=== PATIENT | male | born 1960 | race African-American/Black ===

== ENCOUNTER 2020-06-28 09:35 | Outpatient (CLI) | payer MEDICARE, MEDICAID, SELFPAY ==
--- NOTE | 2020-06-28 | XR_ITS ---
WS: [id number] RIGHT FEMUR: 1 VIEW(S) TECHNIQUE: Only an AP view has been submitted. HISTORY: LOWER EXTREMITY PAIN COMPARISON: None available. On this single view no definite fracture is identified. No soft tissue abnormality. Soft tissues are unremarkable. No foreign body or calcification. XR/XR femur RT 1V 25720 Impression: Negative AP femur.
--- NOTE | 2020-06-28 | XR_ITS ---
WS: [id number] RIGHT TIBIA-FIBULA 1 VIEWS HISTORY: LOWER EXT PAIN COMPARISON: None available. Only a single oblique view of the tib-fib has been submitted. Neither joint has been included. No abn ormality. XR/XR tibia fibula RT 2V [id number] IMPRESSION: No abnormality single radiograph RIGHT tibia-fibula.
--- NOTE | 2020-06-28 | XR_ITS ---
WS: [id number] PELVIS: AP VIEW SUBMITTED HISTORY: LOWER EXTREMITY PAIN RIGHT COMPARISON: None available. Bones and soft tissues of the pelvis are intact. No fracture or dislocation. XR/XR pelvis 1-2V* [id number] IMPRESSION: Negative pelvis.
== END 2020-06-28 09:36 | disposition home or self-care (01) ==
PROVIDERS: PCP Family Medicine; Visit Provider Nurse Practitioner
DX: M79.604 Pain in right leg (principal)

== ENCOUNTER → 2021-04-30 07:30 | Outpatient (BNVA) | payer MEDICARE, MEDICAID, SELFPAY | PROVIDERS: PCP Family Medicine; Visit Provider Psychiatry & Neurology Psychiatry | DX: F84.0 Autistic disorder (principal) | CPT/HCPCS: 99213 ==

== ENCOUNTER → 2021-10-22 09:59 | Outpatient (BNVA) | payer MEDICARE, MEDICAID, SELFPAY | PROVIDERS: PCP Family Medicine; Visit Provider Psychiatry & Neurology Psychiatry | DX: F84.0 Autistic disorder (principal); G25.89 Other specified extrapyramidal and movement disorders; T50.905A Adverse effect of unspecified drugs, medicaments and biological substances, initial encounter | CPT/HCPCS: 99214 ==

== ENCOUNTER 2022-03-10 12:42 | Emergency (ER) | payer MEDICARE, MEDICAID, SELFPAY ==
[2022-03-10 12:47] VITALS: BP 122/76; PULSE 50; RESP 18; TEMP 36.8; O2SAT 99; BMI 26.7
--- NOTE | 2022-03-10 12:47 | W.ED.GENADLT ---
HPI - General Adult General: Chief complaint: Seizure Stated complaint: SEIZURE Time Seen by Provider: 03/10/22 12:44 History of Present Illness: Patient is a 61-year-old male with a history of nonverbal at baseline seizures currently on valproic acid presenting to the emergency room for concerns of breakthrough seizure from a [facility]. For nursing staff, patient was observed to be altered briefly about an hour ago. Since then, patient rolled his eyes backwards and became limp. Was observed by staff lasting for 1 to 2 minutes before patient resumed and back to baseline. Staff has not seen this behavior for the patient. It is unclear with patient's prior seizure presentations are. Staff denied any fall or injury. Patient did not had any generalized tonic-clonic shaking or tongue biting or incontinence. No other complaints per staff at this time. Staff denies cough, fever, ear tugging, diarrhea, excessive urination, or abdominal pain. Patient has been compliant with his 100 mg of valproic acid twice daily. He is not currently followed by neurology. Onset: 1 hr ago Duration:once for 1-2 minutes Location:home Severity:[facility] Associated symptoms: Deny chest pain, dyspnea, nausea, rash, palpitations or vomiting Review of Systems Const: Denies: fever(s) or chills Eyes: Denies: change in vision ENMT: Denies: mouth pain Card: Denies: chest pain or palpitations Resp: Denies: dyspnea or non-productive cough GI: Denies: abdominal pain, nausea, vomiting or diarrhea : Denies: dysuria Musc: Denies: extremity pain Skin/Breast: Denies: rash or new lesions Neuro: Reports: other (+sudden eye rolling and limpness); Denies: weakness in extremities Psych: Reports: other (Normal mood) Victoriano/Lymph: Denies: easy bruising PFSH ED PFSH: Medical History (Updated 03/10/22 @ 12:54 by Silverio Levy MD) Autism Psychiatric care Social History (Updated 03/10/22 @ 12:57 by Silverio Levy MD) Smoking and tobacco status: never smoked Alcohol intake: never Physical Exam Const: COMMON NORMALS: alert HENMT: COMMON NORMALS: atraumatic HEAD & SCALP: atraumatic MOUTH: moist mucous membranes not abnormal Eye: COMMON NORMALS: EOMs intact bilaterally and conjunctivae normal CONJUNCTIVA: Yes conjunctivae normal Neck/C-Spine: COMMON NORMALS: full ROM and supple Resp: COMMON NORMALS: normal respiratory effort and clear to auscultation bilaterally AUSCULTATION: clear to auscultation bilaterally Cardio: COMMON NORMALS: regular rate RATE: regular rate GI: COMMON NORMALS: Soft to palpation and non-tender PALPATION: Yes Soft to palpation Extremity: COMMON NORMALS: full ROM Neuro: SENSORIUM/ORIENTATION: Yes alert OTHER: + Exam limited given the fact the patient is nonverbal. Patient is able to follow commands in the left all extremities, rest of neuro exam limited by baseline cognitive status. Psych: OTHER: +unable to assess given baseline cognitive status Course Vital Signs: Vital signs: Vital Signs Temperature 98.2 F 03/10/22 12:47 Pulse Rate 62 03/10/22 15:57 Respiratory Rate 16 03/10/22 15:57 Blood Pressure 133/76 03/10/22 15:57 Pulse Oximetry 97 03/10/22 15:57 MDM - General Adult Medical Decision Making 61-year-old male with history of autism, nonverbal at baseline, seizures on valproic acid 100 mg twice daily presenting to the emergency room concerns of breakthrough seizures. Patient episode of observed limpness with eye rolling about an hour ago. On exam, patient is back to baseline per transportation attendant. Exam is limited by cognitive status at baseline. Fingerstick and lab work within normal limit. Patient received 1 g of Keppra and [address] head negative for any acute finding. Given the limpness and eye rolling, this is concerning for possible breakthrough seizure in the setting of medication compliance. I have given patient follow up with our returned case inspector to be seen by our outpatient Neurology for evaluation of breakthrough seizures. Caregiver Maurice from [facility] aware of a call from our returned case inspector to schedule for appointment(s) and verbalizes understanding of the importance of following up. Valproic acid appears to be above therapeutic level. This may be the cause of patient's seizure. Discussed case with Maurice and instructed him to have patient follow-up with patient's neurologist for further management of of supratherapeutic valproic acid level. In the meantime, will start patient on Keppra 500 mg twice daily to prevent seizure while the valproic acid level gets adjusted. Rx keppra 500mg BID x 14 days Disposition: Discharge. Caregiver Maurice counseled regarding diagnostic impression, treatment plan. Caregiver given ED strict return precautions to return for continuation, worsening, or development of new symptoms. Instructed to f/u w/ PCP and Neurology regarding symptoms today. Caregiver verbalized understanding. Lab Data : 03/10/22 13:49 03/10/22 13:[address] 03/10/22 12:55 IMPRESSION: 1. No acute intracranial hemorrhage or edema. 2. Mild atrophy and chronic ischemic disease. Study is compromised and limited by persistent motion. Laboratory Results WBC 3.8 10^3/uL (4.0-10.0) L 03/10/22 13:49 RBC 3.69 10^6/uL (4.1-5.3) L 03/10/22 13:49 Hgb 11.5 g/dL (11.7-16.6) L 03/10/22 13:49 Hct 35.4 % (42.0-52.0) L 03/10/22 13:49 MCV 95.9 fl (80-94) H 03/10/22 13:49 MCH 31.2 pg (28.0-34.0) 03/10/22 13:49 MCHC 32.5 g/dL (30.0-36.0) 03/10/22 13:49 RDW 17.2 % (12.1-15.1) H 03/10/22 13:49 Plt Count 163 10^3/cmm (130-400) 03/10/22 13:49 MPV 11.4 fL (7.4-10.4) H 03/10/22 13:49 Neut % (Auto) 38.6 % 03/10/22 13:49 Lymph % (Auto) 42.0 % 03/10/22 13:49 [place] % (Auto) 14.7 % 03/10/22 13:49 Eos % (Auto) 0.5 % 03/10/22 13:49 Baso % (Auto) 0.5 % 03/10/22 13:49 Neut # (Auto) 1.47 10^3/uL (1.8-7.7) L 03/10/22 13:49 Lymph # (Auto) 1.6 10^3/uL (0.8-4.8) 03/10/22 13:49 [place] # (Auto) 0.6 10^3/uL (0.2-0.9) 03/10/22 13:49 Eos # (Auto) 0.0 10^3/uL (0.0-0.8) 03/10/22 13:49 Baso # (Auto) 0.0 10^3/uL (0.0-0.1) 03/10/22 13:49 Nucleated RBC % (auto) 0.8 % 03/10/22 13:49 Nucleated RBCs # 0.0 /100WBC 03/10/22 13:49 Sodium 137 mmol/L (136-145) 03/10/22 13:49 Potassium 5.4 mmol/L (3.5-5.1) H 03/10/22 13:49 Chloride 101 mmol/L (98-107) 03/10/22 13:49 Carbon Dioxide 30 mmol/L (22-29) H 03/10/22 13:49 Anion Gap 11.4 (5-19) 03/10/22 13:49 BUN 13 mg/dL (6-20) 03/10/22 13:49 Creatinine 1.2 mg/dL (0.7-1.2) 03/10/22 13:49 GFR Calculation 75.0 mL/min (90-130) L 03/10/22 13:49 Glucose 83 mg/dL (65-115) 03/10/22 13:49 Calculated Osmolality 283 mOsm/kg (285-295) L 03/10/22 13:49 Calcium 10.0 mg/dL (8.5-10.5) 03/10/22 13:49 Total Bilirubin 0.3 mg/dL (0.15-1.2) 03/10/22 13:49 AST 26 U/L (0-40) 03/10/22 13:49 ALT 18 U/L (0-41) 03/10/22 13:49 Alkaline Phosphatase 73 IU/L (40-130) 03/10/22 13:49 Total Protein 7.5 g/dL (6.6-8.7) 03/10/22 13:49 Albumin 3.7 g/dL (3.5-5.2) 03/10/22 13:49 Globulin 3.8 g/dL (1.3-4.6) 03/10/22 13:49 Lipase 35 U/L (13-60) 03/10/22 13:49 Urine Color Straw (Yellow) 03/10/22 15:06 Urine Appearance Clear (CLEAR) 03/10/22 15:06 Urine pH 8 (5-7) H 03/10/22 15:06 Ur Specific [place] 1.010 (1.005-1.030) 03/10/22 15:06 Urine Protein Neg (Negative) 03/10/22 15:06 Urine Glucose (UA) Norm (Normal) 03/10/22 15:06 Urine Ketones Negative (Negative) 03/10/22 15:06 Urine Blood Neg (Negative) 03/10/22 15:06 Urine Nitrate Negative (Negative) 03/10/22 15:06 Urine Bilirubin Neg (Negative) 03/10/22 15:06 Prot Sulfosalicylic Acd Negative (Negative) 03/10/22 15:06 Urine Urobilinogen Norm mg/dL (Negative) 03/10/22 15:06 Ur Leukocyte Esterase Negative (Negative) 03/10/22 15:06 Valproic Acid 107.2 ug/mL (50-100) H 03/10/22 13:49 Imaging Data Other Imaging: Radiologist's impression: [place] [address] CT Scan Report Signed Patient: Salazar Hilario Unit #: [id number] : 1960 Age/Sex: 61 / M ADM Date: 03/10/22 Loc: ER Room/Bed: Attending Dr: Ordering Provider/Ordering MD: Silverio Levy MD Date of Service: 03/10/22 Procedure(s): CT head wo con* [id number] Accession Number(s): [id number] Report Number: [id number] WS: [id number] CT HEAD NONCONTRAST HISTORY: seizure? ams? TECHNIQUE: Contiguous axial imaging performed through the brain in 2.5 mm imaging. Bone and soft tissue windows. Sagittal and coronal reformats reviewed.? All CT scans at [facility] use at least one of these dose optimization techniques: automated exposure control; mA and/or kV adjustment per patient size (includes targeted exams where dose is matched to clinical indication); or iterative reconstruction. DLP: 2383.16 mGy.cm COMPARISON: 09/11/2019 No acute intracranial hemorrhage, midline shift or mass effect. Mild atrophy and chronic ischemic disease. Taking into consideration the amount of motion and repeat imaging there is no evidence for significant hemorrhage. No mass effect. No intraventricular blood. Ventricles:? Normal size with no hydrocephalus. Paranasal sinuses: As visualized are clear. Mastoid air cells: Increased soft tissue in the external auditory canals is likely cerumen. Mild progression since the prior study. Calvarium and scalp: Hyperostosis frontalis interna. Motion artifact. CT/CT head wo con* [id number] IMPRESSION: ? 1.? No acute intracranial hemorrhage or edema. 2.? Mild atrophy and chronic ischemic disease. Study is compromised and limited by persistent motion. ? Dictated By: Adina Moreno DO Signed By: Adina Moreno DO Signed Date/Time: 03/10/221327 DD/ 21 Discharge Plan Discharge Patient Disposition: Home Clinical Impression: Seizure, Behavioral change Condition: Stable Prescriptions: New Keppra 500 mg tablet 500 mg PO BID 14 Days Qty: 28 0RF No Action lorazepam [Ativan] 2 mg tablet 2 mg PO Q8H PRN (Reason: agitation) Qty: 90 5RF Lipitor 40 mg Tablet 40 mg PO BEDTIME@20 0RF Tylenol 325 mg Tablet 325 mg PO Q6H PRN (Reason: Pain) 0RF loperamide 2 mg Tablet See Rx Instructions .ROUTE .COMPLEX 0RF Rx Instructions: 4mg po with each loose stool *max 8 tabs per day* triamcinolone acetonide 0.1 % Cream 1 applic TOPICAL BID PRN (Reason: fungal infection) 0RF calcium carbonate 600 mg calcium (1,500 mg) Tablet 600 mg PO BEDTIME@20 0RF Pepcid 20 mg Tablet 20 mg PO BEDTIME@20 0RF meclizine 25 mg Tablet 25 mg PO DAILY PRN (Reason: Motion Sickness) 0RF nystatin 100,000 unit/gram Cream See Rx Instructions .ROUTE .COMPLEX 0RF Rx Instructions: apply topically to areas on toes and feet as needed metoprolol tartrate 50 mg Tablet 50 mg PO DAILY@08 0RF Colace 100 mg Capsule 100 mg PO DAILY@08 0RF Lasix 20 mg Tablet 10 mg PO DAILY@08 0RF Miralax 17 gram/dose Powder 17 g PO DAILY@12 0RF levothyroxine 112 mcg Tablet 112 mcg PO DAILY@08 0RF chlorpromazine 100 mg tablet 100 mg PO TID@08,16,20 0RF Ritalin 20 mg tablet 20 mg PO TID@08,12,20 0RF Klonopin 2 mg tablet 2 mg PO DAILY@20 0RF benztropine 1 mg tablet 1 mg PO BID@08,20 0RF Depakote Sprinkles 125 mg capsule, delayed rel sprinkle 1,000 mg PO BID@08,21 0RF Discharge Orders: Discharge ED (Routine); Ordered 03/10/22 Ordered By: Silverio Levy Referrals: [facility], [Staff Physician] - Brittany Bahena MD [Primary Care Provider] - Discharge Diet: Advance as tolerated Discharge Activity: Increase activity as tolerated Patient Instructions: Seizures Activity Restrictions/Additional Instructions: Please come back to the emergency room for any more breakthrough episodes of seizure. Come back if any weakness in her arms, drooling, difficulty speaking, any neurological symptoms. Please do not swim bathe or drive a vehicle unattended. Our returned case inspector will have you follow-up with Dr. Falcon in the next few days. You would be expected to have a phone call with our returned case inspector who will put you on the schedule. You can expect a call from us in the next 2-3 days. If you don't hear from us, call us back in the emergency room at [phone]. Coding Level of Care Code ED [employer] Pit Worker for Nicholas Fwjethro Exam Comprehensive
--- NOTE | 2022-03-10 12:55 | CT_ITS ---
WS: [id number] CT HEAD NONCONTRAST HISTORY: seizure? ams? TECHNIQUE: Contiguous axial imaging performed through the brain in 2.5 mm imaging. Bone and soft tiss ue windows. Sagittal and coronal reformats reviewed. All CT scans at [facility] use at least one of these dose optimization techniques: automated exposure control; mA and/or kV adjustment per pa tient size (includes targeted exams where dose is matched to clinical indication); or iterative recon struction. DLP: 2383.16 mGy.cm COMPARISON: 09/11/2019 No acute intracranial hemorrhage, midline shift or mass effect. Mild atrophy and chronic ischemic disease. Taking into consideration the amount of motion and repeat imaging there is no evidence for significant hemorrhage. No mass effect. No intraventricular blood. Ventricles: Normal size with no hydrocephalus. Paranasal sinuses: As visualized are clear. Mastoid air cells: Increased soft tissue in the external auditory canals is likely cerumen. Mild progression since the p rior study. Calvarium and scalp: Hyperostosis frontalis interna. Motion artifact. CT/CT head wo con* [id number] IMPRESSION: 1. No acute intracranial hemorrhage or edema. 2. Mild atrophy and chronic ischemic disease. Study is compromised and limited by persistent motion.
[2022-03-10 13:38] VITALS: BP 118/77; PULSE 52; RESP 14; O2SAT 99
[2022-03-10] MEDS: sodium chloride 0.9% 1,000 ML 999 ML IV (13:42)
[2022-03-10 14:04] LABS: Basophils % 0.5 %; Eosinophils % 0.5 %; Hematocrit 35.4 % (42.0-52.0); Hemoglobin 11.5 g/dL (11.7-16.6); Lymphocytes # 1.6 10^3/uL (0.8-4.8); Mean Corpuscular HGB Conc 32.5 g/dL (30.0-36.0); Mean Corpuscular Hemoglobin 31.2 pg (28.0-34.0); Mean Corpuscular Volume 95.9 fl (80-94); Mean Platelet Volume 11.4 fL (7.4-10.4); Monocytes # 0.6 10^3/uL (0.2-0.9); Monocytes % 14.7 %; Neutrophils # 1.47 10^3/uL (1.8-7.7); Neutrophils % 38.6 %; Nucleated Red Blood Cells % 0.8 %; Platelet Count 163 10^3/cmm (130-400); Red Blood Count 3.69 10^6/uL (4.1-5.3); Red Cell Distribution Width 17.2 % (12.1-15.1); White Blood Count 3.8 10^3/uL (4.0-10.0)
[2022-03-10 14:37] LABS: Valproic Acid Level 107.2 ug/mL (50-100)
[2022-03-10 14:38] LABS: Alanine Aminotransferase 18 U/L (0-41); Albumin Level 3.7 g/dL (3.5-5.2); Alkaline Phosphatase 73 IU/L (40-130); Blood Urea Nitrogen 13 mg/dL (6-20); Carbon Dioxide 30 mmol/L (22-29); Chloride 101 mmol/L (98-107); Globulin 3.8 g/dL (1.3-4.6); Glucose 83 mg/dL (65-115); Lipase 35 U/L (13-60); Osmolality Calculated 283 mOsm/kg (285-295); Sodium 137 mmol/L (136-145); Total Bilirubin 0.3 mg/dL (0.15-1.2); Total Protein 7.5 g/dL (6.6-8.7)
[2022-03-10 15:06] VITALS: BP 140/55; PULSE 49; RESP 16; O2SAT 98
[2022-03-10 15:10] LABS: Anion Gap 11.4 (5-19); Aspartate Amino Transferase 26 U/L (0-40); Potassium 5.4 mmol/L (3.5-5.1)
[2022-03-10 15:13] LABS: Add Urine Microscopic? NO; Charge for UA Resulting for Rev
[2022-03-10 15:22] LABS: Urine Appearance Clear (CLEAR); Urine Color Straw (Yellow); pH Urine 8 (5-7)
[2022-03-10 15:23] LABS: Bilirubin Urine Neg (Negative); Blood Urine Neg (Negative); Glucose Urine UA Norm (Normal); Ketones Urine Negative (Negative); Leukocyte Esterase Urine Negative (Negative); Nitrate Urine Negative (Negative); Protein Urine Neg (Negative); Sulfosalicylic Acid Urine Negative (Negative); Urobilinogen Urine Norm (Negative)
[2022-03-10 15:57] VITALS: BP 133/76; PULSE 62; RESP 16; O2SAT 97
--- NOTE | 2022-03-11 15:30 | DCPLANNER ---
Addendum entered by Elaine Cody 03/25/22 22:18: Patient had a follow up appointment scheduled for 03.19.22 with neurology - patient did attend appointment. Addendum entered by Elaine Cody 03/19/22 08:41: Patient has a follow up appointment with Jose Luis Rossi at neurology. Clinic will call patient with appointment information. Original Note: chiropractic practice manager had message to schedule a follow up appointment for patient with neurology. chiropractic practice manager sent patients information to the front staff at neurology for review. Patients information will be printed and reviewed. Clinic will call patient with appointment information.
== END 2022-03-10 15:59 | disposition home or self-care (01) ==
PROVIDERS: Emergency Provider Emergency Medicine; PCP Family Medicine
DX: R56.9 Unspecified convulsions (principal); F84.0 Autistic disorder; Z79.899 Other long term (current) drug therapy
CPT/HCPCS: 70450; 80053; 80164; 81003; 83690; 85025; 96361; 96374; 99284; J1953; J7030

== ENCOUNTER → 2022-03-19 11:06 | Outpatient (BNVA) | payer MEDICARE, MEDICAID, SELFPAY | PROVIDERS: PCP Family Medicine; Visit Provider Nurse Practitioner | DX: G40.909 Epilepsy, unspecified, not intractable, without status epilepticus (principal) | CPT/HCPCS: 99203; 99204 ==

== ENCOUNTER → 2022-04-15 09:53 | Outpatient (BNVA) | payer MEDICARE, MEDICAID, SELFPAY | PROVIDERS: PCP Family Medicine; Visit Provider Psychiatry & Neurology Psychiatry | DX: F84.0 Autistic disorder (principal); G25.89 Other specified extrapyramidal and movement disorders; T50.905A Adverse effect of unspecified drugs, medicaments and biological substances, initial encounter; G40.909 Epilepsy, unspecified, not intractable, without status epilepticus | CPT/HCPCS: 99213 ==

== ENCOUNTER 2022-08-11 10:24 | Inpatient (IN) | payer MEDICARE, MEDICAID, SELFPAY ==
[2022-08-11] VITALS (14 sets, daily range): BP systolic 118–148; BP diastolic 66–92; PULSE 43–49; RESP 9–18; TEMP 35.8–36.7; O2SAT 97–98; BMI 24.4
--- NOTE | 2022-08-11 10:41 | ECG_ITS ---
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 Measurements Intervals [place] Rate: 43 P: 60 ND: 154 QRS: 39 QRSD: 106 T: 28 QT: 514 QTc: 438 Interpretive Statements SINUS BRADYCARDIA NONSPECIFIC ST & T-WAVE ABNORMALITY PROLONGED QT INTERVAL Compared to ECG 07/16/2019 21:47:42 T-wave abnormality now present Prolonged QT interval now present Sinus tachycardia no longer present Short ND interval no longer present ST (T wave) deviation no longer present Electronically Signed On 08-11-2022 18:09:26 CDT by Han Lazaro M.D. [email or web address]
--- NOTE | 2022-08-11 10:43 | W.ED.ARRPALP ---
HPI - Arrhythmia/Palpitations General: Chief Complaint: Arrhythmia/Palpitations Stated Complaint: LETHARGIC/ LOW HEART RATE Time Seen by Provider: 08/11/22 10:41 Source: EMS Mode of arrival: EMS Limitations: no limitations History of Present Illness: 62-year-old male presents emergency room with altered mental status lethargy and bradycardia. Patient has severe developmental disability and is nonverbal. Evidently last several days he has been less interactive normally he is able to interact and ambulate he does require a fair amount of redirection. He is significantly bradycardic at 46 however his blood pressure is adequate. EMS gave 2 mg of atropine in route as well as 800 mL of LR. His blood pressure is adequate but he remains bradycardic. He appears to be otherwise relatively asymptomatic caregiver provides a little history. Report from the caregivers that for last 2 days he has been lethargic with decreased urinary output and less interactive and responsive than his normal baseline there is no other known fever he has not been coughing no vomiting or diarrhea. Onset (ago): day(s) (2) Duration: constant Severity: severe Associated symptoms: Deny cough, paresthesias or vomiting Review of Systems General: Reports: Other (Limited review of systems via EMS and staff due to patient's nonverbal stat) Const: Denies: fever(s), chills, fatigue or malaise ENMT: Denies: nasal discharge or nasal congestion Card: Denies: chest pain or edema Resp: Denies: dyspnea or productive cough GI: Denies: abdominal pain, vomiting or diarrhea Skin/Breast: Denies: rash [facility] ED PFSH: Medical History (Updated 08/11/22 @ 16:23 by Ryder Reed DO) Anemia Autism Developmental disorder Epilepsy Extrapyramidal movement disorder, drug-induced Hyperlipidemia Hypertension Hypothyroidism Neutropenia Follow-up with Dr. Reyes last seen in 2016. Suspicion of myelodysplasia at that time. Psychiatric care Social History Smoking and tobacco status: never smoked Alcohol intake: never Physical Exam Const: ORIENTATION/CONSCIOUSNESS: Yes awake HENMT: COMMON NORMALS: normocephalic, atraumatic and hearing grossly normal bilaterally HEAD & SCALP: normocephalic and atraumatic Resp: COMMON NORMALS: normal respiratory effort, No retractions, No use of accessory muscles and clear to auscultation bilaterally AUSCULTATION: clear to auscultation bilaterally Cardio: COMMON NORMALS: regular rate, regular rhythm and No murmurs present (Cardio) RATE: regular rate RHYTHM: regular rhythm GI: COMMON NORMALS: Soft to palpation and No hepatosplenomegaly present AUSCULTATION: Yes normoactive bowel sounds PALPATION: Yes Soft to palpation, No Tenderness to palpation present (GI), No Guarding due to palpation present (GI) and Yes No hepatosplenomegaly present Extremity: COMMON NORMALS: normal to inspection, capillary refill normal, no clubbing, cyanosis or edema, no calf tenderness and no pedal edema Skin: COMMON NORMALS: no rashes or lesions noted GENERAL SKIN EXAM: no rashes or lesions noted Course Vital Signs: Vital signs: Vital Signs Temperature 96.4 F L 08/11/22 10:28 Pulse Rate 43 L 08/11/22 11:09 Respiratory Rate 12 08/11/22 11:09 Blood Pressure 139/85 08/11/22 11:09 Pulse Oximetry 98 08/11/22 10:28 Oxygen Delivery Me thod 08/11/22 10:28 MDM - Arrhythmia/Palpitations Medical Decision Making Patient is severely bradycardic but is on Toprol his altered mental status. Work-up so far negative he does have pancytopenia has been worked up previously by oncology to 32-year-old for myelodysplasia. Bone marrow was not diagnostic. Will admit supportive cares hold Toprol discussed with hospitalist orders written Medical Records I reviewed the patient's medical records. Lab Data I reviewed the patient's lab results. : 08/11/22 09:30 08/11/22 09:30 Radiology Impressions Chest X-Ray 08/11/22 11:48 IMPRESSION: Stable chest without acute abnormality. Head CT 08/11/22 14:48 IMPRESSION: 1. No acute intracranial hemorrhage or edema. 2. Atrophy and small vessel ischemic disease. No interval change since 03/10/2022. Laboratory Results WBC 2.4 10^3/uL (4.0-10.0) L 08/11/22 09:30 RBC 3.40 10^6/uL (4.1-5.3) L 08/11/22 09:30 Hgb 10.9 g/dL (11.7-16.6) L 08/11/22 09:30 Hct 34.3 % (42.0-52.0) L 08/11/22 09:30 MCV 100.9 fl (80-94) H 08/11/22 09:30 MCH 32.1 pg (28.0-34.0) 08/11/22 09:30 MCHC 31.8 g/dL (30.0-36.0) 08/11/22 09:30 RDW 16.8 % (12.1-15.1) H 08/11/22 09:30 Plt Count 88 10^3/cmm (130-400) L 08/11/22 09:30 MPV 12.5 fL (7.4-10.4) H 08/11/22 09:30 Neut % (Auto) 41.0 % 08/11/22 09:30 Lymph % (Auto) 43.0 % 08/11/22 09:30 [place] % (Auto) 14.3 % 08/11/22 09:30 Eos % (Auto) 1.3 % 08/11/22 09:30 Baso % (Auto) 0.0 % 08/11/22 09:30 Neut # (Auto) 0.97 10^3/uL (1.8-7.7) L* 08/11/22 09:30 Lymph # (Auto) 1.0 10^3/uL (0.8-4.8) 08/11/22 09:30 [place] # (Auto) 0.3 10^3/uL (0.2-0.9) 08/11/22 09:30 Eos # (Auto) 0.0 10^3/uL (0.0-0.8) 08/11/22 09:30 Baso # (Auto) 0.0 10^3/uL (0.0-0.1) 08/11/22:30 Nucleated RBC % (auto) 0 % 08/11/22: Nucleated RBCs # 0.0 /100WBC 08/11/22 09:30 Sodium 144 mmol/L (136-145) 08/11/22 09:30 Potassium 4.8 mmol/L (3.5-5.1) 08/11/22 09:30 Chloride 103 mmol/L (98-107) 08/11/22 09:30 Carbon Dioxide 35 mmol/L (22-29) H 08/11/22 09:30 Anion Gap 10.8 (5-19) 08/11/22 09:30 BUN 14 mg/dL (8-23) 08/11/22 09:30 Creatinine 0.9 mg/dL (0.7-1.2) 08/11/22 09:30 GFR Calculation 104.2 mL/min (90-130) 08/11/22 09:30 Glucose 94 mg/dL (65-115) 08/11/22 09:30 Calculated Osmolality 298 mOsm/kg (285-295) H 08/11/22 09:30 Lactic Acid 1.5 mmol/L (0.5-2.2) 08/11/22 10:53 Calcium 9.9 mg/dL (8.5-10.5) 08/11/22 09:30 Total Bilirubin 0.3 mg/dL (0.15-1.2) 08/11/22 09:30 AST 20 U/L (0-40) 08/11/22 09:30 ALT 12 U/L (0-41) 08/11/22 09:30 Alkaline Phosphatase 84 U/L (40-130) 08/11/22 09:30 Creatine Kinase 148 U/L (39-308) 08/11/22 09:30 Troponin T Baseline 19 ng/L (0-15) H 08/11/22 09:30 Troponin T 120 Minute 17.63 ng/L (0-15) H 08/11/22 11:28 Delta Troponin T -1.37 ABS# (0-10) L 08/11/22 11:28 Total Protein 7.7 g/dL (6.6-8.7) 08/11/22 09:30 Albumin 3.1 g/dL (3.5-5.2) L 08/11/22 09:30 Globulin 4.6 g/dL (1.3-4.6) 08/11/22 09:30 TSH 2.45 uIU/mL (0.27-4.20) 08/11/22 09:30 Urine Color Straw (Yellow) 08/11/22 11:21 Urine Appearance Clear (CLEAR) 08/11/22 11:21 Urine pH 7 (5-7) 08/11/22 11:21 Ur Specific [place] 1.010 (1.005-1.030) 08/11/22 11:21 Urine Protein Neg (Negative) 08/11/22 11:21 Urine Glucose (UA) Norm (Normal) 08/11/22 11:21 Urine Ketones Negative (Negative) 08/11/22 11:21 Urine Blood Neg (Negative) 08/11/22 11:21 Urine Nitrate Negative (Negative) 08/11/22 11:21 Urine Bilirubin Neg (Negative) 08/11/22 11:21 Urine Urobilinogen Norm mg/dL (Negative) 08/11/22 11:21 Ur Leukocyte Esterase Negative (Negative) 08/11/22 11:21 Valproic Acid 4.7 ug/mL (50-100) L 08/11/22 09:30 Discharge Plan Discharge Patient Disposition: Placed in Observation Admit Provider: Yomi Gu Clinical Impression: Bradycardia, Autism, Anemia, Pancytopenia Condition: Stable Coding Level of Care Code ED Footwear Sales Representative for Chg Fwd Exam Detailed
[2022-08-11 10:58] LABS: Eosinophils % 1.3 %; Hematocrit 34.3 % (42.0-52.0); Hemoglobin 10.9 g/dL (11.7-16.6); Mean Corpuscular HGB Conc 31.8 g/dL (30.0-36.0); Mean Corpuscular Hemoglobin 32.1 pg (28.0-34.0); Mean Corpuscular Volume 100.9 fl (80-94); Mean Platelet Volume 12.5 fL (7.4-10.4); Monocytes # 0.3 10^3/uL (0.2-0.9); Monocytes % 14.3 %; Nucleated Red Blood Cells % 0 %; Platelet Count 88 10^3/cmm (130-400); Red Cell Distribution Width 16.8 % (12.1-15.1); White Blood Count 2.4 10^3/uL (4.0-10.0)
[2022-08-11 11:05] LABS: Neutrophils # 0.97 10^3/uL (1.8-7.7)
[2022-08-11 11:26] LABS: Add Urine Microscopic? NO; Charge for UA Resulting for Rev
[2022-08-11 11:33] LABS: Bilirubin Urine Neg (Negative); Blood Urine Neg (Negative); Glucose Urine UA Norm (Normal); Ketones Urine Negative (Negative); Leukocyte Esterase Urine Negative (Negative); Nitrate Urine Negative (Negative); Protein Urine Neg (Negative); Urine Appearance Clear (CLEAR); Urine Color Straw (Yellow); Urobilinogen Urine Norm (Negative); pH Urine 7 (5-7)
[2022-08-11 11:34] LABS: Alanine Aminotransferase 12 U/L (0-41); Albumin Level 3.1 g/dL (3.5-5.2); Alkaline Phosphatase 84 U/L (40-130); Anion Gap 10.8 (5-19); Aspartate Amino Transferase 20 U/L (0-40); Blood Urea Nitrogen 14 mg/dL (8-23); Calcium 9.9 mg/dL (8.5-10.5); Carbon Dioxide 35 mmol/L (22-29); Chloride 103 mmol/L (98-107); Creatine Phosphokinase 148 U/L (39-308); Globulin 4.6 g/dL (1.3-4.6); Glomerular Filtration Rate 104.2 mL/min (90-130); Glucose 94 mg/dL (65-115); Osmolality Calculated 298 mOsm/kg (285-295); Potassium 4.8 mmol/L (3.5-5.1); Sodium 144 mmol/L (136-145); Thyroid Stimulating Hormone 2.45 uIU/mL (0.27-4.20); Total Bilirubin 0.3 mg/dL (0.15-1.2); Total Protein 7.7 g/dL (6.6-8.7)
[2022-08-11 11:45] LABS: Lactic Sepsis W/Reflex 1.5 mmol/L (0.5-2.2)
--- NOTE | 2022-08-11 11:48 | XR_ITS ---
WS: [id number] XR chest 1V portable [id number] REASON FOR EXAM: dyspnea/cough FINDINGS: The chest is unchanged compared to previous examination of 06/17/2022. There is moderate tortuosity and ectasia of the thoracic aorta. Heart size within normal limits. Elevation of the right hemidiaphragm. There are interstitial opacities in both lower lung tineo which appear to be chronic. No definite ac sabiha pulmonary parenchymal or pleural abnormality is identified. Degenerative changes in the right shoulder joint and thoracic spine. Right rib changes secondary to previous trauma or previous thoracotomy. XR/XR chest 1V portable [id number] IMPRESSION: Stable chest without acute abnormality.
[2022-08-11 11:54] LABS: Troponin(5th) Baseline 19 ng/L (0-15)
[2022-08-11 11:56] LABS: Troponin 5 2HR 17.63 ng/L (0-15); Troponin 5 2HR Delta -1.37 ABS# (0-10)
--- NOTE | 2022-08-11 12:07 | PC.NURSE ---
soft restraints were placed due to pt trying to pull his folley out, pts caregiver says he pulls it out everytime he gets one.
--- NOTE | 2022-08-11 12:55 | ECG_ITS ---
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 Measurements Intervals [place] Rate: 42 P: 61 CO: 138 QRS: 49 QRSD: 119 T: 41 QT: 526 QTc: 441 Interpretive Statements SINUS BRADYCARDIA MODERATE INTRAVENTRICULAR CONDUCTION DELAY [110+ ms QRS DURATION] MINIMAL ST DEPRESSION [0.025+ mV ST DEPRESSION] PROLONGED QT INTERVAL Compared to ECG 08/11/2022 10:31:55 Intraventricular conduction delay now present ST (T wave) deviation now present T-wave abnormality no longer present Electronically Signed On 08-11-2022 18:12:52 CDT by Han Lazaro M.D. [email or web address].[employer]/store/OM/[id number]
--- NOTE | 2022-08-11 13:40 | PC.PHAR ---
pt is from sruthi bonilla-medications entered are from the pts mar
--- NOTE | 2022-08-11 14:48 | CT_ITS ---
WS: [id number] CT HEAD NONCONTRAST HISTORY: ams TECHNIQUE: Contiguous axial imaging performed through the brain in 2.5 mm imaging. Bone and soft tiss ue windows. Sagittal and coronal reformats reviewed. All CT scans at [facility] use at least one of these dose optimization techniques: automated exposure control; mA and/or kV adjustment per pa tient size (includes targeted exams where dose is matched to clinical indication); or iterative recon struction. DLP: 1192.98 mGy.cm COMPARISON: 03/10/2022 No acute intracranial hemorrhage, midline shift or mass effect. Mild atrophy and small vessel ischemic disease. Slightly greater atrophy involving the occipital lobe s. Similar to the prior study. Ventricles: Normal size with no hydrocephalus. No inferior displacement of the cerebellar tonsils. Paranasal sinuses: Mild ethmoid air cell disease. Cerumen in the external auditory canals. Mastoid air cells: Well pneumatized. Calvarium and scalp: Skull is intact with no soft tissue edema or swelling. CT/CT head wo con* [id number] IMPRESSION: 1. No acute intracranial hemorrhage or edema. 2. Atrophy and small vessel ischemic disease. No interval change since 03/10/20 22.
[2022-08-11 15:18] LABS: Valproic Acid Level 4.7 ug/mL (50-100)
--- NOTE | 2022-08-11 15:24 | PM.HP ---
Providers/Chief Complaint Primary Care Provider: Brittany Bahena MD Chief Complaint: LETHARGIC/ LOW HEART RATE History of Present Illness Salazar Hilario is a 62 year old male with past medical history of autism/developmental disorder, epilepsy with no documented seizures for last 10years other than 4 to 6 months ago, hyperlipidemia, hypertension, hypothyroidism with state appointed guardian. He was brought in today by the caregivers because of worsening lethargy and weakness over the last 1 week. As per the caregiver whenever he has similar complaints it seems that he is developing an infection so they brought him to the ER. Patient at baseline is nonverbal. Caregiver denies any changes in his appetite or diarrhea or fever at home. As per the caregiver only new medication is Keppra which is started around 6 months ago because of 2 episodes of him being found collapsed. On the way to the ER via EMS he was found to have bradycardia for which he required 2 mg of atropine along with 800 cc of IV fluids. Lowest documented heart rate is in low 40s. Patient remained hemodynamically stable otherwise. Examination patient lying comfortably in bed with Campo in place with blood pressure of 149/80 with heart rate running of 40s saturating well on room air. Review of Systems General: Reports: ROS unobtainable due to medical condition Medications/Allergies Home Medications Medication Instructions Recorded Confirmed Last Taken Type acetaminophen 325 mg tablet 325 mg PO Q6H PRN Pain 03/10/22 08/11/22 Unknown History (Tylenol) atorvastatin 40 mg tablet (Lipitor) 40 mg PO BEDTIME@03/10/22 08/11/22 08/10/22 History benztropine 1 mg tablet 1 mg PO BID@03/10/22 08/11/22 08/11/22 History calcium carbonate 600 mg calcium 600 mg PO BEDTIME@03/10/22 08/11/22 08/10/22 History (1,500 mg) tablet chlorpromazine 100 mg tablet 100 mg PO TID@,,03/10/22 08/11/22 08/11/22 History docusate sodium 100 mg capsule 100 mg PO DAILY@03/10/22 08/11/22 08/11/22 History (Colace) famotidine 20 mg tablet (Pepcid) 20 mg PO BEDTIME@03/10/22 08/11/22 08/10/22 History furosemide 20 mg tablet (Lasix) 10 mg PO DAILY@03/10/22 08/11/22 08/11/22 History levothyroxine 112 mcg tablet 112 mcg PO DAILY@03/10/22 08/11/22 08/11/22 History loperamide 2 mg tablet See Rx Instructions .Route .COMPLEX 03/10/22 08/11/22 Unknown History meclizine 25 mg tablet 25 mg PO DAILY PRN Motion Sickness 03/10/22 08/11/22 Unknown History metoprolol tartrate 50 mg tablet 50 mg PO DAILY@03/10/22 08/11/22 08/11/22 History nystatin 100,000 unit/gram topical See Rx Instructions .Route .COMPLEX 03/10/22 08/11/22 Unknown History cream polyethylene glycol 3350 17 17 g PO DAILY@03/10/22 08/11/22 08/10/22 History gram/dose oral powder (Miralax) triamcinolone acetonide 0.1 % 1 applic topical BID PRN fungal 03/10/22 08/11/22 Unknown History topical cream infection lorazepam 2 mg tablet (Ativan) 2 mg PO Q8H PRN agitation #90 tabs 04/15/22 08/11/22 Unknown Rx clonazepam 2 mg tablet (Klonopin) 2 mg PO DAILY@20 #30 tabs 05/02/22 08/11/22 08/10/22 Rx methylphenidate HCl 20 mg tablet 20 mg PO TID 30 days #90 tabs 07/09/22 08/11/22 Unknown Rx (Ritalin) methylphenidate HCl 20 mg tablet 20 mg PO TID 30 days #90 tabs 07/09/22 08/11/22 Unknown Rx (Ritalin) divalproex 125 mg capsule,delayed 1,000 mg PO BID@,08/11/22 08/11/22 08/11/22 History release sprinkle (Depakote Sprinkles) levetiracetam 500 mg tablet 500 mg PO BID@, seizure 08/11/22 08/11/22 08/11/22 History (Keppra) methylphenidate HCl 20 mg tablet 20 mg PO TID@08,,08/11/22 08/11/22 08/11/22 08:00 History (Ritalin) Allergies Allergy/AdvReac Type Severity Reaction Status Date / Time No Known Allergies Allergy Verified 03/10/22 13:19 PFSH Acute PFSH: Medical History (Updated 08/11/22 @ 15:31 by Yomi Gu MD) Anemia Autism Developmental disorder Epilepsy Extrapyramidal movement disorder, drug-induced Hyperlipidemia Hypertension Hypothyroidism Neutropenia Follow-up with Dr. Reyes last seen in 2016. Suspicion of myelodysplasia at that time. Psychiatric care Social History Smoking and tobacco status: never smoked Alcohol intake: never Vitals/I&O/Wt Last Vital Signs Temp 96.4 F L 08/11/22 10:28 Pulse 43 L 08/11/22 11:09 Resp 12 08/11/22 11:09 BP 139/85 08/11/22 11:09 Pulse Ox 98 08/11/22 10:28 O2 Del Method 08/11/22 10:28 Weight last 48 hrs Weight 70.76 kg Physical Exam Narrative: General: No acute distress, nonverbal, following in the room with eyes, not following commands HEENT: PERRLA, pupils bilaterally equal and reactive Chest: Normal vesicular breath sounds, no added sounds, equal good air entry bilaterally CVS: S1-S2 regular, no murmurs, no tachycardia, no gallops, no rubs Abdomen: Soft, nontender, no organomegaly, bowel sounds present Neuro: No focal deficits, no facial deformity, moving all his limbs Urinary Catheter Management: Campo: Cath Placed During This Visit: yes Urinary Catheter Date of Insertion: 08/11/22 Urinary Catheter Time of Insertion: 11:01 Data : 08/11/22 09:30 08/11/22 09:30 Micro: Microbiology 08/11/22 10:53 Blood Culture - Preliminary Blood SPECIMEN COLLECTED 08/11/22 10:53 Blood Culture - Preliminary Blood SPECIMEN COLLECTED A&P Assessment and plan (1) Generalized weakness: Status: Acute (2) Anemia: Status: Acute (3) Neutropenia: Status: Acute (4) Epilepsy: Status: Acute (5) Autism: Status: Acute Plan 62-year-old with past medical history of autism/developmental disorder with state appointed guardian, neutropenia, anemia, seizure disorder was brought into the ER today because of worsening generalized weakness with concerns for infection and found to be having bradycardia. Generalized weakness: We will rule out infectious source. Could be secondary to polypharmacy. UA so far negative for infection. Patient currently on room air. No concern for pneumonia so far. As per caregivers not having any diarrhea. Check Keppra, valproic acid level. Check CT head. Check blood culture, procalcitonin, iron panel, vitamin B12, folate levels. Patient does have neutropenia. But seems to be chronic. Used to follow-up with Dr. Reyes in the past. There was suspicion of myelodysplasia. Neutropenic precautions. Start on oral Levaquin for now. We will start on broad-spectrum antibiotics as patient has fever. Check iron panel, flu swab, COVID-19 PCR, vitamin B12, folate levels DC Campo catheter. Analgesia: Tylenol as needed Glycemic control: Not needed. Check A1c Nutrition: Regular diet CODE STATUS: Discussed in detail with caregiver?Brittaney Jaskaran on phone [phone]. He states patient is full code. PUD prophylaxis: Famotidine DVT prophylaxis: Heparin 5000 every 12 hourly Discharge planning: Back home with caregivers within next 24 to 48 hours once medically cleared Ad[facility] with telemetry This documentation was created by [employer] mobile solutions architect software. Every effort was made to ensure accuracy of mobile solutions architect. Any obvious errors or omissions should be clarified with the author of the document. Attestations Medical Necessity Statement*: Admission for more than 2 midnights for evaluation and management of generalized weakness and neutropenia in a patient with history of epilepsy, autism while infectious source was ruled out Time Spent in Patient Care: Greater than 35 minutes Coding Level of Care Code Acute Stove Mechanic for g Fwd Diagnoses Generalized weakness R53.1 Anemia D64.9 Neutropenia D70.9 Epilepsy G40.909 Autism F84.0
[2022-08-11 16:05] LABS: Iron 145 ug/dL (59-158); Percent Saturation 78.8 % (20-50); Total Iron Binding Capacity 184 mcg/dl; Unsaturated Iron Binding 39 ug/dL (112-347)
[2022-08-11 16:11] LABS: Procalcitonin 0.09 ng/mL (0-0.5)
[2022-08-11 16:19] LABS: Vitamin B12 1057 pg/mL (232-1245)
--- NOTE | 2022-08-11 16:41 | ECG_ITS ---
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 Measurements Intervals [place] Rate: 45 P: 73 SD: 110 QRS: 56 QRSD: 100 T: 48 QT: 484 QTc: 423 Interpretive Statements SINUS BRADYCARDIA WITH SHORT SD INTERVAL NONSPECIFIC ST & T-WAVE ABNORMALITY Compared to ECG 08/11/2022 12:55:02 Short SD interval now present T-wave abnormality now present Intraventricular conduction delay no longer present ST (T wave) deviation no longer present Prolonged QT interval no longer present Electronically Signed On 08-11-2022 21:51:54 CDT by Han Lazaro M.D. [email or web address].[email or web address]/store/[id number]
[2022-08-11 18:09] LABS: Folate Level 4.8 ng/mL (4.5-32.2)
[2022-08-11] MEDS: heparin 5,000 unit/mL INJ 1 mL 5000 UNIT SUBCUT (19:35)
[2022-08-11] MEDS: levoFLOXacin 500 mg Tablet PO (19:36)
[2022-08-11] MEDS: benztropine 1 mg Tablet PO (19:36)
[2022-08-11] MEDS: CLONazepam 1 mg Tablet 2 MG PO (19:36)
[2022-08-11] MEDS: atorvastatin 40 mg Tablet PO (19:36)
[2022-08-11] MEDS: methylphenidate 10 mg Tablet 20 MG PO (19:36)
[2022-08-11] MEDS: levETIRAcetam 500 mg Tablet 250 MG PO (19:36)
[2022-08-11] MEDS: D5-NS 0.45% + KCL 20 mEq 20 MEQ/1,000 ML BAG 50 MEQ IV (19:37)
[2022-08-11] MEDS: famotidine 20 mg Tablet PO (19:37)
[2022-08-11] MEDS: divalproex Sprinkles 125 mg Capsule 1000 MG PO (20:03)
[2022-08-11] MEDS: chlorPROMazine 50 mg Tablet 100 MG PO (20:03)
--- NOTE | 2022-08-11 20:30 | PC.NURSE ---
Patient received from ED at 1815 via stretcher with caregiver at bedside. Patient is non-verbal at baseline. Patient has jaramillo catheter in place which is to be removed. Discussed this with caregiver and he refused at this time due to increased weakness and fear of falls. Patient has to stand to urinate and is unable to do so at this time. Patient is currently in restraints for patient safety. 1:1 sitter at bedside with written documentation q15min. Will continue to monitor.
[2022-08-11 20:56] LABS: Influenza A by IFA Negative (Negative); Influenza B by IFA Negative (Negative)
[2022-08-11 22:23] LABS: Adenovirus Not Detected (NOT DETECT); Chlamydia Pneumoniae Not Detected (NOT DETECT); Coronavirus 229E,HKU1,NL63,OC4 Not Detected (NOT DETECT); Human Metapneumovirus Not Detected (NOT DETECT); Human Rhinovirus/Enterovirus Not Detected (NOT DETECT); Influenza A Not Detected (NOT DETECT); Influenza A H1 Not Detected (NOT DETECT); Influenza A H1-2009 Not Detected (NOT DETECT); Influenza A H3 Not Detected (NOT DETECT); Influenza B Not Detected (NOT DETECT); Mycoplasma Pneumoniae Not Detected (NOT DETECT); Parainfluenza Virus Type 1 Not Detected (NOT DETECT); Parainfluenza Virus Type 2 Not Detected (NOT DETECT); Parainfluenza Virus Type 3 Not Detected (NOT DETECT); Parainfluenza Virus Type 4 Not Detected (NOT DETECT); Respiratory Syncytial Virus A Not Detected (NOT DETECT); Respiratory Syncytial Virus B Not Detected (NOT DETECT); SARS-COV-2 Detected (NOT DETECT)
--- NOTE | 2022-08-11 23:02 | PC.NURSE ---
Removed jaramillo catheter as ordered. Catheter was intact. Removed restraints as trial run. Patient off restraints for ~20min then started throwing things across the room having what appears to be a trantrum . Patient allowed me to replace the restraints without incidence. Instructed patient that attempt would be made again at later time. Patient is non-verbal at baseline. Remains cooperative at this time.
[2022-08-12] VITALS (9 sets, daily range): BP systolic 113–137; BP diastolic 76–95; PULSE 44–70; RESP 12–20; TEMP 35.7–36.7; O2SAT 92–95
[2022-08-12] MEDS: heparin 5,000 unit/mL INJ 1 mL 5000 UNIT SUBCUT (03:23)
--- NOTE | 2022-08-12 03:29 | PC.NURSE ---
Restraints untied from bed allowing patient freedom of movement. Patient cooperative presently allowing this RN to give heparin SQ. 1:1 sitter remains at bedside for now. Will continue to monitor.
[2022-08-12 05:11] LABS: Eosinophils % 0.3 %; Hematocrit 31.6 % (42.0-52.0); Hemoglobin 10.2 g/dL (11.7-16.6); Lymphocytes # 0.8 10^3/uL (0.8-4.8); Lymphocytes % 23.2 %; Mean Corpuscular HGB Conc 32.3 g/dL (30.0-36.0); Mean Corpuscular Hemoglobin 32.4 pg (28.0-34.0); Mean Corpuscular Volume 100.3 fl (80-94); Mean Platelet Volume 12.8 fL (7.4-10.4); Monocytes # 0.5 10^3/uL (0.2-0.9); Monocytes % 16.1 %; Neutrophils # 1.94 10^3/uL (1.8-7.7); Neutrophils % 60.1 %; Nucleated Red Blood Cells % 0 %; Platelet Count 76 10^3/cmm (130-400); Red Blood Count 3.15 10^6/uL (4.1-5.3); Red Cell Distribution Width 16.7 % (12.1-15.1); White Blood Count 3.2 10^3/uL (4.0-10.0)
[2022-08-12 05:22] LABS: Estmated Average Glucose 94; Hemoglobin A1C 4.9 % (4.0-6.0)
[2022-08-12 05:39] LABS: Alanine Aminotransferase 14 U/L (0-41); Albumin Level 2.5 g/dL (3.5-5.2); Alkaline Phosphatase 73 U/L (40-130); Blood Urea Nitrogen 13 mg/dL (8-23); Calcium 9.3 mg/dL (8.5-10.5); Carbon Dioxide 28 mmol/L (22-29); Chloride 104 mmol/L (98-107); Chol HDL Ratio 2.15 mg/dL (1.0-5.00); Cholesterol 71 mg/dL (0-200); Globulin 4.8 g/dL (1.3-4.6); Glomerular Filtration Rate 139.2 mL/min (90-130); Glucose 66 mg/dL (65-115); HDL Cholesterol 33 mg/dL (60-100); LDL Cholesterol Calculated 29 mg/dL (50-129); Magnesium 1.6 mg/dL (1.7-2.3); Osmolality Calculated 290 mOsm/kg (285-295); Phosphorus 4.1 mg/dL (2.5-4.5); Sodium 141 mmol/L (136-145); Total Bilirubin 0.3 mg/dL (0.15-1.2); Total Protein 7.3 g/dL (6.6-8.7); Triglycerides 43 mg/dL (0-150); VLDL Cholestrol Calculation 9 mg/dL (0-30)
[2022-08-12 05:46] LABS: Anion Gap 13.9 (5-19); Potassium 4.9 mmol/L (3.5-5.1)
[2022-08-12 05:47] LABS: Aspartate Amino Transferase 24 U/L (0-40)
[2022-08-12] MEDS: levoFLOXacin 500 mg Tablet PO (06:11)
--- NOTE | 2022-08-12 06:23 | PC.NURSE ---
Patient cooperative with explanation of care given. Patient has been off restraints for several hours. No outbursts of anger at this time.
[2022-08-12] MEDS: chlorPROMazine 50 mg Tablet 100 MG PO (08:16)
[2022-08-12] MEDS: levothyroxine 112 mcg Tablet PO (08:17)
[2022-08-12] MEDS: benztropine 1 mg Tablet PO (08:17)
[2022-08-12] MEDS: FUROsemide 20 mg Tablet 10 MG PO (08:17)
[2022-08-12] MEDS: divalproex Sprinkles 125 mg Capsule 1000 MG PO (08:18)
[2022-08-12] MEDS: docusate sodium 100 mg Capsule PO (08:18)
[2022-08-12] MEDS: levETIRAcetam 500 mg Tablet 250 MG PO (08:18)
[2022-08-12 10:13] LABS: Levetiracetam Immunoassy 31.2 mcg/mL (6.0-46.0)
[2022-08-12 11:44] LABS: Bacillus cereus group Not Detected (NOT DETECT); Bacillus subtillis group Not Detected (NOT DETECT); Corynebacterium Not Detected (NOT DETECT); Cutibacterium acnes (P.acnes) Not Detected (NOT DETECT); Enterococcus Not Detected (NOT DETECT); Enterococcus faecalis Not Detected (NOT DETECT); Enterococcus faecium Not Detected (NOT DETECT); Lactobacillus species Not Detected (NOT DETECT); Listeria Not Detected (NOT DETECT); Listeria monocytogenes Not Detected (NOT DETECT); Micrococcus Not Detected (NOT DETECT); Staphylococcus epidermidis Not Detected (NOT DETECT); Staphylococcus lugdunensis Not Detected (NOT DETECT); Staphylococcus species Detected (NOT DETECT); Streptococcus agalactiae Not Detected (NOT DETECT); Streptococcus species Not Detected (NOT DETECT); mecA Detected (NOT DETECT)
[2022-08-12 11:45] LABS: Pan Candida Not Detected (NOT DETECT); Pan Gram-Negative Not Detected (NOT DETECT); Streptococcus anginosus group Not Detected (NOT DETECT); Streptococcus pneumoniae Not Detected (NOT DETECT); Streptococcus pyogenes Not Detected (NOT DETECT); mecC Not Detected (NOT DETECT); vanA Not Detected ` (NOT DETECT); vanC Not Detected (NOT DETECT)
--- NOTE | 2022-08-12 12:04 | P.DS_ITS ---
Discharge Providers Date of Admission: 08/11/22 13:03 Date of Discharge: August 12, 2022 Attending Provider at Admission: Yomi Gu MD Attending Provider at Discharge: Yomi Gu MD Primary Care Provider: Brittany Bahena MD Diagnoses at Discharge Discharge Diagnosis (1) Generalized weakness: Status: Acute (2) Anemia: Status: Acute (3) Neutropenia: Status: Acute Permanent problem details: Follow-up with Dr. Reyes last seen in 2016. Suspicion of myelodysplasia at that time. (4) Epilepsy: Status: Acute (5) Autism: Status: Acute Reason for Visit Reason for Visit: LETHARGIC/ LOW HEART RATE Hospital Course Hospital Course Salazar Hilario is a 62 year old male with past medical history of autism/developmental disorder, epilepsy with no documented seizures for last 10years other than 4 to 6 months ago, hyperlipidemia, hypertension, hypothyroidism with state appointed guardian.? He was brought in today by the caregivers because of worsening lethargy and weakness over the last 1 week.? As per the caregiver whenever he has similar complaints it seems that he is developing an infection so they brought him to the ER.? Patient at baseline is nonverbal.? Caregiver denies any changes in his appetite or diarrhea or fever at home. As per the caregiver only new medication is Keppra which is started around 6 months ago because of 2 episodes of him being found collapsed. On the way to the ER via EMS he was found to have bradycardia for which he required 2 mg of atropine along with 800 cc of IV fluids.? Lowest documented heart rate is in low 40s.? Patient remained hemodynamically stable otherwise. Examination patient lying comfortably in bed with Campo in place with blood pressure of 149/80 with heart rate running of 40s saturating well on room air. Patient admitted to hospital further evaluation and management. On admission he was found to be bradycardic for which his home dose of metoprolol was withheld. During hospitalization Keppra and valproic acid levels were checked which were within normal limits. He was found to be COVID-19 positive. He did not require an oxygenation during hospitalization. His hospitalization was otherwise unremarkable. He is been discharged hemodynamically stable condition back home with his caregivers. He is to take Paxlovid for next 5 days for COVID-19. His dose of metoprolol has been changed to 25 mg as needed for heart rate of more than 80 bpm. Dose of Keppra has been decreased to 50 mg twice daily. The discharge plan discussed in detail with patient's primary caregiver teams Boss Ms. Quispe in detail and all the questions were answered. Physical Exam Narrative: General: No acute distress, nonverbal, following in the room with eyes, not following commands HEENT: PERRLA, pupils bilaterally equal and reactive Chest: Normal vesicular breath sounds, no added sounds, equal good air entry bilaterally CVS: S1-S2 regular, no murmurs, no tachycardia, no gallops, no rubs Abdomen: Soft, nontender, no organomegaly, bowel sounds present Neuro: No focal deficits, no facial deformity, moving all his limbs Urinary Catheter Management: Campo: Cath Placed During This Visit: yes, but has since been removed by the nurse Reason for Continuing Indwelling Catheter: Other Urinary Catheter Date of Insertion: 08/11/22 Urinary Catheter Time of Insertion: 11:01 Date Urinary Catheter Removed: 08/11/22 Time Urinary Catheter Discontinued: 23:00 Discharge Data Studies Completed and Pending Completed Studies During Hospitalization Category Date Time Status CT head wo con* [id number] Stat Cat Scan 08/11/22 14:48 Completed XR chest 1V portable [id number] Stat Exams 08/11/22 11:48 Completed Pending at discharge Category Date Time Status Blood Culture Stat Lab 08/11/22 10:53 Results Radiology Impressions Chest X-Ray 08/11/22 11:48 IMPRESSION: Stable chest without acute abnormality. Head CT 08/11/22 14:48 IMPRESSION: 1. No acute intracranial hemorrhage or edema. 2. Atrophy and small vessel ischemic disease. No interval change since 03/10/2022. Laboratory Results WBC 3.2 10^3/uL (4.0-10.0) L 08/12/22 04:28 RBC 3.15 10^6/uL (4.1-5.3) L 08/12/22 04:28 Hgb 10.2 g/dL (11.7-16.6) L 08/12/22 04:28 Hct 31.6 % (42.0-52.0) L 08/12/22 04:28 MCV 100.3 fl (80-94) H 08/12/22 04:28 MCH 32.4 pg (28.0-34.0) 08/12/22 04:28 MCHC 32.3 g/dL (30.0-36.0) 08/12/22 04:28 RDW 16.7 % (12.1-15.1) H 08/12/22 04:28 Plt Count 76 10^3/cmm (130-400) L 08/12/22 04:28 MPV 12.8 fL (7.4-10.4) H 08/12/22 04:28 Neut % (Auto) 60.1 % 08/12/22 04:28 Lymph % (Auto) 23.2 % 08/12/22 04:28 Carter % (Auto) 16.1 % 08/12/22 04:28 Eos % (Auto) 0.3 % 08/12/22 04:28 Baso % (Auto) 0.0 % 08/12/22 04:28 Neut # (Auto) 1.94 10^3/uL (1.8-7.7) 08/12/22 04:28 Lymph # (Auto) 0.8 10^3/uL (0.8-4.8) 08/12/22 04:28 Carter # (Auto) 0.5 10^3/uL (0.2-0.9) 08/12/22 04:28 Eos # (Auto) 0.0 10^3/uL (0.0-0.8) 08/12/22 04:28 Baso # (Auto) 0.0 10^3/uL (0.0-0.1) 08/12/22 04:28 Nucleated RBC % (auto) 0 % 08/12/22 04:28 Nucleated RBCs # 0.0 /100WBC 08/12/22 04:28 Sodium 141 mmol/L (136-145) 08/12/22 04:28 Potassium 4.9 mmol/L (3.5-5.1) 08/12/22 04:28 Chloride 104 mmol/L (98-107) 08/12/22 04:28 Carbon Dioxide 28 mmol/L (22-29) 08/12/22 04:28 Anion Gap 13.9 (5-19) 08/12/22 04:28 BUN 13 mg/dL (8-23) 08/12/22 04:28 Creatinine 0.7 mg/dL (0.7-1.2) 08/12/22 04:28 GFR Calculation 139.2 mL/min (90-130) H 08/12/22 04:28 Glucose 66 mg/dL (65-115) 08/12/22 04:28 Estimat Average Glucose 94 08/12/22 04:28 Hemoglobin A1c 4.9 % (4.0-6.0) 08/12/22 04:28 Calculated Osmolality 290 mOsm/kg (285-295) 08/12/22 04:28 Lactic Acid 1.5 mmol/L (0.5-2.2) 08/11/22 10:53 Calcium 9.3 mg/dL (8.5-10.5) 08/12/22 04:28 Phosphorus 4.1 mg/dL (2.5-4.5) 08/12/22 04:28 Magnesium 1.6 mg/dL (1.7-2.3) L 08/12/22 04:28 Iron 145 ug/dL (59-158) 08/11/22 15:30 TIBC 184 mcg/dl 08/11/22 15:30 % Saturation 78.8 % (20-50) H 08/11/22 15:30 Unsat Iron Binding 39 ug/dL (112-347) L 08/11/22 15:30 Total Bilirubin 0.3 mg/dL (0.15-1.2) 08/12/22 04:28 AST 24 U/L (0-40) 08/12/22 04:28 ALT 14 U/L (0-41) 08/12/22 04:28 Alkaline Phosphatase 73 U/L (40-130) 08/12/22 04:28 Creatine Kinase 148 U/L (39-308) 08/11/22 09:30 Troponin T Baseline 19 ng/L (0-15) H 08/11/22 09:30 Troponin T 120 Minute 17.63 ng/L (0-15) H 08/11/22 11:28 Delta Troponin T -1.37 ABS# (0-10) L 08/11/22 11:28 Troponin T Hi Sens 6Hr 16.80 ng/L (0-15) H 08/11/22 15:30 Troponin T Hi Sens 6Hr Delta -2.20 ng/L (0-12) L 08/11/22 15:30 Total Protein 7.3 g/dL (6.6-8.7) 08/12/22 04:28 Albumin 2.5 g/dL (3.5-5.2) L 08/12/22 04:28 Globulin 4.8 g/dL (1.3-4.6) H 08/12/22 04:28 Triglycerides 43 mg/dL (0-150) 08/12/22 04:28 Cholesterol 71 mg/dL (0-200) 08/12/22 04:28 LDL Cholesterol, Calc 29 mg/dL (50-129) L 08/12/22 04:28 Total VLDL Cholesterol 9 mg/dL (0-30) 08/12/22 04:28 HDL Cholesterol 33 mg/dL (60-100) L 08/12/22 04:28 Cholesterol/HDL Ratio 2.15 mg/dL (1.0-5.00) 08/12/22 04:28 Vitamin B12 1057 pg/mL (232-1245) 08/11/22 15:30 Folate 4.8 ng/mL (4.5-32.2) 08/11/22 15:30 Procalcitonin 0.09 ng/mL (0-0.5) 08/11/22 15:30 TSH 2.45 uIU/mL (0.27-4.20) 08/11/22 09:30 Urine Color Straw (Yellow) 08/11/22 11:21 Urine Appearance Clear (CLEAR) 08/11/22 11:21 Urine pH 7 (5-7) 08/11/22 11:21 Ur Specific [place] 1.010 (1.005-1.030) 08/11/22 11:21 Urine Protein Neg (Negative) 08/11/22 11:21 Urine Glucose (UA) Norm (Normal) 08/11/22 11:21 Urine Ketones Negative (Negative) 08/11/22 11:21 Urine Blood Neg (Negative) 08/11/22 11:21 Urine Nitrate Negative (Negative) 08/11/22 11:21 Urine Bilirubin Neg (Negative) 08/11/22 11:21 Urine Urobilinogen Norm mg/dL (Negative) 08/11/22 11:21 Ur Leukocyte Esterase Negative (Negative) 08/11/22 11:21 Valproic Acid 4.7 ug/mL (50-100) L 08/11/22 09:30 Levetiracetam 31.2 mcg/mL (6.0-46.0) 08/11/22 15:30 Coronavirus 229E (PCR) Not detected (NOT DETECT) 08/11/22 20:19 Influenza Type A Ag Negative (Negative) 08/11/22 20:19 Influenza Type B Ag Negative (Negative) 08/11/22 20:19 SARS-CoV-2 (PCR) Detected (NOT DETECT) A 08/11/22 20:19 Vitals Last Vital Signs Temp 98.0 F 08/12/22 11:27 Pulse 68 08/12/22 11:27 Resp 20 H 08/12/22 11:27 BP 113/88 08/12/22 11:27 Pulse Ox 95 08/12/22 11:27 O2 Del Method 08/12/22 11:27 Discharge Plan Discharge Patient Disposition: Home Condition: Stable Prescriptions: New levofloxacin 500 mg Tablet 500 mg PO DAILY@0600 Qty: 5 0RF Paxlovid (EUA) 150 mg x 2- 100 mg tablet See Rx Instructions .ROUTE .COMPLEX Qty: 30 0RF Rx Instructions: orally per package directions Continued lorazepam [Ativan] 2 mg tablet 2 mg PO Q8H PRN (Reason: agitation) Qty: 90 5RF clonazepam [Klonopin] 2 mg tablet 2 mg PO DAILY@20 Qty: 30 5RF methylphenidate HCl [Ritalin] 20 mg tablet 20 mg PO TID 30 Days Qty: 90 0RF methylphenidate HCl [Ritalin] 20 mg tablet 20 mg PO TID 30 Days Qty: 90 0RF atorvastatin [Lipitor] 40 mg Tablet 40 mg PO BEDTIME@20 acetaminophen [Tylenol] 325 mg Tablet 325 mg PO Q6H PRN (Reason: Pain) loperamide 2 mg Tablet See Rx Instructions .ROUTE .COMPLEX Rx Instructions: 4mg po with each loose stool *max 8 tabs per day* triamcinolone acetonide 0.1 % Cream 1 applic TOPICAL BID PRN (Reason: fungal infection) calcium carbonate 600 mg calcium (1,500 mg) Tablet 600 mg PO BEDTIME@20 famotidine [Pepcid] 20 mg Tablet 20 mg PO BEDTIME@20 meclizine 25 mg Tablet 25 mg PO DAILY PRN (Reason: Motion Sickness) nystatin 100,000 unit/gram Cream See Rx Instructions .ROUTE .COMPLEX Rx Instructions: apply topically to areas on toes and feet as needed docusate sodium [Colace] 100 mg Capsule 100 mg PO DAILY@08 furosemide [Lasix] 20 mg Tablet 10 mg PO DAILY@08 polyethylene glycol 3350 [Miralax] 17 gram/dose Powder 17 g PO DAILY@12 levothyroxine 112 mcg Tablet 112 mcg PO DAILY@08 chlorpromazine 100 mg tablet 100 mg PO TID@08,16,20 benztropine 1 mg tablet 1 mg PO BID@08,20 Ritalin 20 mg tablet 20 mg PO TID@08,12,20 Depakote Sprinkles 125 mg capsule, delayed rel sprinkle 1,000 mg PO BID@08,21 Changed metoprolol tartrate 50 mg Tablet 25 mg PO DAILY@08 PRN (Reason: HR more than 80 bpm) Qty: 20 0RF Keppra 500 mg tablet 250 mg PO BID@08,20 Qty: 20 0RF Discharge Orders: Discharge Order (Routine); Ordered 08/12/22 Ordered By: Yomi Gu Referrals: Brittany Bahena MD [Primary Care Provider] - Discharge Diet: Advance as tolerated and Usual diet Discharge Activity: Resume usual activity and Increase activity as tolerated Patient Instructions: Opioid Safety Activity Restrictions/Additional Instructions: Dose of metoprolol has been changed to 25 mg as needed for heart rate of more than 80 bpm once a day. Dose of Keppra has been decreased to 250 mg twice daily. For COVID-19 you need to be on Paxlovid which is supposed to be for next 5 days going forward. Also take Levaquin which is the antibiotics for next 5 days. Discharge Attestations Time Spent in Discharge Care*: greater than 30 min Specific Discharge Activities: educating and/or supporting family/caregiver, discussing with pcp/other providers, discussing with manager of case management/social workers/dc planners, documenting/other paperwork and evaluating patient/reviewing data Status at Discharge: Cognitive status at discharge: severely impaired cognition , Behavioral status at discharge: cooperative , Functional status at discharge: other assisted ambulation , Overall status at discharge: patient is progressing back to baseline Quality Metrics Clinical Quality Measures [ No reported AMI, CVA or VTE this stay] Coding Level of Care Code Acute Chg FW DC note Diagnoses Generalized weakness R53.1 Anemia D64.9 Neutropenia D70.9 Epilepsy G40.909 Autism F84.0
[2022-08-12] MEDS: polyethylene glycol 3350 Pkt 17 gm PO (13:00)
[2022-08-12] MEDS: methylphenidate 10 mg Tablet 20 MG PO (13:00)
--- NOTE | 2022-08-12 16:00 | PC.NURSE ---
Discharge Note Patient discharged to home to assisted via private vehicle accompanied by assisted staff. Discharge instructions reviewed with patient and/or manufacturing sales representative. Mobile pharmacy medications and/or prescriptions provided. Belongings/home medications returned.
== END 2022-08-12 16:00 | disposition home or self-care (01) | DRG 308 ==
LOC: ER 11:32 → MEDSURG 15:41
PROVIDERS: Admitting Provider Student in an Organized Health Care Education/Training Program; Emergency Provider Family Medicine; PCP Family Medicine; Visit Provider Student in an Organized Health Care Education/Training Program
DX: R00.1 Bradycardia, unspecified (principal); U07.1 COVID-19; F84.0 Autistic disorder; G40.909 Epilepsy, unspecified, not intractable, without status epilepticus; E78.5 Hyperlipidemia, unspecified; I10 Essential (primary) hypertension; E03.9 Hypothyroidism, unspecified; D70.9 Neutropenia, unspecified
CPT/HCPCS: 36415; 51702; 70450; 71045; 80053; 80061; 80164; 80177; 81003; 82550; 82607; 82746; 83036; 83540; 83550; 83605; 83735; 84100; 84145; 84443; 84484; 85025; 86403; 87040; 87150; 87186; 87205; 87449; 87635; 87804; 93005; 96372; 99285; A4570; J1644; Q0161

== ENCOUNTER → 2022-10-02 08:39 | Outpatient (BNVA) | payer MEDICARE, MEDICAID, OTHER, SELFPAY | PROVIDERS: PCP Family Medicine; Visit Provider Psychiatry & Neurology Psychiatry | DX: Z79.899 Other long term (current) drug therapy (principal); D61.818 Other pancytopenia; R29.90 Unspecified symptoms and signs involving the nervous system | CPT/HCPCS: 80164; 85025 ==

== ENCOUNTER 2022-12-04 08:17 | Emergency (ER) | payer MEDICARE, MEDICAID, SELFPAY ==
[2022-12-04 08:21] VITALS: BP 117/76; PULSE 105; RESP 18; TEMP 36.6; O2SAT 96; BMI 22.7
--- NOTE | 2022-12-04 08:42 | CTR_ITS ---
PROCEDURE INFORMATION: Exam: CT Head Without Contrast Exam date and time: 12/04/2022 9:05 AM Age: 62 years old Clinical indication: Altered mental status/memory loss TECHNIQUE: Imaging protocol: Computed tomography of the head without contrast. Radiation optimization: All CT scans at this facility use at least one of these dose optimization techniques: automated exposure control; mA and/or kV adjustment per patient size (includes targeted exams where dose is matched to clinical indication); or iterative reconstruction. COMPARISON: CT head wo con* [id number] 08/11/2022 2:59 PM RADIATION DOSE METRICS: Total DLP (mGy-cm): 1179.94 FINDINGS: Brain: No acute hemorrhage identified. No large territorial areas of hypoattenuation concerning for ischemic infarct identified. No intracranial mass effect. Cerebral ventricles: The ventricles are within normal limits. Paranasal sinuses: The visualized sinuses are unremarkable. Mastoid air cells: The visualized mastoid air cells are well aerated. Bones/joints: The osseous structures are intact. Soft tissues: Unremarkable. CT/CT head wo con* [id number] IMPRESSION: No acute intracranial abnormality.
--- NOTE | 2022-12-04 08:42 | ECG_ITS ---
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 [id number]
--- NOTE | 2022-12-04 08:42 | XR_ITS ---
WS: [id number] Portable AP upright chest, 12/04/2022 Clinical Data: altered mental status Comparison: Portable chest, 08/11/2022 Findings: No nodules, masses or effusions are seen. The heart is normal. The pulmonary vascularity is not increased. No pneumothorax is seen. There are bilateral lower lobe opacities over the surface of both diaphragms which may represent atelectasis and/or pneumonia. The aortic arch and descending tho racic aorta show tortuosity. There is a poor inspiratory effort. 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 There is deformity of the right lateral sixth rib unchanged. XR/XR chest 1V portable [id number] Impression: 1. Bilateral lower lobe opacities of the surface of both diaphragms which may r epresent atelectasis and/or pneumonia. 2. Atherosclerosis and cardiomegaly.
--- NOTE | 2022-12-04 08:45 | ED_ITS ---
Documented by User: ALINA Morrow 12/04/22 14:18 HPI - Altered Mental Status General: Chief Complaint: Altered Mental Status Stated Complaint: AMS Time Seen by Provider: 12/04/22 08:35 History of Present Illness: Patient is brought in today by worker from assisted living facility in which she resides. The worker states that the patient is baseline nonverbal; however over the past 4 days he has been lethargic and acting out of character. The worker states that he had a cough and congestion for a couple of weeks but seem to be improving. She states that he had a seizure on 30 November and he does have a seizure disorder. She reports that after the seizure he got back up and was walking around again. She reports that normally the patient is walking and feeding himself and he does follow commands. She states that the past 4 days he has not been getting up he has been very lethargic and they are having to completely feed him. She did still give him all of his medications this morning. She reports that he did have a bowel movement yesterday. She has not noticed diarrhea or constipation. She has not noticed a measured fever. Review of Systems Const: Reports: fatigue and malaise; Denies: fever(s) or chills ENMT: Reports: nasal discharge and nasal congestion Resp: Reports: non-productive cough Neuro: Reports: other (Reports extreme lethargy out of character for patient) [facility] ED PFSH: Medical History Anemia Autism Developmental disorder Epilepsy Extrapyramidal movement disorder, drug-induced Hyperlipidemia Hypertension Hypothyroidism Neutropenia Follow-up with Dr. Reyes last seen in 2016. Suspicion of myelodysplasia at that time. Psychiatric care Social History Smoking and tobacco status: never smoked Alcohol intake: never Physical Exam Const: GENERAL APPEARANCE: lethargic ORIENTATION/CONSCIOUSNESS: Yes lethargic OTHER: Patient is lying in bed. Patient grimaces when I open his eyelids. He reaches for EKG leads as they are placed on him. Otherwise, the patient is lying in bed with very little response. Neck/C-Spine: COMMON NORMALS: no meningeal signs and no JVD Resp: COMMON NORMALS: normal respiratory effort, No use of accessory muscles and clear to auscultation bilaterally AUSCULTATION: clear to auscultation bilaterally Cardio: COMMON NORMALS: no JVD, regular rate, regular rhythm, S1 normal heart sound present, S2 normal heart sound present and No murmurs present (Cardio) RATE: regular rate RHYTHM: regular rhythm HEART SOUNDS: S1 normal heart sound present and S2 normal heart sound present Neuro: SENSORIUM/ORIENTATION: Yes lethargic MENINGEAL SIGNS: Yes no meningeal signs COORDINATION/BALANCE: other (Patient does not follow commands to test coordination) SPEECH: Other neuro speech findings (Patient is baseline nonverbal) COORDINATION: other (Patient does not follow commands to test coordination) PUPIL EXAM: Sluggish: right and left Right pupil size (mm): 3 Left pupil size (mm): 3 Course Vital Signs: Vital signs: Vital Signs Temperature 97.8 F 12/04/22 08:21 Pulse Rate 105 H 12/04/22 08:21 Respiratory Rate 18 12/04/22 08:21 Blood Pressure 133/91 12/04/22 12:38 Pulse Oximetry 97 12/04/22 12:38 Oxygen Delivery Me thod 12/04/22 12:38 MDM - Altered Mental Status Medical Decision Making Patient baseline neutropenic with white count 6.9 today. Afebrile. Cath urine does not show any indication of major infection. Chest x-ray shows bilateral lower lobe opacities of the surface of both diaphragms which may represent atelectasis and/or pneumonia. Patient's vital signs are stable. We will go ahead and treat patient to cover community-acquired pneumonia. During patient stay in the ER he became more awake. Patient caregiver was able to encourage the patient to stand up and walk in the room. Discussed the case with Dr. Dhruv marcial, who agrees with work-up and current plan of care to discharge patient home with treatment for pneumonia. Discussed this with patient and caregiver. Make sure patient is staying well-hydrated. Advised her to have patient follow- up with primary care provider next week for reevaluation. Return to the ER for any new or worsening symptoms. Lab Data 12/04/22 09:45 12/04/22 09:45 Radiology Impressions Chest X-Ray 12/04/22 08:42 Impression: 1. Bilateral lower lobe opacities of the surface of both diaphragms which may represent atelectasis and/or pneumonia. 2. Atherosclerosis and cardiomegaly. Head CT 12/04/22 08:42 IMPRESSION: No acute intracranial abnormality. Laboratory Results WBC 6.9 10^3/uL (4.0-10.0) 12/04/22 09:45 RBC 2.72 10^6/uL (4.1-5.3) L 12/04/22 09:45 Hgb 8.3 g/dL (11.7-16.6) L 12/04/22 09:45 Hct 26.8 % (42.0-52.0) L 12/04/22 09:45 MCV 98.5 fl (80-94) H 12/04/22 09:45 MCH 30.5 pg (28.0-34.0) 12/04/22 09:45 MCHC 31.0 g/dL (30.0-36.0) 12/04/22 09:45 RDW 17.2 % (12.1-15.1) H 12/04/22 09:45 Plt Count 142 10^3/cmm (130-400) 12/04/22 09:45 MPV 10.8 fL (7.4-10.4) H 12/04/22 09:45 Neut % (Auto) 68.7 % 12/04/22 09:45 Lymph % (Auto) 19.1 % 12/04/22 09:45 Loving % (Auto) 11.7 % 12/04/22 09:45 Eos % (Auto) 0.0 % 12/04/22 09:45 Baso % (Auto) 0.1 % 12/04/22 09:45 Neut # (Auto) 4.70 10^3/uL (1.8-7.7) 12/04/22 09:45 Lymph # (Auto) 1.3 10^3/uL (0.8-4.8) 12/04/22 09:45 Loving # (Auto) 0.8 10^3/uL (0.2-0.9) 12/04/22 09:45 Eos # (Auto) 0.0 10^3/uL (0.0-0.8) 12/04/22 09:45 Baso # (Auto) 0.0 10^3/uL (0.0-0.1) 12/04/22 09:45 Nucleated RBC % (auto) 0 % 12/04/22 09:45 Nucleated RBCs # 0.0 /100WBC 12/04/22 09:45 Sodium 137 mmol/L (136-145) 12/04/22 09:45 Potassium 4.6 mmol/L (3.5-5.1) 12/04/22 09:45 Chloride 98 mmol/L (98-107) 12/04/22 09:45 Carbon Dioxide 31 mmol/L (22-29) H 12/04/22 09:45 Anion Gap 12.6 (5-19) 12/04/22 09:45 BUN 15 mg/dL (8-23) 12/04/22 09:45 Creatinine 0.8 mg/dL (0.7-1.2) 12/04/22 09:45 GFR Calculation 119.3 mL/min (90-130) 12/04/22 09:45 Glucose 94 mg/dL (65-115) 12/04/22 09:45 Calculated Osmolality 285 mOsm/kg (285-295) 12/04/22 09:45 Calcium 9.3 mg/dL (8.5-10.5) 12/04/22 09:45 Total Bilirubin 0.2 mg/dL (0.15-1.2) 12/04/22 09:45 AST 12 U/L (0-40) 12/04/22 09:45 ALT 8 U/L (0-41) 12/04/22 09:45 Alkaline Phosphatase 89 U/L (40-130) 12/04/22 09:45 Troponin T Baseline 19 ng/L (0-15) H 12/04/22 09:45 Troponin T 120 Minute 19.28 ng/L (0-15) H 12/04/22 11:55 Delta Troponin T 0.28 ABS# (0-10) 12/04/22 11:55 Total Protein 7.8 g/dL (6.6-8.7) 12/04/22 09:45 Albumin 3.0 g/dL (3.5-5.2) L 12/04/22 09:45 Globulin 4.8 g/dL (1.3-4.6) H 12/04/22 09:45 Urine Color Yellow (Yellow) 12/04/22 12:14 Urine Appearance Clear (CLEAR) 12/04/22 12:14 Urine pH 8 (5-7) H 12/04/22 12:14 Ur Specific [place] 1.005 (1.005-1.030) 12/04/22 12:14 Urine Protein Neg (Negative) 12/04/22 12:14 Urine Glucose (UA) Norm (Normal) 12/04/22 12:14 Urine Ketones Negative (Negative) 12/04/22 12:14 Urine Blood Trace (Negative) H 12/04/22 12:14 Urine Nitrate Negative (Negative) 12/04/22 12:14 Urine Bilirubin Neg (Negative) 12/04/22 12:14 Prot Sulfosalicylic Acd Negative (Negative) 12/04/22 12:14 Urine Urobilinogen Neg mg/dL (Negative) 12/04/22 12:14 Ur Leukocyte Esterase Negative (Negative) 12/04/22 12:14 Urine RBC Rare /hpf (0-2) 12/04/22 12:14 Urine WBC Rare /hpf (0-5) 12/04/22 12:14 Ur Squamous Epith Cells None /hpf (0-5) 12/04/22 12:14 Amorphous Sediment Not Reportable 12/04/22 12:14 Urine Bacteria None /hpf (NONE) 12/04/22 12:14 Valproic Acid 89.4 ug/mL (50-100) 12/04/22 09:45 Discharge Plan Discharge Patient Disposition: Home Clinical Impression: Community acquired pneumonia of both lungs, Lethargy, Anemia Condition: Stable Prescriptions: New amoxicillin 500 mg tablet 1,000 mg PO TID 7 Days Qty: 42 0RF No Action methylphenidate HCl [Ritalin] 20 mg tablet 20 mg PO TID 30 Days Qty: 90 0RF clonazepam [Klonopin] 2 mg tablet 2 mg PO DAILY@20 Qty: 30 5RF chlorpromazine 100 mg tablet 100 mg PO TID Qty: 270 3RF benztropine 1 mg tablet 1 mg PO BID Qty: 180 3RF lorazepam [Ativan] 2 mg tablet 2 mg PO Q8H PRN (Reason: agitation) Qty: 90 5RF atorvastatin [Lipitor] 40 mg Tablet 40 mg PO BEDTIME@20 acetaminophen [Tylenol] 325 mg Tablet 325 mg PO Q6H PRN (Reason: Pain) loperamide 2 mg Tablet See Rx Instructions .ROUTE .COMPLEX Rx Instructions: 4mg po with each loose stool *max 8 tabs per day* triamcinolone acetonide 0.1 % Cream 1 applic TOPICAL BID PRN (Reason: fungal infection) calcium carbonate 600 mg calcium (1,500 mg) Tablet 600 mg PO BEDTIME@20 famotidine [Pepcid] 20 mg Tablet 20 mg PO BEDTIME@20 meclizine 25 mg Tablet 25 mg PO DAILY PRN (Reason: Motion Sickness) nystatin 100,000 unit/gram Cream See Rx Instructions .ROUTE .COMPLEX Rx Instructions: apply topically to areas on toes and feet as needed docusate sodium [Colace] 100 mg Capsule 100 mg PO DAILY@08 furosemide [Lasix] 20 mg Tablet 10 mg PO DAILY@08 polyethylene glycol 3350 [Miralax] 17 gram/dose Powder 17 g PO DAILY@12 levothyroxine 112 mcg Tablet 112 mcg PO DAILY@08 divalproex [Depakote Sprinkles] 125 mg capsule, delayed rel sprinkle 1,000 mg PO BID@08,21 levetiracetam [Keppra] 500 mg tablet 250 mg PO BID@08,20 Qty: 20 0RF metoprolol tartrate 50 mg Tablet 25 mg PO DAILY@08 PRN (Reason: HR more than 80 bpm) Qty: 20 0RF Discharge Orders: Discharge ED (Routine); Ordered 12/04/22 Ordered By: Catrachita Cook Referrals: Brittany Bahena MD [Primary Care Provider] - Discharge Diet: Usual diet Discharge Activity: Increase activity as tolerated Patient Instructions: Pneumonia (ED) Activity Restrictions/Additional Instructions: Make sure the patient is staying well-hydrated. Take antibiotics as directed. Follow-up with primary care provider. Return to the ER for new or worsening sym ptoms. 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 Reyes last seen in 2015. Suspicion of myelodysplasia at that time. Psychiatric care Social History Smoking and tobacco status: never smoked Alcohol intake: never Course Vital Signs: Vital signs: Vital Signs Temperature 97.8 F 12/04/22 08:21 Pulse Rate 105 H 12/04/22 08:21 Respiratory Rate 18 12/04/22 08:21 Blood Pressure 133/91 12/04/22 12:38 Pulse Oximetry 97 12/04/22 12:38 Oxygen Delivery Me thod 12/04/22 12:38 MDM - Altered Mental Status Medical Decision Making Patient baseline neutropenic with white count 6.9 today. Afebrile. Cath urine does not show any indication of major infection. Chest x-ray shows bilateral lower lobe opacities of the surface of both diaphragms which may represent atelectasis and/or pneumonia. Patient's vital signs are stable. We will go ahead and treat patient to cover community-acquired pneumonia. During patient stay in the ER he became more awake. Patient caregiver was able to encourage the patient to stand up and walk in the room. Discussed the case with Dr. Reed, who agrees with work-up and current plan of care to discharge patient home with treatment for pneumonia. Discussed this with patient and caregiver. Make sure patient is staying well-hydrated. Advised her to have patient follow- up with primary care provider next week for reevaluation. Return to the ER for any new or worsening symptoms. Chart reviewed and patient discussed with midlevel. Agree with assessment and plan. Lab Data 12/04/22 09:45 12/04/22 09:45 Radiology Impressions Chest X-Ray 12/04/22 08:42 Impression: 1. Bilateral lower lobe opacities of the surface of both diaphragms which may represent atelectasis and/or pneumonia. 2. Atherosclerosis and cardiomegaly. Head CT 12/04/22 08:42 IMPRESSION: No acute intracranial abnormality. Laboratory Results WBC 6.9 10^3/uL (4.0-10.0) 12/04/22 09:45 RBC 2.72 10^6/uL (4.1-5.3) L 12/04/22 09:45 Hgb 8.3 g/dL (11.7-16.6) L 12/04/22 09:45 Hct 26.8 % (42.0-52.0) L 12/04/22 09:45 MCV 98.5 fl (80-94) H 12/04/22 09:45 MCH 30.5 pg (28.0-34.0) 12/04/22 09:45 MCHC 31.0 g/dL (30.0-36.0) 12/04/22 09:45 RDW 17.2 % (12.1-15.1) H 12/04/22 09:45 Plt Count 142 10^3/cmm (130-400) 12/04/22 09:45 MPV 10.8 fL (7.4-10.4) H 12/04/22 09:45 Neut % (Auto) 68.7 % 12/04/22 09:45 Lymph % (Auto) 19.1 % 12/04/22 09:45 Loving % (Auto) 11.7 % 12/04/22 09:45 Eos % (Auto) 0.0 % 12/04/22 09:45 Baso % (Auto) 0.1 % 12/04/22 09:45 Neut # (Auto) 4.70 10^3/uL (1.8-7.7) 12/04/22 09:45 Lymph # (Auto) 1.3 10^3/uL (0.8-4.8) 12/04/22 09:45 Loving # (Auto) 0.8 10^3/uL (0.2-0.9) 12/04/22 09:45 Eos # (Auto) 0.0 10^3/uL (0.0-0.8) 12/04/22 09:45 Baso # (Auto) 0.0 10^3/uL (0.0-0.1) 12/04/22 09:45 Nucleated RBC % (auto) 0 % 12/04/22 09:45 Nucleated RBCs # 0.0 /100WBC 12/04/22 09:45 Sodium 137 mmol/L (136-145) 12/04/22 09:45 Potassium 4.6 mmol/L (3.5-5.1) 12/04/22 09:45 Chloride 98 mmol/L (98-107) 12/04/22 09:45 Carbon Dioxide 31 mmol/L (22-29) H 12/04/22 09:45 Anion Gap 12.6 (5-19) 12/04/22 09:45 BUN 15 mg/dL (8-23) 12/04/22 09:45 Creatinine 0.8 mg/dL (0.7-1.2) 12/04/22 09:45 GFR Calculation 119.3 mL/min (90-130) 12/04/22 09:45 Glucose 94 mg/dL (65-115) 12/04/22 09:45 Calculated Osmolality 285 mOsm/kg (285-295) 12/04/22 09:45 Calcium 9.3 mg/dL (8.5-10.5) 12/04/22 09:45 Total Bilirubin 0.2 mg/dL (0.15-1.2) 12/04/22 09:45 AST 12 U/L (0-40) 12/04/22 09:45 ALT 8 U/L (0-41) 12/04/22 09:45 Alkaline Phosphatase 89 U/L (40-130) 12/04/22 09:45 Troponin T Baseline 19 ng/L (0-15) H 12/04/22 09:45 Troponin T 120 Minute 19.28 ng/L (0-15) H 12/04/22 11:55 Delta Troponin T 0.28 ABS# (0-10) 12/04/22 11:55 Total Protein 7.8 g/dL (6.6-8.7) 12/04/22 09:45 Albumin 3.0 g/dL (3.5-5.2) L 12/04/22 09:45 Globulin 4.8 g/dL (1.3-4.6) H 12/04/22 09:45 Urine Color Yellow (Yellow) 12/04/22 12:14 Urine Appearance Clear (CLEAR) 12/04/22 12:14 Urine pH 8 (5-7) H 12/04/22 12:14 Ur Specific [place] 1.005 (1.005-1.030) 12/04/22 12:14 Urine Protein Neg (Negative) 12/04/22 12:14 Urine Glucose (UA) Norm (Normal) 12/04/22 12:14 Urine Ketones Negative (Negative) 12/04/22 12:14 Urine Blood Trace (Negative) H 12/04/22 12:14 Urine Nitrate Negative (Negative) 12/04/22 12:14 Urine Bilirubin Neg (Negative) 12/04/22 12:14 Prot Sulfosalicylic Acd Negative (Negative) 12/04/22 12:14 Urine Urobilinogen Neg mg/dL (Negative) 12/04/22 12:14 Ur Leukocyte Esterase Negative (Negative) 12/04/22 12:14 Urine RBC Rare /hpf (0-2) 12/04/22 12:14 Urine WBC Rare /hpf (0-5) 12/04/22 12:14 Ur Squamous Epith Cells None /hpf (0-5) 12/04/22 12:14 Amorphous Sediment Not Reportable 12/04/22 12:14 Urine Bacteria None /hpf (NONE) 12/04/22 12:14 Valproic Acid 89.4 ug/mL (50-100) 12/04/22 09:45 Discharge Plan Discharge Patient Disposition: Home Clinical Impression: Community acquired pneumonia of both lungs, Lethargy, Anemia Condition: Stable Prescriptions: New amoxicillin 500 mg tablet 1,000 mg PO TID 7 Days Qty: 42 0RF No Action methylphenidate HCl [Ritalin] 20 mg tablet 20 mg PO TID 30 Days Qty: 90 0RF clonazepam [Klonopin] 2 mg tablet 2 mg PO DAILY@20 Qty: 30 5RF chlorpromazine 100 mg tablet 100 mg PO TID Qty: 270 3RF benztropine 1 mg tablet 1 mg PO BID Qty: 180 3RF lorazepam [Ativan] 2 mg tablet 2 mg PO Q8H PRN (Reason: agitation) Qty: 90 5RF atorvastatin [Lipitor] 40 mg Tablet 40 mg PO BEDTIME@20 acetaminophen [Tylenol] 325 mg Tablet 325 mg PO Q6H PRN (Reason: Pain) loperamide 2 mg Tablet See Rx Instructions .ROUTE .COMPLEX Rx Instructions: 4mg po with each loose stool *max 8 tabs per day* triamcinolone acetonide 0.1 % Cream 1 applic TOPICAL BID PRN (Reason: fungal infection) calcium carbonate 600 mg calcium (1,500 mg) Tablet 600 mg PO BEDTIME@20 famotidine [Pepcid] 20 mg Tablet 20 mg PO BEDTIME@20 meclizine 25 mg Tablet 25 mg PO DAILY PRN (Reason: Motion Sickness) nystatin 100,000 unit/gram Cream See Rx Instructions .ROUTE .COMPLEX Rx Instructions: apply topically to areas on toes and feet as needed docusate sodium [Colace] 100 mg Capsule 100 mg PO DAILY@08 furosemide [Lasix] 20 mg Tablet 10 mg PO DAILY@08 polyethylene glycol 3350 [Miralax] 17 gram/dose Powder 17 g PO DAILY@12 levothyroxine 112 mcg Tablet 112 mcg PO DAILY@08 divalproex [Depakote Sprinkles] 125 mg capsule, delayed rel sprinkle 1,000 mg PO BID@08,21 levetiracetam [Keppra] 500 mg tablet 250 mg PO BID@08,20 Qty: 20 0RF metoprolol tartrate 50 mg Tablet 25 mg PO DAILY@08 PRN (Reason: HR more than 80 bpm) Qty: 20 0RF Discharge Orders: Discharge ED (Routine); Ordered 12/04/22 Ordered By: Catrachita Cook Referrals: Brittany Bahena MD [Primary Care Provider] - Discharge Diet: Usual diet Discharge Activity: Increase activity as tolerated Patient Instructions: Pneumonia (ED) Activity Restrictions/Additional Instructions: Make sure the patient is staying well-hydrated. Take antibiotics as directed. Follow-up with primary care provider. Return to the ER for new or worsening symptoms. 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
[2022-12-04 09:51] LABS: Basophils % 0.1 %; Hematocrit 26.8 % (42.0-52.0); Hemoglobin 8.3 g/dL (11.7-16.6); Lymphocytes # 1.3 10^3/uL (0.8-4.8); Lymphocytes % 19.1 %; Mean Corpuscular Hemoglobin 30.5 pg (28.0-34.0); Mean Corpuscular Volume 98.5 fl (80-94); Mean Platelet Volume 10.8 fL (7.4-10.4); Monocytes # 0.8 10^3/uL (0.2-0.9); Monocytes % 11.7 %; Neutrophils % 68.7 %; Nucleated Red Blood Cells % 0 %; Platelet Count 142 10^3/cmm (130-400); Red Blood Count 2.72 10^6/uL (4.1-5.3); Red Cell Distribution Width 17.2 % (12.1-15.1); White Blood Count 6.9 10^3/uL (4.0-10.0)
[2022-12-04 10:12] LABS: Troponin(5th) Baseline 19 ng/L (0-15)
[2022-12-04 10:21] LABS: Alanine Aminotransferase 8 U/L (0-41); Alkaline Phosphatase 89 U/L (40-130); Anion Gap 12.6 (5-19); Aspartate Amino Transferase 12 U/L (0-40); Blood Urea Nitrogen 15 mg/dL (8-23); Calcium 9.3 mg/dL (8.5-10.5); Carbon Dioxide 31 mmol/L (22-29); Chloride 98 mmol/L (98-107); Globulin 4.8 g/dL (1.3-4.6); Glomerular Filtration Rate 119.3 mL/min (90-130); Glucose 94 mg/dL (65-115); Osmolality Calculated 285 mOsm/kg (285-295); Potassium 4.6 mmol/L (3.5-5.1); Sodium 137 mmol/L (136-145); Total Bilirubin 0.2 mg/dL (0.15-1.2); Total Protein 7.8 g/dL (6.6-8.7)
[2022-12-04 10:26] LABS: Valproic Acid Level 89.4 ug/mL (50-100)
--- NOTE | 2022-12-04 10:34 | ECG_ITS ---
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 Measurements Intervals [place] Rate: 73 P: 61 OR: 135 QRS: 53 QRSD: 98 T: 47 QT: 404 QTc: 446 Interpretive Statements SINUS RHYTHM Compared to ECG 12/04/2022 08:42:32 No significant changes Electronically Signed On 12-04-2022 19:02:44 SLIP DUMPER by Han Lazaro M.D. [id number]
[2022-12-04 12:24] LABS: Troponin 5 2HR 19.28 ng/L (0-15)
[2022-12-04 12:28] LABS: Troponin 5 2HR Delta 0.28 ABS# (0-10)
[2022-12-04 12:38] VITALS: BP 133/91; O2SAT 97
[2022-12-04 13:02] LABS: Add Urine Microscopic? YES; Bilirubin Urine Neg (Negative); Blood Urine Trace (Negative); Glucose Urine UA Norm (Normal); Ketones Urine Negative (Negative); Leukocyte Esterase Urine Negative (Negative); Nitrate Urine Negative (Negative); Protein Urine Neg (Negative); Specific Gravity, Urine 1.005 (1.005-1.030); Sulfosalicylic Acid Urine Negative (Negative); Urine Appearance Clear (CLEAR); Urine Color Yellow (Yellow); Urobilinogen Urine Neg (Negative); pH Urine 8 (5-7)
[2022-12-04 13:12] LABS: Add Urine Culture? No; RBC Urine RARE /hpf (0-2); WBC Urine RARE /hpf (0-5)
[2022-12-04] MEDS: amoxicillin 500 mg Capsule 1000 MG PO (14:53)
[2022-12-05 15:55] LABS: Levetiracetam Immunoassy 11.8 mcg/mL (6.0-46.0)
== END 2022-12-04 14:54 | disposition home or self-care (01) ==
PROVIDERS: Emergency Provider Nurse Practitioner Family; PCP Family Medicine
DX: J18.9 Pneumonia, unspecified organism (principal); R53.83 Other fatigue; D64.9 Anemia, unspecified; F84.0 Autistic disorder; E78.5 Hyperlipidemia, unspecified; I10 Essential (primary) hypertension
CPT/HCPCS: 36415; 70450; 71045; 80053; 80164; 80177; 81001; 84484; 85025; 93005; 99285

== ENCOUNTER 2022-12-18 21:54 | Emergency (ER) | payer MEDICARE, MEDICAID, SELFPAY ==
[2022-12-18 21:56] VITALS: BP 102/71; PULSE 40; RESP 18; TEMP 29.3; O2SAT 97; BMI 27.8
--- NOTE | 2022-12-18 22:01 | XRR_ITS ---
PROCEDURE INFORMATION: Exam: XR Chest Exam date and time: 12/18/2022 10:21 PM Age: 62 years old Clinical indication: Other: Lethargy. Hypotehrmia. Patient HX: Arrival via EMS for severe lethargy. Rectal temp of 84 degrees. Patient non verbal. ; Additional info: AMS TECHNIQUE: Imaging protocol: Radiologic exam of the chest. Views: 1 view. COMPARISON: CR XR chest 1V portable [id number] 12/04/2022 8:46 AM FINDINGS: Lungs: Bibasilar atelectasis versus infiltrate. Pleural spaces: Unremarkable. No pleural effusion. No pneumothorax. Heart/Mediastinum: Cardiomegaly. Bones/joints: Unremarkable. XR/XR chest 1V portable [id number] IMPRESSION: 1. Bibasilar atelectasis versus infiltrate. 2. Cardiomegaly.
--- NOTE | 2022-12-18 22:01 | W.ED.AMS ---
Documented by User: Alejandro Holt MD 12/29/22 20:11 HPI - Altered Mental Status General: Chief Complaint: General Medical Stated Complaint: LETHARGIC Time Seen by Provider: 12/18/22 21:55 Limitations: altered mental status History of Present Illness: Mr. Hilario is a 62-year-old gentleman with history of nonverbal status presenting to the emergency department for generalized illness. History is limited by patient's baseline nonverbal status. Per EMS report they were called for lethargy. They found the patient to be bradycardic and attempted atropine x2 without significant improvement. Patient's blood pressure became soft and they initiated epi drip with mild improvement. Additionally patient became combative and they gave 80 mg IV ketamine. Supplemental information provided by staff is that patient recently completed a course of antibiotics for pneumonia. He is really not been himself intermittently for few weeks however was markedly different today. He typically is able to feed himself, ambulates, follows directions however he was unable to do so today and has hardly had any p.o. intake. Patient is full code per shared services manager. Review of Systems General: Reports: ROS unobtainable due to medical condition and ROS unobtainable due to mental status PFS ED PFSH: Medical History Anemia Autism Developmental disorder Epilepsy Extrapyramidal movement disorder, drug-induced Hyperlipidemia Hypertension Hypothyroidism Neutropenia Follow-up with Dr. Reyes last seen in 2015. Suspicion of myelodysplasia at that time. Psychiatric care Social History Smoking and tobacco status: never smoked Alcohol intake: never Physical Exam Const: GENERAL APPEARANCE: lethargic and ill appearing ORIENTATION/CONSCIOUSNESS: Yes lethargic HENMT: COMMON NORMALS: atraumatic HEAD & SCALP: atraumatic Eye: COMMON NORMALS: conjunctivae normal CONJUNCTIVA: Yes conjunctivae normal SCLERA: sclerae normal Neck/C-Spine: COMMON NORMALS: supple GENERAL: Yes trachea midline Resp: COMMON NORMALS: normal respiratory effort and clear to auscultation bilaterally AUSCULTATION: clear to auscultation bilaterally Cardio: COMMON NORMALS: regular rhythm RATE: bradycardic RHYTHM: regular rhythm GI: COMMON NORMALS: Soft to palpation PALPATION: Yes Soft to palpation Extremity: NARRATIVE EXTREMITY EXAM: Cool to the touch GENERAL: Yes normal exam except as noted and No edema Neuro: COMMON NORMALS: moves all extremities SENSORIUM/ORIENTATION: Yes Orientation impaired and Yes lethargic Psych: ATTENTION/CONCENTRATION: Yes attention grossly impaired and Yes concentration grossly impaired MEMORY/COGNITION: Yes memory grossly impaired and Yes cognition grossly impaired Course Vital Signs: Vital signs: Vital Signs Temperature 86.8 F L 12/19/22 01:14 Pulse Rate 58 L 12/19/22 03:00 Respiratory Rate 16 12/19/22 03:00 Blood Pressure 119/81 12/19/22 03:00 Pulse Oximetry 98 12/19/22 03:00 Oxygen Delivery Me thod 12/19/22 03:00 Fraction of Inspir ed Oxygen 30 12/19/22 03:00 MDM - Altered Mental Status Medical Decision Making 62-year-old gentleman presenting to the emergency department for lethargy and altered mental status. Upon initial assessment patient is ill-appearing, altered mental status, cool to the touch. Patient is bradycardic with what appears to be junctional rhythm however blood pressure is adequate not currently on vasopressors for initial assessment. Initial temperature rectally 84.7. Patient placed on Gigi hugger. Warmed IV fluids and empiric antibiotic coverage ordered. EKG shows junctional rhythm, interventricular conduction delay, no STEMI. ABG with hypercapnia and acidemia. BiPAP applied to patient with improved tidal volumes and satisfactory respiratory rate. Labs with no leukocytosis, hemoglobin of 9 and mild macrocytosis which is comparable with prior. Thrombocytopenia without evidence of hemorrhage on exam. Metabolic panel without significant electrolyte derangement. Albumin mildly decreased also noted on prior. Lactic acid is significantly elevated. No evidence of urinary tract infection. Viral panel pending Chest x-ray shows bibasilar atelectasis versus infiltrate and cardiomegaly. CT imaging ordered for further evaluation given degree of illness. Patient care handed off to Dr. Catherine pending completion of ED evaluation and admission. Medical Records I reviewed the patient's medical records. Lab Data I reviewed the patient's lab results. 12/18/22 22:05 12/18/22 22:05 Radiology Impressions Chest/Abdomen/Pelvis CT 12/18/22 23:11 IMPRESSION: Bilateral pneumonia more on the left than on the right. IMPRESSION: 1. Findings suggestive of severe constipation. 2. Marked gastric distention with food and fluid. Findings suggest the possibility of gastroparesis or gastric outlet obstruction. 3. No intra-abdominal abscess is identified. Head CT 12/18/22 23:11 IMPRESSION: Negative for intracranial hemorrhage or mass effect. Chest X-Ray 12/19/22 02:04 IMPRESSION: 1. New right IJ line in place, no pneumothorax. 2. Unimproved exam from prior day. Laboratory Results WBC 7.1 10^3/uL (4.0-10.0) 12/18/22 22:05 RBC 2.95 10^6/uL (4.1-5.3) L 12/18/22 22:05 Hgb 9.0 g/dL (11.7-16.6) L 12/18/22 22:05 Hct 29.2 % (42.0-52.0) L 12/18/22 22:05 MCV 99.0 fl (80-94) H 12/18/22 22:05 MCH 30.5 pg (28.0-34.0) 12/18/22 22:05 MCHC 30.8 g/dL (30.0-36.0) 12/18/22 22:05 RDW 18.3 % (12.1-15.1) H 12/18/22 22:05 Plt Count 116 10^3/cmm (130-400) L 12/18/22 22:05 MPV 11.4 fL (7.4-10.4) H 12/18/22 22:05 Neut % (Auto) 78.1 % 12/18/22 22:05 Lymph % (Auto) 16.9 % 12/18/22 22:05 Tate % (Auto) 4.5 % 12/18/22 22:05 Eos % (Auto) 0.1 % 12/18/22 22:05 Baso % (Auto) 0.1 % 12/18/22 22:05 Neut # (Auto) 5.50 10^3/uL (1.8-7.7) 12/18/22 22:05 Lymph # (Auto) 1.2 10^3/uL (0.8-4.8) 12/18/22 22:05 Tate # (Auto) 0.3 10^3/uL (0.2-0.9) 12/18/22 22:05 Eos # (Auto) 0.0 10^3/uL (0.0-0.8) 12/18/22 22:05 Baso # (Auto) 0.0 10^3/uL (0.0-0.1) 12/18/22 22:05 Nucleated RBC % (auto) 0.6 % 12/18/22 22:05 Nucleated RBCs # 0.0 /100WBC 12/18/22 22:05 Specimen Type Arterial 12/18/22 22:22 Sample Site Brachial, right 12/18/22 22:22 ABG pH 7.26 (7.35-7.45) L 12/18/22 22:22 ABG pCO2 65.9 mmHg (35-45) H* 12/18/22 22:22 ABG pO2 113.0 mmHg (80.0-100.0) H 12/18/22 22:22 ABG HCO3 29.4 mmol/L (22-26) H 12/18/22 22:22 ABG Base Excess 1.7 mmol/L (-2.0-2.0) 12/18/22 22:22 Brooks Test Pos 12/18/22 22:22 Hematocrit 23.3 % (42-52) L 12/18/22 22:22 O2 Delivery Device Nc 12/18/22 22:22 O2 Liters/Min 2.0 % 12/18/22 22:22 FiO2 30.0 % 12/18/22 00:41 PEEP 8.0 cmH20 12/18/22 00:41 Sales Department Clerk ID [email or web address] 12/18/22 22:22 Sodium 141 mmol/L (136-145) 12/18/22 22:05 Potassium 3.6 mmol/L (3.5-5.1) 12/18/22 22:05 Chloride 100 mmol/L (98-107) 12/18/22 22:05 Carbon Dioxide 30 mmol/L (22-29) H 12/18/22 22:05 Anion Gap 14.6 (5-19) 12/18/22 22:05 BUN 18 mg/dL (8-23) 12/18/22 22:05 Creatinine 1.0 mg/dL (0.7-1.2) 12/18/22 22:05 GFR Calculation 92.2 mL/min (90-130) 12/18/22 22:05 Glucose 103 mg/dL (65-115) 12/18/22 22:05 Calculated Osmolality 294 mOsm/kg (285-295) 12/18/22 22:05 Lactic Acid 4.9 mmol/L (0.5-2.2) H* 12/18/22 22:05 Lactic Acid (Sepsis) 1.5 mmol/L (0.5-2.2) 12/19/22 01:05 Calcium 9.5 mg/dL (8.5-10.5) 12/18/22 22:05 Magnesium 2.1 mg/dL (1.7-2.3) 12/18/22 22:05 Total Bilirubin 0.3 mg/dL (0.15-1.2) 12/18/22 22:05 AST 25 U/L (0-40) 12/18/22 22:05 ALT 21 U/L (0-41) 12/18/22 22:05 Alkaline Phosphatase 107 U/L (40-130) 12/18/22 22:05 Troponin T Baseline 34 ng/L (0-15) H 12/18/22 22:05 Troponin T 120 Minute 27.76 ng/L (0-15) H 12/19/22 00:26 Delta Troponin T -6.24 ABS# (0-10) L 12/19/22 00:26 C-Reactive Protein 30.4 mg/L (0.0-4.9) H 12/18/22 22:05 Total Protein 8.7 g/dL (6.6-8.7) 12/18/22 22:05 Albumin 3.2 g/dL (3.5-5.2) L 12/18/22 22:05 Globulin 5.5 g/dL (1.3-4.6) H 12/18/22 22:05 Procalcitonin 0.16 ng/mL (0-0.5) 12/18/22 22:05 TSH 1.98 uIU/mL (0.27-4.20) 12/18/22 22:05 Urine Color Yellow (Yellow) 12/18/22 22:35 Urine Appearance Clear (CLEAR) 12/18/22 22:35 Urine pH 6 (5-7) 12/18/22 22:35 Ur Specific [place] 1.020 (1.005-1.030) 12/18/22 22:35 Urine Protein Neg (Negative) 12/18/22 22:35 Urine Glucose (UA) Norm (Normal) 12/18/22 22:35 Urine Ketones Negative (Negative) 12/18/22 22:35 Urine Blood Neg (Negative) 12/18/22 22:35 Urine Nitrate Negative (Negative) 12/18/22 22:35 Urine Bilirubin Neg (Negative) 12/18/22 22:35 Urine Urobilinogen Norm mg/dL (Negative) 12/18/22 22:35 Ur Leukocyte Esterase Negative (Negative) 12/18/22 22:35 Coronavirus 229E (PCR) Not detected (NOT DETECT) 12/18/22 23:17 Influenza Type A Ag negative (Negative) 12/19/22 00:43 Influenza Type B Ag negative (Negative) 12/19/22 00:43 SARS-CoV-2 (PCR) Not detected (NOT DETECT) 12/18/22 23:17 SARS-CoV-2 Ag (Rapid) negative (Negative) 12/19/22 00:43 Discharge Plan Discharge Patient Disposition: Xfer Short-Term Hosp Clinical Impression: Pneumonia, Hypothermia, Acute hypotension Condition: Stable Referrals: Brittany Bahena MD [Primary Care Provider] - Coding Level of Care Code ED System Safety Manager for Chg Fwd Exam Comprehensive Documented by User: JARON Miller 12/19/22 02:32 HPI - Altered Mental Status General: Chief Complaint: General Medical Stated Complaint: LETHARGIC Time Seen by Provider: 12/18/22 21:55 PFSH ED PFSH: Medical History Anemia Autism Developmental disorder Epilepsy Extrapyramidal movement disorder, drug-induced Hyperlipidemia Hypertension Hypothyroidism Neutropenia Follow-up with Dr. Reyes last seen in 2015. Suspicion of myelodysplasia at that time. Psychiatric care Social History Smoking and tobacco status: never smoked Alcohol intake: never Course ED course: 210, discussed patient with Dr. Krause as [facility] for transport to ICU. He accepted the patient at their facility. [email or web address] Vital Signs: Vital signs: Vital Signs Temperature 86.8 F L 12/19/22 01:14 Pulse Rate 58 L 12/19/22 03:00 Respiratory Rate 16 12/19/22 03:00 Blood Pressure 119/81 12/19/22 03:00 Pulse Oximetry 98 12/19/22 03:00 Oxygen Delivery Me thod 12/19/22 03:00 Fraction of Inspir ed Oxygen 30 12/19/22 03:00 MDM - Altered Mental Status Lab Data 12/18/22 22:05 12/18/22 22:05 Radiology Impressions Chest/Abdomen/Pelvis CT 12/18/22 23:11 IMPRESSION: Bilateral pneumonia more on the left than on the right. IMPRESSION: 1. Findings suggestive of severe constipation. 2. Marked gastric distention with food and fluid. Findings suggest the possibility of gastroparesis or gastric outlet obstruction. 3. No intra-abdominal abscess is identified. Head CT 12/18/22 23:11 IMPRESSION: Negative for intracranial hemorrhage or mass effect. Chest X-Ray 12/19/22 02:04 IMPRESSION: 1. New right IJ line in place, no pneumothorax. 2. Unimproved exam from prior day. Laboratory Results WBC 7.1 10^3/uL (4.0-10.0) 12/18/22 22:05 RBC 2.95 10^6/uL (4.1-5.3) L 12/18/22 22:05 Hgb 9.0 g/dL (11.7-16.6) L 12/18/22 22:05 Hct 29.2 % (42.0-52.0) L 12/18/22 22:05 MCV 99.0 fl (80-94) H 12/18/22 22:05 MCH 30.5 pg (28.0-34.0) 12/18/22 22:05 MCHC 30.8 g/dL (30.0-36.0) 12/18/22 22:05 RDW 18.3 % (12.1-15.1) H 12/18/22 22:05 Plt Count 116 10^3/cmm (130-400) L 12/18/22 22:05 MPV 11.4 fL (7.4-10.4) H 12/18/22 22:05 Neut % (Auto) 78.1 % 12/18/22 22:05 Lymph % (Auto) 16.9 % 12/18/22 22:05 Tate % (Auto) 4.5 % 12/18/22 22:05 Eos % (Auto) 0.1 % 12/18/22 22:05 Baso % (Auto) 0.1 % 12/18/22 22:05 Neut # (Auto) 5.50 10^3/uL (1.8-7.7) 12/18/22 22:05 Lymph # (Auto) 1.2 10^3/uL (0.8-4.8) 12/18/22 22:05 Tate # (Auto) 0.3 10^3/uL (0.2-0.9) 12/18/22 22:05 Eos # (Auto) 0.0 10^3/uL (0.0-0.8) 12/18/22 22:05 Baso # (Auto) 0.0 10^3/uL (0.0-0.1) 12/18/22 22:05 Nucleated RBC % (auto) 0.6 % 12/18/22 22:05 Nucleated RBCs # 0.0 /100WBC 12/18/22 22:05 Specimen Type Arterial 12/18/22 22:22 Sample Site Brachial, right 12/18/22 22:22 ABG pH 7.26 (7.35-7.45) L 12/18/22 22: ABG pCO2 65.9 mmHg (35-45) H* 12/18/22 22:22 ABG pO2 113.0 mmHg (80.0-100.0) H 12/18/22 22:22 ABG HCO3 29.4 mmol/L (22-26) H 12/18/22 22:22 ABG Base Excess 1.7 mmol/L (-2.0-2.0) 12/18/22 22:22 Brooks Test Pos 12/18/22 22:22 Hematocrit 23.3 % (42-52) L 12/18/22 22:22 O2 Delivery Device Nc 12/18/22 22:22 O2 Liters/Min 2.0 % 12/18/22 22:22 FiO2 30.0 % 12/18/22 00:41 PEEP 8.0 cmH20 12/18/22 00:41 Sales Department Clerk ID [email or web address] 12/18/22 22:22 Sodium 141 mmol/L (136-145) 12/18/22 22:05 Potassium 3.6 mmol/L (3.5-5.1) 12/18/22 22:05 Chloride 100 mmol/L (98-107) 12/18/22 22:05 Carbon Dioxide 30 mmol/L (22-29) H 12/18/22 22:05 Anion Gap 14.6 (5-19) 12/18/22 22:05 BUN 18 mg/dL (8-23) 12/18/22 22:05 Creatinine 1.0 mg/dL (0.7-1.2) 12/18/22 22:05 GFR Calculation 92.2 mL/min (90-130) 12/18/22 22:05 Glucose 103 mg/dL (65-115) 12/18/22 22:05 Calculated Osmolality 294 mOsm/kg (285-295) 12/18/22 22:05 Lactic Acid 4.9 mmol/L (0.5-2.2) H* 12/18/22 22:05 Lactic Acid (Sepsis) 1.5 mmol/L (0.5-2.2) 12/19/22 01:05 Calcium 9.5 mg/dL (8.5-10.5) 12/18/22 22:05 Magnesium 2.1 mg/dL (1.7-2.3) 12/18/22 22:05 Total Bilirubin 0.3 mg/dL (0.15-1.2) 12/18/22 22:05 AST 25 U/L (0-40) 12/18/22 22:05 ALT 21 U/L (0-41) 12/18/22 22:05 Alkaline Phosphatase 107 U/L (40-130) 12/18/22 22:05 Troponin T Baseline 34 ng/L (0-15) H 12/18/22 22:05 Troponin T 120 Minute 27.76 ng/L (0-15) H 12/19/22 00:26 Delta Troponin T -6.24 ABS# (0-10) L 12/19/22 00:26 C-Reactive Protein 30.4 mg/L (0.0-4.9) H 12/18/22 22:05 Total Protein 8.7 g/dL (6.6-8.7) 12/18/22 22:05 Albumin 3.2 g/dL (3.5-5.2) L 12/18/22 22:05 Globulin 5.5 g/dL (1.3-4.6) H 12/18/22 22:05 Procalcitonin 0.16 ng/mL (0-0.5) 12/18/22 22:05 TSH 1.98 uIU/mL (0.27-4.20) 12/18/22 22:05 Urine Color Yellow (Yellow) 12/18/22 22:35 Urine Appearance Clear (CLEAR) 12/18/22 22:35 Urine pH 6 (5-7) 12/18/22 22:35 Ur Specific [place] 1.020 (1.005-1.030) 12/18/22 22:35 Urine Protein Neg (Negative) 12/18/22 22:35 Urine Glucose (UA) Norm (Normal) 12/18/22 22:35 Urine Ketones Negative (Negative) 12/18/22 22:35 Urine Blood Neg (Negative) 12/18/22 22:35 Urine Nitrate Negative (Negative) 12/18/22 22:35 Urine Bilirubin Neg (Negative) 12/18/22 22:35 Urine Urobilinogen Norm mg/dL (Negative) 12/18/22 22:35 Ur Leukocyte Esterase Negative (Negative) 12/18/22 22:35 Coronavirus 229E (PCR) Not detected (NOT DETECT) 12/18/22 23:17 Influenza Type A Ag negative (Negative) 12/19/22 00:43 Influenza Type B Ag negative (Negative) 12/19/22 00:43 SARS-CoV-2 (PCR) Not detected (NOT DETECT) 12/18/22 23:17 SARS-CoV-2 Ag (Rapid) negative (Negative) 12/19/22 00:43 Discharge Plan Discharge Patient Disposition: Xfer Short-Term Hosp Clinical Impression: Pneumonia, Hypothermia, Acute hypotension Condition: Stable Referrals: Brittany Bahena MD [Primary Care Provider] - Coding Level of Care Code ED System Safety Manager for Chg Fwd Exam Comprehensive Documented by User: Arely Catherine MD 12/19/22 02:13 HPI - Altered Mental Status General: Chief Complaint: General Medical Stated Complaint: LETHARGIC Time Seen by Provider: 12/18/22 21:55 PFSH ED PFSH: Medical History Anemia Autism Developmental disorder Epilepsy Extrapyramidal movement disorder, drug-induced Hyperlipidemia Hypertension Hypothyroidism Neutropenia Follow-up with Dr. Reyes last seen in 2015. Suspicion of myelodysplasia at that time. Psychiatric care Social History Smoking and tobacco status: never smoked Alcohol intake: never Procedures Central Line Placement Right IJ: Time Out Performed: Yes Patient Placed on Monitor/Pulse Ox: Yes MD Prep: mask, gown and gloves Central Line Prep: Chlorhexidine scrub Local Anesthetic: lidocaine 1% Amount of anesthesia used (mL): 3 Ultrasound Used for Placement: Yes Central Line Lumen Inserted: triple Post Procedure: sutured in place, good blood return, all ports aspirated, flushed, capped and sterile dressing applied Post Procedure X-Ray: tip of catheter in good position and no pneumothorax seen Patient Tolerated Procedure: well Complications: none Course Vital Signs: Vital signs: Vital Signs Temperature 86.8 F L 12/19/22 01:14 Pulse Rate 58 L 12/19/22 03:00 Respiratory Rate 16 12/19/22 03:00 Blood Pressure 119/81 12/19/22 03:00 Pulse Oximetry 98 12/19/22 03:00 Oxygen Delivery Me thod 12/19/22 03:00 Fraction of Inspir ed Oxygen 30 12/19/22 03:00 MDM - Altered Mental Status Medical Decision Making 62-year-old gentleman presenting to the emergency department for lethargy and altered mental status. Upon initial assessment patient is ill-appearing, altered mental status, cool to the touch. Patient is bradycardic with what appears to be junctional rhythm however blood pressure is adequate not currently on vasopressors for initial assessment. Initial temperature rectally 84.7. Patient placed on Gigi hugger. Warmed IV fluids and empiric antibiotic coverage ordered. EKG shows junctional rhythm, interventricular conduction delay, no STEMI. ABG with hypercapnia and acidemia. BiPAP applied to patient with improved tidal volumes and satisfactory respiratory rate. Labs with no leukocytosis, hemoglobin of 9 and mild macrocytosis which is comparable with prior. Thrombocytopenia without evidence of hemorrhage on exam. Metabolic panel without significant electrolyte derangement. Albumin mildly decreased also noted on prior. Lactic acid is significantly elevated. No evidence of urinary tract infection. Viral panel pending Chest x-ray shows bibasilar atelectasis versus infiltrate and cardiomegaly. CT imaging ordered for further evaluation given degree of illness. Patient care handed off to Dr. Catherine pending completion of ED evaluation and admission. Patient presents here with hypotension along with hypothermia he also has a pneumonia likely septic patient continue to have hypotension here did place a central line and started patient on Levophed patient's had IV antibiotics do not have ICU availability here I did speak to physician at [facility] and will transfer there for ICU availability. Lab Data 12/18/22 22:05 12/18/22 22:05 Radiology Impressions Chest/Abdomen/Pelvis CT 12/18/22 23:11 IMPRESSION: Bilateral pneumonia more on the left than on the right. IMPRESSION: 1. Findings suggestive of severe constipation. 2. Marked gastric distention with food and fluid. Findings suggest the possibility of gastroparesis or gastric outlet obstruction. 3. No intra-abdominal abscess is identified. Head CT 12/18/22 23:11 IMPRESSION: Negative for intracranial hemorrhage or mass effect. Chest X-Ray 12/19/22 02:04 IMPRESSION: 1. New right IJ line in place, no pneumothorax. 2. Unimproved exam from prior day. Laboratory Results WBC 7.1 10^3/uL (4.0-10.0) 12/18/22 22:05 RBC 2.95 10^6/uL (4.1-5.3) L 12/18/22 22:05 Hgb 9.0 g/dL (11.7-16.6) L 12/18/22 22:05 Hct 29.2 % (42.0-52.0) L 12/18/22 22:05 MCV 99.0 fl (80-94) H 12/18/22 22:05 MCH 30.5 pg (28.0-34.0) 12/18/22 22:05 MCHC 30.8 g/dL (30.0-36.0) 12/18/22 22:05 RDW 18.3 % (12.1-15.1) H 12/18/22 22:05 Plt Count 116 10^3/cmm (130-400) L 12/18/22 22:05 MPV 11.4 fL (7.4-10.4) H 12/18/22 22:05 Neut % (Auto) 78.1 % 12/18/22 22:05 Lymph % (Auto) 16.9 % 12/18/22 22:05 Tate % (Auto) 4.5 % 12/18/22 22:05 Eos % (Auto) 0.1 % 12/18/22 22:05 Baso % (Auto) 0.1 % 12/18/22 22:05 Neut # (Auto) 5.50 10^3/uL (1.8-7.7) 12/18/22 22:05 Lymph # (Auto) 1.2 10^3/uL (0.8-4.8) 12/18/22 22:05 Tate # (Auto) 0.3 10^3/uL (0.2-0.9) 12/18/22 22:05 Eos # (Auto) 0.0 10^3/uL (0.0-0.8) 12/18/22 22:05 Baso # (Auto) 0.0 10^3/uL (0.0-0.1) 12/18/22 22:05 Nucleated RBC % (auto) 0.6 % 12/18/22 22:05 Nucleated RBCs # 0.0 /100WBC 12/18/22 22:05 Specimen Type Arterial 12/18/22 22:22 Sample Site Brachial, right 12/18/22 22:22 ABG pH 7.26 (7.35-7.45) L 12/18/22 22:22 ABG pCO2 65.9 mmHg (35-45) H* 12/18/22 22:22 ABG pO2 113.0 mmHg (80.0-100.0) H 12/18/22 22:22 ABG HCO3 29.4 mmol/L (22-26) H 12/18/22 22:22 ABG Base Excess 1.7 mmol/L (-2.0-2.0) 12/18/22 22:22 Brooks Test Pos 12/18/22 22:22 Hematocrit 23.3 % (42-52) L 12/18/22 22:22 O2 Delivery Device Nc 12/18/22 22:22 O2 Liters/Min 2.0 % 12/18/22 22:22 FiO2 30.0 % 12/18/22 00:41 PEEP 8.0 cmH20 12/18/22 00:41 Sales Department Clerk ID [email or web address] 12/18/22 22:22 Sodium 141 mmol/L (136-145) 12/18/22 22:05 Potassium 3.6 mmol/L (3.5-5.1) 12/18/22 22:05 Chloride 100 mmol/L (98-107) 12/18/22 22:05 Carbon Dioxide 30 mmol/L (22-29) H 12/18/22 22:05 Anion Gap 14.6 (5-19) 12/18/22 22:05 BUN 18 mg/dL (8-23) 12/18/22 22:05 Creatinine 1.0 mg/dL (0.7-1.2) 12/18/22 22:05 GFR Calculation 92.2 mL/min (90-130) 12/18/22 22:05 Glucose 103 mg/dL (65-115) 12/18/22 22:05 Calculated Osmolality 294 mOsm/kg (285-295) 12/18/22 22:05 Lactic Acid 4.9 mmol/L (0.5-2.2) H* 12/18/22 22:05 Lactic Acid (Sepsis) 1.5 mmol/L (0.5-2.2) 12/19/22 01:05 Calcium 9.5 mg/dL (8.5-10.5) 12/18/22 22:05 Magnesium 2.1 mg/dL (1.7-2.3) 12/18/22 22:05 Total Bilirubin 0.3 mg/dL (0.15-1.2) 12/18/22 22:05 AST 25 U/L (0-40) 12/18/22 22:05 ALT 21 U/L (0-41) 12/18/22 22:05 Alkaline Phosphatase 107 U/L (40-130) 12/18/22 22:05 Troponin T Baseline 34 ng/L (0-15) H 12/18/22 22:05 Troponin T 120 Minute 27.76 ng/L (0-15) H 12/19/22 00:26 Delta Troponin T -6.24 ABS# (0-10) L 12/19/22 00:26 C-Reactive Protein 30.4 mg/L (0.0-4.9) H 12/18/22 22:05 Total Protein 8.7 g/dL (6.6-8.7) 12/18/22 22:05 Albumin 3.2 g/dL (3.5-5.2) L 12/18/22 22:05 Globulin 5.5 g/dL (1.3-4.6) H 12/18/22 22:05 Procalcitonin 0.16 ng/mL (0-0.5) 12/18/22 22:05 TSH 1.98 uIU/mL (0.27-4.20) 12/18/22 22:05 Urine Color Yellow (Yellow) 12/18/22 22:35 Urine Appearance Clear (CLEAR) 12/18/22 22:35 Urine pH 6 (5-7) 12/18/22 22:35 Ur Specific [place] 1.020 (1.005-1.030) 12/18/22 22:35 Urine Protein Neg (Negative) 12/18/22 22:35 Urine Glucose (UA) Norm (Normal) 12/18/22 22:35 Urine Ketones Negative (Negative) 12/18/22 22:35 Urine Blood Neg (Negative) 12/18/22 22:35 Urine Nitrate Negative (Negative) 12/18/22 22:35 Urine Bilirubin Neg (Negative) 12/18/22 22:35 Urine Urobilinogen Norm mg/dL (Negative) 12/18/22 22:35 Ur Leukocyte Esterase Negative (Negative) 12/18/22 22:35 Coronavirus 229E (PCR) Not detected (NOT DETECT) 12/18/22 23:17 Influenza Type A Ag negative (Negative) 12/19/22 00:43 Influenza Type B Ag negative (Negative) 12/19/22 00:43 SARS-CoV-2 (PCR) Not detected (NOT DETECT) 12/18/22 23:17 SARS-CoV-2 Ag (Rapid) negative (Negative) 12/19/22 00:43 Critical Care Time Critical Care Time: Critical Care Time: Yes Total Critical Care Time: 75 Attestation: The high probability of a clinically significant, sudden or life threatening deterioration of the patient's resp system(s) required my full and direct attention, intervention and personal management. The critical care time is as shown. This time is in addition to time spent performing any reported procedures but includes the following: [x] Data and vital sign review and interpretation [x] Patient assessment, examination and intervention [x] Documentation [x] Medication orders and management Discharge Plan Discharge Patient Disposition: Xfer Short-Term Hosp Clinical Impression: Pneumonia, Hypothermia, Acute hypotension Condition: Stable Referrals: Brittany Bahena MD [Primary Care Provider] - Coding Level of Care Code ED System Safety Manager for Chg Fwd Exam Comprehensive
[2022-12-18] MEDS: sodium chloride 0.9% 1,000 ML 999 ML IV (22:05)
[2022-12-18] MEDS: piperacillin-tazobactam 4.5 GM in sodium chloride 0.9% (plus) 50 ML IV (22:10)
[2022-12-18 22:20] LABS: Basophils % 0.1 %; Eosinophils % 0.1 %; Hematocrit 29.2 % (42.0-52.0); Lymphocytes # 1.2 10^3/uL (0.8-4.8); Lymphocytes % 16.9 %; Mean Corpuscular HGB Conc 30.8 g/dL (30.0-36.0); Mean Corpuscular Hemoglobin 30.5 pg (28.0-34.0); Mean Platelet Volume 11.4 fL (7.4-10.4); Monocytes # 0.3 10^3/uL (0.2-0.9); Monocytes % 4.5 %; Neutrophils % 78.1 %; Nucleated Red Blood Cells % 0.6 %; Platelet Count 116 10^3/cmm (130-400); Red Blood Count 2.95 10^6/uL (4.1-5.3); Red Cell Distribution Width 18.3 % (12.1-15.1); White Blood Count 7.1 10^3/uL (4.0-10.0)
[2022-12-18 22:33] LABS: ABG PH Result 7.26 (7.35-7.45); Arterial Blood Gas Hematocrit 23.3 % (42-52); Base Excess ABG 1.7 mmol/L (-2.0-2.0); Blood Gas Allen Test Pos; Blood Gas Sample Site Brachial, right; Blood Gas Sample Type Arterial; HCO3 ABG 29.4 mmol/L (22-26); Oxygen Device NC
[2022-12-18 22:39] LABS: Troponin(5th) Baseline 34 ng/L (0-15)
[2022-12-18 22:45] VITALS: PULSE 55; RESP 17; O2SAT 97
[2022-12-18 22:56] LABS: ABG PCO2 65.9 mmHg (35-45)
[2022-12-18 23:01] LABS: Alanine Aminotransferase 21 U/L (0-41); Albumin Level 3.2 g/dL (3.5-5.2); Alkaline Phosphatase 107 U/L (40-130); Anion Gap 14.6 (5-19); Aspartate Amino Transferase 25 U/L (0-40); Blood Urea Nitrogen 18 mg/dL (8-23); C Reactive Protein 30.4 mg/L (0.0-4.9); Calcium 9.5 mg/dL (8.5-10.5); Carbon Dioxide 30 mmol/L (22-29); Chloride 100 mmol/L (98-107); Globulin 5.5 g/dL (1.3-4.6); Glomerular Filtration Rate 92.2 mL/min (90-130); Glucose 103 mg/dL (65-115); Magnesium 2.1 mg/dL (1.7-2.3); Osmolality Calculated 294 mOsm/kg (285-295); Potassium 3.6 mmol/L (3.5-5.1); Sodium 141 mmol/L (136-145); Total Bilirubin 0.3 mg/dL (0.15-1.2); Total Protein 8.7 g/dL (6.6-8.7)
[2022-12-18 23:03] LABS: Procalcitonin 0.16 ng/mL (0-0.5); Thyroid Stimulating Hormone 1.98 uIU/mL (0.27-4.20)
[2022-12-18 23:11] LABS: Add Urine Microscopic? NO; Charge for UA Resulting for Rev
--- NOTE | 2022-12-18 23:11 | CTR_ITS ---
PROCEDURE INFORMATION: Exam: CT Chest With Contrast; Diagnostic Exam date and time: 12/19/2022 12:06 AM Age: 62 years old Clinical indication: Other: Lactic acid 4.9; Other: Hypoxia. Pco2 of 65.9; Patient HX: Arrival via EMS for severe lethargy. Hypothermic with rectal temp of 84 degrees upon triage. Patient non verbal. Pc02 of 65.9. Troponin of 34. Lactic acid of 4.9; Additional info: AMS, sirs, ? source of infection TECHNIQUE: Imaging protocol: Diagnostic computed tomography of the chest with contrast. Radiation optimization: All CT scans at this facility use at least one of these dose optimization techniques: automated exposure control; mA and/or kV adjustment per patient size (includes targeted exams where dose is matched to clinical indication); or iterative reconstruction. Contrast material: OMNI 350; Contrast volume: 100 ml; Contrast route: INTRAVENOUS (IV); COMPARISON: CT chest abdomen wo con 07/18/2019 9:14 AM RADIATION DOSE METRICS: Total DLP (mGy-cm): 1002.84 FINDINGS: Lungs: There is extensive consolidation involving the left lower lobe, a portion of the lingula, basilar segments of the right lower lobe and medial segment of the right middle lobe worse on the left than on the right consistent with multifocal pneumonia. Pleural spaces: Unremarkable. No pneumothorax. No pleural effusion. Heart: Unremarkable. No cardiomegaly. No pericardial effusion. Mediastinal space: There is moderate gaseous distention of the esophagus. Lymph nodes: There is no evidence of lymphadenopathy. Vasculature: There is no thoracic aortic aneurysm or dissection. Bones/joints: There are old healed right rib fractures. There is mild scoliosis of the thoracic spine. Soft tissues: Unremarkable. PROCEDURE INFORMATION: Exam: CT Abdomen And Pelvis With Contrast Exam date and time: 12/19/2022 12:06 AM Age: 62 years old Clinical indication: Other: Lactic acid 4.9; Other: Hypoxia. Pco2 of 65.9; Patient HX: Arrival via EMS for severe lethargy. Hypothermic with rectal temp of 84 degrees upon triage. Patient non verbal. Pc02 of 65.9. Troponin of 34. Lactic acid of 4.9; Additional info: AMS, sirs, ? source of infection TECHNIQUE: Imaging protocol: Computed tomography of the abdomen and pelvis with contrast. Radiation optimization: All CT scans at this facility use at least one of these dose optimization techniques: automated exposure control; mA and/or kV adjustment per patient size (includes targeted exams where dose is matched to clinical indication); or iterative reconstruction. Contrast material: OMNI 350; Contrast volume: 100 ml; Contrast route: INTRAVENOUS (IV); COMPARISON: CT chest abdomen wo con 07/18/2019 9:14 AM RADIATION DOSE METRICS: Total DLP (mGy-cm): 1002.84 FINDINGS: Liver: There is a small hypodensity superior aspect of the left lobe of the liver possibly small cyst or hemangioma. There is a similar 5 mm sized lesion in the periphery of the left lobe. Neither lesion is fully characterized on the CT scanning. Gallbladder and bile ducts: The gallbladder is normal. Pancreas: The pancreas is normal. Spleen: The spleen is normal. Adrenal glands: The adrenal glands are normal. Kidneys and ureters: The kidneys are normal. There is no evidence of hydronephrosis. There is no evidence of renal or ureteral calcifications. Stomach and bowel: Stomach is distended with fluid and food debris. A few calcific densities are seen within the body of the stomach, presumably ingested material. There is a large amount of feces throughout the colon which is suggestive of constipation. There is no evidence for small bowel obstruction. There is no evidence of colitis/diverticulitis. Appendix: A normal appendix is identified. Intraperitoneal space: There is no evidence of free intraperitoneal fluid. Vasculature: The aorta demonstrates mild atherosclerotic calcification. There is no evidence of an abdominal aortic aneurysm. Lymph nodes: There is no evidence of lymphadenopathy. Urinary bladder: Urinary bladder is drained by Campo catheter. Reproductive: Unremarkable as visualized. Bones/joints: There is mild scoliosis of the lumbar spine concave to the left. Soft tissues: Unremarkable. CT/CT chest abd pel w con* IMPRESSION: Bilateral pneumonia more on the left than on the right. IMPRESSION: 1. Findings suggestive of severe constipation. 2. Marked gastric distention with food and fluid. Findings suggest the possibility of gastroparesis or gastric outlet obstruction. 3. No intra-abdominal abscess is identified.
--- NOTE | 2022-12-18 23:11 | CTR_ITS ---
PROCEDURE INFORMATION: Exam: CT Head Without Contrast Exam date and time: 12/19/2022 12:02 AM Age: 62 years old Clinical indication: Altered mental status/memory loss; Patient HX: Arrival via EMS for severe lethargy. Hypothermic with rectal temp of 84 degrees upon triage. Patient non verbal. History of autism and seizure disorder. ; Additional info: AMS TECHNIQUE: Imaging protocol: Computed tomography of the head without contrast. Radiation optimization: All CT scans at this facility use at least one of these dose optimization techniques: automated exposure control; mA and/or kV adjustment per patient size (includes targeted exams where dose is matched to clinical indication); or iterative reconstruction. COMPARISON: CT head wo con* [id number] 12/04/2022 9:05 AM RADIATION DOSE METRICS: Total DLP (mGy-cm): 2034.78 FINDINGS: Brain: Mild diffuse white matter disease likely reflecting chronic microvascular ischemic changes. Cerebral ventricles: No ventriculomegaly. Paranasal sinuses: Visualized sinuses are unremarkable. No fluid levels. Mastoid air cells: Visualized mastoid air cells are well aerated. Bones/joints: Unremarkable. No acute fracture. Soft tissues: Unremarkable. CT/CT head wo con* [id number] IMPRESSION: Negative for intracranial hemorrhage or mass effect.
[2022-12-18 23:14] VITALS: BP 93/59; PULSE 41; RESP 17; O2SAT 98
[2022-12-18 23:20] LABS: Bilirubin Urine Neg (Negative); Blood Urine Neg (Negative); Glucose Urine UA Norm (Normal); Ketones Urine Negative (Negative); Leukocyte Esterase Urine Negative (Negative); Nitrate Urine Negative (Negative); Protein Urine Neg (Negative); Urine Appearance Clear (CLEAR); Urine Color Yellow (Yellow); Urobilinogen Urine Norm (Negative); pH Urine 6 (5-7)
[2022-12-18 23:22] LABS: Lactic Sepsis W/Reflex 4.9 mmol/L (0.5-2.2)
[2022-12-18 23:29] LABS: Reflex Lactate Order REFLEX LACTIC ORDERD
--- NOTE | 2022-12-18 23:32 | ECG_ITS ---
[facility] Test Date: 2022-12-18 Pat Name: Salazar Hilario Department: Room: Gender: Male Vpk Teacher: : 1960 Requested By: Alejandro Holt Order Number: [id number] Arash MD: Han Lazaro M.D. Measurements Intervals [place] Rate: 40 P: 0 LA: 0 QRS: 61 QRSD: 116 T: 74 QT: 521 QTc: 429 Interpretive Statements SUPRAVENTRICULAR BRADYCARDIA MODERATE INTRAVENTRICULAR CONDUCTION DELAY [110+ ms QRS DURATION] NONSPECIFIC T-WAVE ABNORMALITY Compared to ECG 12/04/2022 10:41:26 Intraventricular conduction delay now present T-wave abnormality now present Sinus rhythm no longer present Electronically Signed On 12-19-2022 14:39:42 SYSTEM ADMINISTRATOR by Han Lazaro M.D. [id number]
[2022-12-18 23:48] VITALS: BP 93/60; PULSE 42; RESP 20; TEMP 29.6; O2SAT 94
[2022-12-19] VITALS (7 sets, daily range): BP systolic 89–135; BP diastolic 55–84; PULSE 43–58; RESP 14–23; TEMP 30.4; O2SAT 94–98
--- NOTE | 2022-12-19 00:01 | ECG_ITS ---
[facility] Test Date: 2022-12-18 Pat Name: Salazar Hilario Department: Room: Gender: Male Screen Roller: : 1960 Requested By: Alejandro Holt Order Number: [id number] Antoine MD: Han Lazaro M.D. Measurements Intervals [place] Rate: 39 P: 0 CT: 0 QRS: 43 QRSD: 118 T: 74 QT: 535 QTc: 435 Interpretive Statements SUPRAVENTRICULAR BRADYCARDIA MODERATE INTRAVENTRICULAR CONDUCTION DELAY [110+ ms QRS DURATION] NONSPECIFIC T-WAVE ABNORMALITY PROLONGED QT INTERVAL Compared to ECG 12/04/2022 10:41:26 Intraventricular conduction delay now present T-wave abnormality now present Prolonged QT interval now present Sinus rhythm no longer present Electronically Signed On 12-19-2022 14:43:05 PROFESSOR OF COMMUNICATION AND WRITING by Han Lazaro M.D. [id number]
[2022-12-19] MEDS: iohexol 350 mg/mL 500 mL Btl (per mL) IV (00:19)
[2022-12-19] MEDS: atropine 0.1 mg/mL Syr 10 mL 0.5 MG IVP (00:32)
[2022-12-19 01:01] LABS: Troponin 5 2HR 27.76 ng/L (0-15)
[2022-12-19 01:04] LABS: Troponin 5 2HR Delta -6.24 ABS# (0-10)
[2022-12-19 01:04] LABS: Influenza A by IFA negative (Negative); Influenza B by IFA negative (Negative); SARS Covid-2 Antigen negative (Negative)
[2022-12-19 01:07] LABS: ABG PCO2 59.1 mmHg (35-45); ABG PH Result 7.28 (7.35-7.45); Arterial Blood Gas Hematocrit 23.3 % (42-52); Base Excess ABG 0.6 mmol/L (-2.0-2.0); Blood Gas Allen Test Pos; Blood Gas Sample Site Brachial, right; Blood Gas Sample Type Arterial; HCO3 ABG 27.7 mmol/L (22-26); Oxygen Device BIPAP; PO2 ABG 81.7 mmHg (80.0-100.0)
[2022-12-19 01:11] LABS: Adenovirus Not Detected (NOT DETECT); Chlamydia Pneumoniae Not Detected (NOT DETECT); Coronavirus 229E,HKU1,NL63,OC4 Not Detected (NOT DETECT); Human Metapneumovirus Not Detected (NOT DETECT); Human Rhinovirus/Enterovirus Not Detected (NOT DETECT); Influenza A Not Detected (NOT DETECT); Influenza A H1 Not Detected (NOT DETECT); Influenza A H1-2009 Not Detected (NOT DETECT); Influenza A H3 Not Detected (NOT DETECT); Influenza B Not Detected (NOT DETECT); Mycoplasma Pneumoniae Not Detected (NOT DETECT); Parainfluenza Virus Type 1 Not Detected (NOT DETECT); Parainfluenza Virus Type 2 Not Detected (NOT DETECT); Parainfluenza Virus Type 3 Not Detected (NOT DETECT); Parainfluenza Virus Type 4 Not Detected (NOT DETECT); Respiratory Syncytial Virus A Not Detected (NOT DETECT); Respiratory Syncytial Virus B Not Detected (NOT DETECT); SARS-COV-2 Not Detected (NOT DETECT)
[2022-12-19 01:33] LABS: Lactic Acid level (Lactate) 1.5 mmol/L (0.5-2.2)
--- NOTE | 2022-12-19 02:04 | XRR_ITS ---
PROCEDURE INFORMATION: Exam: XR Chest Exam date and time: 12/19/2022 2:09 AM Age: 62 years old Clinical indication: Other vascular access device placement or adjustment; Central line, tunnelled; Patient HX: Check S/P central line placement TECHNIQUE: Imaging protocol: Radiologic exam of the chest. Views: 1 view. COMPARISON: CT chest abd pel w con* 19/12/2022 00:06 FINDINGS: Lungs: Hazy lung base opacities are again seen. Small effusions likely. Pleural spaces: No pneumothorax. Heart/Mediastinum: The heart size is stable. Vasculature: New right IJ line is in place, tip overlies lower SVC. Bones/joints: Old right clavicle deformity. XR/XR chest 1V portable [id number] IMPRESSION: 1. New right IJ line in place, no pneumothorax. 2. Unimproved exam from prior day.
--- NOTE | 2022-12-19 08:19 | DCPLANNER ---
Steph, community leader called the following hospitals looking for ICU bed: [facility] - spoke with Jahaira at 0100 - ICU on divert [facility] - spoke with Kasia at 0106 - [facility] - ICU delay / [facility] Critical [facility] capacity [facility] - spoke with Trena at 0115 - full [facility] - spoke with Ciara at 0117 - bed hold [facility] - spoke with Kaylan needs to talk to adm called at 0130 waiting for doc to doc [facility] - spoke with Dante at 0130 will call back after talking to warehouse worker Axel Valeit - at 0135 [facility] - 0139 - not enough staff Axel Valeit - accepted patient [facility] and [facility] accepted patient, but [facility] Panchal accepted patient first
== END 2022-12-19 03:22 | disposition short-term general hospital (02) ==
PROVIDERS: Emergency Medicine; Emergency Provider Emergency Medicine; PCP Family Medicine
DX: J18.9 Pneumonia, unspecified organism (principal); I95.9 Hypotension, unspecified; T68.XXXA Hypothermia, initial encounter; F84.0 Autistic disorder; E78.5 Hyperlipidemia, unspecified; I10 Essential (primary) hypertension; Z20.822 Contact with and (suspected) exposure to COVID-19; X31.XXXA Exposure to excessive natural cold, initial encounter
CPT/HCPCS: 36415; 36556; 36600; 51702; 70450; 71045; 71260; 74177; 80053; 81003; 82803; 83605; 83735; 84145; 84443; 84484; 85025; 86140; 87040; 87426; 87635; 87804; 93005; 96365; 96366; 96367; 96375; 99291; J0461; J2543; J3370; J7030; J7040; J7060; Q9967

== ENCOUNTER → 2023-01-29 08:03 | Outpatient (BNVA) | payer MEDICARE, MEDICAID, SELFPAY | PROVIDERS: PCP Family Medicine | DX: Z79.899 Other long term (current) drug therapy (principal); F84.0 Autistic disorder | CPT/HCPCS: 80164 ==

== ENCOUNTER 2023-02-25 21:48 | Inpatient (IN) | payer MEDICARE, MEDICAID, SELFPAY ==
[2023-02-25] VITALS (26 sets, daily range): BP systolic 88–135; BP diastolic 52–79; PULSE 61–72; RESP 14–24; TEMP 33.3–33.9; O2SAT 91–98
--- NOTE | 2023-02-25 21:58 | XRR_ITS ---
PROCEDURE INFORMATION: Exam: XR Chest Exam date and time: 02/25/2023 10:05 PM Age: 62 years old Clinical indication: Shortness of breath; Additional info: SOB TECHNIQUE: Imaging protocol: Radiologic exam of the chest. Views: 1 view. COMPARISON: CR XR chest 1V portable [id number] 12/19/2022 2:09 AM FINDINGS: Lungs: Mild bibasilar atelectasis and/or infiltrate and/or effusion. Pleural spaces: Unremarkable. No pleural effusion. No pneumothorax. Heart/Mediastinum: Unremarkable. No cardiomegaly. Bones/joints: Unremarkable. XR/XR chest 1V portable [id number] IMPRESSION: Mild bibasilar atelectasis and/or infiltrate and/or effusion.
--- NOTE | 2023-02-25 22:19 | PC.NURSE ---
mirlande jackman placed on patient, 2 orange juices given to patient and drank, see MAR for further medications that have been given. patient hooked up to cardiac monitoring, BP and pulse ox at this time.
--- NOTE | 2023-02-25 22:19 | W.ED.SOB ---
HPI - SOB/Dyspnea General: Chief Complaint: Shortness of Breath/Dyspnea Stated Complaint: LOW O2 Time Seen by Provider: 02/25/23 21:50 Source: EMS Mode of arrival: EMS Limitations: altered mental status History of Present Illness: HPI Narrative: 62-year-old male who has a history of severe autism he is here from [facility] he is nonverbal he states that he been acting a little more altered today than typical and had a low pulse ox he is hypoglycemic here patient is awake alert follows some commands he is nonverbal at baseline slightly hypothermic here as well. No known recent illness. Review of Systems General: Reports: ROS unobtainable due to mental status PFSH ED PFSH: Medical History Anemia Autism Developmental disorder Epilepsy Extrapyramidal movement disorder, drug-induced Hyperlipidemia Hypertension Hypothyroidism Neutropenia Follow-up with Dr. Reyes last seen in 2016. Suspicion of myelodysplasia at that time. Psychiatric care Social History Smoking and tobacco status: never smoked Alcohol intake: never Physical Exam Const: COMMON NORMALS: negative for patient oriented x3 HENMT: COMMON NORMALS: normocephalic and atraumatic HEAD & SCALP: normocephalic and atraumatic Eye: COMMON NORMALS: Equal, round and reactive pupils present and EOMs intact bilaterally PUPIL: Yes Equal, round and reactive pupils present Neck/C-Spine: COMMON NORMALS: full ROM and supple Chest: COMMONS NORMALS: normal inspection of the chest and normal palpation of entire chest wall Resp: COMMON NORMALS: normal respiratory effort, No retractions, No use of accessory muscles and clear to auscultation bilaterally AUSCULTATION: clear to auscultation bilaterally Cardio: COMMON NORMALS: regular rate, regular rhythm and No murmurs present (Cardio) RATE: regular rate RHYTHM: regular rhythm GI: COMMON NORMALS: Normal to inspection, nondistended, normoactive bowel sounds present, Soft to palpation, non-tender and no masses PALPATION: Yes Soft to palpation Extremity: COMMON NORMALS: normal to inspection and full ROM Neuro: COMMON NORMALS: moves all extremities and no focal motor deficits; negative for patient oriented x3 Psych: COMMON NORMALS: mental status grossly normal, Normal thought process present and cooperative THOUGHT PROCESS: Normal thought process present Skin: COMMON NORMALS: no rashes or lesions noted and no wounds GENERAL SKIN EXAM: no rashes or lesions noted Course Vital Signs: Vital signs: Vital Signs Temperature 92.0 F L 02/25/23 23:19 Pulse Rate 70 02/26/23 00:30 Respiratory Rate 23 H 02/26/23 00:30 Blood Pressure 92/55 02/26/23 00:30 Pulse Oximetry 93 02/26/23 00:30 Oxygen Delivery Me thod 02/25/23 22:04 MDM - SOB/Dyspnea Medical Decision Making Patient presents with hyperglycemia he also has a pneumonia along with hypothermia here his blood sugar here is improved give him IV fluids his blood pressure here has been stable white count lactate normal spoke to hospitalist will admit to ICU at this time. Lab Data 02/25/23 22:14 02/25/23 22:14 Labs/Radiology: Radiology Impressions Chest X-Ray 02/25/23 21:58 IMPRESSION: Mild bibasilar atelectasis and/or infiltrate and/or effusion. Laboratory Results WBC 7.0 10^3/uL (4.0-10.0) 02/25/23 22:14 RBC 3.17 10^6/uL (4.1-5.3) L 02/25/23 22:14 Hgb 9.9 g/dL (11.7-16.6) L 02/25/23 22:14 Hct 30.4 % (42.0-52.0) L 02/25/23 22:14 MCV 95.9 fl (80-94) H 02/25/23 22:14 MCH 31.2 pg (28.0-34.0) 02/25/23 22:14 MCHC 32.6 g/dL (30.0-36.0) 02/25/23 22:14 RDW 20.9 % (12.1-15.1) H 02/25/23 22:14 Plt Count 42 10^3/cmm (130-400) L 02/25/23 22:14 MPV 12.0 fL (7.4-10.4) H 02/25/23 22:14 Neut % (Auto) 81.9 % 02/25/23 22:14 Lymph % (Auto) 7.2 % 02/25/23 22:14 [place] % (Auto) 9.8 % 02/25/23 22:14 Eos % (Auto) 0.1 % 02/25/23 22:14 Baso % (Auto) 0.4 % 02/25/23 22:14 Neut # (Auto) 5.70 10^3/uL (1.8-7.7) 02/25/23 22:14 Lymph # (Auto) 0.5 10^3/uL (0.8-4.8) L 02/25/23 22:14 [place] # (Auto) 0.7 10^3/uL (0.2-0.9) 02/25/23 22:14 Eos # (Auto) 0.0 10^3/uL (0.0-0.8) 02/25/23 22:14 Baso # (Auto) 0.0 10^3/uL (0.0-0.1) 02/25/23 22:14 Nucleated RBC % (auto) 0 % 02/25/23 22:14 Nucleated RBCs # 0.0 /100WBC 02/25/23 22:14 Sodium 132 mmol/L (136-145) L 02/25/23 22:14 Potassium 4.0 mmol/L (3.5-5.1) 02/25/23 22:14 Chloride 94 mmol/L (98-107) L 02/25/23 22:14 Carbon Dioxide 31 mmol/L (22-29) H 02/25/23 22:14 Anion Gap 11.0 (5-19) 02/25/23 22:14 BUN 21 mg/dL (8-23) 02/25/23 22:14 Creatinine 0.7 mg/dL (0.7-1.2) 02/25/23 22:14 GFR Calculation 139.2 mL/min (90-130) H 02/25/23 22:14 Glucose 59 mg/dL (65-115) L 02/25/23 22:14 Calculated Osmolality 275 mOsm/kg (285-295) L 02/25/23 22:14 Lactate 1.8 mmol/L (0.5-2.2) 02/25/23 22:14 Calcium 9.2 mg/dL (8.5-10.5) 02/25/23 22:14 Total Bilirubin 0.5 mg/dL (0.15-1.2) 02/25/23 22:14 AST 15 U/L (0-40) 02/25/23 22:14 ALT 9 U/L (0-41) 02/25/23 22:14 Alkaline Phosphatase 82 U/L (40-130) 02/25/23 22:14 Total Protein 8.0 g/dL (6.6-8.7) 02/25/23 22:14 Albumin 3.2 g/dL (3.5-5.2) L 02/25/23 22:14 Globulin 4.8 g/dL (1.3-4.6) H 02/25/23 22:14 TSH 2.20 uIU/mL (0.27-4.20) 02/25/23 22:14 Valproic Acid 73.4 ug/mL (50-100) 02/25/23 22:14 Discharge Plan Discharge Patient Disposition: Admitted As Inpatient Admit Provider: Vernell León Clinical Impression: Community acquired pneumonia, Hypoglycemia, Hypothermia Condition: Stable Coding Level of Care Code ED Repacker for Nicholas Goodman
[2023-02-25 22:32] LABS: Basophils % 0.4 %; Eosinophils % 0.1 %; Hematocrit 30.4 % (42.0-52.0); Hemoglobin 9.9 g/dL (11.7-16.6); Lymphocytes # 0.5 10^3/uL (0.8-4.8); Lymphocytes % 7.2 %; Mean Corpuscular HGB Conc 32.6 g/dL (30.0-36.0); Mean Corpuscular Hemoglobin 31.2 pg (28.0-34.0); Mean Corpuscular Volume 95.9 fl (80-94); Monocytes # 0.7 10^3/uL (0.2-0.9); Monocytes % 9.8 %; Neutrophils % 81.9 %; Nucleated Red Blood Cells % 0 %; Platelet Count 42 10^3/cmm (130-400); Red Blood Count 3.17 10^6/uL (4.1-5.3); Red Cell Distribution Width 20.9 % (12.1-15.1)
[2023-02-25 22:41] LABS: Alanine Aminotransferase 9 U/L (0-41); Albumin Level 3.2 g/dL (3.5-5.2); Alkaline Phosphatase 82 U/L (40-130); Aspartate Amino Transferase 15 U/L (0-40); Blood Urea Nitrogen 21 mg/dL (8-23); Calcium 9.2 mg/dL (8.5-10.5); Carbon Dioxide 31 mmol/L (22-29); Chloride 94 mmol/L (98-107); Globulin 4.8 g/dL (1.3-4.6); Glomerular Filtration Rate 139.2 mL/min (90-130); Glucose 59 mg/dL (65-115); Osmolality Calculated 275 mOsm/kg (285-295); Sodium 132 mmol/L (136-145); Total Bilirubin 0.5 mg/dL (0.15-1.2)
[2023-02-25 22:43] LABS: Valproic Acid Level 73.4 ug/mL (50-100)
[2023-02-25 22:57] LABS: Lactate (Lactic Acid level) 1.8 mmol/L (0.5-2.2)
[2023-02-25 23:04] LABS: Slide Review Slide Review Perform
[2023-02-25] MEDS: sodium chloride 0.9% 1,000 ML 999 ML IV (23:34)
[2023-02-25] MEDS: cefTRIAXone 1,000 MG in sodium chloride 0.9% (plus) 50 ML 100 MG IV (23:45)
[2023-02-26] VITALS (101 sets, daily range): BP systolic 88–164; BP diastolic 53–88; PULSE 51–104; RESP 11–31; TEMP 35.6–36.7; O2SAT 58–100; BMI 25.8
[2023-02-26] MEDS: sodium chloride 0.9% 1,000 ML 999 ML IV (00:03)
[2023-02-26] MEDS: azithromycin 500 MG in sodium chloride 0.9% 250 ML 250 MG IV (00:13)
[2023-02-26] MEDS: sodium chloride 0.9% 500 ML 999 ML IV (00:20)
--- NOTE | 2023-02-26 01:03 | P.HP_ITS ---
Providers/Chief Complaint Admitting Physician: Vernell León MD Primary Care Provider: Brittany Bahena MD Chief Complaint: LOW O2 History of Present Illness Salazar Hilario is a 62 year old male with past medical history of autism, developmental disorder, epilepsy, hyperlipidemia, hypertension, hypothyroidism, psychiatric care, chronic anemia presented to the hospital today from [facility] for altered mental status. Patient was brought in by caregivers. detention states that patient is much more altered than he usually is. He also has a low pulse ox. On arrival to hospital he was found to be hypoglycemic with blood sugar in the 50s. He was given an amp of D50. Patient also noted to be hypothermic with temperature down to 92 Fahrenheit. He is nonverbal at baseline. Unable to provide any kind of history at this time. No recent known illness. Patient is a full code. Non-smoker no alcohol use. Blood pressure on arrival 92/55 heart rate 23, pulse 70, temperature 92, saturating 93% on room air. He was given IV fluids. White count 7, hemoglobin 9.9, creatinine 0.7. Lactic is 1.8. Patient does have a history of pneumonias in the past. Chest x- ray shows some mild bibasilar atelectasis or infiltrate and/or effusion. Ceftriaxone azithromycin was given by ER physician. Rewarmin protocol started Medications/Allergies Home Medications Medication Instructions Recorded Confirmed Last Taken Type acetaminophen 325 mg tablet 325 mg PO Q6H PRN Pain 03/10/22 02/24/23 Unknown History (Tylenol) atorvastatin 40 mg tablet (Lipitor) 40 mg PO BEDTIME@03/10/22 02/24/2307/31 History calcium carbonate 600 mg calcium 600 mg PO BEDTIME@03/10/22 02/24/23 08/10/22 History (1,500 mg) tablet docusate sodium 100 mg capsule 100 mg PO DAILY@03/10/22 02/24/23 12/04/22 History (Colace) famotidine 20 mg tablet (Pepcid) 20 mg PO BEDTIME@03/10/22 02/24/23 12/03/22 History furosemide 20 mg tablet (Lasix) 10 mg PO DAILY@03/10/22 02/24/23 12/04/22 H istory levothyroxine 112 mcg tablet 112 mcg PO DAILY@08 03/10/22 02/24/23 12/04/22 History loperamide 2 mg tablet See Rx Instructions .Route .COMPLEX 03/10/22 02/24/23 Unknown History meclizine 25 mg tablet 25 mg PO DAILY PRN Motion Sickness 03/10/22 02/24/23 Unknown History nystatin 100,000 unit/gram topical See Rx Instructions .Route .COMPLEX 03/10/22 02/24/23 Unknown History cream polyethylene glycol 3350 17 17 g PO DAILY@12 03/10/22 02/24/23 12/03/22 History gram/dose oral powder (Miralax) triamcinolone acetonide 0.1 % 1 applic topical BID PRN fungal 03/10/22 02/24/23 Unknown History topical cream infection divalproex 125 mg capsule,delayed 1,000 mg PO BID@08,21 08/11/22 02/24/23 12/04/22 History release sprinkle (Depakote Sprinkles) metoprolol tartrate 50 mg tablet 25 mg PO DAILY@08 PRN HR more than 08/12/22 02/24/23 08/11/22 Rx 80 bpm #20 tabs benztropine 1 mg tablet 1 mg PO BID #180 tabs 09/30/22 02/24/23 Unknown Rx chlorpromazine 100 mg tablet 100 mg PO TID #270 tabs 09/30/22 02/24/23 12/04/22 Rx methylphenidate HCl 20 mg tablet 20 mg PO TID 30 days #90 tabs 01/20/23 02/24/23 Unknown Rx (Ritalin) methylphenidate HCl 20 mg tablet 20 mg PO TID 30 days #90 tabs 01/20/23 02/24/23 Unknown Rx (Ritalin) fludrocortisone 0.1 mg tablet 0.1 mg PO DAILY 01/27/23 02/24/23 Unknown History midodrine 2.5 mg tablet 2.5 mg PO TID 01/27/23 02/24/23 Unknown History clonazepam 2 mg tablet (Klonopin) 2 mg PO DAILY@20 #30 tabs 02/24/23 02/24/23 Unknown Rx lorazepam 2 mg tablet (Ativan) 2 mg PO Q8H PRN agitation #90 tabs 02/24/23 02/24/23 Unknown Rx methylphenidate HCl 20 mg tablet 20 mg PO TID 30 days #90 tabs 02/24/23 02/24/23 Unknown Rx (Ritalin) Allergies Allergy/AdvReac Type Severity Reaction Status Date / Time No Known Allergies Allergy Verified 02/24/23 10:19 PFSH Acute PFSH: Medical History Anemia Autism Developmental disorder Epilepsy Extrapyramidal movement disorder, drug-induced Hyperlipidemia Hypertension Hypothyroidism Neutropenia Follow-up with Dr. Reyes last seen in 2015. Suspicion of myelodysplasia at that time. Psychiatric care Social History Smoking and tobacco status: never smoked Alcohol intake: never Vitals/I&O/Wt Last Vital Signs Temp 92.0 F L 02/25/23 23:19 Pulse 71 02/26/23 00:32 Resp 24 H 02/26/23 00:32 BP 92/55 02/26/23 00:32 Pulse Ox 92 02/26/23 00:32 O2 Del Method 02/25/23 22:04 02/25/23 02/25/23 02/26/23 14:59 22:59 06:59 Intake Total 2332.85 / 2332.85 Balance 2332.85 / 2332.85 Weight last 48 hrs Weight 66.224 kg Physical Exam Narrative: General: Non-verbal patient seen laying in bed, alert HEENT: Normocephalic, atraumatic, EOMI, on room air Cardio: Regular rate rhythm, normal S1-S2 Respiratory: Clear to auscultation b/l, diminished at bases GI: Abdomen soft, nontender,bowel sounds + Extremities: No edema Data 02/25/23 22:14 02/25/23 22:14 Micro: Microbiology 02/25/23 23:45 Blood Culture - Preliminary Blood SPECIMEN COLLECTED 02/25/23 23:42 Blood Culture - Preliminary Blood SPECIMEN COLLECTED A&P Assessment and plan (1) Community acquired pneumonia: (2) Hypoglycemia: (3) Hypothermia: (4) Extrapyramidal movement disorder, drug-induced: (5) Autism: (6) Altered mental status: Plan #Altered Mental Status #Hypoglycemia #Hypothermia #Community Acquired Pneumonia #Epilepsy #Autism, developmental delay #EPS disorder #Adrenal insufficiency? - Admit and monitor in ICU - Check cortisol level, TSH, BCx, UCx, Sputum Gm Stain Culture - Patient on fludracortisone and midodrine at home. I will give stress dose steroids at this time - Hydrocortisone 100 mg TID x 24 hours, then 50 mg q6H x 48 hours, then transition to maintananace dose - Continue levothyroxine - Will place central line for vasopressors if needed. - Active rewarming with Gigi Hugger, goal temp 98 - Hold lasix at this time - Check depakote level, - Hold clonazepam, but watch for withdrawal from benzo - Continue benztropine 1 mg BID - Continue atorvastatin 40 mg daily - Methylphenidate 20 mg TID - Hold metoprolol tartrate - Continue on ceftriaxone and azithromycin - Accucheck q4 hours, will supplement glucose if needed - Check baseline EKG Full Code SCDS, Heparin subc BID Attestations Medical Necessity Statement*: Will cross > 2 midnight stay for management. Will require critical care monitoring. Other Coding Information Focused coding review requested Diagnoses Community acquired pneumonia J18.9 Hypoglycemia E16.2 Hypothermia T68.XXXA Extrapyramidal movement disorder, drug-induced G25.89; T50.905A Autism F84.0 Altered mental status R41.82
[2023-02-26 02:07] LABS: Glucose Point of Care 68 mg/dL (70-110)
[2023-02-26] MEDS: heparin 5,000 unit/mL INJ 1 mL 5000 UNIT SUBCUT ×2 (02:21→14:47)
[2023-02-26] MEDS: hydrocortisone 100 mg/2 mL SDV IVP ×3 (02:21→17:02)
[2023-02-26] MEDS: dextrose 5%-sod chloride 0.9% 1,000 ML 75 ML IV (02:38)
[2023-02-26 04:03] LABS: Alanine Aminotransferase 8 U/L (0-41); Albumin Level 2.7 g/dL (3.5-5.2); Alkaline Phosphatase 91 U/L (40-130); Aspartate Amino Transferase 16 U/L (0-40); Blood Urea Nitrogen 18 mg/dL (8-23); Calcium 8.3 mg/dL (8.5-10.5); Carbon Dioxide 26 mmol/L (22-29); Chloride 100 mmol/L (98-107); Globulin 4.3 g/dL (1.3-4.6); Glomerular Filtration Rate 119.3 mL/min (90-130); Magnesium 1.6 mg/dL (1.7-2.3); Osmolality Calculated 276 mOsm/kg (285-295); Sodium 134 mmol/L (136-145); Total Bilirubin 0.3 mg/dL (0.15-1.2)
[2023-02-26 04:12] LABS: Estmated Average Glucose 91; Glucose 36 mg/dL (65-115); Hemoglobin A1C 4.8 % (4.0-6.0)
[2023-02-26 04:14] LABS: Thyroid Stimulating Hormone 2.48 uIU/mL (0.27-4.20)
[2023-02-26 04:33] LABS: Glucose Point of Care 44 mg/dL (70-110)
[2023-02-26 05:08] LABS: Valproic Acid Level 61.7 ug/mL (50-100)
[2023-02-26 05:27] LABS: Glucose Point of Care 76 mg/dL (70-110)
[2023-02-26] MEDS: dextrose 10% 1,000 ML 75 ML IV ×2 (06:19→20:07)
--- NOTE | 2023-02-26 07:55 | PC.PHAR ---
pts mar has x.ai [phone] trish has levetiracetam 500mg 250mg bid dced 02/24/23 from -
[2023-02-26] MEDS: magnesium sulfate premix 2 GM/50 ML PIGGYBACK IV (08:03)
--- NOTE | 2023-02-26 08:15 | CT_ITS ---
WS: [id number] CT CHEST, ABDOMEN, AND PELVIS TECHNIQUE: Contrast-enhanced CT of the chest, abdomen, and pelvis with coronal and sagittal reformatt ed images. CLINICAL INFORMATION: ams COMPARISON: CT December 19, 2022 DLP: 1027.[address] scans at [facility] use at least one of these dose optimization techniques: automated e xposure control; mA and/or kV adjustment per patient size (includes targeted exams where dose is matc hed to clinical indication); or iterative reconstruction. CT CHEST: Moderate chronic emphysematous changes. Subsegmental atelectasis the lung bases LEFT greater than RIG HT. A few air bronchograms in the LEFT lower lobe. Recommend correlation for pneumonia. Scattered fib rotic changes in the RIGHT middle lobe and both lower lobes similar to the prior examinations. No sig nificant pleural fluid. Normal caliber thoracic aorta. Proximal main pulmonary arteries are normal. No mediastinal or hilar l ymphadenopathy. Normal thoracic spine. CT ABDOMEN AND PELVIS: Diffuse fatty infiltration the liver. Normal portal vein and splenic vein. Gallbladder is contracted. Normal spleen. Normal GE junction. Air-fluid level in the stomach. Normal pancreatic parenchymal enhancement. Normal caliber abdominal aorta. Celiac and SMA are patent. Adrenal glands are normal. No hydronephrosis in either kidney. Campo catheter. Diffuse bladder wall thickening can be seen with cystitis. Bladder is decompressed. S mall amount of free fluid in the pelvis. Sigmoid diverticulosis. Dense constipation similar to Girish 2022 CT/CT chest abdpel w/*[id number] IMPRESSION: 1. Campo catheter. Diffuse bladder wall thickening. Correlation for cystitis. Bladder is decompressed. 2. Dense RIGHT colon, hepatic flexure, transverse colon and splenic flexure co nstipation is similar to December 19, 2022. 3. Mild distention of the stomach with air-fluid level. 4. Shallow inspiration with subsegmental atelectasis LEFT greater than RIGHT l ower lobes with a few air bronchograms in the LEFT lower lobe. Recommend correl ation for pneumonia. This is similar to the prior CT. Scattered fibrotic change s in both lungs. 5. Small amount of free fluid in the pelvis. 6. No other remarkable findings.
--- NOTE | 2023-02-26 08:15 | CT_ITS ---
WS: [id number] CT HEAD TECHNIQUE: Noncontrast CT of the head obtained from the skullbase to the vertex. CLINICAL INFORMATION: ams COMPARISON: December 19, 2022 DLP: 1242.[address] scans at [facility] use at least one of these dose optimization techniques: automated e xposure control; mA and/or kV adjustment per patient size (includes targeted exams where dose is matc hed to clinical indication); or iterative reconstruction. FINDINGS: No evidence of intracranial hemorrhage or mass effect. Ventricular system and basal cisterns are rg nt. Mild small vessel changes with moderate parenchymal volume loss. No extra-axial fluid collections . No evidence of mass or mass effect. Vascular calcification. Paranasal sinuses and mastoid air cells are well aerated. .Normal visualized soft tissues. CT/CT head wo con* [id number] IMPRESSION: 1. No evidence of intracranial hemorrhage or mass effect. 2. No acute intracranial findings.
[2023-02-26 08:26] LABS: INR 1.09 (0.8-1.2); Partial Thromboplastin Time 44.1 SECONDS (23.9-36.7)
[2023-02-26 08:31] LABS: Fibrinogen 344 mg/dL (174-498)
[2023-02-26] MEDS: haloperidol inj 5 mg/mL INJ 1 mL 1 MG IM (08:34)
[2023-02-26 08:40] LABS: D Dimer 8.35 ug/mIFEU (0-0.59)
[2023-02-26 08:41] LABS: Basophils % 0.2 %; Hematocrit 28.9 % (42.0-52.0); Hemoglobin 9.2 g/dL (11.7-16.6); Lymphocytes # 0.4 10^3/uL (0.8-4.8); Mean Corpuscular HGB Conc 31.8 g/dL (30.0-36.0); Mean Corpuscular Hemoglobin 30.5 pg (28.0-34.0); Mean Corpuscular Volume 95.7 fl (80-94); Mean Platelet Volume 12.7 fL (7.4-10.4); Monocytes # 0.3 10^3/uL (0.2-0.9); Monocytes % 3.9 %; Neutrophils # 8.06 10^3/uL (1.8-7.7); Neutrophils % 91.3 %; Nucleated Red Blood Cells % 0 %; Platelet Count 46 10^3/cmm (130-400); Red Blood Count 3.02 10^6/uL (4.1-5.3); Red Cell Distribution Width 21.2 % (12.1-15.1); White Blood Count 8.8 10^3/uL (4.0-10.0)
--- NOTE | 2023-02-26 08:42 | PC.NURSE ---
Patient combative towards nurses, not allowing nasal swabs, jaramillo, changing linens, etc. PRN medications given.
[2023-02-26 08:47] LABS: Iron 72 ug/dL (59-158); Total Iron Binding Capacity 189 mcg/dl; Unsaturated Iron Binding 117 ug/dL (112-347)
[2023-02-26 09:02] LABS: Vitamin B12 843 pg/mL (232-1245)
[2023-02-26] MEDS: LORazepam 2 mg/mL INJ 1 mL 1 MG IM (09:05)
[2023-02-26 09:14] LABS: Ferritin 1422 ng/mL (30-400)
[2023-02-26] MEDS: albumin 25 G/100 ML BAG 60 G IV ×3 (09:14→22:36)
[2023-02-26 09:19] LABS: Slide Review Slide Review Perform
[2023-02-26 09:33] LABS: Glucose 66 mg/dL (65-115)
[2023-02-26] MEDS: dexmedetomidine 400 MCG in sodium chloride 0.9% (100 ml) 100 ML IV (09:52)
[2023-02-26 09:53] LABS: Folate Level 7.1 ng/mL (4.5-32.2)
--- NOTE | 2023-02-26 10:54 | USCV_ITS ---
SulaimanSalazar Age: 62 Gender: M : 1960 Exam Date: 02/26/2023 13:30 Ordering Phys: Raj Johnson MD Technologist: Travon Shore Exam Location: [facility] [place]_ Indication: ? dvt PROCEDURES: The venous duplex Doppler examination of both lower extremities was performed in the standard fashion. The following venous structures were evaluated: common femoral vein, profunda vein, proximal portion of the greater saphenous vein, superficial femoral vein, and the popliteal vein. In addition, the posterior tibial and peroneal trunk were evaluated. FINDINGS: Normal 2-D Doppler and augmentation and compressibility throughout the lower extremity venous structures. Additional imaging through the proximal calf veins also reveals no thrombus. Limited evaluation of the greater saphenous vein is patent with no thrombus. CONCLUSIONS No DVT bilateral lower extremities. Dr. Adina Moreno DO (Electronically Signed) Final Date: 26 February 2023 16:21 S
[2023-02-26 10:59] LABS: Glucose Point of Care 109 mg/dL (70-110)
[2023-02-26 11:09] LABS: Glucose Urine UA Norm (Normal); Protein Urine Neg (Negative); Specific Gravity, Urine 1.005 (1.005-1.030); Urine Appearance Clear (CLEAR); Urine Color Yellow (Yellow); pH Urine 7 (5-7)
[2023-02-26 11:10] LABS: Add Urine Microscopic? YES; Bilirubin Urine Neg (Negative); Blood Urine 2+ (Negative); Ketones Urine Negative (Negative); Leukocyte Esterase Urine Negative (Negative); Nitrate Urine Negative (Negative); Urobilinogen Urine Neg (Negative)
[2023-02-26 11:15] LABS: Add Urine Culture? No; Mucus Urine TRACE /hpf; Squamous Epithelial Cell Urine 0-4 /hpf (0-5); WBC Urine 0-4 /hpf (0-5)
--- NOTE | 2023-02-26 11:16 | ECG_ITS ---
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 Measurements Intervals [place] Rate: 59 P: 65 KS: 151 QRS: 46 QRSD: 96 T: 52 QT: 445 QTc: 444 Interpretive Statements SINUS BRADYCARDIA WITH SINUS ARRHYTHMIA Compared to ECG 12/18/2022 23:32:31 Intraventricular conduction delay no longer present T-wave abnormality no longer present Electronically Signed On 02-26-2023 18:42:27 CDT by Han Lazaro M.D. [id number]
[2023-02-26 11:36] LABS: ABG PCO2 44.9 mmHg (35-45); ABG PH Result 7.42 (7.35-7.45); Arterial Blood Gas Hematocrit 32.6 % (42-52); Blood Gas Allen Test Pos; Blood Gas Operator Identificat CAK; Blood Gas Sample Site Brachial, left; Blood Gas Sample Type Arterial; Oxygen Device NC; PO2 ABG 93.9 mmHg (80.0-100.0)
[2023-02-26 11:44] LABS: Troponin(5th) Baseline 24 ng/L (0-15)
[2023-02-26] MEDS: iohexol 350 mg/mL 500 mL Btl (per mL) IV (12:30)
[2023-02-26 13:00] LABS: Glucose Point of Care 115 mg/dL (70-110)
[2023-02-26 13:19] LABS: Troponin 5 2HR 23.25 ng/L (0-15); Troponin 5 2HR Delta -0.75 ABS# (0-10)
--- NOTE | 2023-02-26 14:03 | ECG_ITS ---
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 Measurements Intervals [place] Rate: 53 P: 59 CO: 137 QRS: 39 QRSD: 97 T: 41 QT: 461 QTc: 435 Interpretive Statements SINUS BRADYCARDIA Compared to ECG 02/26/2023 11:16:09 Sinus arrhythmia no longer present Electronically Signed On 02-26-2023 18:46:17 CDT by Han Lazaro M.D. [email or web address]/store/[id number]
--- NOTE | 2023-02-26 14:47 | PC.NURSE ---
Precedex paused due to bradycardia in low 50s
[2023-02-26 15:07] LABS: Glucose Point of Care 136 mg/dL (70-110)
--- NOTE | 2023-02-26 15:47 | P.PN_ITS ---
Subjective Subjective: Patient was seen this morning, he is nonverbal, has autism, according to nursing staff he was quite agitated throughout the night, he is requiring soft restraints, he was hypothermic throughout the night, now becoming normothermic having episodes of bradycardia, currently on 2 L, normotensive, adv ised nursing staff to use Ativan and Haldol as needed to help with agitation I would like the soft wrist restraints off, we could consider Precedex however he has had bradycardia in the past requiring atropine, Vitals/I&O/Wt Last Vital Signs Temp 96.5 F L 02/26/23 14:00 Pulse 55 L 02/26/23 14:30 Resp 12 02/26/23 14:30 BP 154/88 02/26/23 14:30 Pulse Ox 100 02/26/23 14:30 O2 Del Method 02/26/23 14:30 O2 Flow Rate 2 02/26/23 14:30 02/26/23 02/26/23 02/26/23 06:59 14:59 22:59 Intake Total 2382.85 / 2382.85 160.492 / 160.492 Balance 2382.85 / 2382.85 160.492 / 160.492 Weight last 48 hrs Weight 66.224 kg Weight 66.224 kg Weight 66.224 kg Physical Exam Const: COMMON NORMALS: no acute distress EXAM LIMITATIONS: altered mental status ORIENTATION/CONSCIOUSNESS: Yes awake; not oriented to person, not oriented to place and not oriented to time Resp: COMMON NORMALS: normal respiratory effort, No retractions and No use of accessory muscles AUSCULTATION: crackles Cardio: COMMON NORMALS: regular rate, regular rhythm, S1 normal heart sound present and S2 normal heart sound present RATE: regular rate RHYTHM: regular rhythm HEART SOUNDS: S1 normal heart sound present and S2 normal heart sound present GI: COMMON NORMALS: Normal to inspection, nondistended, normoactive bowel sounds present and non-tender Extremity: COMMON NORMALS: no pedal edema Neuro: SENSORIUM/ORIENTATION: No oriented to person, No oriented to place and No oriented to time Urinary Catheter Management: Campo: Cath Placed During This Visit: yes Urinary Catheter Date of Insertion: 02/26/23 Urinary Catheter Time of Insertion: 10:10 Data 02/26/23 07:52 02/26/23 07:52 Micro: Microbiology 02/25/23 23:45 Blood Culture - Preliminary Blood SPECIMEN COLLECTED 02/25/23 23:42 Blood Culture - Preliminary Blood SPECIMEN COLLECTED A&P Assessment and plan (1) Community acquired pneumonia: (2) Hypoglycemia: (3) Hypothermia: (4) Extrapyramidal movement disorder, drug-induced: (5) Autism: (6) Altered mental status: (7) Acute encephalopathy: (8) Thrombocytopenia: (9) Anemia: (10) Sepsis: Plan #Altered Mental Status -likely secondary to UTI and Pneumonia #sepsis secondary to uti and pneumonia -with hypoxia, ams, anemia, thrombocytopenia, hypothermia, #Hypoglycemia -coutinue d10 -q1hr blood sugars #Hypothermia -rewarming #Community Acquired Pneumonia -continue Rocephin and azithromycin -possible aspiration? -aspiration precautions #UTI -continue Rocephin #anemia -history of anemia from hematuria in the past requiring 2 units prbs -will monitor hemoglobin, iron studies #thrombocytopenia -likely secondary to sepsis -will do hit panel, smear, ldh, haptoglobin #Epilepsy #Autism, developmental delay #EPS disorder #Adrenal insufficiency? -Patient on fludracortisone and midodrine at home. I will give stress dose steroids at this time - Hydrocortisone 100 mg TID x 24 hours, then 50 mg q6H x 48 hours, then transition to maintananace dose - Admit and monitor in ICU - Continue levothyroxine - Will place central line for vasopressors if needed. - Active rewarming with Gigi Hugger, goal temp 98 - Hold lasix at this time - Check depakote level, - resume clonazepam, but watch for withdrawal from benzo - Continue benztropine 1 mg BID - Continue atorvastatin 40 mg daily - continue psychiatric medications - Hold metoprolol tartrate - will supplement glucose if needed Full Code SCDS, Heparin subc BID Attestations Medical Necessity Statement*: patient requires hospitalization for sepsis, uti, penumoniae, ams Diagnoses Community acquired pneumonia J18.9 Hypoglycemia E16.2 Hypothermia T68.XXXA Extrapyramidal movement disorder, drug-induced G25.89; T50.905A Autism F84.0 Altered mental status R41.82 Acute encephalopathy G93.40 Thrombocytopenia D69.6 Anemia D64.9 Sepsis A41.9
[2023-02-26 16:19] LABS: LAB Peripheral Smear Sent for Review
[2023-02-26 16:28] LABS: Basophils % 0.2 %; Hematocrit 30.6 % (42.0-52.0); Hemoglobin 9.7 g/dL (11.7-16.6); Lymphocytes # 0.8 10^3/uL (0.8-4.8); Lymphocytes % 8.8 %; Mean Corpuscular HGB Conc 31.7 g/dL (30.0-36.0); Mean Corpuscular Hemoglobin 30.7 pg (28.0-34.0); Mean Corpuscular Volume 96.8 fl (80-94); Monocytes # 0.6 10^3/uL (0.2-0.9); Monocytes % 6.5 %; Neutrophils # 7.53 10^3/uL (1.8-7.7); Neutrophils % 83.7 %; Nucleated Red Blood Cells % 0 %; Platelet Count 35 10^3/cmm (130-400); Red Blood Count 3.16 10^6/uL (4.1-5.3); Red Cell Distribution Width 21.2 % (12.1-15.1)
[2023-02-26 17:03] LABS: Hepatitis A Antibody IgM Non-Reactive (Nonreactive); Hepatitis B Core IgM Non-Reactive (Nonreactive); Hepatitis B Surface Antigen Non-Reactive (Nonreactive); Hepatitis C Virus Antibody Non-Reactive (Nonreactive)
--- NOTE | 2023-02-26 17:08 | ECG_ITS ---
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 Measurements Intervals [place] Rate: 53 P: 57 NE: 148 QRS: 43 QRSD: 96 T: 50 QT: 467 QTc: 441 Interpretive Statements SINUS BRADYCARDIA Compared to ECG 02/26/2023 14:03:45 No significant changes Electronically Signed On 02-26-2023 18:44:21 CDT by Han Lazaro M.D. [email or web address] Servicessumma health akron campusCrowdzu/store/[id number]
[2023-02-26 17:21] LABS: Glucose Point of Care 101 mg/dL (70-110)
[2023-02-26 17:27] LABS: Slide Review Slide Review Perform
[2023-02-26 17:41] LABS: Lactate Dehydrogenase 195 U/L (135-225)
[2023-02-26 17:43] LABS: HIV 1 & 2 Antibody Non-Reactive (Non-Reactiv); HIV 1 & 2 Antigen Non-Reactive (Non-Reactiv)
[2023-02-26 17:51] LABS: Troponin 5 6HR 21.84 ng/L (0-15)
[2023-02-26 17:54] LABS: Troponin 5 6HR Delta -2.16 ng/L (0-12)
[2023-02-26 19:02] LABS: Adenovirus Not Detected (NOT DETECT); Chlamydia Pneumoniae Not Detected (NOT DETECT); Coronavirus 229E,HKU1,NL63,OC4 Not Detected (NOT DETECT); Human Metapneumovirus Not Detected (NOT DETECT); Human Rhinovirus/Enterovirus Not Detected (NOT DETECT); Influenza A Not Detected (NOT DETECT); Influenza A H1 Not Detected (NOT DETECT); Influenza A H1-2009 Not Detected (NOT DETECT); Influenza A H3 Not Detected (NOT DETECT); Influenza B Not Detected (NOT DETECT); Mycoplasma Pneumoniae Not Detected (NOT DETECT); Parainfluenza Virus Type 1 Not Detected (NOT DETECT); Parainfluenza Virus Type 2 Not Detected (NOT DETECT); Parainfluenza Virus Type 3 Not Detected (NOT DETECT); Parainfluenza Virus Type 4 Detected (NOT DETECT); Respiratory Syncytial Virus A Not Detected (NOT DETECT); Respiratory Syncytial Virus B Not Detected (NOT DETECT); SARS-COV-2 Not Detected (NOT DETECT)
[2023-02-26] MEDS: benztropine 1 mg Tablet PO (20:26)
[2023-02-26] MEDS: chlorPROMazine 50 mg Tablet 100 MG PO (20:26)
[2023-02-26] MEDS: CLONazepam 1 mg Tablet PO (20:26)
[2023-02-26] MEDS: atorvastatin 40 mg Tablet PO (20:26)
[2023-02-26] MEDS: divalproex Sprinkles 125 mg Capsule 1000 MG PO (20:26)
[2023-02-26 22:46] LABS: Glucose Point of Care 105 mg/dL (70-110)
[2023-02-26 22:46] LABS: Glucose Point of Care 136 mg/dL (70-110)
[2023-02-27] VITALS (41 sets, daily range): BP systolic 113–190; BP diastolic 67–103; PULSE 44–69; RESP 8–27; TEMP 34.9–36.2; O2SAT 90–100
[2023-02-27 00:41] LABS: Glucose Point of Care 81 mg/dL (70-110)
[2023-02-27] MEDS: heparin 5,000 unit/mL INJ 1 mL 5000 UNIT SUBCUT (00:47)
[2023-02-27] MEDS: hydrocortisone 100 mg/2 mL SDV IVP ×2 (00:53→09:32)
[2023-02-27] MEDS: cefTRIAXone 1,000 MG in sodium chloride 0.9% (plus) 50 ML 100 MG IV ×2 (00:53→23:48)
[2023-02-27 01:24] LABS: Glucose Point of Care 62 mg/dL (70-110)
[2023-02-27] MEDS: azithromycin 500 MG in sodium chloride 0.9% 250 ML 250 MG IV (01:34)
[2023-02-27 01:40] LABS: Glucose Point of Care 186 mg/dL (70-110)
[2023-02-27 02:04] LABS: Glucose Point of Care 184 mg/dL (70-110)
[2023-02-27] MEDS: haloperidol inj 5 mg/mL INJ 1 mL 1 MG IM (03:02)
[2023-02-27 04:40] LABS: Hematocrit 22.7 % (42.0-52.0); Hemoglobin 7.1 g/dL (11.7-16.6); Lymphocytes # 0.7 10^3/uL (0.8-4.8); Lymphocytes % 12.6 %; Mean Corpuscular HGB Conc 31.3 g/dL (30.0-36.0); Mean Corpuscular Hemoglobin 30.2 pg (28.0-34.0); Mean Corpuscular Volume 96.6 fl (80-94); Monocytes # 0.3 10^3/uL (0.2-0.9); Monocytes % 4.8 %; Neutrophils # 4.77 10^3/uL (1.8-7.7); Neutrophils % 82.1 %; Nucleated Red Blood Cells % 0 %; Platelet Count 30 10^3/cmm (130-400); Red Blood Count 2.35 10^6/uL (4.1-5.3); Red Cell Distribution Width 21.2 % (12.1-15.1); White Blood Count 5.8 10^3/uL (4.0-10.0)
--- NOTE | 2023-02-27 04:54 | PC.NURSE ---
02/27/23 0115 - Pt bs dropping despite medications. MD notified. 02/27/23 0200 - 0200 bs 81. MD called. New orders noted.
[2023-02-27 04:56] LABS: Alanine Aminotransferase < 5 U/L (0-41); Albumin Level 3.5 g/dL (3.5-5.2); Alkaline Phosphatase 74 U/L (40-130); Anion Gap 11.1 (5-19); Aspartate Amino Transferase 13 U/L (0-40); Blood Urea Nitrogen 11 mg/dL (8-23); Calcium 9.2 mg/dL (8.5-10.5); Carbon Dioxide 28 mmol/L (22-29); Chloride 104 mmol/L (98-107); Globulin 3.8 g/dL (1.3-4.6); Glomerular Filtration Rate 166.3 mL/min (90-130); Glucose 88 mg/dL (65-115); Magnesium 2.2 mg/dL (1.7-2.3); Osmolality Calculated 287 mOsm/kg (285-295); Phosphorus 2.6 mg/dL (2.5-4.5); Potassium 4.1 mmol/L (3.5-5.1); Sodium 139 mmol/L (136-145); Total Bilirubin 0.3 mg/dL (0.15-1.2); Total Protein 7.3 g/dL (6.6-8.7)
[2023-02-27 04:57] LABS: Lactate (Lactic Acid level) 2.3 mmol/L (0.5-2.2)
[2023-02-27 05:00] LABS: Procalcitonin 0.19 ng/mL (0-0.5)
[2023-02-27 06:16] LABS: Glucose Point of Care 142 mg/dL (70-110)
[2023-02-27 06:34] LABS: Glucose Point of Care 110 mg/dL (70-110)
[2023-02-27 06:34] LABS: Glucose Point of Care 126 mg/dL (70-110)
[2023-02-27 06:34] LABS: Glucose Point of Care 134 mg/dL (70-110)
[2023-02-27 08:30] LABS: Glucose Point of Care 195 mg/dL (70-110)
[2023-02-27] MEDS: chlorPROMazine 50 mg Tablet 100 MG PO ×3 (08:41→20:27)
[2023-02-27] MEDS: levothyroxine 112 mcg Tablet PO (08:41)
[2023-02-27] MEDS: divalproex Sprinkles 125 mg Capsule 1000 MG PO ×2 (08:41→20:21)
[2023-02-27] MEDS: dextrose 10% 1,000 ML 75 ML IV (08:41)
[2023-02-27] MEDS: benztropine 1 mg Tablet PO ×2 (08:42→20:27)
--- NOTE | 2023-02-27 09:18 | PC.NURSE ---
Blood consent Multiple attempts made to contact patient's guardian for consent. No answer. Left VM.
[2023-02-27 09:51] LABS: Basophils % 0.2 %; Hematocrit 25.4 % (42.0-52.0); Hemoglobin 8.1 g/dL (11.7-16.6); Lymphocytes # 0.9 10^3/uL (0.8-4.8); Lymphocytes % 15.5 %; Mean Corpuscular HGB Conc 31.9 g/dL (30.0-36.0); Mean Corpuscular Hemoglobin 31.3 pg (28.0-34.0); Mean Corpuscular Volume 98.1 fl (80-94); Monocytes # 0.3 10^3/uL (0.2-0.9); Neutrophils # 4.73 10^3/uL (1.8-7.7); Neutrophils % 78.6 %; Nucleated Red Blood Cells % 0 %; Platelet Count 31 10^3/cmm (130-400); Red Blood Count 2.59 10^6/uL (4.1-5.3); Red Cell Distribution Width 21.2 % (12.1-15.1)
[2023-02-27] MEDS: sodium chloride 0.9% 100 mL Bag 50 ML IV (10:01)
[2023-02-27 10:16] LABS: Glucose Point of Care 145 mg/dL (70-110)
[2023-02-27 11:39] LABS: Glucose Point of Care 120 mg/dL (70-110)
[2023-02-27 12:00] LABS: Glucose Point of Care 160 mg/dL (70-110)
--- NOTE | 2023-02-27 13:42 | P.PN_ITS ---
Subjective Subjective: - Patient was seen this morning, he had episodes of hypoglycemia, and a couple hypothermic episodes throughout the night, this morning he does open his eyes, he is not verbal, currently normotensive, afebrile, normothermic, on room air, blood sugars in the 190s, having episodes of bradycardia, currently on Precedex had episodes of agitation overnight, pulled out his IVs, wrist restraints in place Vitals/I&O/Wt Last Vital Signs Temp 97.1 F L 02/27/23 04:00 Pulse 50 L 02/27/23 10:00 Resp 17 02/27/23 10:00 BP 163/77 02/27/23 10:00 Pulse Ox 100 02/27/23 10:00 O2 Del Method 02/27/23 10:00 O2 Flow Rate 1 02/27/23 08:41 02/26/23 02/27/23 02/27/23 22:59 06:59 14:59 Intake Total 1100 / 1260.492 150 / 7470.748 5832.5 / 1592.5 Output Total 1725 / 1725 600 / 2325 Balance -625 / -464.508 -450 / -105.906 4822.5 / 1592.5 Weight last 48 hrs Weight 66.043 kg Weight 66.224 kg Weight 66.224 kg Weight 66.224 kg Physical Exam Const: COMMON NORMALS: no acute distress Resp: COMMON NORMALS: normal respiratory effort, No retractions, No use of accessory muscles and clear to auscultation bilaterally AUSCULTATION: clear to auscultation bilaterally Cardio: COMMON NORMALS: regular rate, regular rhythm, S1 normal heart sound present and S2 normal heart sound present RATE: regular rate RHYTHM: regular rhythm HEART SOUNDS: S1 normal heart sound present and S2 normal heart sound present GI: COMMON NORMALS: Normal to inspection, nondistended, normoactive bowel sounds present and non-tender Extremity: COMMON NORMALS: no pedal edema Urinary Catheter Management: Campo: Cath Placed During This Visit: yes Reason for Continuing Indwelling Catheter: Accurate Measurement of Urinary Output in Critically Ill Patients Urinary Catheter Date of Insertion: 02/26/23 Urinary Catheter Time of Insertion: 10:10 Data 02/27/23 09:37 02/27/23 04:08 Micro: Microbiology 02/25/23 23:45 Blood Culture - Preliminary Blood NEGATIVE TO DATE 02/25/23 23:42 Blood Culture - Preliminary Blood NEGATIVE TO DATE A&P Assessment and plan (1) Parainfluenza: (2) Bradycardia: (3) Community acquired pneumonia: (4) Hypoglycemia: (5) Hypothermia: (6) Extrapyramidal movement disorder, drug-induced: (7) Autism: (8) Altered mental status: (9) Acute encephalopathy: (10) Thrombocytopenia: (11) Anemia: (12) Sepsis: Plan #Altered Mental Status -likely secondary to UTI and Pneumonia and parainfluenza virus #sepsis secondary to uti and pneumonia -with hypoxia, ams, anemia, thrombocytopenia, hypothermia, #Hypoglycemia -coutinue d10 -q1hr blood sugars -Looked over patient's records from detention, is not on any glipizide or glimepiride #Hypothermia -rewarming #Community Acquired Pneumonia -continue Rocephin and azithromycin -possible aspiration? -aspiration precautions #UTI -continue Rocephin #anemia -history of anemia from hematuria in the past requiring 2 units prbs -will monitor hemoglobin, iron studies #thrombocytopenia -likely secondary to sepsis -will do hit panel pending, smear pending, ldh 195, haptoglobin 88 #Acute anemia -Transfuse 1 unit PRBC #Epilepsy #Autism, developmental delay #EPS disorder #Adrenal insufficiency? -Patient on fludracortisone and midodrine at home - Hydrocortisone 100 mg TID x 24 hours, switch to 100 mg every 24 hours - Admit and monitor in ICU - Continue levothyroxine - Active rewarming with Gigi Hugger, goal temp 98 - Hold lasix at this time - Check depakote level 61.7 - resume clonazepam, but watch for withdrawal from benzo - Continue benztropine 1 mg BID - Continue atorvastatin 40 mg daily - continue psychiatric medications - Hold metoprolol tartrate - will supplement glucose if needed Full Code SCDS, Heparin subc BID Attestations Medical Necessity Statement*: Patient requires hospitalization for sepsis, UTI, pneumonia, anemia, thrombocytopenia Diagnoses Parainfluenza B34.8 Bradycardia R00.1 Community acquired pneumonia J18.9 Hypoglycemia E16.2 Hypothermia T68.XXXA Extrapyramidal movement disorder, drug-induced G25.89; T50.905A Autism F84.0 Altered mental status R41.82 Acute encephalopathy G93.40 Thrombocytopenia D69.6 Anemia D64.9 Sepsis A41.9
[2023-02-27 13:46] LABS: Glucose Point of Care 184 mg/dL (70-110)
[2023-02-27 15:01] LABS: Glucose Point of Care 157 mg/dL (70-110)
--- NOTE | 2023-02-27 15:12 | PC.NURSE ---
Bear Hugger on patient this shift.
[2023-02-27 15:16] LABS: Glucose Point of Care 96 mg/dL (70-110)
[2023-02-27 15:16] LABS: Glucose Point of Care 107 mg/dL (70-110)
[2023-02-27 15:16] LABS: Glucose Point of Care 253 mg/dL (70-110)
[2023-02-27 15:16] LABS: Glucose Point of Care 53 mg/dL (70-110)
[2023-02-27 16:14] LABS: Glucose Point of Care 131 mg/dL (70-110)
[2023-02-27 18:41] LABS: Glucose Point of Care 161 mg/dL (70-110)
[2023-02-27] MEDS: LORazepam 2 mg/mL INJ 1 mL 1 MG IM (19:51)
[2023-02-27] MEDS: CLONazepam 1 mg Tablet PO (20:27)
[2023-02-27] MEDS: atorvastatin 40 mg Tablet PO (20:27)
[2023-02-27 20:35] LABS: Glucose Point of Care 100 mg/dL (70-110)
[2023-02-27 21:10] LABS: Glucose Point of Care 142 mg/dL (70-110)
[2023-02-27 22:05] LABS: Glucose Point of Care 145 mg/dL (70-110)
[2023-02-27 23:05] LABS: Glucose Point of Care 148 mg/dL (70-110)
[2023-02-28] VITALS (74 sets, daily range): BP systolic 125–195; BP diastolic 69–113; PULSE 43–91; RESP 10–22; TEMP 35.8–36.8; O2SAT 86–100
[2023-02-28] LABS: Glucose Point of Care 131 mg/dL (70-110)
[2023-02-28] MEDS: azithromycin 500 MG in sodium chloride 0.9% 250 ML 250 MG IV (00:30)
[2023-02-28 01:01] LABS: Glucose Point of Care 120 mg/dL (70-110)
[2023-02-28] MEDS: dextrose 10% 1,000 ML 75 ML IV (01:18)
--- NOTE | 2023-02-28 01:25 | PC.NURSE ---
Addendum entered by Trena Mccormick RN 02/28/23 06:11: Warming blanket in place throughout the shift. Temps continue to read low. Original Note: Warming blanket remains on pt. Temps continue to read low. See Vital Signs for measurements.
[2023-02-28 02:10] LABS: Glucose Point of Care 134 mg/dL (70-110)
[2023-02-28 03:09] LABS: Glucose Point of Care 132 mg/dL (70-110)
[2023-02-28 04:05] LABS: Glucose Point of Care 125 mg/dL (70-110)
[2023-02-28 05:04] LABS: Glucose Point of Care 139 mg/dL (70-110)
[2023-02-28 05:12] LABS: Hemoglobin 9.1 g/dL (11.7-16.6); Mean Corpuscular HGB Conc 32.5 g/dL (30.0-36.0); Mean Corpuscular Hemoglobin 30.2 pg (28.0-34.0); Platelet Count 36 10^3/cmm (130-400); Red Blood Count 3.01 10^6/uL (4.1-5.3); Red Cell Distribution Width 21.2 % (12.1-15.1); White Blood Count 5.6 10^3/uL (4.0-10.0)
[2023-02-28 05:33] LABS: Lactate (Lactic Acid level) 1.2 mmol/L (0.5-2.2)
[2023-02-28 05:40] LABS: Alanine Aminotransferase 7 U/L (0-41); Albumin Level 3.3 g/dL (3.5-5.2); Alkaline Phosphatase 74 U/L (40-130); Anion Gap 9.8 (5-19); Aspartate Amino Transferase 12 U/L (0-40); Blood Urea Nitrogen 12 mg/dL (8-23); Calcium 9.2 mg/dL (8.5-10.5); Carbon Dioxide 29 mmol/L (22-29); Chloride 107 mmol/L (98-107); Globulin 3.9 g/dL (1.3-4.6); Glomerular Filtration Rate 139.2 mL/min (90-130); Glucose 118 mg/dL (65-115); Osmolality Calculated 295 mOsm/kg (285-295); Phosphorus 1.9 mg/dL (2.5-4.5); Potassium 3.8 mmol/L (3.5-5.1); Sodium 142 mmol/L (136-145); Total Bilirubin 0.3 mg/dL (0.15-1.2); Total Protein 7.2 g/dL (6.6-8.7)
[2023-02-28 05:41] LABS: Procalcitonin 0.14 ng/mL (0-0.5)
[2023-02-28 05:50] LABS: Absolute Neutrophil 4.1 10^3/cmm (1.4-6.5); Absolute Segmented Neutrophil 4.1 10/cmm (1.6-7.1); Eosinophils 0 %; Giant Platelets 1+; Lymphocytes 21 %; Lymphocytes Absolute 1.3 10^3/cmm (1.2-3.4); Monocytes Absolute 0.2 10^3/cmm (0.1-0.6); Platelet Estimate Decreased (Normal); Segmented Neutrophils 73 %; Total Cells Counted 100 (0-100)
[2023-02-28 05:51] LABS: Toxic Granulation 2+
[2023-02-28 06:03] LABS: Glucose Point of Care 153 mg/dL (70-110)
[2023-02-28 07:08] LABS: Glucose Point of Care 154 mg/dL (70-110)
[2023-02-28] MEDS: chlorPROMazine 50 mg Tablet 100 MG PO ×3 (07:43→19:47)
[2023-02-28] MEDS: levothyroxine 112 mcg Tablet PO (07:43)
[2023-02-28] MEDS: divalproex Sprinkles 125 mg Capsule 1000 MG PO ×2 (07:43→21:20)
[2023-02-28] MEDS: hydrocortisone 100 mg/2 mL SDV IVP (07:43)
[2023-02-28] MEDS: benztropine 1 mg Tablet PO ×2 (07:43→19:47)
[2023-02-28 08:25] LABS: Glucose Point of Care 147 mg/dL (70-110)
[2023-02-28] MEDS: phosphorus 250 mg Tablet PO ×2 (09:50→17:08)
[2023-02-28] MEDS: fludrocortisone 0.1 mg Tablet PO (09:50)
[2023-02-28 10:04] LABS: Glucose Point of Care 151 mg/dL (70-110)
[2023-02-28 11:06] LABS: Glucose Point of Care 143 mg/dL (70-110)
[2023-02-28 11:28] LABS: Hematocrit 26.3 % (42.0-52.0); Hemoglobin 8.6 g/dL (11.7-16.6); Lymphocytes # 0.9 10^3/uL (0.8-4.8); Lymphocytes % 16.9 %; Mean Corpuscular HGB Conc 32.7 g/dL (30.0-36.0); Mean Corpuscular Volume 91.6 fl (80-94); Monocytes # 0.3 10^3/uL (0.2-0.9); Monocytes % 5.2 %; Neutrophils # 4.02 10^3/uL (1.8-7.7); Neutrophils % 77.3 %; Nucleated Red Blood Cells % 0 %; Platelet Count 42 10^3/cmm (130-400); Red Blood Count 2.87 10^6/uL (4.1-5.3); Red Cell Distribution Width 21.3 % (12.1-15.1); White Blood Count 5.2 10^3/uL (4.0-10.0)
[2023-02-28 12:08] LABS: Glucose Point of Care 115 mg/dL (70-110)
[2023-02-28] MEDS: midodrine 5 mg TABLET 2.5 MG PO (12:50)
[2023-02-28] MEDS: haloperidol inj 5 mg/mL INJ 1 mL 1 MG IM (12:51)
[2023-02-28] MEDS: methylphenidate 10 mg Tablet PO ×2 (12:51→19:47)
[2023-02-28 13:19] LABS: Glucose Point of Care 97 mg/dL (70-110)
[2023-02-28 14:09] LABS: Glucose Point of Care 172 mg/dL (70-110)
--- NOTE | 2023-02-28 14:17 | PC.NURSE ---
Patient pulled Campo Catheter out. Dr. Johnson notified.
--- NOTE | 2023-02-28 14:29 | PM.PN ---
Subjective Subjective: patient was ssen this morning, he is no verbal, has hypothermic episodes, is on d10 due to lower blood sugars, Vitals/I&O/Wt Last Vital Signs Temp 98.2 F 02/28/23 08:00 Pulse 57 L 02/28/23 12:00 Resp 18 02/28/23 13:00 BP 155/75 02/28/23 13:00 Pulse Ox 98 02/28/23 13:00 O2 Del Method 02/28/23 13:00 O2 Flow Rate 2 02/28/23 06:00 02/27/23 02/28/23 02/28/23 22:59 06:59 14:59 Intake Total 15.495 / 5205.615 1098 / 2907.995 677.5 / 677.5 Output Total 1200 / 1200 1500 / 2700 Balance -1184.505 / 407.995 -200 / 207.995 677.5 / 677.5 Weight last 48 hrs Weight 65.589 kg Weight 66.043 kg Physical Exam Const: COMMON NORMALS: no acute distress Resp: COMMON NORMALS: normal respiratory effort, No retractions, No use of accessory muscles and clear to auscultation bilaterally AUSCULTATION: clear to auscultation bilaterally Cardio: COMMON NORMALS: regular rate, regular rhythm, S1 normal heart sound present and S2 normal heart sound present RATE: regular rate RHYTHM: regular rhythm HEART SOUNDS: S1 normal heart sound present and S2 normal heart sound present GI: COMMON NORMALS: Normal to inspection, nondistended, normoactive bowel sounds present, non-tender and no masses Urinary Catheter Management: Campo: Cath Placed During This Visit: yes, but has since been removed by the nurse Reason for Continuing Indwelling Catheter: Decision to DC Catheter Urinary Catheter Date of Insertion: 02/26/23 Urinary Catheter Time of Insertion: 10:10 Date Urinary Catheter Removed: 02/28/23 Time Urinary Catheter Discontinued: 13:30 Data 02/28/23 10:45 02/28/23 04:24 Micro: Microbiology 02/26/23 15:00 MRSA Culture - Final Nose A&P Assessment and plan (1) Parainfluenza: (2) Bradycardia: (3) Community acquired pneumonia: (4) Hypoglycemia: (5) Hypothermia: (6) Extrapyramidal movement disorder, drug-induced: (7) Autism: (8) Altered mental status: (9) Acute encephalopathy: (10) Thrombocytopenia: (11) Anemia: (12) Sepsis: Plan #Altered Mental Status -likely secondary to UTI and Pneumonia and parainfluenza virus #sepsis secondary to uti and pneumonia -with hypoxia, ams, anemia, thrombocytopenia, hypothermia, #Hypoglycemia -coutinue d10, will wean off -advance diet -q1hr blood sugars -Looked [facility], is not on any glipizide or glimepiride #Hypothermia -rewarming -etiology? possible secondary to ritalin withdrawal? will rewarm #Community Acquired Pneumonia -continue Rocephin and azithromycin -possible aspiration? -aspiration precautions #UTI -continue Rocephin #anemia -history of anemia from hematuria in the past requiring 2 units prbc -will monitor hemoglobin, iron studies #thrombocytopenia -likely secondary to sepsis -will do hit panel pending, smear pending, ldh 195, haptoglobin 88 #Acute anemia -Transfuse 1 unit PRBC -hgb 8.6 #Epilepsy #Autism, developmental delay #EPS disorder #Adrenal insufficiency? -Patient on fludracortisone and midodrine at home - Hydrocortisone 100 mg TID x 24 hours, switch to 100 mg every 24 hours - Admit and monitor in ICU - Continue levothyroxine - Active rewarming with Gigi Hugger, goal temp 98 - Hold lasix at this time - Check depakote level 61.7 - resume clonazepam, but watch for withdrawal from benzo - Continue benztropine 1 mg BID - Continue atorvastatin 40 mg daily - continue psychiatric medications - Hold metoprolol tartrate - will supplement glucose if needed -has episode of agitation, this morning, will give haldol as needed, and will give precedex as needed Full Code SCDS, Heparin subc BID Attestations Medical Necessity Statement*: patient requires hospitalization for ams, pneumonia, uti Diagnoses Parainfluenza B34.8 Bradycardia R00.1 Community acquired pneumonia J18.9 Hypoglycemia E16.2 Hypothermia T68.XXXA Extrapyramidal movement disorder, drug-induced G25.89; T50.905A Autism F84.0 Altered mental status R41.82 Acute encephalopathy G93.40 Thrombocytopenia D69.6 Anemia D64.9 Sepsis A41.9
[2023-02-28 16:06] LABS: Glucose Point of Care 93 mg/dL (70-110)
[2023-02-28 16:59] LABS: Glucose Point of Care 156 mg/dL (70-110)
[2023-02-28] MEDS: LORazepam 2 mg/mL INJ 1 mL 1 MG IM (17:31)
[2023-02-28 18:28] LABS: Glucose Point of Care 225 mg/dL (70-110)
[2023-02-28 19:22] LABS: Glucose Point of Care 120 mg/dL (70-110)
[2023-02-28] MEDS: CLONazepam 1 mg Tablet PO (19:47)
[2023-02-28] MEDS: atorvastatin 40 mg Tablet PO (19:47)
[2023-02-28 20:44] LABS: Glucose Point of Care 116 mg/dL (70-110)
[2023-02-28 21:48] LABS: Glucose Point of Care 152 mg/dL (70-110)
--- NOTE | 2023-02-28 22:00 | PC.NURSE ---
Patient Temps trended low at start of shift. Warming blanket reapplied and temps have held >96.6. Patient has taken medications via pudding well. Patient dumped drink on floor and has thrown empty pudding cups at wall. Other than short agitation episodes patient has remained calm. 1:[address]
[2023-02-28 22:33] LABS: Glucose Point of Care 151 mg/dL (70-110)
[2023-02-28 23:13] LABS: Glucose Point of Care 119 mg/dL (70-110)
[2023-02-28] MEDS: cefTRIAXone 1,000 MG in sodium chloride 0.9% (plus) 50 ML 100 MG IV (23:50)
[2023-03-01] VITALS (70 sets, daily range): BP systolic 125–189; BP diastolic 75–104; PULSE 44–83; RESP 6–27; TEMP 35.9–37.1; O2SAT 92–100; BMI 26.0
[2023-03-01 00:30] LABS: Glucose Point of Care 85 mg/dL (70-110)
[2023-03-01 00:30] LABS: Heparin Induced Platelet AB NEGATIVE (NEGATIVE); Patient O.D 0.211
[2023-03-01] MEDS: LORazepam 2 mg/mL INJ 1 mL 1 MG IM ×3 (01:28→16:11)
[2023-03-01] MEDS: azithromycin 500 MG in sodium chloride 0.9% 250 ML 250 MG IV (01:35)
[2023-03-01 02:22] LABS: Glucose Point of Care 98 mg/dL (70-110)
[2023-03-01 04:01] LABS: Glucose Point of Care 89 mg/dL (70-110)
[2023-03-01 04:15] LABS: Basophils % 0.2 %; Eosinophils % 0.2 %; Hematocrit 27.6 % (42.0-52.0); Hemoglobin 8.7 g/dL (11.7-16.6); Lymphocytes # 2.2 10^3/uL (0.8-4.8); Lymphocytes % 38.8 %; Mean Corpuscular HGB Conc 31.5 g/dL (30.0-36.0); Mean Corpuscular Hemoglobin 29.6 pg (28.0-34.0); Mean Corpuscular Volume 93.9 fl (80-94); Mean Platelet Volume 13.9 fL (7.4-10.4); Monocytes # 0.4 10^3/uL (0.2-0.9); Monocytes % 6.6 %; Neutrophils # 3.05 10^3/uL (1.8-7.7); Neutrophils % 53.3 %; Nucleated Red Blood Cells % 0 %; Platelet Count 59 10^3/cmm (130-400); Red Blood Count 2.94 10^6/uL (4.1-5.3); Red Cell Distribution Width 20.9 % (12.1-15.1); White Blood Count 5.7 10^3/uL (4.0-10.0)
[2023-03-01 05:56] LABS: Glucose Point of Care 73 mg/dL (70-110)
[2023-03-01 07:52] LABS: Glucose Point of Care 121 mg/dL (70-110)
--- NOTE | 2023-03-01 08:15 | PC.NURSE ---
Addendum entered by Althea Jenkins RN 03/01/23 09:32: Prior to Dr. Johnson being contacted the patient began to get physical aggressive and attempted to punch staff. Original Note: Pt very agitated after an incontinence episode of urine. Pt attempted to be redirected with no success. Pt pulled IV from the left AC cath tip intact, pressure held to insertion site. Pt proceeded to pull of all monitoring wires. Another IV was inserted, ativan given IM. Pt continues to be agitated despite 1 on 1 sitter pudding provided to help calm him. Dr. Johnson contacted and restraints applied. This nurse will remain the 1 on 1 sitter and continue to closely monitor.
[2023-03-01] MEDS: benztropine 1 mg Tablet PO ×2 (08:22→19:51)
[2023-03-01] MEDS: divalproex Sprinkles 125 mg Capsule 1000 MG PO ×2 (08:22→19:49)
[2023-03-01] MEDS: chlorPROMazine 50 mg Tablet 100 MG PO ×3 (08:22→19:50)
[2023-03-01] MEDS: phosphorus 250 mg Tablet PO ×2 (08:22→17:47)
[2023-03-01] MEDS: levothyroxine 112 mcg Tablet PO (08:23)
[2023-03-01] MEDS: methylphenidate 10 mg Tablet PO ×3 (08:23→19:50)
[2023-03-01] MEDS: fludrocortisone 0.1 mg Tablet PO (08:23)
[2023-03-01] MEDS: hydrocortisone 10 mg Tablet PO (09:22)
--- NOTE | 2023-03-01 10:43 | PC.OT ---
OT order received, chart reviewed. Therapist attempted evaluation this AM though patient had just received Ativan due to agitation. RN requested to hold at this time. Will attempt when able. Santos Baig, OTR/L
--- NOTE | 2023-03-01 10:45 | PC.NURSE ---
Caregiver The patient's caregivers homecare came in to see him today. The caregiver states that on a normal day Salazar is able to provide all of his adls on his own or with limited assistance. Ambulation, feeding, clothing, bathing, toileting, etc. His ability to no do his adls is general the first sign they notice of him starting to decline. The caregiver noted that he has recently been taken off keppra due to some behavioral changes that had been noted. Also the caregiver stated that there were some days recently that Salazar had not voided all day despite oral intake and then would have large incontinence problems through the night.
--- NOTE | 2023-03-01 10:59 | PC.SOCIAL ---
Imm update Imm updated with guardian Guero Wray, message left, copy of page 2 explained, Copy in chart initialed, dated and timed.
[2023-03-01 11:17] LABS: Glucose Point of Care 174 mg/dL (70-110)
[2023-03-01 11:17] LABS: Glucose Point of Care 89 mg/dL (70-110)
[2023-03-01 11:38] LABS: Anion Gap 10.1 (5-19); Blood Urea Nitrogen 15 mg/dL (8-23); Calcium 8.5 mg/dL (8.5-10.5); Carbon Dioxide 29 mmol/L (22-29); Chloride 105 mmol/L (98-107); Glomerular Filtration Rate 139.2 mL/min (90-130); Glucose 82 mg/dL (65-115); Magnesium 1.7 mg/dL (1.7-2.3); Osmolality Calculated 292 mOsm/kg (285-295); Phosphorus 2.3 mg/dL (2.5-4.5); Potassium 3.1 mmol/L (3.5-5.1); Sodium 141 mmol/L (136-145)
[2023-03-01 11:43] LABS: Procalcitonin 0.11 ng/mL (0-0.5)
--- NOTE | 2023-03-01 12:36 | P.PN_ITS ---
Subjective Subjective: Patient was seen this morning, is nonverbal, this he had episode of agitation, had episodes of striking at nurses, currently in wrist restraints, he does not follow commands, currently on room air, normothermic Vitals/I&O/Wt Last Vital Signs Temp 97.4 F L 03/01/23 12:00 Pulse 53 L 03/01/23 12:00 Resp 27 H 03/01/23 12:00 BP 160/93 03/01/23 12:00 Pulse Ox 95 03/01/23 12:00 O2 Del Method 03/01/23 12:00 O2 Flow Rate 2 02/28/23 17:00 02/28/23 03/01/23 03/01/23 22:59 06:59 14:59 Intake Total 340 / 1017.5 50 / 1067.5 780 / 780 Output Total 400 / 400 Balance -60 / 617.5 50 / 667.5 780 / 780 Weight last 48 hrs Weight 66.678 kg Weight 65.589 kg Physical Exam Const: COMMON NORMALS: no acute distress Resp: COMMON NORMALS: normal respiratory effort, No retractions, No use of accessory muscles and clear to auscultation bilaterally AUSCULTATION: clear to auscultation bilaterally Cardio: COMMON NORMALS: regular rate, regular rhythm, S1 normal heart sound present and S2 normal heart sound present RATE: regular rate RHYTHM: regular rhythm HEART SOUNDS: S1 normal heart sound present and S2 normal heart sound present GI: COMMON NORMALS: Normal to inspection, nondistended, normoactive bowel sounds present and non-tender Extremity: COMMON NORMALS: no pedal edema Urinary Catheter Management: Campo: Cath Placed During This Visit: yes, but has since been removed by the nurse Reason for Continuing Indwelling Catheter: Decision to DC Catheter Urinary Catheter Date of Insertion: 02/26/23 Urinary Catheter Time of Insertion: 10:10 Date Urinary Catheter Removed: 02/28/23 Time Urinary Catheter Discontinued: 13:30 Data 03/01/23 03:15 03/01/23 11:05 A&P Assessment and plan (1) Parainfluenza: (2) Bradycardia: (3) Community acquired pneumonia: (4) Hypoglycemia: (5) Hypothermia: (6) Extrapyramidal movement disorder, drug-induced: (7) Autism: (8) Altered mental status: (9) Acute encephalopathy: (10) Thrombocytopenia: (11) Anemia: (12) Sepsis: Plan #Altered Mental Status -Resolving -likely secondary to UTI and Pneumonia and parainfluenza virus, ICU delirium #sepsis secondary to uti and pneumonia -with hypoxia, ams, anemia, thrombocytopenia, hypothermia, #Hypoglycemia -Off D10 -advance diet -Looked over patient's records from custodial, is not on any glipizide or glimepiride #Hypothermia -rewarming -etiology? possible secondary to ritalin withdrawal? will rewarm #Community Acquired Pneumonia -De-escalate antibiotics to Augmentin -possible aspiration? -aspiration precautions #UTI -De-escalate to Augmentin #anemia -history of anemia from hematuria in the past requiring 2 units prbc -Status post 1 unit - #thrombocytopenia -likely secondary to sepsis -will do hit panel pending, smear pending, ldh 195, haptoglobin 88 #Acute anemia -Status post 1 unit PRBC -hgb 8.6 -Hemoglobin 8.7 #Epilepsy #Autism, developmental delay #EPS disorder #Adrenal insufficiency? -Patient on fludracortisone and midodrine at home -Switch to p.o. hydrocortisone #Agitation -Currently on benzatropine -Chlorpromazine -Depakote -Klonopin -Methylphenidate -Can use Ativan as needed for agitation, he does use lorazepam at home -Moved to general medical floors - Continue levothyroxine - Active rewarming with Gigi Hugger - will supplement glucose if needed Full Code SCDS, Heparin subc BID Attestations Medical Necessity Statement*: Patient requires hospitalization for pneumonia, UTI, agitation, Diagnoses Parainfluenza B34.8 Bradycardia R00.1 Community acquired pneumonia J18.9 Hypoglycemia E16.2 Hypothermia T68.XXXA Extrapyramidal movement disorder, drug-induced G25.89; T50.905A Autism F84.0 Altered mental status R41.82 Acute encephalopathy G93.40 Thrombocytopenia D69.6 Anemia D64.9 Sepsis A41.9
--- NOTE | 2023-03-01 12:37 | ECG_ITS ---
[facility] Test Date: 2023-03-01 Pat Name: Salazar Hilario Department: Room: [facility] Gender: Male Delivery Mgr: : 1960 Requested By: Raj Johnson Order Number: [id number] Reading MD: Michel Malloy Measurements Intervals [place] Rate: 58 P: 52 CA: 136 QRS: 47 QRSD: 96 T: 55 QT: 449 QTc: 443 Interpretive Statements SINUS BRADYCARDIA NONSPECIFIC ST & T-WAVE ABNORMALITY Compared to ECG 02/26/2023 17:08:22 T-wave abnormality now present Electronically Signed On 03-01-2023 18:56:57 CDT by Michel Malloy [id number]
[2023-03-01] MEDS: potassium chloride oral liq 20 mEq/15 mL UDC 40 MEQ PO (12:46)
[2023-03-01] MEDS: hydrocortisone 10 mg Tablet 5 MG PO (12:46)
[2023-03-01 14:25] LABS: Glucose Point of Care 75 mg/dL (70-110)
[2023-03-01] MEDS: tamsulosin 0.4 mg Capsule PO (15:30)
--- NOTE | 2023-03-01 16:13 | PC.NURSE ---
pt with increased agitation attempted to help void per urinal. pt was unsuccessful and resulted into an incontinence episode. Pt attempted to pull off wires and IV line despite remaining restrained. Ativan given. complete linen change and partial bed bath given. will closely monitor.
--- NOTE | 2023-03-01 16:48 | PC.PT ---
Patient unable to participate with physical therapy at this time due to receiving Ativan. Patient's caregiver at senior care came in later and stated that patient will not cooperate with therapies, or otherwise when feeling ill, and that as soon as his infection is cleared up, he returns to independent transfers and ambulation immediately, and that this has happened several times before. Patient is autistic and nonverbal, but does apparently participate with caregiver with all activities. Patient will continue to be monitored by nursing staff, but no further attempts at PT evaluation will be made, unless new orders are received, due to explanation as above.
[2023-03-01 17:39] LABS: Glucose Point of Care 108 mg/dL (70-110)
[2023-03-01 17:39] LABS: Glucose Point of Care 132 mg/dL (70-110)
[2023-03-01] MEDS: amoxicillin-clav 875-125 mg Tablet 1 TAB PO (17:47)
[2023-03-01] MEDS: hydrocortisone 10 mg Tablet 2.5 MG PO (17:47)
[2023-03-01] MEDS: CLONazepam 1 mg Tablet PO (19:50)
[2023-03-01] MEDS: atorvastatin 40 mg Tablet PO (19:50)
[2023-03-01 23:42] LABS: Glucose Point of Care 98 mg/dL (70-110)
[2023-03-02] VITALS (54 sets, daily range): BP systolic 149–191; BP diastolic 84–120; PULSE 44–71; RESP 14–20; TEMP 36.1–36.5; O2SAT 94–100
[2023-03-02 03:06] LABS: Basophils % 0.2 %; Eosinophils % 0.7 %; Hematocrit 27.1 % (42.0-52.0); Hemoglobin 8.7 g/dL (11.7-16.6); Lymphocytes % 43.6 %; Mean Corpuscular HGB Conc 32.1 g/dL (30.0-36.0); Mean Corpuscular Hemoglobin 30.4 pg (28.0-34.0); Mean Corpuscular Volume 94.8 fl (80-94); Mean Platelet Volume 12.5 fL (7.4-10.4); Monocytes # 0.4 10^3/uL (0.2-0.9); Monocytes % 8.1 %; Neutrophils # 2.12 10^3/uL (1.8-7.7); Neutrophils % 46.5 %; Nucleated Red Blood Cells % 0 %; Platelet Count 76 10^3/cmm (130-400); Red Blood Count 2.86 10^6/uL (4.1-5.3); Red Cell Distribution Width 20.4 % (12.1-15.1); White Blood Count 4.6 10^3/uL (4.0-10.0)
[2023-03-02 03:27] LABS: Alanine Aminotransferase 14 U/L (0-41); Albumin Level 2.7 g/dL (3.5-5.2); Alkaline Phosphatase 74 U/L (40-130); Anion Gap 9.4 (5-19); Aspartate Amino Transferase 17 U/L (0-40); Blood Urea Nitrogen 15 mg/dL (8-23); Calcium 8.3 mg/dL (8.5-10.5); Carbon Dioxide 28 mmol/L (22-29); Chloride 102 mmol/L (98-107); Globulin 3.9 g/dL (1.3-4.6); Glomerular Filtration Rate 139.2 mL/min (90-130); Glucose 70 mg/dL (65-115); Magnesium 1.7 mg/dL (1.7-2.3); Osmolality Calculated 281 mOsm/kg (285-295); Phosphorus 3.6 mg/dL (2.5-4.5); Potassium 3.4 mmol/L (3.5-5.1); Sodium 136 mmol/L (136-145); Total Bilirubin 0.3 mg/dL (0.15-1.2); Total Protein 6.6 g/dL (6.6-8.7)
[2023-03-02] MEDS: chlorPROMazine 50 mg Tablet 100 MG PO (07:54)
[2023-03-02] MEDS: divalproex Sprinkles 125 mg Capsule 1000 MG PO (07:55)
[2023-03-02] MEDS: methylphenidate 10 mg Tablet PO ×2 (07:55→12:35)
[2023-03-02] MEDS: fludrocortisone 0.1 mg Tablet PO (07:57)
[2023-03-02] MEDS: hydrocortisone 10 mg Tablet PO (07:57)
[2023-03-02] MEDS: levothyroxine 112 mcg Tablet PO (07:57)
[2023-03-02] MEDS: benztropine 1 mg Tablet PO (07:59)
[2023-03-02] MEDS: phosphorus 250 mg Tablet PO (08:00)
[2023-03-02] MEDS: amoxicillin-clav 875-125 mg Tablet 1 TAB PO (08:00)
[2023-03-02] MEDS: tamsulosin 0.4 mg Capsule PO (08:00)
[2023-03-02] MEDS: potassium chloride ER 20 mEq Tablet 40 MEQ PO (08:19)
[2023-03-02 08:20] LABS: Glucose Point of Care 152 mg/dL (70-110)
[2023-03-02] MEDS: lanolin oint 7 gm 1 APPLIC TOPICAL (09:18)
--- NOTE | 2023-03-02 09:29 | PC.NURSE ---
Upon morning assessment, patient is agitated, attempting to pull out IV, pulls off leads, and becoming aggressive/grabbing at staff. Nurse changed linens, Moved telemetry leads to back, and got the okay to remove IV from Dr dow. Patient is now calm.
--- NOTE | 2023-03-02 09:51 | PC.NURSE ---
Patient is attempting to get out of bed. Nurse assisted patient to the side of the bed so he could sit up for a while. Patient sat on the side of the bed for about 10 minutes with no problem, then started getting aggressive, pulling at and throwing linens, grabbing at staff. Nurse assisted patient back into bed with help from another nurse. Patient is now calm.
--- NOTE | 2023-03-02 10:26 | PM.DCS ---
Discharge Providers Date of Admission: 02/26/23 00:00 Date of Discharge: March 02, 2023 Attending Provider at Admission: Vernell León MD Attending Provider at Discharge: Raj Johnson MD Primary Care Provider: Brittany Bahena MD Diagnoses at Discharge Discharge Diagnosis (1) Parainfluenza: Status: Acute (2) Bradycardia: Status: Acute (3) Community acquired pneumonia: Status: Acute (4) Hypoglycemia: Status: Acute (5) Hypothermia: Status: Acute (6) Extrapyramidal movement disorder, drug-induced: Status: Chronic (7) Autism: Status: Chronic (8) Altered mental status: Status: Acute (9) Acute encephalopathy: Status: Acute (10) Thrombocytopenia: Status: Acute (11) Anemia: Status: Acute (12) Sepsis: Status: Acute Reason for Visit Reason for Visit: LOW O2 Hospital Course Hospital Course Salazar Hilario is a 62 year old male with past medical history of autism, developmental disorder, epilepsy, hyperlipidemia, hypertension, hypothyroidism, psychiatric care, chronic anemia presented to the hospital today from [facility] for altered mental status.? Patient was brought in by caregivers.? long-term states that patient is much more altered than he usually is.? He also has a low pulse ox.? On arrival to hospital he was found to be hypoglycemic with blood sugar in the 50s.? He was given an amp of D50.? Patient also noted to be hypothermic with temperature down to 92 Fahrenheit.? He is nonverbal at baseline.? Unable to provide any kind of history at this time.? No recent known illness.? Patient is a full code.? Non-smoker no alcohol use.? Blood pressure on arrival 92/55 heart rate 23, pulse 70, temperature 92, saturating 93% on room air.? He was given IV fluids.? White count 7, hemoglobin 9.9, creatinine 0.7.? Lactic is 1.8.? Patient does have a history of pneumonias in the past.? Chest x-ray shows some mild bibasilar atelectasis or infiltrate and/or effusion.? Ceftriaxone azithromycin was given by ER physician. Rewarmin protocol started Patient was admitted to [facility] for altered mental status, sepsis secondary to UTI and pneumonia, hypoglycemia, hypothermia, community-acquired pneumonia pneumonia, anemia, thrombocytopenia. Patient was monitored in the ICU, overall his cultures have been unremarkable, inflammatory markers show improvement, his mentation does show improvement we will discharge to his retirement In terms of his anemia, status post 1 unit PRBC, likely secondary to sepsis, no evidence of bloody or black stools, discharged with close follow-up with primary care provider as outpatient for recheck hemoglobin In terms of his thrombocytopenia, likely secondary to sepsis, improving on discharge In terms of his adrenal insufficiency, as outpatient patient is on fludrocortisone and midodrine. I suspect patient's persistent hypoglycemia during hospitalization and his hypothermia and bradycardia was likely secondary to adrenal insufficiency with sepsis. He was stress dosed with steroids, which were eventually weaned, discharged on his home fludrocortisone. With hydrocortisone 5/2.5/2.5, Protonix, with a close follow-up with endocrinology as outpatient At baseline patient is nonverbal, cannot ambulate, does have episodes of agitation, has autism, history of epilepsy Physical Exam Const: COMMON NORMALS: no acute distress Resp: COMMON NORMALS: normal respiratory effort, No retractions, No use of accessory muscles and clear to auscultation bilaterally AUSCULTATION: clear to auscultation bilaterally Cardio: COMMON NORMALS: regular rate, regular rhythm, S1 normal heart sound present and S2 normal heart sound present RATE: regular rate RHYTHM: regular rhythm HEART SOUNDS: S1 normal heart sound present and S2 normal heart sound present GI: COMMON NORMALS: Normal to inspection, nondistended, normoactive bowel sounds present and non-tender Extremity: COMMON NORMALS: no pedal edema Urinary Catheter Management: Campo: Cath Placed During This Visit: yes, but has since been removed by the nurse Reason for Continuing Indwelling Catheter: Decision to DC Catheter Urinary Catheter Date of Insertion: 02/26/23 Urinary Catheter Time of Insertion: 10:10 Date Urinary Catheter Removed: 02/28/23 Time Urinary Catheter Discontinued: 13:30 Discharge Data Studies Completed and Pending Completed Studies During Hospitalization Category Date Time Status CT chest abdomen pelvis [CT chest abdpel w/*[id number] Cat Scan 02/26/23 08:15 Completed ] Stat CT head wo con* [id number] Routine Cat Scan 02/26/23 08:15 Completed XR chest 1V portable [id number] Stat Exams 02/25/23 21:58 [place] [id number] Routine Ultrasound 02/26/23 10:54 Completed Pending at discharge Category Date Time Status Blood Culture Stat Lab 02/25/23 23:45 Results Complete Blood Count w/Auto AM LABS Lab 03/03/23 04:00 Ordered Complete Blood Count w/Auto AM LABS Lab 03/04/23 04:00 Ordered Comprehensive Metabolic Panel AM LABS Lab 03/03/23 04:00 Ordered Comprehensive Metabolic Panel AM LABS Lab 03/04/23 04:00 Ordered Heparin Induced Thrombocytopen Stat Lab 02/26/23 07:52 Results Leukocyte Reduced RBC Routine Lab 02/27/23 05:13 Results Magnesium AM LABS Lab 03/03/23 04:00 Ordered Magnesium AM LABS Lab 03/04/23 04:00 Ordered Occult Blood Stool [Immunochemical Fecal OCB] Routine Lab 02/26/23 07:22 Uncollected Phosphorus AM LABS Lab 03/03/23 04:00 Ordered Phosphorus AM LABS Lab 03/04/23 04:00 Ordered Sputum Culture and Gram Stain Stat Lab 02/26/23 01:25 Uncollected Type and Screen Routine Lab 02/27/23 05:13 Results Radiology Impressions Chest X-Ray 02/25/23 21:58 IMPRESSION: Mild bibasilar atelectasis and/or infiltrate and/or effusion. Chest/Abdomen/Pelvis CT 02/26/23 08:15 IMPRESSION: 1. Camop catheter. Diffuse bladder wall thickening. Correlation for cystitis. Bladder is decompressed. 2. Dense RIGHT colon, hepatic flexure, transverse colon and splenic flexure constipation is similar to December 19, 2022. 3. Mild distention of the stomach with air-fluid level. 4. Shallow inspiration with subsegmental atelectasis LEFT greater than RIGHT lower lobes with a few air bronchograms in the LEFT lower lobe. Recommend correlation for pneumonia. This is similar to the prior CT. Scattered fibrotic changes in both lungs. 5. Small amount of free fluid in the pelvis. 6. No other remarkable findings. Head CT 02/26/23 08:15 IMPRESSION: 1. No evidence of intracranial hemorrhage or mass effect. 2. No acute intracranial findings. Laboratory Results WBC 4.6 10^3/uL (4.0-10.0) 03/02/23 02:48 RBC 2.86 10^6/uL (4.1-5.3) L 03/02/23 02:48 Hgb 8.7 g/dL (11.7-16.6) L 03/02/23 02:48 Hct 27.1 % (42.0-52.0) L 03/02/23 02:48 MCV 94.8 fl (80-94) H 03/02/23 02:48 MCH 30.4 pg (28.0-34.0) 03/02/23 02:48 MCHC 32.1 g/dL (30.0-36.0) 03/02/23 02:48 RDW 20.4 % (12.1-15.1) H 03/02/23 02:48 Plt Count 76 10^3/cmm (130-400) L 03/02/23 02:48 MPV 12.5 fL (7.4-10.4) H 03/02/23 02:48 Neut % (Auto) 46.5 % 03/02/23 02:48 Lymph % (Auto) 43.6 % 03/02/23 02:48 [place] % (Auto) 8.1 % 03/02/23 02:48 Eos % (Auto) 0.7 % 03/02/23 02:48 Baso % (Auto) 0.2 % 03/02/23 02:48 Neut # (Auto) 2.12 10^3/uL (1.8-7.7) 03/02/23 02:48 Lymph # (Auto) 2.0 10^3/uL (0.8-4.8) 03/02/23 02:48 [place] # (Auto) 0.4 10^3/uL (0.2-0.9) 03/02/23 02:48 Eos # (Auto) 0.0 10^3/uL (0.0-0.8) 03/02/23 02:48 Baso # (Auto) 0.0 10^3/uL (0.0-0.1) 03/02/23 02:48 Nucleated RBC % (auto) 0 % 03/02/23 02:48 Total Counted 100 (0-100) 02/28/23 04:24 Atypical Lymphs % 2.0 % (0-5) 02/28/23 04:24 Absolute Neutrophils 4.1 10^3/cmm (1.4-6.5) 02/28/23 04:24 Segmented Neutrophils 73 % 02/28/23 04:24 Abs Segm Neuts (Man) 4.1 10/cmm (1.6-7.1) 02/28/23 04:24 Band Neutrophils 0.0 % 02/28/23 04:24 Abs Band Neuts (Man) 0.0 10^3/cmm (0.0-1.2) 02/28/23 04:24 Absolute Lymphocytes 1.3 10^3/cmm (1.2-3.4) 02/28/23 04:24 Lymphocytes (Manual) 21 % 02/28/23 04:24 Monocytes (Manual) 4.0 % 02/28/23 04:24 Absolute Monocytes 0.2 10^3/cmm (0.1-0.6) 02/28/23 04:24 Eosinophils (Manual) 0 % 02/28/23 04:24 Absolute Eosinophils 0.0 10^3/cmm (0.0-0.7) 02/28/23 04:24 Basophils (Manual) 0.0 % 02/28/23 04: Absolute Basophils 0.0 10^3/cmm (0.0-0.2) 02/28/23 04:24 Nucleated RBCs # 0.0 /100WBC 03/02/23 02:48 Toxic Granulation 2+ H 02/28/23 04:24 Platelet Estimate Decreased (Normal) 02/28/23 04:24 Giant Platelets 1+ H 02/28/23 04:24 Haptoglobin 88.0 mg/L (30-200) 02/26/23 07:39 Heparin Require Pat 0.211 02/26/23 07:52 PT 14.50 SECONDS (12.1-14.9) 02/26/23 07:52 INR 1.09 (0.8-1.2) 02/26/23 07:52 APTT 44.1 SECONDS (23.9-36.7) H 02/26/23 07:52 Fibrinogen 344 mg/dL (174-498) 02/26/23 07:52 Fibrin Degrad Products Pos, >=40 ug/mL (NEG) H 02/26/23 07:52 D-Dimer 8.35 ug/mIFEU (0-0.59) H 02/26/23 07:52 Specimen Type Arterial 02/26/23 11:24 Sample Site Brachial, left 02/26/23 11:24 ABG pH 7.42 (7.35-7.45) 02/26/23 11:24 ABG pCO2 44.9 mmHg (35-45) 02/26/23 11:24 ABG pO2 93.9 mmHg (80.0-100.0) 02/26/23 11:24 ABG HCO3 29.0 mmol/L (22-26) H 02/26/23 11:24 ABG Base Excess 4.0 mmol/L (-2.0-2.0) H 02/26/23 11:24 Brooks Test Pos 02/26/23 11:24 Hematocrit 32.6 % (42-52) L 02/26/23 11:24 O2 Delivery Device Nc 02/26/23 11:24 O2 Liters/Min 2.0 % 02/26/23 11:24 Pediatric Licensed Practical Nurse ID Cak 02/26/23 11:24 Sodium 136 mmol/L (136-145) 03/02/23 02:48 Potassium 3.4 mmol/L (3.5-5.1) L 03/02/23 02:48 Chloride 102 mmol/L (98-107) 03/02/23 02:48 Carbon Dioxide 28 mmol/L (22-29) 03/02/23 02:48 Anion Gap 9.4 (5-19) 03/02/23 02:48 BUN 15 mg/dL (8-23) 03/02/23 02:48 Creatinine 0.7 mg/dL (0.7-1.2) 03/02/23 02:48 GFR Calculation 139.2 mL/min (90-130) H 03/02/23 02:48 Glucose 70 mg/dL (65-115) 03/02/23 02:48 POC Glucose 152 mg/dL (70-110) H 03/02/23 07:15 Estimat Average Glucose 91 02/26/23 03:16 Hemoglobin A1c 4.8 % (4.0-6.0) 02/26/23 03:16 Calculated Osmolality 281 mOsm/kg (285-295) L 03/02/23 02:48 Lactate 1.0 mmol/L (0.5-2.2) 03/01/23 03:15 Calcium 8.3 mg/dL (8.5-10.5) L 03/02/23 02:48 Phosphorus 3.6 mg/dL (2.5-4.5) D 03/02/23 02:48 Magnesium 1.7 mg/dL (1.7-2.3) 03/02/23 02:48 Iron 72 ug/dL (59-158) 02/26/23 07:52 TIBC 189 mcg/dl 02/26/23 07:52 % Saturation 38.0 % (20-50) 02/26/23 07:52 Unsat Iron Binding 117 ug/dL (112-347) 02/26/23 07:52 Ferritin 1422 ng/mL (30-400) H 02/26/23 07:52 Total Bilirubin 0.3 mg/dL (0.15-1.2) 03/02/23 02:48 AST 17 U/L (0-40) 03/02/23 02:48 ALT 14 U/L (0-41) 03/02/23 02:48 Alkaline Phosphatase 74 U/L (40-130) 03/02/23 02:48 Lactate Dehydrogenase 195 U/L (135-225) 02/26/23 07:39 Troponin T Baseline 24 ng/L (0-15) H 02/26/23 11:06 Troponin T 120 Minute 23.25 ng/L (0-15) H 02/26/23 12:50 Delta Troponin T -0.75 ABS# (0-10) L 02/26/23 12:50 Troponin T Hi Sens 6Hr 21.84 ng/L (0-15) H 02/26/23 17:17 Troponin T Hi Sens 6Hr Delta -2.16 ng/L (0-12) L 02/26/23 17:17 Total Protein 6.6 g/dL (6.6-8.7) 03/02/23 02:48 Albumin 2.7 g/dL (3.5-5.2) L 03/02/23 02:48 Globulin 3.9 g/dL (1.3-4.6) 03/02/23 02:48 Vitamin B12 843 pg/mL (232-1245) 02/26/23 07:52 Folate 7.1 ng/mL (4.5-32.2) 02/26/23 07:39 Procalcitonin 0.11 ng/mL (0-0.5) 03/01/23 11:05 TSH 2.48 uIU/mL (0.27-4.20) 02/26/23 03:16 Random Cortisol 108.00 ug/dL (2.47-19.5) H 02/26/23 03:16 Urine Color Yellow (Yellow) 02/26/23 10:00 Urine Appearance Clear (CLEAR) 02/26/23 10:00 Urine pH 7 (5-7) 02/26/23 10:00 Ur Specific [place] 1.005 (1.005-1.030) 02/26/23 10:00 Urine Protein Neg (Negative) 02/26/23 10:00 Urine Glucose (UA) Norm (Normal) 02/26/23 10:00 Urine Ketones Negative (Negative) 02/26/23 10:00 Urine Blood 2+ (Negative) H 02/26/23 10:00 Urine Nitrate Negative (Negative) 02/26/23 10:00 Urine Bilirubin Neg (Negative) 02/26/23 10:00 Urine Urobilinogen Neg mg/dL (Negative) 02/26/23 10:00 Ur Leukocyte Esterase Negative (Negative) 02/26/23 10:00 Urine RBC 5-10 /hpf (0-2) H 02/26/23 10:00 Urine WBC 0-4 /hpf (0-5) H 02/26/23 10:00 Ur Squamous Epith Cells 0-4 /hpf (0-5) H 02/26/23 10:00 Amorphous Sediment Not Reportable 02/26/23 10:00 Urine Bacteria None /hpf (NONE) 02/26/23 10:00 Urine Mucus Trace /hpf 02/26/23 10:00 Nasal Influ A H1 2009 PCR Not detected (NOT DETECT) 02/26/23 15:00 Valproic Acid 61.7 ug/mL (50-100) 02/26/23 03:16 Heparin-induced Ab Negative (NEGATIVE) 02/26/23 07:52 Adenovirus (PCR) Not detected (NOT DETECT) 02/26/23 15:00 C. pneumoniae DNA (PCR) Not detected (NOT DETECT) 02/26/23 15:00 Coronavirus 229E (PCR) Not detected (NOT DETECT) 02/26/23 15:00 Hepatitis A IgM Ab Non-reactive (Nonreactive) 02/26/23 07:39 Hep Bs Antigen Non-reactive (Nonreactive) 02/26/23 07:39 Hep B Core IgM Ab Non-reactive (Nonreactive) 02/26/23 07:39 Hepatitis C Antibody Non-reactive (Nonreactive) 02/26/23 07:39 HIV 1&2 Ab & HIV 1 Ag Non-reactive (Non-Reactiv) 02/26/23 07:39 HIV 1&2 Antibody Non-reactive (Non-Reactiv) 02/26/23 07:39 Human Metapneumovir PCR Not detected (NOT DETECT) 02/26/23 15:00 Influenza A (H1) PCR Not detected (NOT DETECT) 02/26/23 15:00 Influenza A (H3) PCR Not detected (NOT DETECT) 02/26/23 15:00 Influenza Type A (PCR) Not detected (NOT DETECT) 02/26/23 15:00 Influenza Type B (PCR) Not detected (NOT DETECT) 02/26/23 15:00 M. pneumoniae (PCR) Not detected (NOT DETECT) 02/26/23 15:00 Parainfluenza 1 (PCR) Not detected (NOT DETECT) 02/26/23 15:00 Parainfluenza 2 (PCR) Not detected (NOT DETECT) 02/26/23 15:00 Parainfluenza 3 (PCR) Not detected (NOT DETECT) 02/26/23 15:00 Parainfluenza 4 (PCR) Detected (NOT DETECT) A 02/26/23 15:00 RSV Type A (PCR) Not detected (NOT DETECT) 02/26/23 15:00 RSV Type B (PCR) Not detected (NOT DETECT) 02/26/23 15:00 Entero/Rhino (PCR) Not detected (NOT DETECT) 02/26/23 15:00 SARS-CoV-2 (PCR) Not detected (NOT DETECT) 02/26/23 15:00 Blood Type O Positive 02/27/23 05:13 Rho(D) Type Positive 02/27/23 05:13 Antibody Screen Negative 02/27/23 05:13 Crossmatch See Detail 02/27/23 05:13 Vitals Last Vital Signs Temp 96.9 F L 03/02/23 07:00 Pulse 48 L 03/02/23 09:15 Resp 15 03/02/23 07:30 BP 172/96 03/02/23 09:25 Pulse Ox 99 03/02/23 07:00 O2 Del Method 03/02/23 07:00 O2 Flow Rate 2 02/28/23 17:00 Discharge Plan Discharge Patient Disposition: Home Condition: Stable Prescriptions: New hydrocortisone 10 mg Tablet 5 mg PO QAM 30 Days Qty: 15 0RF hydrocortisone 10 mg Tablet 2.5 mg PO QNOON 30 Days Qty: 8 0RF hydrocortisone 10 mg Tablet 2.5 mg PO QPM 30 Days Qty: 8 0RF amoxicillin-pot clavulanate 875-125 mg Tablet 1 tab PO BID 5 Days Qty: 10 0RF tamsulosin 0.4 mg Capsule 0.4 mg PO DAILY 30 Days Qty: 30 0RF pantoprazole [Protonix] 40 mg tablet,delayed release (DR/EC) 40 mg PO QAM 30 Days Qty: 30 0RF Continued lorazepam [Ativan] 2 mg tablet 2 mg PO Q8H PRN (Reason: agitation) Qty: 90 5RF fludrocortisone 0.1 mg tablet 0.1 mg PO DAILY@08 atorvastatin [Lipitor] 40 mg Tablet 40 mg PO BEDTIME@20 acetaminophen [Tylenol] 325 mg Tablet 325 mg PO Q6H MDD 4g PRN (Reason: Pain) loperamide 2 mg Tablet See Rx Instructions .ROUTE .COMPLEX Rx Instructions: 4mg po with each loose stool *max 8 tabs per day* triamcinolone acetonide 0.1 % Cream 1 applic TOPICAL BID PRN (Reason: fungal infection) calcium carbonate 600 mg calcium (1,500 mg) Tablet 600 mg PO BEDTIME@20 famotidine [Pepcid] 20 mg Tablet 20 mg PO BEDTIME@20 meclizine 25 mg Tablet 25 mg PO DAILY PRN (Reason: Motion Sickness) nystatin 100,000 unit/gram Cream See Rx Instructions .ROUTE .COMPLEX Rx Instructions: apply topically to areas on toes and feet that are cracked/itchy as needed docusate sodium [Colace] 100 mg Capsule 100 mg PO DAILY@08 polyethylene glycol 3350 [Miralax] 17 gram/dose Powder 17 g PO DAILY@12 levothyroxine 112 mcg Tablet 112 mcg PO DAILY@08 divalproex [Depakote Sprinkles] 125 mg capsule, delayed rel sprinkle 1,000 mg PO BID@08,21 chlorpromazine 100 mg tablet 100 mg PO TID@08,16,20 methylphenidate HCl [Ritalin] 20 mg tablet 20 mg PO TID@08,12,20 Klonopin 2 mg tablet 2 mg PO BEDTIME@20 benztropine 1 mg tablet 1 mg PO BID@08,20 Held midodrine 2.5 mg tablet 2.5 mg PO TID@08,12,21 Hold Instructions: Resume on 03/23/23. hold until you see primary care Discharge Orders: Discharge Order (Routine); Ordered 03/02/23 Ordered By: Raj Johnson Referrals: Brittany Bahena MD [Primary Care Provider] - 1-3 days Dean Wilson MD [Physician] - 1 month (adrenal insufficiency) Discharge Diet: As Directed and Regular Discharge Activity: Resume usual activity Patient Instructions: Opioid Safety Activity Restrictions/Additional Instructions: - Dysphagia level 4 diet, extremely thick and pur?ed -For his adrenal insufficiency, I referred him to Dr. Wilson, discharged him on hydrocortisone -Take antibiotics as prescribed Discharge Attestations Time Spent in Discharge Care*: greater than 30 min Status at Discharge: Cognitive status at discharge: severely impaired cognition, Behavioral status at discharge: cooperative, Quality Metrics Clinical Quality Measures [ No reported AMI, CVA or VTE this stay] Coding Level of Care Code 60389 Total time (in minutes) for Discharge: 50 Diagnoses Parainfluenza B34.8 Bradycardia R00.1 Community acquired pneumonia J18.9 Hypoglycemia E16.2 Hypothermia T68.XXXA Extrapyramidal movement disorder, drug-induced G25.89; T50.905A Autism F84.0 Altered mental status R41.82 Acute encephalopathy G93.40 Thrombocytopenia D69.6 Anemia D64.9 Sepsis A41.9
[2023-03-02 11:04] LABS: Glucose Point of Care 163 mg/dL (70-110)
--- NOTE | 2023-03-02 11:47 | PC.NURSE ---
Patient is ready for discharge.... Nurse assisted patient into a brief and clothes brought from home. No IVs present. Caregiver Vicki Selby has been called to pick him up. Waiting on inhouse pharmacy to complete meds to bed and waiting on ride to show up.
[2023-03-02] MEDS: hydrocortisone 10 mg Tablet 5 MG PO (12:35)
--- NOTE | 2023-03-02 13:38 | PC.NURSE ---
Patient picked up by caregiver Jade Loving. Medications were provided by meds to bed. reviewed upcoming appointments, new medications, discharge and activity instructions.
--- NOTE | 2023-03-02 14:11 | PC.OT ---
PATIENT D/C BEFORE EVALUATION COULD BE COMPLETED.
[2023-03-03 19:39] LABS: UFH High Dose, 100 IU/ML 1 % release; UFH Low Dose, 0.1 IU/ML 0 % release; UFH Low Dose, 0.5 IU/ML 1 % release; UFH SRA Result NEGATIVE (NEGATIVE)
== END 2023-03-02 13:39 | disposition home or self-care (01) | DRG 871 ==
LOC: ER 02-26 → ICU 02-26 00:15
PROVIDERS: Admitting Provider Internal Medicine; Emergency Provider Emergency Medicine; PCP Family Medicine; Visit Provider Family Medicine
DX: A41.9 Sepsis, unspecified organism (principal); J18.9 Pneumonia, unspecified organism; N39.0 Urinary tract infection, site not specified; F84.0 Autistic disorder; E27.40 Unspecified adrenocortical insufficiency; B34.8 Other viral infections of unspecified site; G40.909 Epilepsy, unspecified, not intractable, without status epilepticus; E78.5 Hyperlipidemia, unspecified; I10 Essential (primary) hypertension; E03.9 Hypothyroidism, unspecified; D64.9 Anemia, unspecified; E16.2 Hypoglycemia, unspecified; R68.0 Hypothermia, not associated with low environmental temperature; Z87.01 Personal history of pneumonia (recurrent); D69.59 Other secondary thrombocytopenia; R45.1 Restlessness and agitation
CPT/HCPCS: 36415; 36416; 36430; 36600; 51702; 70450; 71045; 71260; 74177; 80048; 80053; 80074; 80164; 80503; 81001; 82533; 82607; 82728; 82746; 82803; 82947; 82962; 83010; 83036; 83540; 83550; 83605; 83615; 83735; 84100; 84145; 84443; 84484; 85007; 85025; 85362; 85378; 85384; 85610; 85730; 86850; 86900; 86920; 87040; 87486; 87581; 87633; 87641; 87806; 92526; 92610; 93005; 93970; 94664; 96365; 96367; 96372; 96376; 99285; J0456; J0696; J1630; J1644; J1720; J2060; J3475; J7030; J7040; J7042; J7050; J8499; P9016; P9046; Q0161; Q9967

== ENCOUNTER → 2023-03-26 11:02 | Outpatient (BNVA) | payer MEDICARE, MEDICAID, SELFPAY | PROVIDERS: PCP Family Medicine; Referring Provider Family Medicine; Visit Provider Internal Medicine | DX: E27.9 Disorder of adrenal gland, unspecified (principal); E27.40 Unspecified adrenocortical insufficiency; E03.9 Hypothyroidism, unspecified; R53.1 Weakness; F84.0 Autistic disorder; E16.2 Hypoglycemia, unspecified; Z79.890 Hormone replacement therapy | CPT/HCPCS: 36415; 80048; 84244; 99204 ==

== ENCOUNTER 2023-06-14 22:07 | Inpatient (IN) | payer MEDICARE, MEDICAID, SELFPAY ==
[2023-06-14] VITALS (11 sets, daily range): BP systolic 95–136; BP diastolic 68–78; PULSE 48–74; RESP 7–26; TEMP 31.1; O2SAT 94–97
--- NOTE | 2023-06-14 22:23 | CTR_ITS ---
PROCEDURE INFORMATION: Exam: CT Head Without Contrast Exam date and time: 06/15/2023 1:17 AM Age: 63 years old Clinical indication: Altered mental status/memory loss; Patient HX: Arrival via EMS for unresponsiveness with bradycardia and hypotension. Intubated. ; Additional info: AMS TECHNIQUE: Imaging protocol: Computed tomography of the head without contrast. Radiation optimization: All CT scans at this facility use at least one of these dose optimization techniques: automated exposure control; mA and/or kV adjustment per patient size (includes targeted exams where dose is matched to clinical indication); or iterative reconstruction. REPORTING DATA: Count of CT and Cardiac NM exams in prior 12 months: This patient has received 6 known CTs and 0 known cardiac nuclear medicine studies in the 12 months prior to the current study. COMPARISON: CT head wo con* [id number] 02/26/2023 12:18 PM RADIATION DOSE METRICS: Total DLP (mGy-cm): 1448.14 FINDINGS: Brain: No hemorrhage. Unremarkable white matter. No mass effect. Preserved nieves-white interfaces. Cerebral ventricles: No ventriculomegaly. Paranasal sinuses: Visualized sinuses are unremarkable. No fluid levels. Mastoid air cells: Visualized mastoid air cells are well aerated. Auditory system: Extensive debris noted in each external auditory canal. Bones/joints: Unremarkable. No acute fracture. Soft tissues: Unremarkable. CT/CT head wo con* [id number] IMPRESSION: 1. No evidence of acute intracranial hemorrhage, mass effect, or edema. 2. Extensive debris noted in each external auditory canal.
--- NOTE | 2023-06-14 22:23 | PC.NURSE ---
Pt taken off pacer during transfer to hospital bed, HR dropped to 39 bpm with poor peripheral pulse perfusion. Pt placed on zoll at 70 bpm and 90 tyra amps.
--- NOTE | 2023-06-14 22:25 | PC.NURSE ---
Gigi jackman placed due to rectal temp 87
[2023-06-14 22:30] LABS: ABG PCO2 48.5 mmHg (35-45); ABG PH Result 7.34 (7.35-7.45); Arterial Blood Gas Hematocrit 27.6 % (42-52); Base Excess ABG 0.2 mmol/L (-2.0-2.0); Blood Gas Allen Test Pos; Blood Gas Sample Site Radial, right; Blood Gas Sample Type Arterial; Carboxyhemoglobin 0.9 %THgb (0.4-20.1); HCO3 ABG 26.2 mmol/L (22-26); HGB O2 Sat 94.7 % (95-100); Ionized Calcium Level - ABG 1.3 mmol/L (1.1-1.4); Methemoglobin 0.9 % (0.4-1.5); Oxygen Device NC; Oxygen Saturation ABG 96.4; PO2 ABG 95.3 mmHg (80.0-100.0); Potassium Level - ABG 4.2 mmol/L (3.5-5.0)
[2023-06-14] MEDS: EPINEPHrine 2.5 MG in sodium chloride 0.9% 250 ML 60.6 MG IV (22:31)
[2023-06-14 22:34] LABS: Basophils % 0.2 %; Eosinophils # 0.1 10^3/uL (0.0-0.8); Eosinophils % 0.9 %; Hematocrit 25.8 % (42.0-52.0); Hemoglobin 8.2 g/dL (11.7-16.6); Lymphocytes % 36.8 %; Mean Corpuscular HGB Conc 31.8 g/dL (30.0-36.0); Mean Corpuscular Hemoglobin 31.8 pg (28.0-34.0); Mean Platelet Volume 12.3 fL (7.4-10.4); Monocytes # 0.3 10^3/uL (0.2-0.9); Monocytes % 5.6 %; Neutrophils % 56.1 %; Nucleated Red Blood Cells % 0 %; Platelet Count 76 10^3/cmm (130-400); Red Blood Count 2.58 10^6/uL (4.1-5.3); Red Cell Distribution Width 17.2 % (12.1-15.1); White Blood Count 5.5 10^3/uL (4.0-10.0)
[2023-06-14] MEDS: atropine 0.1 mg/mL Syr 10 mL 1 MG IVP ×3 (22:35→23:29)
--- NOTE | 2023-06-14 22:47 | PC.NURSE ---
Per Dr Stack - given 3 mg atropine. 1 MG at a time, 3 minutes apart. 1 mg Atropine @ 2235 - no cardiac response 1 mg Atropine @ 2239 - no cardiac response 1 mg Atropine @ 2243 - no cardiac response
[2023-06-14 22:50] LABS: Partial Thromboplastin Time 45.7 SECONDS (23.9-36.7)
[2023-06-14 22:52] LABS: D Dimer 0.52 ug/mIFEU (0-0.59)
--- NOTE | 2023-06-14 22:52 | PC.NURSE ---
Per physician - increase epi gtt to 15 mcg/min at this time
--- NOTE | 2023-06-14 22:54 | USCV_ITS ---
Salazar Hilario Age: 63 Gender: M : 1960 Exam Date: 06/14/2023 23:34 Ordering Phys: Cassandra Stack MD ([email or web address]) Technologist: MELISSA Exam Location: [facility] [place] Indication: sinus philip paced BP: / HR: Rhythm: Sinus Technical Quality: Adequate MEASUREMENTS (Male / Female) Normal Values FINDINGS Left Ventricle Normal left ventricular size and systolic function, EF 65% Right Ventricle Normal right ventricular size and systolic function. Right Atrium Normal right atrial size. Left Atrium Normal left atrial size. Mitral Valve Structurally normal mitral valve. Aortic Valve Structurally normal trileaflet aortic valve. Tricuspid Valve Structurally normal tricuspid valve. Pulmonic Valve Structurally normal pulmonic valve. Pericardium Normal pericardium without effusion. Aorta Normal ascending aorta dimension. IVC The inferior vena cava appears normal. CONCLUSIONS Normal left ventricular size and systolic function, EF 65%. Normal cardiac chamber sizes. No gross morphological abnormalities in the valves There is no pericardial effusion. There are no intracardiac masses. No similar previous studies are available for comparison Dr Cassandra Stack MD FACC (Electronically Signed) Final Date: 15 June 2023 00:12 S
[2023-06-14 23:01] LABS: Troponin(5th) Baseline 13 ng/L (0-15)
[2023-06-14 23:06] LABS: Alanine Aminotransferase 9 U/L (0-41); Albumin Level 2.8 g/dL (3.5-5.2); Alkaline Phosphatase 87 U/L (40-130); Anion Gap 15.3 (5-19); Aspartate Amino Transferase 11 U/L (0-40); Blood Urea Nitrogen 17 mg/dL (8-23); Calcium 8.6 mg/dL (8.5-10.5); Carbon Dioxide 23 mmol/L (22-29); Chloride 105 mmol/L (98-107); Globulin 4.2 g/dL (1.3-4.6); Glomerular Filtration Rate 118.9 mL/min (90-130); Glucose 86 mg/dL (65-115); Magnesium 1.8 mg/dL (1.7-2.3); NT Pro B Type Natriuretic Pept 36 pg/mL (0-125); Osmolality Calculated 289 mOsm/kg (285-295); Phosphorus 3.5 mg/dL (2.5-4.5); Potassium 4.3 mmol/L (3.5-5.1); Sodium 139 mmol/L (136-145); Thyroid Stimulating Hormone 3.78 uIU/mL (0.27-4.20); Total Bilirubin 0.2 mg/dL (0.15-1.2)
--- NOTE | 2023-06-14 23:10 | XRR_ITS ---
PROCEDURE INFORMATION: Exam: XR Chest Exam date and time: 06/15/2023 12:02 AM Age: 63 years old Clinical indication: Other vascular access device placement or adjustment; Central line, tunnelled; Patient HX: Check S/P ett, central line, and og placement. Patient arrived via EMS for unresponsive with bradycardia and hypoxia. ; Additional info: Central line placement TECHNIQUE: Imaging protocol: Radiologic exam of the chest. Views: 1 view. COMPARISON: CT chest abdpel w/*[id number] 02/26/2023 12:22 PM FINDINGS: Tubes, catheters and devices: Endotracheal tube tip is between the clavicular heads in satisfactory position. Right internal jugular central venous catheter tip projects over the right atrium. Enteral tube is in satisfactory position with the sump port below the diaphragm. Defibrillator pads are in place. Lungs: Bibasilar reticular opacities are noted. Pleural spaces: No pneumothorax on either side. Small pleural effusions are suspected. Heart/Mediastinum: Heart size is normal. Bones/joints: Advanced right shoulder arthropathy. Old healed right rib fractures. XR/XR chest 1V portable [id number] IMPRESSION: 1. Support devices are in satisfactory positions. 2. Bibasilar reticular opacities could reflect atelectasis, aspiration, or pneumonia. There are probably small pleural effusions. No evidence of pneumothorax.
--- NOTE | 2023-06-14 23:22 | ECG_ITS ---
[facility] Test Date: 2023-06-14 Pat Name: Salazar Hilario Department: Room: Gender: Male Ob Gyn: : 1960 Requested By: Lane Doty Order Number: [id number] Arash MD: Cassandra Stack M.D. Measurements Intervals [place] Rate: 49 P: 61 W[place]: 163 QRS: 51 QRSD: 110 T: 100 QT: 438 QTc: 398 Interpretive Statements SINUS BRADYCARDIA MODERATE INTRAVENTRICULAR CONDUCTION DELAY [105+ ms QRS DURATION, 80+ ms Q/S IN V1/V2, NO Q AND 60+ ms R IN I/aVL/V5/V6] NONSPECIFIC ST & T-WAVE ABNORMALITY Compared to ECG 03/01/2023 15:17:17 Intraventricular conduction delay now present T-wave abnormality still present Electronically Signed On 06-15-2023 21:32:00 CDT by Cassandra Stack M.D. [id number]
--- NOTE | 2023-06-14 23:32 | PC.NURSE ---
Per Pankajan Jeanne Morrison Pt is to remain full code at this time with no restrictions.
--- NOTE | 2023-06-14 23:40 | P.CONIM_ITS ---
Providers/Reason For Consult Consulting Physician/Specialty*: RAZ Stack MD/cardiology Reason for Consult*: Patient with bradycardia/hypotension/altered mental status Requesting Physician: Dr. Lane Glasgow Primary Care Provider: Brittany Bahena MD History of Present Illness History of Present Illness Salazar Hilario is a 63 year old male, was brought to the emergency room by EMS from a alf where he was found to be unresponsive. He was hypotensive and bradycardic in the field. The heart rate was in the 30s. He was given 1 mg of atropine and then started on external pacing. Currently the patient is on IV Levophed and epinephrine. He is externally paced with a rate of 70. Seems to have good capturing. His blood pressure is in the 120s. This patient is known to have multiple medical problems. He is in a alf. He apparently is nonverbal. He has a history of autism,mental retardation, seizure disorder and developmental abnormalities. He was admitted to the hospital in January of this year with altered mental status, hypotension, hypothermia and bradycardia. He was found to have pneumonia and urosepsis. He was found to have features of hypoadrenalism, hypothyroidism and hyperglycemia. He was treated with the steroids, antibiotics and other symptomatic measures. He is on chronic Florinef, midodrine and thyroid supplements. Patient is not able to give any history. There is no family or caregivers available at this time to get history. Most of the information is from the medical records and from the clinical staff. Patient also has a history of hypertension. He was started on metoprolol succinate 50 mg p.o. daily, recently along with amlodipine. There is no history for any cardiac illness. No history for coronary disease, myocardial infarction or congestive heart failure. Has history of chronic anemia and thrombocytopenia. He was hypothermic at the time of ER admission. Currently he has a warming blanket. Review of Systems Narrative: CONSTITUTIONAL: Was hypothermic at the time of ER admission EYES: No blurring of vision or other visual disturbances lately. ENT: No hoarseness of voice, auditory disturbances or sore throat. CARDIOVASCULAR: As mentioned above. RESPIRATORY: History of recent pneumonia GASTROINTESTINAL: No hematemesis or melena. GENITOURINARY: No dysuria or hematuria. INTEGUMENTARY: No skin rashes or history of skin cancer. NEURO: History of altered mental status, seizure disorder PSYCHIATRIC: History of psychiatric illness HEMATOLOGIC: Chronic anemia and thrombocytopenia ENDOCRINE: Hypoadrenalism and hypothyroidism MUSCULOSKELETAL: Degenerative joint disease ALLERGY/IMMUNOLOGY: As mentioned above. Medications/Allergies Home Medications Medication Instructions Recorded Confirmed Last Taken Type acetaminophen 325 mg tablet 325 mg PO Q6H PRN Pain 03/10/22 06/10/23 Unknown History (Tylenol) atorvastatin 40 mg tablet (Lipitor) 40 mg PO BEDTIME@03/10/22 06/10/23 08/10/22 History calcium carbonate 600 mg calcium 600 mg PO BEDTIME@03/10/22 06/10/23 08/10/22 History (1,500 mg) tablet docusate sodium 100 mg capsule 100 mg PO DAILY@03/10/22 06/10/23 12/04/22 History (Colace) famotidine 20 mg tablet (Pepcid) 20 mg PO BEDTIME@03/10/22 06/10/23 12/03/22 History levothyroxine 112 mcg tablet 112 mcg PO DAILY@03/10/22 06/10/23 12/04/22 History loperamide 2 mg tablet See Rx Instructions .Route .COMPLEX 03/10/22 06/10/23 Unknown History meclizine 25 mg tablet 25 mg PO DAILY PRN Motion Sickness 03/10/22 06/10/23 Unknown History nystatin 100,000 unit/gram topical See Rx Instructions .Route .COMPLEX 03/10/22 06/10/23 Unknown History cream polyethylene glycol 3350 17 17 g PO DAILY@03/10/22 06/10/23 12/03/22 History gram/dose oral powder (Miralax) triamcinolone acetonide 0.1 % 1 applic topical BID PRN fungal 03/10/22 06/10/23 Unknown History topical cream infection fludrocortisone 0.1 mg tablet 0.1 mg PO DAILY@01/27/23 06/10/23 Unknown Histo ry midodrine 2.5 mg tablet 2.5 mg PO TID@,,01/27/23 06/10/23 Unknown History benztropine 1 mg tablet 1 mg PO BID@,02/26/23 06/10/23 Unknown History hydrocortisone 5 mg tablet See Rx Instructions .Route 05/06/23 06/10/23 Unknown Rx .COMPLEX #56 ea chlorpromazine 200 mg tablet 200 mg PO BID #60 tabs 05/07/23 06/10/23 Unknown Rx divalproex 125 mg capsule,delayed 1,000 mg PO BID #480 caps 05/07/23 06/10/23 Unknown Rx release sprinkle (Depakote Sprinkles) lorazepam 1 mg tablet 1 mg PO BID PRN agitation #60 tabs 05/07/23 06/10/23 Unknown Rx methylphenidate HCl 20 mg tablet 20 mg PO TID 30 days #90 tabs 05/07/23 06/10/23 Unknown Rx (Ritalin) olanzapine 10 mg tablet 10 mg PO BID #60 tabs 05/07/23 06/10/23 Unknown Rx clonazepam 2 mg tablet (Klonopin) 2 mg PO DAILY #30 tabs 06/10/23 06/10/23 Unknown Rx methylphenidate HCl 20 mg tablet 20 mg PO TID 30 days #90 tabs 06/10/23 06/10/23 Unknown Rx (Ritalin) methylphenidate HCl 20 mg tablet 20 mg PO TID 30 days #90 tabs 06/10/23 06/10/23 Unknown Rx (Ritalin) Allergies Allergy/AdvReac Type Severity Reaction Status Date / Time No Known Allergies Allergy Verified 06/10/23 08:52 Current Medications Generic Name Dose Route Start Last Admin Trade Name Freq PRN Reason Stop Dose Admin Norepinephrine Bitartrate 4 mg 254 mls @ 0 mls/hr 06/14/23 22:30 06/14/23 23:02 / Dextrose IV 8 mcg/min .Q0M LETTY 30.48 mls/hr Administration Protocol Per Protocol PFSH Acute PFSH: Medical History Anemia Autism Developmental disorder Epilepsy Extrapyramidal movement disorder, drug-induced Hyperlipidemia Hypertension Hypothyroidism Neutropenia Follow-up with Dr. Reyes last seen in 2016. Suspicion of myelodysplasia at that time. Psychiatric care Social History Smoking and tobacco status: never smoked Alcohol intake: never Substance/Drug Use: never Vitals/I&O/Wt Last Vital Signs Temp 87.9 F L 06/14/23 22:08 Pulse 70 06/14/23 22:24 Resp 7 L 06/14/23 22:24 BP 100/68 06/14/23 22:24 Pulse Ox 97 06/14/23 22:24 O2 Del Method Nasal Cannula 06/14/23 22:24 O2 Flow Rate 2 06/14/23 22:24 Weight last 48 hrs Weight 140 lb Physical Exam Narrative: GENERAL: The patient is no responding to verbal commands or painful stimuli. Breathing spontaneously. Oxygen saturation 97% on 2 L of oxygen by nasal cannula HEENT: Extensive scarring is present on the left side of the face. Mild pallor, icterus or lymphadenopathy.Oral cavity: There are no mucous membrane lesions. NECK: Trachea appears to be central. No masses noted. No JVD or thyromegaly appreciated. RESPIRATORY: Chest is symmetrical. No intercostals muscle retraction or any accessory muscle activation. There is no chest wall tenderness. Breath sounds are heard bilaterally. No rales or rhonchi heard. No evidence of any consolidation. BREASTS: Deferred. HEART: The heart sounds are normal. No S3 or S4. No significant murmurs. No pericardial rub ABDOMEN: No vessel pulsations or distention. No tenderness. No organomegaly appreciated. Bowel sounds are normally heard. : Deferred. RECTAL: Deferred. LYMPHATIC: No lymphadenopathy noted in the neck. EXTREMITIES: No edema or cyanosis. No clubbing. MUSCULOSKELETAL: No acute joint deformities or swelling SKIN: There are no significant rashes or ecchymosis NEUROPSYCHIATRIC: The patient is alert and oriented x3. Appears to be in a good mood. No tremors or rigidity noted. Data 06/14/23 22:28 06/14/23 22:28 Other Labs: Laboratory Last Values WBC 5.5 10^3/uL (4.0-10.0) 06/14/23 22: RBC 2.58 10^6/uL (4.1-5.3) L 06/14/23 22:28 Hgb 8.2 g/dL (11.7-16.6) L 06/14/23 22: Hct 25.8 % (42.0-52.0) L 06/14/23 22:28 MCV 100.0 fl (80-94) H 06/14/23 22: MCH 31.8 pg (28.0-34.0) 06/14/23 22: MCHC 31.8 g/dL (30.0-36.0) 06/14/23: RDW 17.2 % (12.1-15.1) H 06/14/23: Plt Count 76 10^3/cmm (130-400) L 06/14/23 22: MPV 12.3 fL (7.4-10.4) H 06/14/23 22: Neut % (Auto) 56.1 % 06/14/23: Lymph % (Auto) 36.8 % 06/14/23 22: Holt % (Auto) 5.6 % 06/14/23: Eos % (Auto) 0.9 % 06/14/23: Baso % (Auto) 0.2 % 06/14/23: Neut # (Auto) 3.10 10^3/uL (1.8-7.7) 06/14/23: Lymph # (Auto) 2.0 10^3/uL (0.8-4.8) 06/14/23: Holt # (Auto) 0.3 10^3/uL (0.2-0.9) 06/14/23: Eos # (Auto) 0.1 10^3/uL (0.0-0.8) 06/14/23: Baso # (Auto) 0.0 10^3/uL (0.0-0.1) 06/14/23: Nucleated RBC % (auto) 0 % 06/14/23: Nucleated RBCs # 0.0 /100WBC 06/14/23: PT 14.60 SECONDS (12.1-14.9) 06/14/23 22: INR 1.10 (0.8-1.2) 06/14/23: APTT 45.7 SECONDS (23.9-36.7) H 06/14/23: D-Dimer 0.52 ug/mIFEU (0-0.59) 06/14/23 22: Specimen Type Arterial 06/14/23 22:30 Sample Site Radial, right 06/14/23 22:30 ABG pH 7.34 (7.35-7.45) L 06/14/23 22:30 ABG pCO2 48.5 mmHg (35-45) H 06/14/23 22:30 ABG pO2 95.3 mmHg (80.0-100.0) 06/14/23 22:30 ABG HCO3 26.2 mmol/L (22-26) H 06/14/23 22:30 ABG O2 Saturation 96.4 06/14/23 22:30 ABG Base Excess 0.2 mmol/L (-2.0-2.0) 06/14/23 22:30 Brooks Test Pos 06/14/23 22:30 Hematocrit 27.6 % (42-52) L 06/14/23 22:30 Hgb O2 Saturation 94.7 % (95-100) L 06/14/23 22:30 Carboxyhemoglobin 0.9 %THgb (0.4-20.1) 06/14/23 22:30 Methemoglobin 0.9 % (0.4-1.5) 06/14/23 22:30 Total Hemoglobin 9.0 g/dL (14-18) L 06/14/23 22:30 Sodium 144.0 mmol/L (131-143) H 06/14/23 22:30 Potassium 4.2 mmol/L (3.5-5.0) 06/14/23 22:30 Glucose 93.0 mg/dL (70-115) 06/14/23 22:30 Ionized Calcium 1.3 mmol/L (1.1-1.4) 06/14/23 22:30 O2 Delivery Device Nc 06/14/23 22:30 O2 Liters/Min 2.0 % 06/14/23 22:30 Occupational Safety And Health Manager ID [email or web address] 06/14/23 22:30 Sodium 139 mmol/L (136-145) 06/14/23 22:28 Potassium 4.3 mmol/L (3.5-5.1) 06/14/23 22:28 Chloride 105 mmol/L (98-107) 06/14/23 22:28 Carbon Dioxide 23 mmol/L (22-29) 06/14/23 22:28 Anion Gap 15.3 (5-19) 06/14/23 22:28 BUN 17 mg/dL (8-23) 06/14/23 22:28 Creatinine 0.8 mg/dL (0.7-1.2) 06/14/23: GFR Calculation 118.9 mL/min (90-130) 06/14/23: Glucose 86 mg/dL (65-115) 06/14/23 Calculated Osmolality 289 mOsm/kg (285-295) 06/14/23: Calcium 8.6 mg/dL (8.5-10.5) 06/14/23: Phosphorus 3.5 mg/dL (2.5-4.5) 06/14/23: Magnesium 1.8 mg/dL (1.7-2.3) 06/14/23: Total Bilirubin 0.2 mg/dL (0.15-1.2) 06/14/23: AST 11 U/L (0-40) 06/14/23: ALT 9 U/L (0-41) 06/14/23: Alkaline Phosphatase 87 U/L (40-130) 06/14/23: Troponin T Baseline 13 ng/L (0-15) 06/14/23: NT-Pro-B Natriuret Pep 36 pg/mL (0-125) 06/14/23: Total Protein 7.0 g/dL (6.6-8.7) 06/14/23: Albumin 2.8 g/dL (3.5-5.2) L 06/14/23: Globulin 4.2 g/dL (1.3-4.6) 06/14/23: TSH 3.78 uIU/mL (0.27-4.20) 06/14/23: EKG 1: My Interpretation: Sinus bradycardia with a rate of 49 bpm. Nonspecific IVCD. Some nonspecific ST-T changes. Compared to the previous EKG, there may not be significant change A&P Assessment and plan (1) Bradycardia: This could be multifactorial. Hypothyroidism, beta-leonides, sinus tom dysfunction, etc. are contributing factors. I turned down the external pacing rate to 40/min. Patient was found to have an underlying sinus bradycardia with a rate around 50/min. Since he is responding to the current medications, it may be appropriate to hold off on transvenous pacing at this point. He has good capturing with the external pacer. His blood pressure also seems to be better with the current medication. (2) Hypotension: Hypoadrenalism, hypothyroidism and possible infection are considerations. This needs to be further evaluated. An echocardiogram would be helpful to evaluate the LV function. (3) Altered mental status: Etiology is not clear. Hypertension, tachycardia, hypoadrenalism, etc. are contributing factors. (4) Hypothermia: Hypoadrenalism could be a contributing factor. Need to rule out any infection. 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 Patient apparently had a similar problem in January. (7) Autism: Plan May continue on the current management. Appropriate management of the hypoad renalism, hypothyroidism and hypothermia may improve his heart rate. At this point, I may hold off on the transvenous pacing. Echocardiogram will be helpful to evaluate LV function and rule out any other pathology. Based on the clinical progress and the results of the above, further recommendations will be made. Thank you for the opportunity to evaluate this patient and make these recommendations Consult Attestations Medical Necessity Statement: Patient requires continued hospital stay for close monitoring and further management Coding Level of Care Code 81525 Diagnoses Bradycardia R00.1 Hypotension I95.9 Altered mental status R41.82 Hypothermia T68.XXXA Extrapyramidal movement disorder, drug-induced G25.89; T50.905A Pancytopenia D61.818 Autism F84.0
[2023-06-15] VITALS (122 sets, daily range): BP systolic 90–181; BP diastolic 52–107; PULSE 41–90; RESP 14–31; TEMP 32.3–37.2; O2SAT 90–100
[2023-06-15] MEDS: etomidate 2 mg/mL INJ SDV 10 mL 20 MG IVP (00:02)
[2023-06-15] MEDS: succinylcholine 20 mg/mL SDV 10mL 100 MG IVP (00:04)
[2023-06-15] MEDS: propofol 1,000 MG/100 ML INJ 3.81 MG IV (00:25)
--- NOTE | 2023-06-15 00:53 | PC.NURSE ---
Dr. Barry gave order to stop Epi drip and turn fentanyl to 100 mcg/ hr
[2023-06-15 01:00] LABS: Urine Appearance Clear (CLEAR)
[2023-06-15 01:00] LABS: ABG PCO2 30.4 mmHg (35-45); Arterial Blood Gas Hematocrit 28.5 % (42-52); Base Excess ABG 0.6 mmol/L (-2.0-2.0); Blood Gas Allen Test Pos; Blood Gas Sample Type Arterial; Carboxyhemoglobin 0.9 %THgb (0.4-20.1); HCO3 ABG 23.4 mmol/L (22-26); HGB O2 Sat 94.9 % (95-100); Ionized Calcium Level - ABG 1.2 mmol/L (1.1-1.4); Methemoglobin 0.9 % (0.4-1.5); Oxygen Saturation ABG 96.6; PO2 ABG 82.3 mmHg (80.0-100.0); Potassium Level - ABG 4.1 mmol/L (3.5-5.0); Total Hemoglobin 9.3 g/dL (14-18)
[2023-06-15] MEDS: hydrocortisone 100 mg/2 mL SDV IVP ×5 (01:00→23:51)
[2023-06-15 01:01] LABS: Add Urine Microscopic? YES; Bilirubin Urine Neg (Negative); Blood Urine Neg (Negative); Glucose Urine UA Norm (Normal); Ketones Urine Negative (Negative); Leukocyte Esterase Urine Negative (Negative); Nitrate Urine Negative (Negative); Protein Urine Trace (Negative); Specific Gravity, Urine 1.015 (1.005-1.030); Urine Color Dark Yellow (Yellow); Urobilinogen Urine 1 mg/dL (Negative); pH Urine 6.5 (5-7)
[2023-06-15 01:03] LABS: Bacteria Urine TRACE /hpf; Mucus Urine 2+ /hpf
[2023-06-15 01:03] LABS: Blood Gas Sample Site Radial, right; Blood Gas Tidal Volume 0.45; Oxygen Device VENT
[2023-06-15 01:05] LABS: Squamous Epithelial Cell Urine 0-4 /hpf (0-5)
[2023-06-15 01:08] LABS: Troponin 5 2HR 11.37 ng/L (0-15)
--- NOTE | 2023-06-15 01:09 | W.ED.AMS ---
HPI - Altered Mental Status General: Chief Complaint: General Medical Stated Complaint: UNRESPONSIVE Time Seen by Provider: 06/14/23 22:23 Source: EMS Mode of arrival: EMS Limitations: altered mental status History of Present Illness: 63-year-old male gentleman with history of autism, developmental delay, and nonverbal condition. He also has a history of adrenal insufficiency, hypertension, hypothyroidism. He presents with decreased responsiveness. Evidently was found down in his nursing home environment by a staff member and was minimally responsive. On EMS arrival, he was found to have a rate in the 30s, apparently sinus bradycardia, and a low blood pressure. Pacer pads were placed. He was paced at 80, and started on epinephrine drip after 1 mg of atropine infusion failed increase his heart rate or his blood pressure. He was given 80 mg of ketamine IV for sedation regarding pacing. He is a bit more responsive now on arrival. He reaches up and pulls at his wires for example. MD complaint: altered mental status and decreased responsiveness Onset (ago): unknown Timing confirmed by: caregiver Severity: severe Consistency of symptoms: Constant Context: other Associated symptoms: Reports other Treatments prior to arrival: oxygen and other Review of Systems General: Reports: ROS unobtainable due to mental status PFS ED PFSH: Medical History Anemia Autism Developmental disorder Epilepsy Extrapyramidal movement disorder, drug-induced Hyperlipidemia Hypertension Hypothyroidism Neutropenia Follow-up with Dr. Reyes last seen in 2016. Suspicion of myelodysplasia at that time. Psychiatric care Social History Smoking and tobacco status: never smoked Alcohol intake: never Substance/Drug Use: never Physical Exam Const: GENERAL APPEARANCE: ill appearing NUTRITIONAL APPEARANCE: thin ORIENTATION/CONSCIOUSNESS: Yes patient obtunded HENMT: COMMON NORMALS: normocephalic and atraumatic HEAD & SCALP: normocephalic and atraumatic FACE & SINUS: normal facial exam THROAT: posterior oropharynx normal Eye: COMMON NORMALS: Equal, round and reactive pupils present SCLERA: sclerae normal PUPIL: Yes Equal, round and reactive pupils present Neck/C-Spine: GENERAL: Yes trachea midline Chest: CHEST: Yes Symmetrical chest wall rise Resp: COMMON NORMALS: clear to auscultation bilaterally AUSCULTATION: clear to auscultation bilaterally Cardio: COMMON NORMALS: regular rhythm RATE: bradycardic RHYTHM: regular rhythm GI: COMMON NORMALS: Normal to inspection, nondistended, normoactive bowel sounds present Extremity: COMMON NORMALS: no pedal edema Neuro: ANTONETTE COMA SCALE: document GCS findings Austin coma scale eye opening: None Austin coma scale verbal response: None Antonette coma scale motor response: Normal flexion Austin coma scale total score: 6 Urinary Catheter Management: Campo: Cath Placed During This Visit: yes Reason for Continuing Indwelling Catheter: Other Urinary Catheter Date of Insertion: 06/15/23 Urinary Catheter Time of Insertion: 00:33 Procedures Central Line Placement Right IJ: Time Out Performed: No Patient Placed on Monitor/Pulse Ox: Yes MD Prep: mask, gown and gloves Central Line Prep: Chlorhexidine scrub Local Anesthetic: lidocaine 1% Amount of anesthesia used (mL): 3 Ultrasound Used for Placement: Yes Central Line Lumen Inserted: triple Post Procedure: sutured in place, good blood return, all ports aspirated, flushed, capped and sterile dressing applied Post Procedure X-Ray: tip of catheter in good position and no pneumothorax seen Patient Tolerated Procedure: well and no complications Complications: none Intubation Time out performed: No sedative: Etomidate Mg Given: 20 paralytic: Succinylcholine Mg Given: 100 Laryngoscope: Wagner (3.5) ET Tube Size: 8 ET Tube Uncuffed: No Tube Secured Depth (cm): 26 Tube Secured Location: lips Tube Placement Confirmation: visualized tube passing through cords, equal breath sounds bilaterally and confirmation by capnometry Patient Tolerated Procedure: well, no complications and other (Depths pulled back to 24 after chest x-ray) Course Vital Signs: Vital signs: Vital Signs Temperature 98.4 F 06/16/23 00:00 Pulse Rate 61 06/16/23 00:00 Respiratory Rate 14 06/16/23 00:00 Blood Pressure 128/70 06/16/23 00:00 Pulse Oximetry 92 06/16/23 00:00 Oxygen Delivery Me thod Mechanical Ventil ation 06/16/23 00:00 Oxygen Flow Rate 4 06/15/23 10:15 Fraction of Inspir ed Oxygen 25 06/16/23 00:00 MDM - Altered Mental Status Medical Decision Making This patient was paced transcutaneously on arrival. When turning the pacer off, on EKG, he has profound sinus bradycardia in the 40s. No acute ST changes. His vitals show hypotension, despite an epinephrine drip. Central line is placed, epinephrine is increased, and Levophed is added. The patient's responsiveness has not improved. He is no longer making purposeful movements. He does not open his eyes, even to sternal rub. At this point, felt the need for intubation for airway protection/low GCS. Patient was intubated successfully without complication. Chest x-ray shows tubes in appropriate positions including ET tube, central line, and NG tube. There are bibasilar opacities. He is started on empiric antibiotics, vancomycin and Zosyn. Blood work shows pancytopenia with a hemoglobin of 8, and a platelet count of 76. Hemoglobin of 8 is not new. His D-dimer is negative. His initial blood gas shows a pH of 7.5 with PCO2 of 30 and PO2 of 82 on room air. Renal function is normal. TSH is normal. Initial troponin is 13. Delta troponin is normal. Urinalysis shows no urinary tract infection. With a history of adrenal insufficiency, hydrocortisone is given as well. Cardiology was consulted on the patient's arrival given the need for transcutaneous pacing. He is seen the patient in the ER, and with pacer turned off, notes to give him a call back if rate dips below 40. The patient has been maintaining rates in the 40s and 50s. He is on propofol and fentanyl for sedation. He is over breathing the ventilator at this point. Reasons for hypotension and bradycardia are not yet clear. CT of the head is pending. Spoke with hospitalist. The patient will go to the ICU. Lab Data 06/14/23 22:28 06/14/23 22:[address] 06/14/23 22:23 IMPRESSION: 1. No evidence of acute intracranial hemorrhage, mass effect, or edema. 2. Extensive debris noted in each external auditory canal. Chest X-Ray 06/14/23 23:10 IMPRESSION: 1. Support devices are in satisfactory positions. 2. Bibasilar reticular opacities could reflect atelectasis, aspiration, or pneumonia. There are probably small pleural effusions. No evidence of pneumothorax. Chest/Abdomen/Pelvis CT 06/15/23 06:38 IMPRESSION: 1. Ykhq-zdsywqx-rdgs-right dependent lower lobe consolidations may represent atelectasis or pneumonia. Aspiration could appear similar. 2. Endotracheal tube terminates just above the ihsan. Consider 1-2 cm retraction. 3. No pulmonary emboli. IMPRESSION: 1. Large ascending and transverse colonic stool burden. 2. Urinary bladder wall thickening may be on the basis of decompression and small amount of air may be on the basis of Campo catheter. However, could also indicate cystitis. Laboratory Results WBC 5.5 10^3/uL (4.0-10.0) 06/14/23 22: RBC 2.58 10^6/uL (4.1-5.3) L 06/14/23: Hgb 8.2 g/dL (11.7-16.6) L 06/14/23: Hct 25.8 % (42.0-52.0) L 06/14/23: MCV 100.0 fl (80-94) H 06/14/23: MCH 31.8 pg (28.0-34.0) 06/14/23 22: MCHC 31.8 g/dL (30.0-36.0) 06/14/23: RDW 17.2 % (12.1-15.1) H 06/14/23: Plt Count 76 10^3/cmm (130-400) L 06/14/23: MPV 12.3 fL (7.4-10.4) H 06/14/23: Neut % (Auto) 56.1 % 06/14/23: Lymph % (Auto) 36.8 % 06/14/23: [place] % (Auto) 5.6 % 06/14/23: Eos % (Auto) 0.9 % 06/14/23: Baso % (Auto) 0.2 % 06/14/23: Neut # (Auto) 3.10 10^3/uL (1.8-7.7) 06/14/23 22: Lymph # (Auto) 2.0 10^3/uL (0.8-4.8) 06/14/23: [place] # (Auto) 0.3 10^3/uL (0.2-0.9) 06/14/23 22:28 Eos # (Auto) 0.1 10^3/uL (0.0-0.8) 06/14/23 22:28 Baso # (Auto) 0.0 10^3/uL (0.0-0.1) 06/14/23 22:28 Nucleated RBC % (auto) 0 % 06/14/23 22: Nucleated RBCs # 0.0 /100WBC 06/14/23 22: PT 14.60 SECONDS (12.1-14.9) 06/14/23 22: INR 1.10 (0.8-1.2) 06/14/23 22: APTT 45.7 SECONDS (23.9-36.7) H 06/14/23 22:28 D-Dimer 0.52 ug/mIFEU (0-0.59) 06/14/23 22:28 Specimen Type Arterial 06/15/23 00:50 Sample Site Radial, right 06/15/23 00:50 ABG pH 7.50 (7.35-7.45) H 06/15/23 00:50 ABG pCO2 30.4 mmHg (35-45) L 06/15/23 00:50 ABG pO2 82.3 mmHg (80.0-100.0) 06/15/23 00:50 ABG HCO3 23.4 mmol/L (22-26) 06/15/23 00:50 ABG O2 Saturation 96.6 06/15/23 00:50 ABG Base Excess 0.6 mmol/L (-2.0-2.0) 06/15/23 00:50 Brooks Test Pos 06/15/23 00:50 A-a O2 Gradient 12.0 mmHg (5-10) H 06/15/23 00:50 Hematocrit 28.5 % (42-52) L 06/15/23 00:50 Hgb O2 Saturation 94.9 % (95-100) L 06/15/23 00:50 Carboxyhemoglobin 0.9 %THgb (0.4-20.1) 06/15/23 00:50 Methemoglobin 0.9 % (0.4-1.5) 06/15/23 00:50 Total Hemoglobin 9.3 g/dL (14-18) L 06/15/23 00:50 Sodium 143.0 mmol/L (131-143) 06/15/23 00:50 Potassium 4.1 mmol/L (3.5-5.0) 06/15/23 00:50 Glucose 144.0 mg/dL (70-115) H 06/15/23 00:50 Ionized Calcium 1.2 mmol/L (1.1-1.4) 06/15/23 00:50 O2 Delivery Device Vent 06/15/23 00:50 O2 Liters/Min 2.0 % 06/14/23 22:30 FiO2 30.0 % 06/15/23 00:50 Tidal Volume 0.45 06/15/23 00:50 PEEP 5.0 cmH20 06/15/23 00:50 Manager Net ID [email or web address] 06/15/23 00:50 Sodium 139 mmol/L (136-145) 06/14/23 22:28 Potassium 4.3 mmol/L (3.5-5.1) 06/14/23 22:28 Chloride 105 mmol/L (98-107) 06/14/23 22:28 Carbon Dioxide 23 mmol/L (22-29) 06/14/23 22:28 Anion Gap 15.3 (5-19) 06/14/23 22:28 BUN 17 mg/dL (8-23) 06/14/23 22:28 Creatinine 0.8 mg/dL (0.7-1.2) 06/14/23 22:28 GFR Calculation 118.9 mL/min (90-130) 06/14/23 22:28 Glucose 86 mg/dL (65-115) 06/14/23 22:28 Calculated Osmolality 289 mOsm/kg (285-295) 06/14/23 22:28 Calcium 8.6 mg/dL (8.5-10.5) 06/14/23 22:28 Phosphorus 3.5 mg/dL (2.5-4.5) 06/14/23 22:28 Magnesium 1.8 mg/dL (1.7-2.3) 06/14/23 22:28 Total Bilirubin 0.2 mg/dL (0.15-1.2) 06/14/23 22:28 AST 11 U/L (0-40) 06/14/23 22:28 ALT 9 U/L (0-41) 06/14/23 22:28 Alkaline Phosphatase 87 U/L (40-130) 06/14/23 22:28 Troponin T Baseline 13 ng/L (0-15) 06/14/23 22: Troponin T 120 Minute 11.37 ng/L (0-15) 06/15/23 00:28 Delta Troponin T -1.63 ABS# (0-10) L 06/15/23 00:28 NT-Pro-B Natriuret Pep 36 pg/mL (0-125) 06/14/23 22:28 Total Protein 7.0 g/dL (6.6-8.7) 06/14/23 22: Albumin 2.8 g/dL (3.5-5.2) L 06/14/23: Globulin 4.2 g/dL (1.3-4.6) 06/14/23 22: TSH 3.78 uIU/mL (0.27-4.20) 06/14/23 22:28 Urine Color Dark yellow (Yellow) 06/15/23 00:28 Urine Appearance Clear (CLEAR) 06/15/23 00:28 Urine pH 6.5 (5-7) 06/15/23 00:28 Ur Specific [place] 1.015 (1.005-1.030) 06/15/23 00: Urine Protein Trace (Negative) 06/15/23 00: Urine Glucose (UA) Norm (Normal) 06/15/23 00:28 Urine Ketones Negative (Negative) 06/15/23 00:28 Urine Blood Neg (Negative) 06/15/23 00: Urine Nitrate Negative (Negative) 06/15/23 00: Urine Bilirubin Neg (Negative) 06/15/23 00:28 Urine Urobilinogen 1 mg/dL (Negative) H 06/15/23 00:28 Ur Leukocyte Esterase Negative (Negative) 06/15/23 00:28 Urine RBC None /hpf (0-2) 06/15/23 00:28 Urine WBC None /hpf (0-5) 06/15/23 00:28 Ur Squamous Epith Cells 0-4 /hpf (0-5) H 06/15/23 00:28 Amorphous Sediment Not Reportable 06/15/23 00: Urine Bacteria Trace /hpf (NONE) 06/15/23 00:28 Hyaline Casts 5-10 /lpf H 06/15/23 00:28 Urine Mucus 2+ /hpf 06/15/23 00:28 Critical Care Time Critical Care Time: Critical Care Time: Yes Total Critical Care Time: 50 Attestation: This case had a high probability of a clinically significant, sudden, or life threatening deterioration of this patient's condition which required my full and direct attention, intervention and personal management. Time excludes any procedures performed such as intubation and central line placement Discharge Plan Discharge Patient Disposition: Admitted As Inpatient Admit Provider: Geeta Meza Clinical Impression: Bradycardia, Pancytopenia, Hypotension Condition: Critical Discharge Activity: As per cardiac/pulm rehab instructions Coding Level of Care Code ED Review Analyst for Nicholas Goodman
[2023-06-15 01:18] LABS: Troponin 5 2HR Delta -1.63 ABS# (0-10)
[2023-06-15] MEDS: piperacillin-tazobactam 4.5 GM in sodium chloride 0.9% (plus) 50 ML IV (02:09)
[2023-06-15] MEDS: vancomycin 1,250 MG/250 ML PIGGYBACK 250 MG IV ×2 (02:14→14:24)
--- NOTE | 2023-06-15 03:31 | PC.NURSE ---
Fentanyl drip titration charted incorrectly at 0053; titration was charted incorrectly at 100mL/hr but was given at a rate of 10 mL/hr. Was unable to edit assessment but was corrected in the titration box and at the same time.
--- NOTE | 2023-06-15 03:31 | PC.NURSE ---
Admission Note: Pt arrived to ICU 8 @0240 06/15/23. Continuos monitoring continued. Wounds noted: blisters on bilateral lateral chest and open ulcer on R. FA. Dr. Meza made aware. Dr. Meza notified of NS bolus on JAN. New order to d/c bolus and start NS @75ml/hr.
[2023-06-15 03:51] LABS: Glucose Point of Care 185 mg/dL (70-110)
[2023-06-15] MEDS: sodium chloride 0.9% 1,000 ML 75 ML IV ×2 (04:01→16:50)
--- NOTE | 2023-06-15 04:04 | PC.NURSE ---
Admission Retimed: Unable to complete admission. Pt is intubated and sedated. No family or guardian at bedside. Will change to PRN on worklist, to be completed at a later date.
--- NOTE | 2023-06-15 04:23 | ECG_ITS ---
[facility] Test Date: 2023-06-15 Pat Name: Salazar Hilario Department: Room: 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 Measurements Intervals [place] Rate: 53 P: 52 MD: 161 QRS: 41 QRSD: 112 T: 92 QT: 448 QTc: 423 Interpretive Statements SINUS BRADYCARDIA MODERATE INTRAVENTRICULAR CONDUCTION DELAY [110+ ms QRS DURATION] NONSPECIFIC ST & T-WAVE ABNORMALITY Compared to ECG 06/14/2023 23:22:23 No significant changes Electronically Signed On 06-15-2023 21:43:29 CDT by Cassandra Stack M.D. [email or web address]
--- NOTE | 2023-06-15 04:56 | PM.HP ---
Providers/Chief Complaint Admitting Physician: Geeta Meza MD Primary Care Provider: Brittany Bahena MD Chief Complaint: UNRESPONSIVE History of Present Illness Salazar Hilario is a 63 year old male with past medical history of autism, adrenal insufficiency, developmental disorder, epilepsy, hyperlipidemia, hypertension, hypothyroidism, psychiatric care, chronic anemia who was brought into the emergency room after being found down and unresponsive at his skilled nursing. He is nonverbal at baseline. Upon being brought to the emergency room he was hypothermic with temperature of 89 Fahrenheit, bradycardic down in the 30s, hypotensive requiring transcutaneous pacing initially, thereafter placed on epinephrine and Levophed infusion following which his heart rate is now running between 55 to 60 bpm and he is no longer needing to be paced. No other history is currently available. He was intubated because of low GCS Labs today show hemoglobin of 8.2, chronically low, last 8.7 in February 2023. Platelet count at 76, also chronic, normal D-dimer at 0.5. No gross electrolyte abnormalities, baseline troponin at 13, at 2 hours 11, negative delta of 1.6 at 2 hours., Normal TSH at 3.78, normal BNP. He is noted to have blistering along lateral chest mercer bilaterally, he had a heat pack on during transport via EMS and it is suspected that he may have sustained superficial coleman as a result of the same. Also has a wound superficial ulcer over his right forearm, unknown chronicity currently. Review of Systems General: Reports: ROS unobtainable due to medical condition and ROS unobtainable due to mental status Medications/Allergies Home Medications Medication Instructions Recorded Confirmed Last Taken Type acetaminophen 325 mg tablet 325 mg PO Q6H PRN Pain 03/10/22 06/10/23 Unknown History (Tylenol) atorvastatin 40 mg tablet (Lipitor) 40 mg PO BEDTIME@03/10/22 06/10/23 08/10/22 History calcium carbonate 600 mg calcium 600 mg PO BEDTIME@03/10/22 06/10/23 08/10/22 History (1,500 mg) tablet docusate sodium 100 mg capsule 100 mg PO DAILY@03/10/22 06/10/23 12/04/22 History (Colace) famotidine 20 mg tablet (Pepcid) 20 mg PO BEDTIME@03/10/22 06/10/2323 History levothyroxine 112 mcg tablet 112 mcg PO DAILY@08 03/10/22 06/10/23 12/04/22 History loperamide 2 mg tablet See Rx Instructions .Route .COMPLEX 03/10/22 06/10/23 Unknown History meclizine 25 mg tablet 25 mg PO DAILY PRN Motion Sickness 03/10/22 06/10/23 Unknown History nystatin 100,000 unit/gram topical See Rx Instructions .Route .COMPLEX 03/10/22 06/10/23 Unknown History cream polyethylene glycol 3350 17 17 g PO DAILY@12 03/10/22 06/10/23 12/03/22 History gram/dose oral powder (Miralax) triamcinolone acetonide 0.1 % 1 applic topical BID PRN fungal 03/10/22 06/10/23 Unknown History topical cream infection fludrocortisone 0.1 mg tablet 0.1 mg PO DAILY@01/27/23 06/10/23 Unknown History midodrine 2.5 mg tablet 2.5 mg PO TID@,,01/27/23 06/10/23 Unknown History benztropine 1 mg tablet 1 mg PO BID@08,02/26/23 06/10/23 Unknown History hydrocortisone 5 mg tablet See Rx Instructions .Route 05/06/23 06/10/23 Unknown Rx .COMPLEX #56 ea chlorpromazine 200 mg tablet 200 mg PO BID #60 tabs 05/07/23 06/10/23 Unknown Rx divalproex 125 mg capsule,delayed 1,000 mg PO BID #480 caps 05/07/23 06/10/23 Unknown Rx release sprinkle (Depakote Sprinkles) lorazepam 1 mg tablet 1 mg PO BID PRN agitation #60 tabs 05/07/23 06/10/23 Unknown Rx methylphenidate HCl 20 mg tablet 20 mg PO TID 30 days #90 tabs 05/07/23 06/10/23 Unknown Rx (Ritalin) olanzapine 10 mg tablet 10 mg PO BID #60 tabs 05/07/23 06/10/23 Unknown Rx clonazepam 2 mg tablet (Klonopin) 2 mg PO DAILY #30 tabs 06/10/23 06/10/23 Unknown Rx methylphenidate HCl 20 mg tablet 20 mg PO TID 30 days #90 tabs 06/10/23 06/10/23 Unknown Rx (Ritalin) methylphenidate HCl 20 mg tablet 20 mg PO TID 30 days #90 tabs 06/10/23 06/10/23 Unknown Rx (Ritalin) Allergies Allergy/AdvReac Type Severity Reaction Status Date / Time No Known Allergies Allergy Verified 06/10/23 08:52 PFSH Acute PFSH: Medical History Anemia Autism Developmental disorder Epilepsy Extrapyramidal movement disorder, drug-induced Hyperlipidemia Hypertension Hypothyroidism Neutropenia Follow-up with Dr. Reyes last seen in 2015. Suspicion of myelodysplasia at that time. Psychiatric care Social History Smoking and tobacco status: never smoked Alcohol intake: never Substance/Drug Use: never Vitals/I&O/Wt Last Vital Signs Temp 90.2 F L 06/15/23 03:30 Pulse 51 L 06/15/23 04:00 Resp 14 06/15/23 03:45 BP 105/65 06/15/23 04:00 Pulse Ox 96 06/15/23 04:00 O2 Del Method Mechanical Ventilation 06/15/23 04:00 O2 Flow Rate 2 06/14/23 22:24 FiO2 25 06/15/23 04:00 06/14/23 06/14/23 06/15/23 14:59 22:59 06:59 Intake Total 640.556 / 640.556 Balance 640.556 / 640.556 Weight last 48 hrs Weight 68.13 kg Weight 63.503 kg Physical Exam Narrative: General: Currently intubated and sedated HEENT: PERRLA, pupils bilaterally equal and reactive, pallors not present Chest: Normal vesicular breath sounds, clear to auscultation bilateral anteriorly CVS: S1-S2 regular Abdomen: Soft, nontender, no organomegaly, bowel sounds present Neuro: Intubated and sedated Extremities: Superficial blistering and ulceration noted over bilateral chest wall may be consistent with coleman from heating pads. Urinary Catheter Management: Campo: Cath Placed During This Visit: yes Reason for Continuing Indwelling Catheter: Other Urinary Catheter Date of Insertion: 06/15/23 Urinary Catheter Time of Insertion: 00:33 Data 06/14/23 22:28 06/14/23 22:28 Micro: Microbiology 06/15/23 02:06 Blood Culture - Preliminary Blood SPECIMEN COLLECTED 06/15/23 02:02 Blood Culture - Preliminary Blood SPECIMEN COLLECTED Other data: Radiology Impressions Head CT 06/14/23 22:23 IMPRESSION: 1. No evidence of acute intracranial hemorrhage, mass effect, or edema. 2. Extensive debris noted in each external auditory canal. Chest X-Ray 06/14/23 23:10 IMPRESSION: 1. Support devices are in satisfactory positions. 2. Bibasilar reticular opacities could reflect atelectasis, aspiration, or pneumonia. There are probably small pleural effusions. No evidence of pneumothorax. Laboratory Results WBC 5.5 10^3/uL (4.0-10.0) 06/14/23: RBC 2.58 10^6/uL (4.1-5.3) L 06/14/23 22: Hgb 8.2 g/dL (11.7-16.6) L 06/14/23: Hct 25.8 % (42.0-52.0) L 06/14/23 22: MCV 100.0 fl (80-94) H 06/14/23 22: MCH 31.8 pg (28.0-34.0) 06/14/23 22: MCHC 31.8 g/dL (30.0-36.0) 06/14/23 22: RDW 17.2 % (12.1-15.1) H 06/14/23: Plt Count 76 10^3/cmm (130-400) L 06/14/23: MPV 12.3 fL (7.4-10.4) H 06/14/23 22: Neut % (Auto) 56.1 % 06/14/23: Lymph % (Auto) 36.8 % 06/14/23: [place] % (Auto) 5.6 % 06/14/23: Eos % (Auto) 0.9 % 06/14/23: Baso % (Auto) 0.2 % 06/14/23: Neut # (Auto) 3.10 10^3/uL (1.8-7.7) 07/16/23 22:28 Lymph # (Auto) 2.0 10^3/uL (0.8-4.8) 06/14/23 22:28 [place] # (Auto) 0.3 10^3/uL (0.2-0.9) 06/14/23 22:28 Eos # (Auto) 0.1 10^3/uL (0.0-0.8) 06/14/23 22:28 Baso # (Auto) 0.0 10^3/uL (0.0-0.1) 06/14/23 22:28 Nucleated RBC % (auto) 0 % 06/14/23 22: Nucleated RBCs # 0.0 /100WBC 06/14/23 22:28 PT 14.60 SECONDS (12.1-14.9) 06/14/23 22: INR 1.10 (0.8-1.2) 06/14/23 22: APTT 45.7 SECONDS (23.9-36.7) H 06/14/23 22:28 D-Dimer 0.52 ug/mIFEU (0-0.59) 06/14/23 22:28 Specimen Type Arterial 06/15/23 00:50 Sample Site Radial, right 06/15/23 00:50 ABG pH 7.50 (7.35-7.45) H 06/15/23 00:50 ABG pCO2 30.4 mmHg (35-45) L 06/15/23 00:50 ABG pO2 82.3 mmHg (80.0-100.0) 06/15/23 00:50 ABG HCO3 23.4 mmol/L (22-26) 06/15/23 00:50 ABG O2 Saturation 96.6 06/15/23 00:50 ABG Base Excess 0.6 mmol/L (-2.0-2.0) 06/15/23 00:50 Brooks Test Pos 06/15/23 00:50 A-a O2 Gradient 12.0 mmHg (5-10) H 06/15/23 00:50 Hematocrit 28.5 % (42-52) L 06/15/23 00:50 Hgb O2 Saturation 94.9 % (95-100) L 06/15/23 00:50 Carboxyhemoglobin 0.9 %THgb (0.4-20.1) 06/15/23 00:50 Methemoglobin 0.9 % (0.4-1.5) 06/15/23 00:50 Total Hemoglobin 9.3 g/dL (14-18) L 06/15/23 00:50 Sodium 143.0 mmol/L (131-143) 06/15/23 00:50 Potassium 4.1 mmol/L (3.5-5.0) 06/15/23 00:50 Glucose 144.0 mg/dL (70-115) H 06/15/23 00:50 Ionized Calcium 1.2 mmol/L (1.1-1.4) 06/15/23 00:50 O2 Delivery Device Vent 06/15/23 00:50 O2 Liters/Min 2.0 % 06/14/23 22:30 FiO2 30.0 % 06/15/23 00:50 Tidal Volume 0.45 06/15/23 00:50 PEEP 5.0 cmH20 06/15/23 00:50 Geodetic Computator ID [email or web address] 06/15/23 00:50 Sodium 139 mmol/L (136-145) 06/14/23 22:28 Potassium 4.3 mmol/L (3.5-5.1) 06/14/23 22:28 Chloride 105 mmol/L (98-107) 06/14/23 22:28 Carbon Dioxide 23 mmol/L (22-29) 06/14/23 22:28 Anion Gap 15.3 (5-19) 06/14/23 22:28 BUN 17 mg/dL (8-23) 06/14/23 22:28 Creatinine 0.8 mg/dL (0.7-1.2) 06/14/23 22:28 GFR Calculation 118.9 mL/min (90-130) 06/14/23 22:28 Glucose 86 mg/dL (65-115) 06/14/23 22:28 POC Glucose 185 mg/dL (70-110) H 06/15/23 03:37 Calculated Osmolality 289 mOsm/kg (285-295) 06/14/23 22:28 Calcium 8.6 mg/dL (8.5-10.5) 06/14/23 22:28 Phosphorus 3.5 mg/dL (2.5-4.5) 06/14/23 22:28 Magnesium 1.8 mg/dL (1.7-2.3) 06/14/23 22:28 Total Bilirubin 0.2 mg/dL (0.15-1.2) 06/14/23 22:28 AST 11 U/L (0-40) 06/14/23 22:28 ALT 9 U/L (0-41) 06/14/23 22:28 Alkaline Phosphatase 87 U/L (40-130) 06/14/23 22:28 Troponin T Baseline 13 ng/L (0-15) 06/14/23 22:28 Troponin T 120 Minute 11.37 ng/L (0-15) 06/15/23 00:28 Delta Troponin T -1.63 ABS# (0-10) L 06/15/23 00:28 Troponin T Hi Sens 6Hr 11.09 ng/L (0-15) 06/15/23 04:20 Troponin T Hi Sens 6Hr Delta -1.91 ng/L (0-12) L 06/15/23 04:20 NT-Pro-B Natriuret Pep 36 pg/mL (0-125) 06/14/23 22:28 Total Protein 7.0 g/dL (6.6-8.7) 06/14/23 22:28 Albumin 2.8 g/dL (3.5-5.2) L 06/14/23 22:28 Globulin 4.2 g/dL (1.3-4.6) 06/14/23 22:28 TSH 3.78 uIU/mL (0.27-4.20) 06/14/23 22:28 Urine Color Dark yellow (Yellow) 06/15/23 00: Urine Appearance Clear (CLEAR) 06/15/23 00:28 Urine pH 6.5 (5-7) 06/15/23 00:28 Ur Specific [place] 1.015 (1.005-1.030) 06/15/23 00:28 Urine Protein Trace (Negative) 06/15/23 00: Urine Glucose (UA) Norm (Normal) 06/15/23 00:28 Urine Ketones Negative (Negative) 06/15/23 00: Urine Blood Neg (Negative) 06/15/23 00: Urine Nitrate Negative (Negative) 06/15/23 00:28 Urine Bilirubin Neg (Negative) 06/15/23 00: Urine Urobilinogen 1 mg/dL (Negative) H 06/15/23 00:28 Ur Leukocyte Esterase Negative (Negative) 06/15/23 00:28 Urine RBC None /hpf (0-2) 06/15/23 00:28 Urine WBC None /hpf (0-5) 06/15/23 00:28 Ur Squamous Epith Cells 0-4 /hpf (0-5) H 06/15/23 00:28 Amorphous Sediment Not Reportable 06/15/23 00:28 Urine Bacteria Trace /hpf (NONE) 06/15/23 00:28 Hyaline Casts 5-10 /lpf H 06/15/23 00:28 Urine Mucus 2+ /hpf 06/15/23 00:28 A&P Assessment and plan (1) Hypothermia: (2) Altered mental status: (3) Acute hypotension: (4) Thrombocytopenia: (5) Bradycardia: Plan 63-year-old male with past medical history as noted above presenting with hypothermia, bradycardia needing pacing initially, circulatory collapse, having been found down at his skilled nursing. Cause of his collapse is not entirely clear at this time. When EMS first picked him up his heart rate was noted to be in the 30s for which he was pacing transcutaneously. Thereafter he was started on epinephrine and norepinephrine infusions in the emergency room following which his heart rate is now between 55 to 60 bpm and pacing has been discontinued. Continuing both pressors with attempts to titrate down EKG off of pacer shows sinus bradycardia Troponin series 11--> 13, no significant delta, less concerning for ACS. D-dimer negative, lower suspicion for PE, however given no explanation for collapse at this time, will evalute with CTA Limited echocardiogram taken in the emergency room showed a normal LVEF of 65%, no focal regional wall motion abnormalities, no gross morphological abnormalities in his bowels. TSH is within range today. Patient has a history of adrenal insufficiency for which he is on hydrocortisone and midodrine as an outpatient. We will check random cortisol level now. Start hydrocortisone 100 mg IV every 6 hours for suspected acute adrenal insufficiency Patient has a history of seizure disorder, he may have suffered a seizure today, though 1 was not witnessed at the skilled nursing. Check valproic acid level. Monitor for any seizure activity. He is currently on fentanyl and propofol without any witnessed seizures. Bear hugger for hypothermia Mupirocin topical application over superficial coleman which may have occurred in transit as he had a heating pad on. ? from pacer pads though location does not seem consistent. Chest x-ray is without any signs of consolidation. No reported abdominal symptoms or fever at the skilled nursing. Blood cultures have been taken UA is unremarkable. normal blood glucose Hold home doses of methylphenidate and benztropine Currently empirically on piperacillin/tazobactam and vancomycin while undergoing infectious evaluation. Blood cx pending continue mechanical ventilation until GCS improves Attestations Medical Necessity Statement*: > 2 midnight admission will be needed for above care Coding Level of Care Code Critical Care >/= 30 minutes Diagnoses Hypothermia T68.XXXA Altered mental status R41.82 Acute hypotension I95.9 Thrombocytopenia D69.6 Bradycardia R00.1
[2023-06-15] MEDS: EPINEPHrine 2.5 MG in sodium chloride 0.9% 250 ML 30.3 MG IV ×2 (05:00→12:56)
[2023-06-15 05:07] LABS: Troponin 5 6HR 11.09 ng/L (0-15)
[2023-06-15 05:10] LABS: Troponin 5 6HR Delta -1.91 ng/L (0-12)
--- NOTE | 2023-06-15 05:17 | PC.PHAR ---
Pharmacokinetic dosing service Date: 12/16/22 Time: 517 Objective: Patient: Salazar Hilario Floor: ICU-8 Age: 63 yo Serum creatinine: 0.8 mg/dL Height: 68.0 Inches Weight (kg): 68.13 Diagnosis: Relevant medical/social history: Cultures and sensitivities: Other labs: Assessment: IBW (kg): 68.40 Dosing wt(kg): 68.13 Estimated Creatinine clearance (ml/min): 93.4 CRCL method: Cockcroft and Gault using ibw(default). Drug selected: Vancomycin Loading dose (mg): 0 Vd (liters): 61.3 (factor used: 0.9 L/kg) Tang (hr-1): 0.082 Half life (hrs): 8.45 Recommended dose: 1250 mg Interval: 12 hrs Infusion time (hrs): 1.5 Predicted peak (mcg/mL): 30.6 Predicted trough (mcg/mL): 12.94 Total body weight is being used for vancomycin dosing. Renal function is stable [ ] /unstable [ ] Recommendations: Give Vancomycin 1250 mg q 12 hrs with an expected Cpeak of 30.6 mcg/ml and an expected Ctrough of 12.94 mcg/ml Renal dosing of other antibiotics (review renal dosing of other medications and list guidelines here): Thank you for the consult, will continue to follow. Signature: Janene Chiu [facility]
--- NOTE | 2023-06-15 06:38 | CTR_ITS ---
PROCEDURE INFORMATION: Exam: CTA Chest With Contrast Exam date and time: 06/15/2023 11:46 AM Age: 63 years old Clinical indication: Abdominal tenderness and bloating; Shortness of breath; Additional info: Circulatory collapse, acute hypotension, bradycardia with unwitnessed collapse. TECHNIQUE: Imaging protocol: Computed tomographic angiography of the chest with contrast. Exam focused on the arteries. 3D rendering (Not supervised by radiologist): MIP and/or 3D reconstructed images were created by the technologist. Radiation optimization: All CT scans at this facility use at least one of these dose optimization techniques: automated exposure control; mA and/or kV adjustment per patient size (includes targeted exams where dose is matched to clinical indication); or iterative reconstruction. Contrast material: OMNI 350; Contrast volume: 100 ml; Contrast route: INTRAVENOUS (IV); REPORTING DATA: Count of CT and Cardiac NM exams in prior 12 months: This patient has received 6 known CTs and 0 known cardiac nuclear medicine studies in the 12 months prior to the current study. COMPARISON: 1. CT chest abdpel w/*[id number] 02/26/2023 12:[address] chest abd pel w con* 12/19/2022 12:[address] chest abd wo [id number] 07/18/2019 9:14 AM RADIATION DOSE METRICS: Total DLP (mGy-cm): 949.15 FINDINGS: Tubes, catheters and devices: Endotracheal tube terminates just above the ihsan, less than 1 cm. Enteric tube terminates within the stomach. Pulmonary arteries: Normal. No pulmonary emboli. Aorta: Unremarkable. No aortic aneurysm. Lungs: Szxk-[id number]-right dependent lower lobe consolidations with air bronchograms. Pleural spaces: Unremarkable. No pneumothorax. No pleural effusion. Heart: Unremarkable. No cardiomegaly. No pericardial effusion. Coronary arteries: Mild coronary artery calcification. Lymph nodes: Unremarkable. No enlarged lymph nodes. Bones/joints: No acute fracture. Old healed fracture deformity of the right clavicle. Multiple right rib healed fracture deformities. Degenerative changes along the spine and shoulders. Soft tissues: Unremarkable. PROCEDURE INFORMATION: Exam: CT Abdomen And Pelvis With Contrast Exam date and time: 06/15/2023 11:46 AM Age: 63 years old Clinical indication: Abdominal tenderness and bloating; Shortness of breath; Additional info: Circulatory collapse, acute hypotension, bradycardia with unwitnessed collapse. TECHNIQUE: Imaging protocol: Computed tomography of the abdomen and pelvis with contrast. Radiation optimization: All CT scans at this facility use at least one of these dose optimization techniques: automated exposure control; mA and/or kV adjustment per patient size (includes targeted exams where dose is matched to clinical indication); or iterative reconstruction. Contrast material: OMNI 350; Contrast volume: 100 ml; Contrast route: INTRAVENOUS (IV); REPORTING DATA: Count of CT and Cardiac NM exams in prior 12 months: This patient has received 6 known CTs and 0 known cardiac nuclear medicine studies in the 12 months prior to the current study. COMPARISON: 1. CT chest abdpel w/*[id number] 02/26/2023 12:[address] chest abd pel w con* 12/19/2022 12:[address] chest abd wo [id number] 07/18/2019 9:14 AM RADIATION DOSE METRICS: Total DLP (mGy-cm): 949.15 FINDINGS: Liver: Normal without focal lesions. Gallbladder and bile ducts: Normal. No calcified stones. No ductal dilation. Pancreas: Normal. No ductal dilation. Spleen: Normal. Adrenal glands: Normal. No mass. Kidneys and ureters: Subcentimeter bilateral renal hypodensities are too small to characterize. Otherwise unremarkable. Stomach and bowel: Large quantity of formed stool within the ascending and transverse colon with relative decompression of the descending and sigmoid colon. Tapering at the splenic flexure without abrupt transition point. No wall thickening. Mild colonic diverticulosis. No small bowel dilatation. Appendix: No evidence of appendicitis. Intraperitoneal space: No free air, free fluid, or well-organized fluid collection. Vasculature: Mild aortoiliac atherosclerotic calcification without aneurysmal dilatation. Lymph nodes: No enlarged lymph nodes. Urinary bladder: Campo catheter in the decompressed urinary bladder that shows circumferential wall thickening and small amount of nondependent air. Reproductive: Unremarkable as visualized. Bones/joints: No acute fracture. Lower lumbar spine facet arthrosis. Soft tissues: Unremarkable. CT/CT angio chest w abd pel w con IMPRESSION: 1. Qcav-emgugbr-[id number]-right dependent lower lobe consolidations may represent atelectasis or pneumonia. Aspiration could appear similar. 2. Endotracheal tube terminates just above the ihsan. Consider 1-2 cm retraction. 3. No pulmonary emboli. IMPRESSION: 1. Large ascending and transverse colonic stool burden. 2. Urinary bladder wall thickening may be on the basis of decompression and small amount of air may be on the basis of Campo catheter. However, could also indicate cystitis.
[2023-06-15] MEDS: heparin 5,000 unit/mL INJ 1 mL 5000 UNIT SUBCUT ×2 (07:15→17:42)
[2023-06-15 07:30] LABS: Valproic Acid Level 40.4 ug/mL (50-100)
[2023-06-15 07:39] LABS: Cortisol Random 37.15 ug/dL (2.47-19.5)
--- NOTE | 2023-06-15 08:03 | P.PN_ITS ---
Subjective Subjective: Patient is to remain intubated and some and responsive. The dose of the epinephrine and Levophed are being tapered down. Systolic blood pressure is around 100. Heart rate is in the 50s. Patient is still on a warming blanket. Medications: Medication Review Details: Current Medications Divalproex Sodium (Divalproex Sprinkles 125 Mg Capsule) 1,000 mg NG-TUBE BID LETTY Heparin Sodium (Porcine) (Heparin 5,000 Unit/Ml Inj 1 Ml) 5,000 unit SUBCUT Q12H LETTY Last Admin: 06/15/23 07:15 Dose: 5,000 unit Hydrocortisone Sodium Succinate (Hydrocortisone 100 Mg/2 Ml Sdv) 100 mg IVP Q6H LETTY Last Admin: 06/15/23 05:48 Dose: 100 mg Epinephrine HCl 2.5 mg/ Sodium (Chloride) 252.5 mls @ 0 mls/hr IV .Q0M LETTY; Protocol Last Admin: 06/15/23 05:00 Dose: 5 mcg/min, 30.3 mls/hr Norepinephrine Bitartrate 4 mg (/ Dextrose) 254 mls @ 0 mls/hr IV .Q0M LETTY; Protocol Last Titration: 06/15/23 05:44 Dose: 6 mcg/min, 22.86 mls/hr Propofol (Diprivan) 1,000 mg in 100 mls @ 0 mls/hr IV .Q0M LETTY; Protocol Last Titration: 06/15/23 05:43 Dose: 10 mcg/kg/min, 3.81 mls/hr Fentanyl 2,500 mcg/ Sodium (Chloride) 250 mls @ 0 mls/hr IV .Q0M LETTY; Protocol Last Titration: 06/15/23 05:44 Dose: 25 mcg/hr, 2.5 mls/hr Sodium Chloride (Sodium Chloride 0.9%) 1,000 mls @ 75 mls/hr IV .[id number] LETTY Last Admin: 06/15/23 04:01 Dose: 75 mls/hr Piperacillin Sod/Tazobactam (Sod 3.375 gm/ Sodium Chloride) 50 mls @ 12.5 mls/hr IV Q8H LETTY; Protocol Vancomycin/PEG/NADA/Lysine/Water (Vancocin) 1,250 mg in 250 mls @ 250 mls/hr IV Q12H LETTY Levothyroxine Sodium (Levothyroxine 112 Mcg Tablet) 112 mcg PO DAILY@08 [facility] Vitals/I&O/Wt Last Vital Signs Temp 93.4 F L 06/15/23 07:23 Pulse 55 L 06/15/23 06:00 Resp 14 06/15/23 06:09 BP 100/61 06/15/23 06:00 Pulse Ox 95 06/15/23 06:09 O2 Del Method Mechanical Ventilation 06/15/23 05:00 O2 Flow Rate 25 06/15/23 05:00 FiO2 25 06/15/23 06:09 06/14/23 06/15/23 06/15/23 22:59 06:59 14:59 Intake Total 770.949 / 770.949 Output Total 425 / 425 Balance 345.949 / 345.949 Weight last 48 hrs Weight 150 lb 3.2 oz Weight 140 lb Physical Exam Narrative: GENERAL: Patient is intubated and sedated. FiO2 40%. HEENT: Extensive scarring is present on the left side of the face. Mild pallor, icterus or lymphadenopathy.Oral cavity: There are no mucous membrane lesions. NECK: Trachea appears to be central. No masses noted. No JVD or thyromegaly appreciated. RESPIRATORY: Chest is symmetrical. No intercostals muscle retraction or any accessory muscle activation. There is no chest wall tenderness. Breath sounds ar e heard bilaterally. No rales or rhonchi heard. No evidence of any consolidation. BREASTS: Deferred. HEART: The heart sounds are normal. No S3 or S4. No significant murmurs. No pericardial rub ABDOMEN: No vessel pulsations or distention. No tenderness. No organomegaly appreciated. Bowel sounds are normally heard. : Deferred. RECTAL: Deferred. LYMPHATIC: No lymphadenopathy noted in the neck. EXTREMITIES: No edema or cyanosis. No clubbing. MUSCULOSKELETAL: No acute joint deformities or swelling SKIN: There are no significant rashes or ecchymosis NEUROPSYCHIATRIC: The patient is alert and oriented x3. Appears to be in a good mood. No tremors or rigidity noted. Urinary Catheter Management: [place]: Cath Placed During This Visit: yes Reason for Continuing Indwelling Catheter: Accurate Measurement of Urinary Output in Critically Ill Patients Urinary Catheter Date of Insertion: 06/15/23 Urinary Catheter Time of Insertion: 00:33 Data 06/14/23 22:28 06/14/23 22:28 Other Labs: Laboratory Last Values WBC 5.5 10^3/uL (4.0-10.0) 06/14/23: RBC 2.58 10^6/uL (4.1-5.3) L 06/14/23: Hgb 8.2 g/dL (11.7-16.6) L 06/14/23: Hct 25.8 % (42.0-52.0) L 06/14/23: MCV 100.0 fl (80-94) H 06/14/23: MCH 31.8 pg (28.0-34.0) 06/14/23: MCHC 31.8 g/dL (30.0-36.0) 06/14/23: RDW 17.2 % (12.1-15.1) H 06/14/23: Plt Count 76 10^3/cmm (130-400) L 06/14/23: MPV 12.3 fL (7.4-10.4) H 06/14/23: Neut % (Auto) 56.1 % 06/14/23: Lymph % (Auto) 36.8 % 06/14/23: [place] % (Auto) 5.6 % 06/14/23: Eos % (Auto) 0.9 % 06/14/23: Baso % (Auto) 0.2 % 06/14/23: Neut # (Auto) 3.10 10^3/uL (1.8-7.7) 06/14/23: Lymph # (Auto) 2.0 10^3/uL (0.8-4.8) 06/14/23: [place] # (Auto) 0.3 10^3/uL (0.2-0.9) 06/14/23: Eos # (Auto) 0.1 10^3/uL (0.0-0.8) 06/14/23: Baso # (Auto) 0.0 10^3/uL (0.0-0.1) 06/14/23: Nucleated RBC % (auto) 0 % 07/16/23 22:28 Nucleated RBCs # 0.0 /100WBC 06/14/23 22:28 PT 14.60 SECONDS (12.1-14.9) 06/14/23 22:28 INR 1.10 (0.8-1.2) 06/14/23 22:28 APTT 45.7 SECONDS (23.9-36.7) H 06/14/23 22:28 D-Dimer 0.52 ug/mIFEU (0-0.59) 06/14/23 22:28 Specimen Type Arterial 06/15/23 00:50 Sample Site Radial, right 06/15/23 00:50 ABG pH 7.50 (7.35-7.45) H 06/15/23 00:50 ABG pCO2 30.4 mmHg (35-45) L 06/15/23 00:50 ABG pO2 82.3 mmHg (80.0-100.0) 06/15/23 00:50 ABG HCO3 23.4 mmol/L (22-26) 06/15/23 00:50 ABG O2 Saturation 96.6 06/15/23 00:50 ABG Base Excess 0.6 mmol/L (-2.0-2.0) 06/15/23 00:50 Brooks Test Pos 06/15/23 00:50 A-a O2 Gradient 12.0 mmHg (5-10) H 06/15/23 00:50 Hematocrit 28.5 % (42-52) L 06/15/23 00:50 Hgb O2 Saturation 94.9 % (95-100) L 06/15/23 00:50 Carboxyhemoglobin 0.9 %THgb (0.4-20.1) 06/15/23 00:50 Methemoglobin 0.9 % (0.4-1.5) 06/15/23 00:50 Total Hemoglobin 9.3 g/dL (14-18) L 06/15/23 00:50 Sodium 143.0 mmol/L (131-143) 06/15/23 00:50 Potassium 4.1 mmol/L (3.5-5.0) 06/15/23 00:50 Glucose 144.0 mg/dL (70-115) H 06/15/23 00:50 Ionized Calcium 1.2 mmol/L (1.1-1.4) 06/15/23 00:50 O2 Delivery Device Vent 06/15/23 00:50 O2 Liters/Min 2.0 % 06/14/23 22:30 FiO2 30.0 % 06/15/23 00:50 Tidal Volume 0.45 06/15/23 00:50 PEEP 5.0 cmH20 06/15/23 00:50 Fireman ID [email or web address] 06/15/23 00:50 Sodium 139 mmol/L (136-145) 06/14/23 22:28 Potassium 4.3 mmol/L (3.5-5.1) 06/14/23 22:28 Chloride 105 mmol/L (98-107) 06/14/23 22:28 Carbon Dioxide 23 mmol/L (22-29) 06/14/23 22: Anion Gap 15.3 (5-19) 06/14/23 22:28 BUN 17 mg/dL (8-23) 06/14/23 22: Creatinine 0.8 mg/dL (0.7-1.2) 06/14/23 22: GFR Calculation 118.9 mL/min (90-130) 06/14/23 22:28 Glucose 86 mg/dL (65-115) 06/14/23 22:28 POC Glucose 185 mg/dL (70-110) H 06/15/23 03:37 Calculated Osmolality 289 mOsm/kg (285-295) 06/14/23 22:28 Calcium 8.6 mg/dL (8.5-10.5) 06/14/23 22: Phosphorus 3.5 mg/dL (2.5-4.5) 06/14/23 22:28 Magnesium 1.8 mg/dL (1.7-2.3) 06/14/23 22:28 Total Bilirubin 0.2 mg/dL (0.15-1.2) 06/14/23 22:28 AST 11 U/L (0-40) 06/14/23 22:28 ALT 9 U/L (0-41) 06/14/23 22: Alkaline Phosphatase 87 U/L (40-130) 06/14/23 22:28 Troponin T Baseline 13 ng/L (0-15) 06/14/23 22:28 Troponin T 120 Minute 11.37 ng/L (0-15) 06/15/23 00:28 Delta Troponin T -1.63 ABS# (0-10) L 06/15/23 00:28 Troponin T Hi Sens 6Hr 11.09 ng/L (0-15) 06/15/23 04:20 Troponin T Hi Sens 6Hr Delta -1.91 ng/L (0-12) L 06/15/23 04:20 NT-Pro-B Natriuret Pep 36 pg/mL (0-125) 06/14/23 22:28 Total Protein 7.0 g/dL (6.6-8.7) 06/14/23 22:28 Albumin 2.8 g/dL (3.5-5.2) L 06/14/23 22:28 Globulin 4.2 g/dL (1.3-4.6) 06/14/23 22:28 TSH 3.78 uIU/mL (0.27-4.20) 06/14/23 22:28 Random Cortisol 37.15 ug/dL (2.47-19.5) H 06/15/23 04:20 Urine Color Dark yellow (Yellow) 06/15/23 00:28 Urine Appearance Clear (CLEAR) 06/15/23 00:28 Urine pH 6.5 (5-7) 06/15/23 00:28 Ur Specific [place] 1.015 (1.005-1.030) 06/15/23 00:28 Urine Protein Trace (Negative) 06/15/23 00:28 Urine Glucose (UA) Norm (Normal) 06/15/23 00:28 Urine Ketones Negative (Negative) 06/15/23 00:28 Urine Blood Neg (Negative) 06/15/23 00:28 Urine Nitrate Negative (Negative) 06/15/23 00:28 Urine Bilirubin Neg (Negative) 06/15/23 00:28 Urine Urobilinogen 1 mg/dL (Negative) H 06/15/23 00:28 Ur Leukocyte Esterase Negative (Negative) 06/15/23 00:28 Urine RBC None /hpf (0-2) 06/15/23 00:28 Urine WBC None /hpf (0-5) 06/15/23 00:28 Ur Squamous Epith Cells 0-4 /hpf (0-5) H 06/15/23 00:28 Amorphous Sediment Not Reportable 06/15/23 00:28 Urine Bacteria Trace /hpf (NONE) 06/15/23 00:28 Hyaline Casts 5-10 /lpf H 06/15/23 00:28 Urine Mucus 2+ /hpf 06/15/23 00:28 Valproic Acid 40.4 ug/mL (50-100) L 06/15/23 04:20 Micro: Microbiology 06/15/23 02:06 Blood Culture - Preliminary Blood SPECIMEN COLLECTED 06/15/23 02:02 Blood Culture - Preliminary Blood SPECIMEN COLLECTED EKG 1: My Interpretation: Sinus bradycardia with a rate of 49 bpm. Nonspecific IVCD. Some nonspecific ST-T changes. Compared to the previous EKG, there may not be significant change A&P Assessment and plan (1) Bradycardia: Seems to be in sinus bradycardia with a heart rate in the 50s. This could be partly from the long acting beta-blockers. The rhythm seems to be fairly stable. (2) Hypotension: The blood pressure seems to be improving. Hypoadrenalism, hypothyroidism and possible infection are considerations. Patient is on empiric antibiotics. LV ejection fraction is within normal limits by echocardiogram. (3) Altered mental status: Etiology is not clear. Patient has a history of autism, epilepsy, developmental abnormalities,? Head injury (4) Hypothermia: Hypoadrenalism could be a contributing factor. Need to rule out any infection. 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 Patient apparently had a similar problem in January. (7) Autism: Plan At this point, the patient's cardiac status seems to be fairly stable. The heart rate is in the acceptable range. He may not require any pacemaker insertion at this point. May continue to monitor on telemetry. Attestations Medical Necessity Statement*: Deferred to the primary Coding Level of Care Code 90943 Diagnoses Bradycardia R00.1 Hypotension I95.9 Altered mental status R41.82 Hypothermia T68.XXXA Extrapyramidal movement disorder, drug-induced G25.89; T50.905A Pancytopenia D61.818 Autism F84.0
[2023-06-15] MEDS: levothyroxine 112 mcg Tablet PO (08:09)
[2023-06-15] MEDS: divalproex Sprinkles 125 mg Capsule 1000 MG NG-TUBE ×2 (08:09→17:42)
--- NOTE | 2023-06-15 08:57 | PC.PHAR ---
PT UNABLE TO VERIFY HOME MEDICATIONS DUE TO AMS- MEDICATIONS VERIFIED BY PTS SPONSOR LIZA HIGH THE PHONE
[2023-06-15] MEDS: propofol 1,000 MG/100 ML INJ 7.62 MG IV (09:49)
--- NOTE | 2023-06-15 10:10 | PC.CHAP ---
Pastoral Care Encounter/Spiritual Assessment Type of Contact [] Declined hat parts cutter machine visit [] Patient/Family/Request visit [] Outpatient visit [] Follow-up visit [] Physician referral [] Code/Alert [x] Routine visit [] Staff referral [] Actively dying [x] Patient sleeping [] Family support [] [] Out of room [] Palliative care [] [x] Receiving care in room [] Pre-surgical visit [] Trauma [] Long length of stay [x] ICU visit [x] Other: vent Relational/Emotional Strength [] Patient feels connected with others/family/visitors/staff [] Distress [] Loneliness/isolation [] Abandonment Spirituality of Patient [] Person of Cynthia [] Attends Rastafari of their Cynthia [] Believes in Prayer [] Reads Bible or Hindu materials [] There are Spiritual issues to be addressed Consultant Teacher Interventions [x] Prayer [] Active listening [] Non-anxious presence [] Spiritual/emotional support [] Crisis/trauma care [] Spiritual counseling [] Bereavement support [] Provided bereavement packet [] Provided Bible/devotional materials [] Provided toy/stuffed animal, coloring book to patient or family member [] Provided Communion [] Anointing/[place] [] Salvation [x] Completed spiritual assessment [] Other: Impact on Illness or Injury [] Angry [] Fearful [] Anxious [] Often cries [] Exhaustion [] Unable to work [] Unable to attend zoroastrianism [] Unable to walk/stand [] Unable to read [] Unable to drive [] Unable to eat/drink [] Unable to sleep [] Unable to be with family [] Patient intubated [] Other: Summary Time spent with patient
[2023-06-15] MEDS: piperacillin-tazobactam 3.375 GM in sodium chloride 0.9% (plus) 50 ML IV ×2 (10:12→17:42)
[2023-06-15 10:45] LABS: Adenovirus Not Detected (NOT DETECT); Chlamydia Pneumoniae Not Detected (NOT DETECT); Coronavirus 229E,HKU1,NL63,OC4 Not Detected (NOT DETECT); Human Metapneumovirus Not Detected (NOT DETECT); Human Rhinovirus/Enterovirus Not Detected (NOT DETECT); Influenza A Not Detected (NOT DETECT); Influenza A H1 Not Detected (NOT DETECT); Influenza A H1-2009 Not Detected (NOT DETECT); Influenza A H3 Not Detected (NOT DETECT); Influenza B Not Detected (NOT DETECT); Mycoplasma Pneumoniae Not Detected (NOT DETECT); Parainfluenza Virus Type 1 Not Detected (NOT DETECT); Parainfluenza Virus Type 2 Not Detected (NOT DETECT); Parainfluenza Virus Type 3 Not Detected (NOT DETECT); Parainfluenza Virus Type 4 Not Detected (NOT DETECT); Respiratory Syncytial Virus A Not Detected (NOT DETECT); Respiratory Syncytial Virus B Not Detected (NOT DETECT); SARS-COV-2 Not Detected (NOT DETECT)
[2023-06-15] MEDS: iohexol 350 mg/mL 500 mL Btl (per mL) IV (11:59)
[2023-06-15] MEDS: propofol 1,000 MG/100 ML INJ 22.86 MG IV (15:15)
--- NOTE | 2023-06-15 18:07 | P.MISC_ITS ---
Miscellaneous Note Note: Overnight HPI reviewed, his labs and vitals have been reviewed, CT chest abdomen and pelvis results have been reviewed, CT head without contrast result reviewed, hypothermia is improving, currently patient is in sinus rhythm, and has not required transcutaneous pacing, patient continued to be on Levophed and epinephrine, random cortisol is 37, currently has been continued on stress dose of hydrocortisone, given his known history of adrenal insufficiency, TSH is normal, serum valproic acid is 40.4 ( 50-100), has been afebrile overnight, intubated sedated on mechanical ventilation requiring, minimal ventilator support. Empirically has been covered on broad-spectrum, he has been appropria tely covered for aspiration pneumonia.
--- NOTE | 2023-06-15 18:15 | PC.NURSE ---
Shift summary: Overall uneventful shift. Plan for today was to obtain CTA and take patient off sedation to assess responsiveness as patient was not responding to stimuli at beginning of shift. When Patient was being transported to CT, Patient on minimal sedation began moving in bed and tried to sit up. For accurate results of CT and patient comfort, sedation increased and updated in MAR upon returning to unit. Dr. Angel notified of this and orders received to keep patient comfortable on vent with plans to extubate tomorrow. Guardian, Vicki, called unit and given update on patient condition and plan of care. Vitals have remained stable, see charting. Temperature remains low,warming blanket incased. See MAR for medication administration.
[2023-06-15] MEDS: propofol 1,000 MG/100 ML INJ 15.24 MG IV (21:07)
[2023-06-16] VITALS (52 sets, daily range): BP systolic 90–158; BP diastolic 51–91; PULSE 45–102; RESP 8–141; TEMP 35.6–36.9; O2SAT 90–100
[2023-06-16] MEDS: piperacillin-tazobactam 3.375 GM in sodium chloride 0.9% (plus) 50 ML IV ×3 (01:42→17:39)
[2023-06-16] MEDS: vancomycin 1,250 MG/250 ML PIGGYBACK 250 MG IV ×2 (01:44→14:02)
--- NOTE | 2023-06-16 03:04 | PC.NURSE ---
HR 40's: At approximately 0235 HR dropped to the low to mid 40's, waited 15 minutes and turned epi on @2mcg/min. See MAR for titration. BP is stable.
[2023-06-16] MEDS: chlorhexidine gluconate 4% Btl 118 mL 1 APPLIC TOPICAL (03:15)
[2023-06-16 04:41] LABS: Basophils % 0.2 %; Hematocrit 25.2 % (42.0-52.0); Lymphocytes # 0.9 10^3/uL (0.8-4.8); Lymphocytes % 10.1 %; Mean Corpuscular HGB Conc 31.7 g/dL (30.0-36.0); Mean Corpuscular Hemoglobin 31.5 pg (28.0-34.0); Mean Corpuscular Volume 99.2 fl (80-94); Mean Platelet Volume 12.5 fL (7.4-10.4); Monocytes # 0.5 10^3/uL (0.2-0.9); Monocytes % 5.7 %; Neutrophils # 7.32 10^3/uL (1.8-7.7); Neutrophils % 82.3 %; Nucleated Red Blood Cells % 0 %; Platelet Count 82 10^3/cmm (130-400); Red Blood Count 2.54 10^6/uL (4.1-5.3); Red Cell Distribution Width 17.8 % (12.1-15.1); White Blood Count 8.9 10^3/uL (4.0-10.0)
[2023-06-16] MEDS: EPINEPHrine 2.5 MG in sodium chloride 0.9% 250 ML 18.18 MG IV (05:09)
[2023-06-16] MEDS: propofol 1,000 MG/100 ML INJ 13.34 MG IV (05:15)
[2023-06-16 05:18] LABS: Alanine Aminotransferase 8 U/L (0-41); Albumin Level 2.5 g/dL (3.5-5.2); Alkaline Phosphatase 84 U/L (40-130); Anion Gap 14.6 (5-19); Aspartate Amino Transferase 11 U/L (0-40); Blood Urea Nitrogen 14 mg/dL (8-23); Calcium 8.1 mg/dL (8.5-10.5); Carbon Dioxide 22 mmol/L (22-29); Chloride 110 mmol/L (98-107); Globulin 3.8 g/dL (1.3-4.6); Glomerular Filtration Rate 118.9 mL/min (90-130); Glucose 109 mg/dL (65-115); Osmolality Calculated 297 mOsm/kg (285-295); Potassium 3.6 mmol/L (3.5-5.1); Sodium 143 mmol/L (136-145); Total Bilirubin 0.2 mg/dL (0.15-1.2); Total Protein 6.3 g/dL (6.6-8.7)
[2023-06-16] MEDS: hydrocortisone 100 mg/2 mL SDV IVP ×4 (05:23→23:24)
[2023-06-16] MEDS: heparin 5,000 unit/mL INJ 1 mL 5000 UNIT SUBCUT ×2 (06:03→18:08)
[2023-06-16] MEDS: sodium chloride 0.9% 1,000 ML 75 ML IV ×2 (06:05→21:17)
[2023-06-16] MEDS: levothyroxine 112 mcg Tablet PO (07:27)
[2023-06-16] MEDS: LORazepam 2 mg/mL INJ 1 mL IVP ×2 (09:04→12:53)
[2023-06-16] MEDS: dexmedetomidine 400 MCG in sodium chloride 0.9% (100 ml) 100 ML IV (09:14)
[2023-06-16] MEDS: divalproex Sprinkles 125 mg Capsule 1000 MG NG-TUBE (09:45)
--- NOTE | 2023-06-16 10:47 | PC.NURSE ---
Propofol and fentanyl were titrated down and turned off 5 minutes before intubation. Patient was opening eyes and was trying to extubate himself. Patient was extubated at 8:58 by respiratory. Patient tolerated extubation well with an spo2 of 96% on room air. Patient was trying to pull at lines so Dr. Angel wanted the non violent restraints to be left on the patient. Patient was still trying to pull his IV's so Precedex was ordered by Dr. Angel.
--- NOTE | 2023-06-16 10:53 | PC.NURSE ---
Epinephrine was titrated down and discontinued at 0845 since the patient's blood pressure MAP was maintaining above 75.
--- NOTE | 2023-06-16 12:10 | PM.PN ---
Subjective Subjective: Patient was seen and examined this morning, currently he is in sinus rhythm, maintaining decent heart rate, he is also maintaining a decent MAP, Levophed as well as epi has been weaned off. Patient was successfully extubated today. Postextubation he has been agitated. For which initially was placed on Precedex. But had to be discontinued because of bradycardia. He has been given Geodon as well as, Ativan as needed, so far has remained afebrile, his other vitals and labs have been reviewed. Medications: Medication Review Details: Generic Name Dose Route Start Last Admin Trade Name Freq PRN Reason Stop Dose Admin Chlorhexidine Gluc yevgeniy 1 applic 06/16/23 00:51 06/16/23 03:15 Chlorhexidine Gl uconate 4% Btl 118 Ml TOPICAL 1 applic PRN PRN Administration Bathing Divalproex Sodium 1,000 mg 06/15/23 09:00 06/16/23 09:45 Divalproex Sprin kles 125 Mg Capsul e NG-TUBE 1,000 mg BID LETTY Administration Heparin Sodium (Po rcine) 5,000 unit 06/15/23 06:45 06/16/23 06:03 Heparin 5,000 Un it/Ml Inj 1 Ml SUBCUT 5,000 unit Q12H LETTY Administration Hydrocortisone Sod ium Succinate 100 mg 06/15/23 05:00 06/16/23 11:01 Hydrocortisone 1 00 Mg/2 Ml Sdv IVP 100 mg Q6H LETTY Administration Epinephrine HCl 2. 5 mg/ Sodium 252.5 mls @ 0 mls /hr 06/14/23 22:30 06/16/23 08:45 Chloride IV 0 mcg/min .Q0M LETTY 0 mls/hr Titration Protocol Per Protocol Norepinephrine Bit artrate 4 mg 254 mls @ 0 mls/h r 06/14/23 22:30 06/16/23 04:15 / Dextrose IV 0 mcg/min .Q0M LETTY 0 mls/hr Titration Protocol Per Protocol Propofol 1,000 mg in 100 m ls @ 0 mls/hr 06/14/23 22:30 06/16/23 08:53 Diprivan IV 0 mcg/kg/min .Q0M LETTY 0 mls/hr Titration Protocol Per Protocol Sodium Chloride 1,000 mls @ 75 ml s/hr 06/15/23 03:45 06/16/23 06:05 Sodium Chloride 0.9% IV 75 mls/hr .[id number] LETTY Administration Piperacillin Sod/T azobactam 50 mls @ 12.5 mls /hr 06/15/23 10:00 06/16/23 09:57 Sod 3.375 gm/ So dium Chloride IV 12.5 mls/hr Q8H LETTY Administration Protocol Vancomycin/PEG/NAD A/Lysine/Water 1,250 mg in 250 m ls @ 250 mls/hr 06/15/23 14:00 06/16/23 02:59 Vancocin IV Infused Q12H LETTY Infusion Fentanyl 1,000 mcg / Sodium 100 mls @ 0 mls/h r 06/16/23 03:00 06/16/23 08:45 Chloride IV 0 mcg/hr .Q0M LETTY 0 mls/hr Titration Protocol Per Protocol Dexmedetomidine HC l 400 mcg/ 104 mls @ 0 mls/h r 06/16/23 09:15 06/16/23 09:44 Sodium Chloride IV 0.2 mcg/kg/hr .Q0M LETTY 3.54 mls/hr Titration Protocol Per Protocol Levothyroxine Sodi um 112 mcg 06/15/23 08:00 06/16/23 07:27 Levothyroxine 11 2 Mcg Tablet PO 112 mcg DAILY@08 LETTY Administration Vitals/I&O/Wt Last Vital Signs Temp 96.3 F L 06/16/23 10:00 Pulse 63 06/16/23 10:00 Resp 15 06/16/23 10:00 BP 132/85 06/16/23 10:00 Pulse Ox 96 06/16/23 10:00 O2 Del Method Room Air 06/16/23 10:00 O2 Flow Rate 4 06/15/23 10:15 FiO2 25 06/16/23 08:45 06/15/23 06/16/23 06/16/23 22:59 06:59 14:59 Intake Total 2301.567 / 2742.029 1482.537 / 4224.566 95.690 / 95.690 Output Total 1350 / 1350 1250 / 2600 125 / 125 Balance 951.567 / 1392.029 232.537 / 1624.566 -29.310 / -29.310 Weight last 48 hrs Weight 68.13 kg Weight 63.503 kg Physical Exam HENMT: COMMON NORMALS: normocephalic and atraumatic HEAD & SCALP: normocephalic and atraumatic Resp: COMMON NORMALS: clear to auscultation bilaterally AUSCULTATION: clear to auscultation bilaterally Cardio: COMMON NORMALS: regular rate, regular rhythm, S1 normal heart sound present, S2 normal heart sound present, No gallops present (Cardio), No murmurs present (Cardio), No rub (Cardio) and Peripheral pulses 2+ throughout RATE: regular rate RHYTHM: regular rhythm HEART SOUNDS: S1 normal heart sound present and S2 normal heart sound present PERIPHERAL PULSES: Peripheral pulses 2+ throughout GI: COMMON NORMALS: Normal to inspection, nondistended, normoactive bowel sounds present, Soft to palpation, non-tender, No hepatosplenomegaly present and no masses AUSCULTATION: Yes normoactive bowel sounds PALPATION: Yes Soft to palpation and Yes No hepatosplenomegaly present RECTAL EXAM: Yes deferred Extremity: COMMON NORMALS: no clubbing, cyanosis or edema and no pedal edema Urinary Catheter Management: [place]: Cath Placed During This Visit: yes Reason for Continuing Indwelling Catheter: Accurate Measurement of Urinary Output in Critically Ill Patients Urinary Catheter Date of Insertion: 06/15/23 Urinary Catheter Time of Insertion: 00:33 Data 06/16/23 04:12 06/16/23 04:12 Micro: Microbiology 06/15/23 02:06 Blood Culture - Preliminary Blood NEGATIVE TO DATE 06/15/23 02:02 Blood Culture - Preliminary Blood NEGATIVE TO DATE A&P Assessment and plan (1) Hypothermia: (2) Altered mental status: (3) Acute hypotension: (4) Thrombocytopenia: (5) Bradycardia: Plan 63-year-old male with past medical history as noted above presenting with hypothermia, bradycardia needing pacing initially, circulatory collapse, having been found down at his long term. Cause of his collapse is not entirely clear at this time. When EMS first picked him up his heart rate was noted to be in the 30s for which he was pacing transcutaneously. Thereafter he was started on epinephrine and norepinephrine infusions in the emergency room following which his heart rate is now between 55 to 60 bpm and pacing has been discontinued. Patient has been in sinus bradycardia thought to be likely secondary to metoprolol use. Currently metoprolol has been on hold. Levophed as well as epi has been weaned off. Troponin series 11--> 13, no significant delta, less concerning for ACS. D-dimer negative, lower suspicion for PE, however given no explanation for collapse at this time, will evalute with CTA Limited echocardiogram taken in the emergency room showed a normal LVEF of 65%, no focal regional wall motion abnormalities, no gross morphological abnormalities in his bowels. TSH is within range today. Patient has a history of adrenal insufficiency for which he is on hydrocortisone and midodrine as an outpatient. Random cortisol is 37 Was started on hydrocortisone 100 mg IV every 6 hours for suspected acute adrenal insufficiency. Will taper it off and place him on his home dose of hydrocortisone and midodrine. Patient has a history of seizure disorder, he may have suffered unwitnessed seizure, serum valproic acid level is 40, will give extra dose of Depakote, and continue Depakote 1000 mg p.o. twice daily, follow repeat valproic acid. Monitor for any seizure activity. Initially was on bear hugger for hypothermia: Mupirocin topical application over superficial coleman which may have occurred in transit as he had a heating pad on. ? from pacer pads though location does not seem consistent. CT chest abdomen and pelvis : ?Vddl-[id number]-right dependent lower lobe consolidations, concerning for possible pneumonia, could be possible aspiration pneumonia, currently covered with broad-spectrum antibiotics.Blood cultures so far has been negative, sputum culture is growing gram-negative vickie, pending identification, urine culture is pending, UA is unremarkable. CT head without contrast no acute intracranial pathology. No reported abdominal symptoms or fever at the long term. normal blood glucose. Hold home doses of methylphenidate and benztropine. Patient was initially on mechanical ventilation has been successfully extubated. Post extubation he has required Geodon, as well as Ativan, for agitation, caregiver is saying that this has been his normal behavior for some time. Attestations Medical Necessity Statement*: Needs to be in hospital for management of shock. Coding Level of Care Code Acute Code for [facility] Diagnoses Hypothermia T68.XXXA Altered mental status R41.82 Acute hypotension I95.9 Thrombocytopenia D69.6 Bradycardia R00.1
[2023-06-16 13:59] LABS: Vancomycin Trough 13.9 ug/mL (10-15)
--- NOTE | 2023-06-16 15:25 | PC.NURSE ---
Addendum entered by Anabella Mccray RN 06/16/23 15:51: 1526 I witnessed the waste of 0.5ml Geodon and administration of 0.5ml given IM to mr. Camarillo. Original Note: Geodon given at 1526 for anxiety and agitation per Dr. Angel. 0.5 mL was given IM and 0.5 mL was waisted. The other nurse was a witness to the waist.
[2023-06-16] MEDS: ziprasidone 20 mg/mL SDV 10 MG IM (15:58)
[2023-06-16] MEDS: water for injection-sterile 10 ML (15:59)
[2023-06-16] MEDS: divalproex DR 500 mg Tablet 1000 MG PO (18:49)
[2023-06-16] MEDS: divalproex Sprinkles 125 mg Capsule 1000 MG PO (23:24)
[2023-06-17] VITALS (25 sets, daily range): BP systolic 115–180; BP diastolic 62–93; PULSE 44–87; RESP 12–22; TEMP 35.8–36.5; O2SAT 93–98
[2023-06-17] MEDS: vancomycin 1,250 MG/250 ML PIGGYBACK 250 MG IV ×2 (01:26→14:22)
[2023-06-17] MEDS: piperacillin-tazobactam 3.375 GM in sodium chloride 0.9% (plus) 50 ML IV ×3 (01:27→17:47)
--- NOTE | 2023-06-17 03:21 | PC.NURSE ---
0015: Implemented external heat via Gigi Hughes.
--- NOTE | 2023-06-17 03:22 | PC.NURSE ---
Addendum entered by Tatiana Hardy RN 06/17/23 04:53: This nurse witnessed waste Original Note: Following medications removed from patient room and wasted. Witnessed by Tatiana Bangura RN Fentanyl gtt- 105mls Precedex gtt- 65mls Propofol-50mls
[2023-06-17 03:59] LABS: Basophils % 0.2 %; Hematocrit 24.6 % (42.0-52.0); Hemoglobin 7.8 g/dL (11.7-16.6); Lymphocytes % 11.4 %; Mean Corpuscular HGB Conc 31.7 g/dL (30.0-36.0); Mean Corpuscular Hemoglobin 32.4 pg (28.0-34.0); Mean Corpuscular Volume 102.1 fl (80-94); Mean Platelet Volume 11.8 fL (7.4-10.4); Monocytes # 0.4 10^3/uL (0.2-0.9); Monocytes % 4.2 %; Neutrophils # 7.01 10^3/uL (1.8-7.7); Neutrophils % 81.8 %; Nucleated Red Blood Cells % 0.2 %; Platelet Count 69 10^3/cmm (130-400); Red Blood Count 2.41 10^6/uL (4.1-5.3); Red Cell Distribution Width 18.1 % (12.1-15.1); White Blood Count 8.6 10^3/uL (4.0-10.0)
[2023-06-17 04:30] LABS: Valproic Acid Level 64.6 ug/mL (50-100)
[2023-06-17 04:33] LABS: Alanine Aminotransferase 8 U/L (0-41); Albumin Level 2.7 g/dL (3.5-5.2); Alkaline Phosphatase 81 U/L (40-130); Anion Gap 9.5 (5-19); Aspartate Amino Transferase 12 U/L (0-40); Blood Urea Nitrogen 19 mg/dL (8-23); Calcium 8.5 mg/dL (8.5-10.5); Carbon Dioxide 25 mmol/L (22-29); Chloride 113 mmol/L (98-107); Globulin 3.5 g/dL (1.3-4.6); Glomerular Filtration Rate 138.7 mL/min (90-130); Glucose 76 mg/dL (65-115); Osmolality Calculated 299 mOsm/kg (285-295); Potassium 3.5 mmol/L (3.5-5.1); Sodium 144 mmol/L (136-145); Total Bilirubin 0.2 mg/dL (0.15-1.2); Total Protein 6.2 g/dL (6.6-8.7)
[2023-06-17] MEDS: hydrocortisone 100 mg/2 mL SDV IVP (05:00)
[2023-06-17] MEDS: heparin 5,000 unit/mL INJ 1 mL 5000 UNIT SUBCUT ×2 (06:30→17:46)
[2023-06-17] MEDS: levothyroxine 112 mcg Tablet PO (08:19)
[2023-06-17] MEDS: divalproex Sprinkles 125 mg Capsule 1000 MG PO ×2 (08:19→17:47)
--- NOTE | 2023-06-17 09:31 | P.PN_ITS ---
Subjective Subjective: Patient is extubated. He seems to be very agitated in the bed. Does not seem to follow instructions. Seems to have a lot of extrapyramidal movements of the extremities. The telemetry shows sinus rhythm. Medications: Medication Review Details: Current Medications Chlorhexidine Gluconate (Chlorhexidine Gluconate 4% Btl 118 Ml) 1 applic TOPICAL PRN PRN PRN Reason: Bathing Last Admin: 06/16/23 03:15 Dose: 1 applic Divalproex Sodium (Divalproex Sprinkles 125 Mg Capsule) 1,000 mg PO BID LETTY Last Admin: 06/17/23 08:19 Dose: 1,000 mg Heparin Sodium (Porcine) (Heparin 5,000 Unit/Ml Inj 1 Ml) 5,000 unit SUBCUT Q12H LETTY Last Admin: 06/17/23 06:30 Dose: 5,000 unit Hydrocortisone Sodium Succinate (Hydrocortisone 100 Mg/2 Ml Sdv) 50 mg IVP Q8H LETTY Epinephrine HCl 2.5 mg/ Sodium (Chloride) 252.5 mls @ 0 mls/hr IV .Q0M [facility]; Protocol Last Titration: 06/16/23 08:45 Dose: 0 mcg/min, 0 mls/hr Norepinephrine Bitartrate 4 mg (/ Dextrose) 254 mls @ 0 mls/hr IV .Q0M [facility]; Protocol Last Titration: 06/16/23 04:15 Dose: 0 mcg/min, 0 mls/hr Propofol (Diprivan) 1,000 mg in 100 mls @ 0 mls/hr IV .Q0M [facility]; Protocol Last Titration: 06/16/23 08:53 Dose: 0 mcg/kg/min, 0 mls/hr Sodium Chloride (Sodium Chloride 0.9%) 1,000 mls @ 75 mls/hr IV .[id number] LETTY Last Admin: 06/16/23 21:17 Dose: 75 mls/hr Piperacillin Sod/Tazobactam (Sod 3.375 gm/ Sodium Chloride) 50 mls @ 12.5 mls/hr IV Q8H [facility]; Protocol Last Admin: 06/17/23 01:27 Dose: 12.5 mls/hr Vancomycin/PEG/NADA/Lysine/Water (Vancocin) 1,250 mg in 250 mls @ 250 mls/hr IV Q12H [facility] Last Infusion: 06/17/23 02:30 Dose: Infused Fentanyl 1,000 mcg/ Sodium (Chloride) 100 mls @ 0 mls/hr IV .Q0M [facility]; Protocol Last Titration: 06/16/23 08:45 Dose: 0 mcg/hr, 0 mls/hr Dexmedetomidine HCl 400 mcg/ (Sodium Chloride) 104 mls @ 0 mls/hr IV .Q0M [facility]; Protocol Last Titration: 06/16/23 12:35 Dose: Infused Levothyroxine Sodium (Levothyroxine 112 Mcg Tablet) 112 mcg PO DAILY@08 [facility] Last Admin: 06/17/23 08:19 Dose: 112 mcg Lorazepam (Lorazepam 2 Mg/Ml Inj 1 Ml) 2 mg IVP Q4H PRN PRN Reason: ANXIETY Last Admin: 06/16/23 12:53 Dose: 2 mg Vitals/I&O/Wt Last Vital Signs Temp 97.7 F 06/17/23 07:00 Pulse 54 L 06/17/23 08:00 Resp 12 06/17/23 08:00 BP 123/62 06/17/23 08:00 Pulse Ox 97 06/17/23 05:00 O2 Del Method Nasal Cannula 06/17/23 05:00 O2 Flow Rate 1 06/17/23 05:00 FiO2 25 06/17/23 06:00 06/16/23 06/17/23 06/17/23 22:59 06:59 14:59 Intake Total 1540 / 1788.805 250 / 2038.805 Output Total 550 / 675 500 / 1175 Balance 990 / 1113.805 -250 / 863.805 Physical Exam Narrative: GENERAL: Patient is awake and agitated HEENT: Extensive scarring is present on the left side of the face. Mild pallor, icterus or lymphadenopathy.Oral cavity: There are no mucous membrane lesions. NECK: Trachea appears to be central. No masses noted. No JVD or thyromegaly appreciated. RESPIRATORY: Chest is symmetrical. No intercostals muscle retraction or any accessory muscle activation. There is no chest wall tenderness. Breath sounds are heard bilaterally. No rales or rhonchi heard. No evidence of any consolidation. BREASTS: Deferred. HEART: The heart sounds are normal. No S3 or S4. No significant murmurs. No pericardial rub ABDOMEN: No vessel pulsations or distention. No tenderness. No organomegaly appreciated. Bowel sounds are normally heard. : Deferred. RECTAL: Deferred. LYMPHATIC: No lymphadenopathy noted in the neck. EXTREMITIES: No edema or cyanosis. No clubbing. MUSCULOSKELETAL: No acute joint deformities or swelling SKIN: There are no significant rashes or ecchymosis NEUROPSYCHIATRIC: The patient is awake and agitated Urinary Catheter Management: [place]: Cath Placed During This Visit: yes Reason for Continuing Indwelling Catheter: Accurate Measurement of Urinary Output in Critically Ill Patients Urinary Catheter Date of Insertion: 06/15/23 Urinary Catheter Time of Insertion: 00:33 Data 06/17/23 03:39 06/17/23 03:39 Micro: Microbiology 06/15/23 17:00 Gram Stain - Final Sputum - Expectorated Sputum Sputum Culture - Preliminary Gram Negative Rods Other data: Normal left ventricular size and systolic function, EF 65%. ?Normal cardiac chamber sizes. ?No gross morphological abnormalities in the valves ?There is no pericardial effusion. ?There are no intracardiac masses. ?No similar previous studies are available for comparison A&P Assessment and plan (1) Bradycardia: Currently resolved (2) Hypotension: Currently normotensive (3) Altered mental status: The mental status is improved. According to caregiver, he has the agitation intermittently in the skilled nursing. 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 Patient apparently had a similar problem in January. (7) Autism: Plan Since the patient's heart rate is improved with stable vitals, may hold off on any further investigations at this point. May continue to hold the beta- leonides. May avoid AV tom blocking agents for blood pressure control Attestations Medical Necessity Statement*: Disposition as per the primary Coding Level of Care Code 08015 Diagnoses Bradycardia R00.1 Hypotension I95.9 Altered mental status R41.82 Hypothermia T68.XXXA Extrapyramidal movement disorder, drug-induced G25.89; T50.905A Pancytopenia D61.818 Autism F84.0
[2023-06-17] MEDS: LORazepam 2 mg/mL INJ 1 mL IVP ×2 (10:41→16:30)
[2023-06-17] MEDS: sodium chloride 0.9% 1,000 ML 75 ML IV ×2 (10:42→23:32)
[2023-06-17] MEDS: hydrocortisone 100 mg/2 mL SDV 50 MG IVP ×2 (12:08→19:45)
--- NOTE | 2023-06-17 13:53 | PC.NURSE ---
Piping Manager and the facilities RN was informed of starting home medications today and the blisters on right and left side being present on admission. Pleasantly acknowledged information
[2023-06-17] MEDS: silver sulfadiazine cream 1% 50 gm 1 APPLIC TOPICAL (14:26)
[2023-06-17] MEDS: OLANZapine 10 mg TABLET PO (17:46)
--- NOTE | 2023-06-17 19:00 | P.PN_ITS ---
Subjective Subjective: Patient was seen and examined this morning continued to have episodes of agitation. Respond well to Ativan. Medications: Medication Review Details: Current Medications Chlorhexidine Gluconate (Chlorhexidine Gluconate 4% Btl 118 Ml) 1 applic TOPICAL PRN PRN PRN Reason: Bathing Last Admin: 06/16/23 03:15 Dose: 1 applic Divalproex Sodium (Divalproex Sprinkles 125 Mg Capsule) 1,000 mg PO BID LETTY Last Admin: 06/17/23 08:19 Dose: 1,000 mg Heparin Sodium (Porcine) (Heparin 5,000 Unit/Ml Inj 1 Ml) 5,000 unit SUBCUT Q12H [facility] Last Admin: 06/17/23 06:30 Dose: 5,000 unit Hydrocortisone Sodium Succinate (Hydrocortisone 100 Mg/2 Ml Sdv) 50 mg IVP Q8H [facility] Epinephrine HCl 2.5 mg/ Sodium (Chloride) 252.5 mls @ 0 mls/hr IV .Q0M [facility]; Protocol Last Titration: 06/16/23 08:45 Dose: 0 mcg/min, 0 mls/hr Norepinephrine Bitartrate 4 mg (/ Dextrose) 254 mls @ 0 mls/hr IV .Q0M [facility]; Protocol Last Titration: 06/16/23 04:15 Dose: 0 mcg/min, 0 mls/hr Propofol (Diprivan) 1,000 mg in 100 mls @ 0 mls/hr IV .Q0M [facility]; Protocol Last Titration: 06/16/23 08:53 Dose: 0 mcg/kg/min, 0 mls/hr Sodium Chloride (Sodium Chloride 0.9%) 1,000 mls @ 75 mls/hr IV .[id number] [facility] Last Admin: 06/16/23 21:17 Dose: 75 mls/hr Piperacillin Sod/Tazobactam (Sod 3.375 gm/ Sodium Chloride) 50 mls @ 12.5 mls/hr IV Q8H [facility]; Protocol Last Admin: 06/17/23 01:27 Dose: 12.5 mls/hr Vancomycin/PEG/NADA/Lysine/Water (Vancocin) 1,250 mg in 250 mls @ 250 mls/hr IV Q12H [facility] Last Infusion: 06/17/23 02:30 Dose: Infused Fentanyl 1,000 mcg/ Sodium (Chloride) 100 mls @ 0 mls/hr IV .Q0M [facility]; Protocol Last Titration: 06/16/23 08:45 Dose: 0 mcg/hr, 0 mls/hr Dexmedetomidine HCl 400 mcg/ (Sodium Chloride) 104 mls @ 0 mls/hr IV .Q0M [facility]; Protocol Last Titration: 06/16/23 12:35 Dose: Infused Levothyroxine Sodium (Levothyroxine 112 Mcg Tablet) 112 mcg PO DAILY@08 [facility] Last Admin: 06/17/23 08:19 Dose: 112 mcg Lorazepam (Lorazepam 2 Mg/Ml Inj 1 Ml) 2 mg IVP Q4H PRN PRN Reason: ANXIETY Last Admin: 06/16/23 12:53 Dose: 2 mg Vitals/I&O/Wt Last Vital Signs Temp 97.7 F 06/17/23 07:00 Pulse 68 06/17/23 18:00 Resp 22 H 06/17/23 18:00 BP 144/82 06/17/23 16:00 Pulse Ox 98 06/17/23 18:00 O2 Del Method Nasal Cannula 06/17/23 05:00 O2 Flow Rate 1 06/17/23 05:00 FiO2 25 06/17/23 06:00 06/17/23 06/17/23 06/17/23 06:59 14:59 22:59 Intake Total 300 / 2088.805 2380 / 2380 Output Total 500 / 1175 Balance -200 / 966.793 0474 / 2380 Physical Exam HENMT: COMMON NORMALS: normocephalic and atraumatic HEAD & SCALP: no rmocephalic and atraumatic Resp: COMMON NORMALS: clear to auscultation bilaterally AUSCULTATION: clear to auscultation bilaterally Cardio: COMMON NORMALS: regular rate, regular rhythm, S1 normal heart sound present, S2 normal heart sound present, No gallops present (Cardio), No murmurs present (Cardio), No rub (Cardio) and Peripheral pulses 2+ throughout RATE: regular rate RHYTHM: regular rhythm HEART SOUNDS: S1 normal heart sound present and S2 normal heart sound present PERIPHERAL PULSES: Peripheral pulses 2+ throughout GI: COMMON NORMALS: Normal to inspection, nondistended, normoactive bowel s ounds present, Soft to palpation, non-tender, No hepatosplenomegaly present and no masses AUSCULTATION: Yes normoactive bowel sounds PALPATION: Yes Soft to palpation and Yes No hepatosplenomegaly present RECTAL EXAM: Yes deferred Extremity: COMMON NORMALS: no clubbing, cyanosis or edema and no pedal edema Urinary Catheter Management: [place]: Cath Placed During This Visit: yes Reason for Continuing Indwelling Catheter: Accurate Measurement of Urinary Output in Critically Ill Patients Urinary Catheter Date of Insertion: 06/15/23 Urinary Catheter Time of Insertion: 00:33 Data 06/17/23 03:39 06/17/23 03:39 Micro: Microbiology 06/15/23 17:00 Gram Stain - Final Sputum - Expectorated Sputum Sputum Culture - Preliminary Klebsiella oxytoca A&P Assessment and plan (1) Hypothermia: (2) Altered mental status: (3) Acute hypotension: (4) Thrombocytopenia: (5) Bradycardia: (6) Extrapyramidal movement disorder, drug-induced: (7) Adrenal insufficiency: (8) Pancytopenia: (9) Hypothyroidism: Plan 63-year-old male with past medical history as noted above presenting with hypoth ermia, bradycardia needing pacing initially, circulatory collapse, having been found down at his skilled nursing. Cause of his collapse is not entirely clear at this time.: Possible explanation could be bradycardia at that time. When EMS first picked him up his heart rate was noted to be in the 30s for which he was pacing transcutaneously. Thereafter he was started on epinephrine and norepinephrine infusions in the emergency room following which his heart rate is now between 55 to 60 bpm and pacing has been discontinued. Patient has been in sinus bradycardia thought to be likely secondary to metoprolol use. Currently metoprolol has been on hold. Levophed as well as epi has been weaned off. Troponin series 11--> 13, no significant delta, less concerning for ACS. D-dimer negative, lower suspicion for PE, however given no explanation for collapse at this time, will evalute with CTA chest abdomen and pelvis done: Failed to show any pulmonary embolism. Limited echocardiogram taken in the emergency room showed a normal LVEF of 65%, no focal regional wall motion abnormalities, no gross morphological abnormalities in his bowels. TSH: Normal Patient has a history of adrenal insufficiency for which he is on hydrocortisone and midodrine as an outpatient. Random cortisol is 37 Was started on hydrocortisone 100 mg IV every 6 hours for suspected acute adrenal insufficiency. Will taper it off and place him on his home dose of hydrocortisone and midodrine. Patient has a history of seizure disorder, he may have suffered unwitnessed seizure, serum valproic acid level is 40, will give extra dose of Depakote, and continue Depakote 1000 mg p.o. twice daily, follow up repeat valproic acid.Keyla l Monitor for any seizure activity. Initially was on bear hugger for hypothermia: Mupirocin topical application over superficial coleman which may have occurred in transit as he had a heating pad on. ? from pacer pads though location does not seem consistent. CT chest abdomen and pelvis : ?[id number]-right dependent lower lobe consolidations, concerning for possible pneumonia, could be possible aspiration pneumonia, currently covered with broad-spectrum antibiotics.Blood cultures so far has been negative, sputum culture: Klebsiella oxytoca: Sensitive to levofloxacin urine culture is pending, UA is unremarkable. CT head without contrast no acute intracranial pathology. No reported abdominal symptoms or fever at the skilled nursing. normal blood glucose. Hold home doses of methylphenidate and benztropine. Patient was initially on mechanical ventilation has been successfully extubated. Post extubation he has required Geodon, as well as Ativan, for agitation, care professionals is saying that this has been his normal behavior for some time. Attestations Medical Necessity Statement*: Needs to be in hospital for monitoring of bradycardia hypotension. Coding Level of Care Code Acute Code for [facility] Diagnoses Hypothermia T68.XXXA Altered mental status R41.82 Acute hypotension I95.9 Thrombocytopenia D69.6 Bradycardia R00.1 Extrapyramidal movement disorder, drug-induced G25.89; T50.905A Adrenal insufficiency E27.40 Pancytopenia D61.818 Hypothyroidism E03.9
[2023-06-17] MEDS: benztropine 1 mg Tablet PO (19:45)
[2023-06-18] VITALS (27 sets, daily range): BP systolic 118–188; BP diastolic 75–97; PULSE 47–94; RESP 1–25; TEMP 35.8–36.1; O2SAT 89–98
[2023-06-18] MEDS: piperacillin-tazobactam 3.375 GM in sodium chloride 0.9% (plus) 50 ML IV ×3 (01:43→17:44)
[2023-06-18] MEDS: vancomycin 1,250 MG/250 ML PIGGYBACK 250 MG IV (01:44)
[2023-06-18 04:22] LABS: Basophils % 0.1 %; Eosinophils % 0.1 %; Hematocrit 22.4 % (42.0-52.0); Hemoglobin 7.1 g/dL (11.7-16.6); Lymphocytes # 1.5 10^3/uL (0.8-4.8); Lymphocytes % 18.2 %; Mean Corpuscular HGB Conc 31.7 g/dL (30.0-36.0); Mean Corpuscular Hemoglobin 32.1 pg (28.0-34.0); Mean Corpuscular Volume 101.4 fl (80-94); Mean Platelet Volume 12.3 fL (7.4-10.4); Monocytes # 0.6 10^3/uL (0.2-0.9); Monocytes % 7.4 %; Neutrophils # 5.86 10^3/uL (1.8-7.7); Neutrophils % 71.3 %; Nucleated Red Blood Cells % 0.2 %; Platelet Count 82 10^3/cmm (130-400); Red Blood Count 2.21 10^6/uL (4.1-5.3); Red Cell Distribution Width 17.9 % (12.1-15.1); White Blood Count 8.2 10^3/uL (4.0-10.0)
[2023-06-18 04:44] LABS: Alanine Aminotransferase 8 U/L (0-41); Albumin Level 2.6 g/dL (3.5-5.2); Alkaline Phosphatase 75 U/L (40-130); Anion Gap 12.2 (5-19); Aspartate Amino Transferase 13 U/L (0-40); Blood Urea Nitrogen 20 mg/dL (8-23); Calcium 8.2 mg/dL (8.5-10.5); Carbon Dioxide 25 mmol/L (22-29); Chloride 111 mmol/L (98-107); Globulin 3.2 g/dL (1.3-4.6); Glomerular Filtration Rate 165.7 mL/min (90-130); Glucose 102 mg/dL (65-115); Osmolality Calculated 303 mOsm/kg (285-295); Potassium 3.2 mmol/L (3.5-5.1); Sodium 145 mmol/L (136-145); Total Bilirubin 0.2 mg/dL (0.15-1.2); Total Protein 5.8 g/dL (6.6-8.7)
[2023-06-18] MEDS: hydrocortisone 100 mg/2 mL SDV 50 MG IVP ×3 (04:44→20:15)
[2023-06-18] MEDS: heparin 5,000 unit/mL INJ 1 mL 5000 UNIT SUBCUT (06:03)
[2023-06-18] MEDS: amlodipine 10 mg Tablet PO (08:01)
[2023-06-18] MEDS: CLONazepam 1 mg Tablet 2 MG PO (08:01)
[2023-06-18] MEDS: divalproex Sprinkles 125 mg Capsule 1000 MG PO ×2 (08:01→17:44)
[2023-06-18] MEDS: OLANZapine 10 mg TABLET PO ×2 (08:01→17:44)
[2023-06-18] MEDS: silver sulfadiazine cream 1% 50 gm 1 APPLIC TOPICAL (08:01)
[2023-06-18] MEDS: levothyroxine 112 mcg Tablet PO (08:01)
[2023-06-18] MEDS: benztropine 1 mg Tablet PO ×2 (08:05→20:22)
[2023-06-18] MEDS: lidocaine 1% 5 ML in potassium chloride premix 100 ML 52.5 ML IV (09:20)
--- NOTE | 2023-06-18 11:04 | PC.SOCIAL ---
Pg 2 IMM Explained to Vicki Selby of [facility], Pg 2 IMM. No questions voiced. Provided pt a copy. Initialed, dated, & timed a copy & placed in chart.
[2023-06-18 14:20] LABS: Vancomycin Trough 19.6 ug/mL (10-15)
[2023-06-18] MEDS: methylphenidate 10 mg Tablet 20 MG PO ×2 (14:29→20:15)
--- NOTE | 2023-06-18 14:59 | P.PN_ITS ---
Subjective Subjective: Patient was seen and examined this morning resting comfortably, no agitation, no movement disorder noted. Unfortunately hemoglobin has dropped to 7.1 this morning. Has no BRBPR, dark stools, hematuria. Medications: Medication Review Details: Generic Name Dose Route Start Last Admin Trade Name Freq PRN Reason Stop Dose Admin Amlodipine Besylat e 10 mg 06/18/23 09:00 06/18/23 08:01 Amlodipine 10 Mg Tablet PO 10 mg DAILY LETTY Administration Benztropine Mesyla te 1 mg 06/17/23 20:00 06/18/23 08:05 Benztropine 1 Mg Tablet PO 1 mg BID@, LETTY Administration Chlorhexidine Gluc yevgeniy 1 applic 06/16/23 00:51 06/16/23 03:15 Chlorhexidine Gl uconate 4% Btl 118 Ml TOPICAL 1 applic PRN PRN Administration Bathing Clonazepam 2 mg 06/18/23 09:00 06/18/23 08:01 Clonazepam 1 Mg Tablet PO 2 mg DAILY LETTY Administration Divalproex Sodium 1,000 mg 06/16/23 23:45 06/18/23 08:01 Divalproex Sprin kles 125 Mg Capsul e PO 1,000 mg BID LETTY Administration Heparin Sodium (Po rcine) 5,000 unit 06/15/23 06:45 06/18/23 06:03 Heparin 5,000 Un it/Ml Inj 1 Ml SUBCUT 5,000 unit Q12H LETTY Administration Hydrocortisone Sod ium Succinate 50 mg 06/17/23 12:00 06/18/23 14:28 Hydrocortisone 1 00 Mg/2 Ml Sdv IVP 50 mg Q8H LETTY Administration Epinephrine HCl 2. 5 mg/ Sodium 252.5 mls @ 0 mls /hr 06/14/23 22:30 06/16/23 08:45 Chloride IV 0 mcg/min .Q0M LETTY 0 mls/hr Titration Protocol Per Protocol Norepinephrine Bit artrate 4 mg 254 mls @ 0 mls/h r 06/14/23 22:30 06/16/23 04:15 / Dextrose IV 0 mcg/min .Q0M LETTY 0 mls/hr Titration Protocol Per Protocol Propofol 1,000 mg in 100 m ls @ 0 mls/hr 06/14/23 22:30 06/16/23 08:53 Diprivan IV 0 mcg/kg/min .Q0M [facility]TY 0 mls/hr Titration Protocol Per Protocol Piperacillin Sod/T azobactam 50 mls @ 12.5 mls /hr 06/15/23 10:00 06/18/23 09:20 Sod 3.375 gm/ So dium Chloride IV 12.5 mls/hr Q8H [facility] Administration Protocol Fentanyl 1,000 mcg / Sodium 100 mls @ 0 mls/h r 06/16/23 03:00 06/16/23 08:45 Chloride IV 0 mcg/hr .Q0M LETTY 0 mls/hr Titration Protocol Per Protocol Levothyroxine Sodi um 112 mcg 06/15/23 08:00 06/18/23 08:01 Levothyroxine 11 2 Mcg Tablet PO 112 mcg DAILY@08 [facility] Administration Lorazepam 2 mg 06/16/23 12:47 06/17/23 16:30 Lorazepam 2 Mg/M l Inj 1 Ml IVP 2 mg Q4H PRN Administration ANXIETY Methylphenidate HC l 20 mg 06/18/23 15:00 06/18/23 14:29 Methylphenidate 10 Mg Tablet PO 20 mg TID LETTY Administration Olanzapine 10 mg 06/17/23 18:00 06/18/23 08:01 Olanzapine 10 Mg Tablet PO 10 mg BID LETTY Administration Silver Sulfadiazin e 1 applic 06/17/23 13:25 06/18/23 08:01 Silver Sulfadiaz ine Cream 1% 50 Gm TOPICAL 1 applic DAILY LETTY Administration Vitals/I&O/Wt Last Vital Signs Temp 96.7 F L 06/18/23 04:00 Pulse 64 06/18/23 14:00 Resp 16 06/18/23 14:00 BP 134/81 06/18/23 14:00 Pulse Ox 96 06/18/23 12:00 O2 Del Method Room Air 06/18/23 11:04 O2 Flow Rate 1 06/17/23 05:00 FiO2 25 06/18/23 00:00 06/17/23 06/18/23 06/18/23 22:59 06:59 14:59 Intake Total 300 / 2680 1262.5 / 3942.5 480 / 480 Output Total 500 / 500 500 / 1000 Balance -200 / 2180 762.5 / 2942.5 480 / 480 Physical Exam HENMT: COMMON NORMALS: normocephalic and atraumatic HEAD & SCALP: normocephalic and atraumatic Resp: COMMON NORMALS: clear to auscultation bilaterally AUSCULTATION: clear to auscultation bilaterally Cardio: COMMON NORMALS: regular rate, regular rhythm, S1 normal heart sound present, S2 normal heart sound present, No gallops present (Cardio), No murmurs present (Cardio), No rub (Cardio) and Peripheral pulses 2+ throughout RATE: regular rate RHYTHM: regular rhythm HEART SOUNDS: S1 normal heart sound present and S2 normal heart sound present PERIPHERAL PULSES: Peripheral pulses 2+ throughout GI: COMMON NORMALS: Normal to inspection, nondistended, normoactive bowel sounds present, Soft to palpation, non-tender, No hepatosplenomegaly present and no masses AUSCULTATION: Yes normoactive bowel sounds PALPATION: Yes Soft t o palpation and Yes No hepatosplenomegaly present RECTAL EXAM: Yes deferred Extremity: COMMON NORMALS: no clubbing, cyanosis or edema and no pedal edema Urinary Catheter Management: [place]: Cath Placed During This Visit: yes Reason for Continuing Indwelling Catheter: Accurate Measurement of Urinary Output in Critically Ill Patients Urinary Catheter Date of Insertion: 06/15/23 Urinary Catheter Time of Insertion: 00:33 Data 06/18/23 03:25 06/18/23 03:25 Micro: Microbiology 06/15/23 17:00 Gram Stain - Final Sputum - Expectorated Sputum Sputum Culture - Preliminary Klebsiella oxytoca A&P Assessment and plan (1) Hypothermia: (2) Altered mental status: (3) Acute hypotension: (4) Thrombocytopenia: (5) Bradycardia: (6) Extrapyramidal movement disorder, drug-induced: (7) Adrenal insufficiency: (8) Pancytopenia: (9) Hypothyroidism: (10) Anemia: Plan 63-year-old male with past medical history as noted above presenting with hypothermia, bradycardia needing pacing initially, circulatory collapse, having been found down at his [place] [facility]. Cause of his collapse is not entirely clear at this time.: Possible explanation could be bradycardia at that time. When EMS first picked him up his heart rate was noted to be in the 30s for which he was pacing transcutaneously. Thereafter he was started on epinephrine and norepinephrine infusions in the emergency room following which his heart rate is now between 55 to 60 bpm and p acing has been discontinued. Patient has been in sinus bradycardia thought to be likely secondary to metoprolol use. Currently metoprolol has been on hold. Levophed as well as epi has been weaned off. Troponin series 11--> 13, no significant delta, less concerning for ACS. D-dimer negative, lower suspicion for PE, however given no explanation for collapse at this time, will evalute with CTA chest abdomen and pelvis done: Failed to show any pulmonary embolism. Limited echocardiogram taken in the emergency room showed a normal LVEF of 65%, no focal regional wall motion abnormalities, no gross morphological abnormalities in his bowels. TSH: Normal Patient has a history of adrenal insufficiency for which he is on hydrocortisone and midodrine as an outpatient. Random cortisol is 37 Was started on hydrocortisone 100 mg IV every 6 hours for suspected acute adrenal insufficiency. Will taper it off and place him on his home dose of hydrocortisone and midodrine. Patient has a history of seizure disorder, he may have suffered unwitnessed seizure, serum valproic acid level is 40, will give extra dose of Depakote, and continue Depakote 1000 mg p.o. twice daily, follow up repeat valproic acid .Normal Monitor for any seizure activity. Initially was on bear hugger for hypothermia: Mupirocin topical application over superficial coleman which may have occurred in transit as he had a heating pad on. ? from pacer pads though location does not seem consistent. CT chest abdomen and pelvis : ?[id number]-[id number]-[id number]-right dependent lower lobe consolidations, concerning for possible pneumonia, could be possible aspiration pneumonia, currently covered with broad-spectrum antibiotics.Blood cultures so far has been negative, sputum culture: Klebsiella oxytoca: Sensitive to levofloxacin urine culture is pending, UA is unremarkable. CT head without contrast no acute intracranial pathology. No reported abdominal symptoms or fever at the [place] [facility]. normal blood glucose. Hold home doses of methylphenidate and benztropine. Patient was initially on mechanical ventilation has been successfully extubated. Post extubation he has required Geodon, as well as Ativan, for agitation, caregiver is saying that this has been his normal behavior for some time. Patient has been restarted back on his home medications. Anemia: Unfortunately since admission the hemoglobin has been dropping slowly he came in with a hemoglobin of 8.2 today his hemoglobin is 7.1, will order repeat CBC this afternoon we will transfuse to maintain hemoglobin greater than 7, follow FOBT, Attestations Medical Necessity Statement*: Needs to be in hospital for monitoring of anemia. Coding Level of Care Code Acute Code for [facility] Diagnoses Hypothermia T68.XXXA Altered mental status R41.82 Acute hypotension I95.9 Thrombocytopenia D69.6 Bradycardia R00.1 Extrapyramidal movement disorder, drug-induced G25.89; T50.905A Adrenal insufficiency E27.40 Pancytopenia D61.818 Hypothyroidism E03.9 Anemia D64.9
[2023-06-18 16:26] LABS: Basophils % 0.2 %; Eosinophils % 0.5 %; Hematocrit 23.5 % (42.0-52.0); Hemoglobin 7.5 g/dL (11.7-16.6); Lymphocytes # 1.5 10^3/uL (0.8-4.8); Lymphocytes % 18.6 %; Mean Corpuscular HGB Conc 31.9 g/dL (30.0-36.0); Mean Corpuscular Hemoglobin 32.3 pg (28.0-34.0); Mean Corpuscular Volume 101.3 fl (80-94); Mean Platelet Volume 12.1 fL (7.4-10.4); Monocytes # 0.9 10^3/uL (0.2-0.9); Monocytes % 10.7 %; Neutrophils # 5.42 10^3/uL (1.8-7.7); Neutrophils % 66.9 %; Nucleated Red Blood Cells # 0.1 /100WBC; Nucleated Red Blood Cells % 0.7 %; Platelet Count 86 10^3/cmm (130-400); Red Blood Count 2.32 10^6/uL (4.1-5.3); Red Cell Distribution Width 18.4 % (12.1-15.1); White Blood Count 8.1 10^3/uL (4.0-10.0)
[2023-06-19] VITALS (16 sets, daily range): BP systolic 126–180; BP diastolic 72–99; PULSE 54–70; RESP 15–27; TEMP 35.9–36.2; O2SAT 93–100
[2023-06-19] MEDS: LORazepam 2 mg/mL INJ 1 mL IVP (00:35)
--- NOTE | 2023-06-19 01:03 | PC.NURSE ---
Summoned to bedside by patient's private caregiver. Patient had episode of emesis consisting of mostly vanilla pudding. Confirmed bowel sounds by auscultation. Patient also had small, soft, brown BM. Patient exhibited agitation while getting clean and linen change; grabbing at nurses arms and kicking to exit bed. Ativan administered per JAN. Patient now clean, calm, resting in bed. Private caregiver updated and remains at bedside.
[2023-06-19] MEDS: piperacillin-tazobactam 3.375 GM in sodium chloride 0.9% (plus) 50 ML IV ×2 (01:48→09:41)
[2023-06-19] MEDS: hydrocortisone 100 mg/2 mL SDV 50 MG IVP (03:26)
[2023-06-19 05:03] LABS: Basophils % 0.3 %; Eosinophils % 0.1 %; Hematocrit 23.9 % (42.0-52.0); Hemoglobin 7.9 g/dL (11.7-16.6); Lymphocytes # 1.5 10^3/uL (0.8-4.8); Lymphocytes % 19.1 %; Mean Corpuscular HGB Conc 33.1 g/dL (30.0-36.0); Mean Corpuscular Hemoglobin 32.6 pg (28.0-34.0); Mean Corpuscular Volume 98.8 fl (80-94); Mean Platelet Volume 11.2 fL (7.4-10.4); Monocytes # 0.8 10^3/uL (0.2-0.9); Monocytes % 9.7 %; Neutrophils # 5.26 10^3/uL (1.8-7.7); Neutrophils % 66.7 %; Nucleated Red Blood Cells % 0.5 %; Platelet Count 105 10^3/cmm (130-400); Red Blood Count 2.42 10^6/uL (4.1-5.3); White Blood Count 7.9 10^3/uL (4.0-10.0)
[2023-06-19 05:25] LABS: Alanine Aminotransferase 8 U/L (0-41); Albumin Level 2.7 g/dL (3.5-5.2); Alkaline Phosphatase 85 U/L (40-130); Aspartate Amino Transferase 13 U/L (0-40); Blood Urea Nitrogen 13 mg/dL (8-23); Calcium 8.2 mg/dL (8.5-10.5); Carbon Dioxide 28 mmol/L (22-29); Chloride 109 mmol/L (98-107); Globulin 3.4 g/dL (1.3-4.6); Glomerular Filtration Rate 165.7 mL/min (90-130); Glucose 90 mg/dL (65-115); Osmolality Calculated 302 mOsm/kg (285-295); Sodium 146 mmol/L (136-145); Total Bilirubin 0.3 mg/dL (0.15-1.2); Total Protein 6.1 g/dL (6.6-8.7)
[2023-06-19] MEDS: benztropine 1 mg Tablet PO (07:54)
[2023-06-19] MEDS: amlodipine 10 mg Tablet PO (07:54)
[2023-06-19] MEDS: levothyroxine 112 mcg Tablet PO (07:54)
[2023-06-19] MEDS: pantoprazole DR 40 mg Tablet PO (07:54)
[2023-06-19] MEDS: OLANZapine 10 mg TABLET PO (07:54)
[2023-06-19] MEDS: CLONazepam 1 mg Tablet 2 MG PO (07:54)
[2023-06-19] MEDS: methylphenidate 10 mg Tablet 20 MG PO (07:54)
[2023-06-19] MEDS: silver sulfadiazine cream 1% 50 gm 1 APPLIC TOPICAL (07:55)
[2023-06-19] MEDS: divalproex Sprinkles 125 mg Capsule 1000 MG PO (07:55)
[2023-06-19] MEDS: potassium chloride ER 20 mEq Tablet 40 MEQ PO (09:41)
[2023-06-19] MEDS: potassium chloride premix 100 ML 50 MEQ IV (09:42)
--- NOTE | 2023-06-19 10:25 | PM.DCS ---
Discharge Providers Date of Admission: 06/15/23 02:32 Date of Discharge: June 19, 2023 Attending Provider at Admission: Geeta Meza MD Attending Provider at Discharge: Kin Angel MD Primary Care Provider: Brittany Bahena MD Diagnoses at Discharge Discharge Diagnosis (1) Hypothermia: Status: Inactive (2) Altered mental status: Status: Resolved (3) Acute hypotension: Status: Inactive (4) Thrombocytopenia: Status: Resolved (5) Bradycardia: Status: Acute (6) Extrapyramidal movement disorder, drug-induced: Status: Chronic (7) Adrenal insufficiency: Status: Acute (8) Pancytopenia: Status: Acute (9) Hypothyroidism: Status: Acute (10) Anemia: Status: Acute Reason for Visit Reason for Visit: UNRESPONSIVE Hospital Course Hospital Course 63-year-old male was found down at his skilled nursing when EMS arrived he was found to be hypothermia, bradycardia needing pacing initially, significant hypotension with circulatory collapse, the likely possible explanation of his collapse is likely cardiogenic shock secondary to severe bradycardia, possible explanation of severe bradycardia is beta-leonides use, patient was also found to be significantly hypothermic, currently because of hypothermia is unclear, it is difficult for me to explain this due to sepsis, when he arrived, he was, placed on Gigi hugger, for his hypothermia, he was placed on IV fluids, he required Levophed as well as epinephrine initially, which were later tapered off, patient was also placed on stress dose of steroids, his random cortisol was 37, stress dose cortisol was later weaned off, given the fact that the patient has prior history of, adrenal insufficiency, he was continued on his home dose of hydrocortisone p.o. upon discharge, since he was maintaining significantly decent MAP, and had to be placed on antihypertensive medicines later, no dose increase in hydrocortisone p.o. was done. Patient came in intubated, he was initially on mechanical ventilation, but was successfully extubated, and was saturating well on room air at the time of discharge. With regards to his significant bradycardia, he was in sinus bradycardia and heart rate was progressively improving, metoprolol has been kept on hold on discharge, caregiver has been asked to monitor his, heart rate and, blood pressure, and follow-up with his primary care physician, decision regarding future use of metoprolol can be taken at that time. 2D echo was done during the hospital stay: Normal left ventricular size and systolic function, EF 65%.?Normal cardiac chamber sizes.?No gross morphological abnormalities in the valves There is no pericardial effusion.?There are no intracardiac masses.CT angio chest w abd pel w con: ?Caom-qrjeysw-napq-right dependent lower lobe consolidations may represent atelectasis or pneumonia, no pulmonary embolism.Large ascending and transverse colonic stool burden. CT head without contrast: No acute intracranial pathology. Blood culture was negative, Sputum culture was growing: Klebsiella oxytoca, as well as MSSA, patient reports appropriately covered for possible pneumonia, he was on broad-spectrum antibiotic during the hospital stay, was discharged on, levofloxacin as well as Zyvox for 7 days. For his history of seizure patient was continued on Depakote, serum valproic acid level was 44, he was given 1 extra dose of oral Depakote, repeat serum valproic acid was normal. During the hospital stay he was also managed for anemia, at one point hemoglobin had dropped to 7.1, FOBT was negative, H&H was monitored, no need for transfusion was there, hemoglobin at the time of discharge was 7.9. At the time of discharge patient was hemodynamically stable, afebrile, at his baseline mentation. He was discharged in stable condition to skilled nursing. Physical Exam HENMT: COMMON NORMALS: normocephalic and atraumatic HEAD & SCALP: normocephalic and atraumatic Resp: COMMON NORMALS: clear to auscultation bilaterally AUSCULTATION: clear to auscultation bilaterally Cardio: COMMON NORMALS: regular rate, regular rhythm, S1 normal heart sound present, S2 normal heart sound present, No gallops present (Cardio), No murmurs present (Cardio), No rub (Cardio) and Peripheral pulses 2+ throughout RATE: regular rate RHYTHM: regular rhythm HEART SOUNDS: S1 normal heart sound present and S2 normal heart sound present PERIPHERAL PULSES: Peripheral pulses 2+ throughout GI: COMMON NORMALS: Normal to inspection, nondistended, normoactive bowel sounds present, Soft to palpation, non-tender, No hepatosplenomegaly present and no masses AUSCULTATION: Yes normoactive bowel sounds PALPATION: Yes Soft to palpation and Yes No hepatosplenomegaly present RECTAL EXAM: Yes deferred Extremity: COMMON NORMALS: no clubbing, cyanosis or edema and no pedal edema Urinary Catheter Management: Campo: Cath Placed During This Visit: yes Reason for Continuing Indwelling Catheter: Accurate Measurement of Urinary Output in Critically Ill Patients Urinary Catheter Date of Insertion: 06/15/23 Urinary Catheter Time of Insertion: 00:33 Discharge Data Studies Completed and Pending Completed Studies During Hospitalization Category Date Time Status CT head wo con* [id number] Stat Cat Scan 06/14/23 22:[address] abdomen pelvis [CT angio chest w abd pel w Cat Scan 06/15/23 06:38 Completed con] Routine XR chest 1V portable [id number] Stat Exams 06/14/23 23:10 Completed CV. echo limited [id number] Stat Ultrasound 06/14/23 22:54 Completed Pending at discharge Category Date Time Status Blood Culture Stat Lab 06/15/23 02:06 Results CBC Auto Diff [Complete Blood Count w/Auto] AM LABS Lab 06/20/23 04:00 Ordered CBC Auto Diff [Complete Blood Count w/Auto] AM LABS Lab 06/21/23 04:00 Ordered CMP [Comprehensive Metabolic Panel] AM LABS Lab 06/20/23 04:00 Ordered CMP [Comprehensive Metabolic Panel] AM LABS Lab 06/21/23 04:00 Ordered Sputum Culture and Gram Stain Routine Lab 06/15/23 17:00 Results Radiology Impressions Head CT 06/14/23 22:23 IMPRESSION: 1. No evidence of acute intracranial hemorrhage, mass effect, or edema. 2. Extensive debris noted in each external auditory canal. Chest X-Ray 06/14/23 23:10 IMPRESSION: 1. Support devices are in satisfactory positions. 2. Bibasilar reticular opacities could reflect atelectasis, aspiration, or pneumonia. There are probably small pleural effusions. No evidence of pneumothorax. Chest/Abdomen/Pelvis CT 06/15/23 06:38 IMPRESSION: 1. Kcrn-xqeylec-gpic-right dependent lower lobe consolidations may represent atelectasis or pneumonia. Aspiration could appear similar. 2. Endotracheal tube terminates just above the ihsan. Consider 1-2 cm retraction. 3. No pulmonary emboli. IMPRESSION: 1. Large ascending and transverse colonic stool burden. 2. Urinary bladder wall thickening may be on the basis of decompression and small amount of air may be on the basis of Campo catheter. However, could also indicate cystitis. Laboratory Results WBC 7.9 10^3/uL (4.0-10.0) 06/19/23 04:30 RBC 2.42 10^6/uL (4.1-5.3) L 06/19/23 04:30 Hgb 7.9 g/dL (11.7-16.6) L 06/19/23 04:30 Hct 23.9 % (42.0-52.0) L 06/19/23 04:30 MCV 98.8 fl (80-94) H 06/19/23 04:30 MCH 32.6 pg (28.0-34.0) 06/19/23 04:30 MCHC 33.1 g/dL (30.0-36.0) 06/19/23 04:30 RDW 18.0 % (12.1-15.1) H 06/19/23 04:30 Plt Count 105 10^3/cmm (130-400) L 06/19/23 04:30 MPV 11.2 fL (7.4-10.4) H 06/19/23 04:30 Neut % (Auto) 66.7 % 06/19/23 04:30 Lymph % (Auto) 19.1 % 06/19/23 04:30 Riley % (Auto) 9.7 % 06/19/23 04:30 Eos % (Auto) 0.1 % 06/19/23 04:30 Baso % (Auto) 0.3 % 06/19/23 04:30 Neut # (Auto) 5.26 10^3/uL (1.8-7.7) 06/19/23 04:30 Lymph # (Auto) 1.5 10^3/uL (0.8-4.8) 06/19/23 04:30 Riley # (Auto) 0.8 10^3/uL (0.2-0.9) 06/19/23 04:30 Eos # (Auto) 0.0 10^3/uL (0.0-0.8) 06/19/23 04:30 Baso # (Auto) 0.0 10^3/uL (0.0-0.1) 06/19/23 04:30 Nucleated RBC % (auto) 0.5 % 06/19/23 04:30 Nucleated RBCs # 0.0 /100WBC 06/19/23 04:30 PT 14.60 SECONDS (12.1-14.9) 06/14/23 22:28 INR 1.10 (0.8-1.2) 06/14/23 22:28 APTT 45.7 SECONDS (23.9-36.7) H 06/14/23 22:28 D-Dimer 0.52 ug/mIFEU (0-0.59) 06/14/23 22:28 Specimen Type Arterial 06/15/23 00:50 Sample Site Radial, right 06/15/23 00:50 ABG pH 7.50 (7.35-7.45) H 06/15/23 00:50 ABG pCO2 30.4 mmHg (35-45) L 06/15/23 00:50 ABG pO2 82.3 mmHg (80.0-100.0) 06/15/23 00:50 ABG HCO3 23.4 mmol/L (22-26) 06/15/23 00:50 ABG O2 Saturation 96.6 06/15/23 00:50 ABG Base Excess 0.6 mmol/L (-2.0-2.0) 06/15/23 00:50 Brooks Test Pos 06/15/23 00:50 A-a O2 Gradient 12.0 mmHg (5-10) H 06/15/23 00:50 Hematocrit 28.5 % (42-52) L 06/15/23 00:50 Hgb O2 Saturation 94.9 % (95-100) L 06/15/23 00:50 Carboxyhemoglobin 0.9 %THgb (0.4-20.1) 06/15/23 00:50 Methemoglobin 0.9 % (0.4-1.5) 06/15/23 00:50 Total Hemoglobin 9.3 g/dL (14-18) L 06/15/23 00:50 Sodium 143.0 mmol/L (131-143) 06/15/23 00:50 Potassium 4.1 mmol/L (3.5-5.0) 06/15/23 00:50 Glucose 144.0 mg/dL (70-115) H 06/15/23 00:50 Ionized Calcium 1.2 mmol/L (1.1-1.4) 06/15/23 00:50 O2 Delivery Device Vent 06/15/23 00:50 O2 Liters/Min 2.0 % 06/14/23 22:30 FiO2 30.0 % 06/15/23 00:50 Tidal Volume 0.45 06/15/23 00:50 PEEP 5.0 cmH20 06/15/23 00:50 Concrete Tile Machine Operator ID [email or web address] 06/15/23 00:50 Sodium 146 mmol/L (136-145) H 06/19/23 04:30 Potassium 3.0 mmol/L (3.5-5.1) L 06/19/23 04:30 Chloride 109 mmol/L (98-107) H 06/19/23 04:30 Carbon Dioxide 28 mmol/L (22-29) 06/19/23 04:30 Anion Gap 12.0 (5-19) 06/19/23 04:30 BUN 13 mg/dL (8-23) 06/19/23 04:30 Creatinine 0.6 mg/dL (0.7-1.2) L 06/19/23 04:30 GFR Calculation 165.7 mL/min (90-130) H 06/19/23 04:30 Glucose 90 mg/dL (65-115) 06/19/23 04:30 POC Glucose 185 mg/dL (70-110) H 06/15/23 03:37 Calculated Osmolality 302 mOsm/kg (285-295) H 06/19/23 04:30 Calcium 8.2 mg/dL (8.5-10.5) L 06/19/23 04:30 Phosphorus 3.5 mg/dL (2.5-4.5) 06/14/23 22:28 Magnesium 1.8 mg/dL (1.7-2.3) 06/14/23 22:28 Total Bilirubin 0.3 mg/dL (0.15-1.2) 06/19/23 04:30 AST 13 U/L (0-40) 06/19/23 04:30 ALT 8 U/L (0-41) 06/19/23 04:30 Alkaline Phosphatase 85 U/L (40-130) 06/19/23 04:30 Troponin T Baseline 13 ng/L (0-15) 06/14/23 22:28 Troponin T 120 Minute 11.37 ng/L (0-15) 06/15/23 00:28 Delta Troponin T -1.63 ABS# (0-10) L 06/15/23 00:28 Troponin T Hi Sens 6Hr 11.09 ng/L (0-15) 06/15/23 04:20 Troponin T Hi Sens 6Hr Delta -1.91 ng/L (0-12) L 06/15/23 04:20 NT-Pro-B Natriuret Pep 36 pg/mL (0-125) 06/14/23 22:28 Total Protein 6.1 g/dL (6.6-8.7) L 06/19/23 04:30 Albumin 2.7 g/dL (3.5-5.2) L 06/19/23 04:30 Globulin 3.4 g/dL (1.3-4.6) 06/19/23 04:30 TSH 3.78 uIU/mL (0.27-4.20) 06/14/23 22:28 Random Cortisol 37.15 ug/dL (2.47-19.5) H 06/15/23 04:20 Urine Color Dark yellow (Yellow) 06/15/23 00:28 Urine Appearance Clear (CLEAR) 06/15/23 00:28 Urine pH 6.5 (5-7) 06/15/23 00:28 Ur Specific [place] 1.015 (1.005-1.030) 06/15/23 00:28 Urine Protein Trace (Negative) 06/15/23 00:28 Urine Glucose (UA) Norm (Normal) 06/15/23 00:28 Urine Ketones Negative (Negative) 06/15/23 00:28 Urine Blood Neg (Negative) 06/15/23 00:28 Urine Nitrate Negative (Negative) 06/15/23 00:28 Urine Bilirubin Neg (Negative) 06/15/23 00:28 Urine Urobilinogen 1 mg/dL (Negative) H 06/15/23 00:28 Ur Leukocyte Esterase Negative (Negative) 06/15/23 00:28 Urine RBC None /hpf (0-2) 06/15/23 00:28 Urine WBC None /hpf (0-5) 06/15/23 00:28 Ur Squamous Epith Cells 0-4 /hpf (0-5) H 06/15/23 00:28 Amorphous Sediment Not Reportable 06/15/23 00:28 Urine Bacteria Trace /hpf (NONE) 06/15/23 00:28 Hyaline Casts 5-10 /lpf H 06/15/23 00:28 Urine Mucus 2+ /hpf 06/15/23 00:28 Nasal Influ A H1 2009 PCR Not detected (NOT DETECT) 06/15/23 06:53 Vancomycin Trough 19.6 ug/mL (10-15) H 06/18/23 13:18 Valproic Acid 64.6 ug/mL (50-100) 06/17/23 03:39 Adenovirus (PCR) Not detected (NOT DETECT) 06/15/23 06:53 C. pneumoniae DNA (PCR) Not detected (NOT DETECT) 06/15/23 06:53 Coronavirus 229E (PCR) Not detected (NOT DETECT) 06/15/23 06:53 Human Metapneumovir PCR Not detected (NOT DETECT) 06/15/23 06:53 Influenza A (H1) PCR Not detected (NOT DETECT) 06/15/23 06:53 Influenza A (H3) PCR Not detected (NOT DETECT) 06/15/23 06:53 Influenza Type A (PCR) Not detected (NOT DETECT) 06/15/23 06:53 Influenza Type B (PCR) Not detected (NOT DETECT) 06/15/23 06:53 M. pneumoniae (PCR) Not detected (NOT DETECT) 06/15/23 06:53 Parainfluenza 1 (PCR) Not detected (NOT DETECT) 06/15/23 06:53 Parainfluenza 2 (PCR) Not detected (NOT DETECT) 06/15/23 06:53 Parainfluenza 3 (PCR) Not detected (NOT DETECT) 06/15/23 06:53 Parainfluenza 4 (PCR) Not detected (NOT DETECT) 06/15/23 06:53 RSV Type A (PCR) Not detected (NOT DETECT) 06/15/23 06:53 RSV Type B (PCR) Not detected (NOT DETECT) 06/15/23 06:53 Entero/Rhino (PCR) Not detected (NOT DETECT) 06/15/23 06:53 SARS-CoV-2 (PCR) Not detected (NOT DETECT) 06/15/23 06:53 Vitals Last Vital Signs Temp 96.6 F L 06/19/23 04:00 Pulse 60 06/19/23 09:00 Resp 16 06/19/23 09:00 BP 180/98 06/19/23 09:00 Pulse Ox 96 06/19/23 09:00 O2 Del Method Room Air 06/19/23 06:00 O2 Flow Rate 1 06/17/23 05:00 FiO2 25 06/18/23 00:00 Discharge Plan Discharge Patient Disposition: Home Condition: Critical Prescriptions: New levofloxacin 750 mg tablet 750 mg PO DAILY 7 Days Qty: 7 0RF Zyvox 600 mg tablet 600 mg PO BID 7 Days Qty: 14 0RF Silvadene 1 % cream 1 applic topical DAILY Qty: 20 0RF Rx Instructions: apply a 1.5 mm thickness Continued divalproex [Depakote Sprinkles] 125 mg capsule, delayed rel sprinkle 1,000 mg PO BID Qty: 480 11RF chlorpromazine 200 mg tablet 200 mg PO BID Qty: 60 11RF olanzapine 10 mg tablet 10 mg PO BID Qty: 60 11RF lorazepam 1 mg tablet 1 mg PO BID PRN (Reason: agitation) Qty: 60 5RF clonazepam [Klonopin] 2 mg tablet 2 mg PO DAILY Qty: 30 5RF methylphenidate HCl [Ritalin] 20 mg tablet 20 mg PO TID 30 Days Qty: 90 0RF hydrocortisone 5 mg tablet See Rx Instructions .ROUTE .COMPLEX Qty: 56 12RF Dose Instruction: TAKE 1 TABLET BY MOUTH TWICE DAILY (8AM/NOON) Rx Instructions: TAKE 1 TABLET BY MOUTH TWICE DAILY (8AM/NOON) atorvastatin [Lipitor] 40 mg Tablet 40 mg PO BEDTIME@20 acetaminophen [Tylenol] 325 mg Tablet 325 mg PO Q6H MDD 4g PRN (Reason: Pain) loperamide 2 mg Tablet See Rx Instructions .ROUTE .COMPLEX Rx Instructions: 4mg po with each loose stool *max 8 tabs per day* triamcinolone acetonide 0.1 % Cream 1 applic TOPICAL BID PRN (Reason: fungal infection) calcium carbonate 600 mg calcium (1,500 mg) Tablet 600 mg PO BEDTIME@20 famotidine [Pepcid] 20 mg Tablet 20 mg PO BEDTIME@20 meclizine 25 mg Tablet 25 mg PO DAILY PRN (Reason: Motion Sickness) nystatin 100,000 unit/gram Cream See Rx Instructions .ROUTE .COMPLEX Rx Instructions: apply topically to areas on toes and feet that are cracked/itchy as needed docusate sodium [Colace] 100 mg Capsule 100 mg PO DAILY@08 polyethylene glycol 3350 [Miralax] 17 gram/dose Powder 17 g PO DAILY@12 levothyroxine 112 mcg Tablet 112 mcg PO DAILY@08 benztropine 1 mg tablet 1 mg PO BID@08,20 tamsulosin 0.4 mg capsule 0.4 mg PO DAILY amlodipine 10 mg tablet 10 mg PO DAILY pantoprazole 40 mg tablet,delayed release (DR/EC) 40 mg PO DAILY Held metoprolol succinate 50 mg tablet extended release 24 hr 50 mg PO DAILY Hold Instructions: Resume on 07/19/23. Patient will follow with his PCP with his H/R Log and at that point in time decision regarding initating the medicine can be taken. Discharge Orders: Discharge Order (Routine); Ordered 06/19/23 Ordered By: Kin Angel Referrals: Brittany Bahena MD [Primary Care Provider] - 06/29/23 1:30 pm (Thursday at time of 1:30 pm ) Discharge Activity: As per cardiac/pulm rehab instructions Patient Instructions: Anemia, Silver Sulfadiazine (On the skin) (SSD, Silvadene, Thermazene), Levofloxacin (By mouth) (Levaquin, Levaquin Leva-cammie), Linezolid (By mouth) (Zyvox), Sepsis (DC), Hypotension (DC), Altered Mental Status (GEN), Opioid Safety, Pneumonia Stoplight Discharge Attestations Time Spent in Discharge Care*: less than 30 min Status at Discharge: Cognitive status at discharge: severely impaired cognition, Behavioral status at discharge: cooperative, Quality Metrics Clinical Quality Measures [ No reported AMI, CVA or VTE this stay] Coding Level of Care Code Acute Code for Chg Fwd Diagnoses Hypothermia T68.XXXA Altered mental status R41.82 Acute hypotension I95.9 Thrombocytopenia D69.6 Bradycardia R00.1 Extrapyramidal movement disorder, drug-induced G25.89; T50.905A Adrenal insufficiency E27.40 Pancytopenia D61.818 Hypothyroidism E03.9 Anemia D64.9
--- NOTE | 2023-06-19 14:08 | PC.NURSE ---
Pt was discharged to personal vehicle with caregiver with prescriptions in hand. Patient was able to transfer self with assistance.
== END 2023-06-19 13:30 | disposition intermediate care facility (04) | DRG 314 ==
LOC: ER 06-15 01:15 → ICU 06-15 02:32
PROVIDERS: Admitting Provider Student in an Organized Health Care Education/Training Program; Emergency Provider Emergency Medicine; PCP Family Medicine; Visit Provider Internal Medicine
DX: I95.9 Hypotension, unspecified (principal); J69.0 Pneumonitis due to inhalation of food and vomit; R57.0 Cardiogenic shock; E27.40 Unspecified adrenocortical insufficiency; F84.0 Autistic disorder; G25.9 Extrapyramidal and movement disorder, unspecified; D61.818 Other pancytopenia; R00.1 Bradycardia, unspecified; I10 Essential (primary) hypertension; Z22.321 Carrier or suspected carrier of Methicillin susceptible Staphylococcus aureus; R62.50 Unspecified lack of expected normal physiological development in childhood; E03.9 Hypothyroidism, unspecified; E78.5 Hyperlipidemia, unspecified; G40.909 Epilepsy, unspecified, not intractable, without status epilepticus; D64.9 Anemia, unspecified; R68.0 Hypothermia, not associated with low environmental temperature; G25.79 Other drug induced movement disorders; B96.89 Other specified bacterial agents as the cause of diseases classified elsewhere; B95.61 Methicillin susceptible Staphylococcus aureus infection as the cause of diseases classified elsewhere; R41.82 Altered mental status, unspecified; T21.11XA Burn of first degree of chest wall, initial encounter; Y92.099 Unspecified place in other non-institutional residence as the place of occurrence of the external cause
CPT/HCPCS: 31500; 36415; 36416; 36556; 36592; 36600; 51702; 70450; 71045; 71275; 74177; 80051; 80053; 80164; 80202; 81001; 82274; 82330; 82533; 82805; 82962; 83735; 83880; 84100; 84443; 84484; 85025; 85378; 85610; 85730; 87040; 87070; 87077; 87186; 87205; 87486; 87581; 87633; 92523; 92610; 93005; 93308; 94002; 94003; 94799; 96365; 96366; 96367; 96372; 96375; 96376; 99291; 99292; A4570; C1751; J0171; J0330; J0461; J1644; J1720; J2060; J2543; J2704; J3010; J3370; J3480; J3486; J3490; J7030; J7050; J7060; Q9967

== ENCOUNTER → 2023-07-21 09:03 | Outpatient (BNVA) | payer MEDICARE, MEDICAID, SELFPAY | PROVIDERS: PCP Family Medicine; Visit Provider Nurse Practitioner Family | DX: I96 Gangrene, not elsewhere classified (principal); L98.492 Non-pressure chronic ulcer of skin of other sites with fat layer exposed; T21.22XD Burn of second degree of abdominal wall, subsequent encounter; X19.XXXD Contact with other heat and hot substances, subsequent encounter | CPT/HCPCS: 97597; 97598; 99213; A6212 ==

== ENCOUNTER 2023-07-27 06:00 | Outpatient (RCR) | payer MEDICARE, MEDICAID, SELFPAY | END 2023-07-30 23:59 | disposition home or self-care (01) | LOC: AST 06:00 | PROVIDERS: Visit Provider Family Medicine | DX: F84.0 Autistic disorder (principal); R13.10 Dysphagia, unspecified | CPT/HCPCS: 92610 ==

== ENCOUNTER 2023-07-27 12:21 | Outpatient (CLI) | payer MEDICARE, MEDICAID, SELFPAY | END 2023-07-27 12:22 | disposition home or self-care (01) | PROVIDERS: Visit Provider Internal Medicine | DX: E27.9 Disorder of adrenal gland, unspecified (principal); E27.40 Unspecified adrenocortical insufficiency; E03.9 Hypothyroidism, unspecified; E87.6 Hypokalemia; F84.0 Autistic disorder; R53.1 Weakness; E16.2 Hypoglycemia, unspecified; Z79.890 Hormone replacement therapy | CPT/HCPCS: 80048; 99203; 99214 ==

== ENCOUNTER → 2023-07-28 08:57 | Outpatient (BNVA) | payer MEDICARE, MEDICAID, SELFPAY | PROVIDERS: Visit Provider Nurse Practitioner Family | DX: I96 Gangrene, not elsewhere classified (principal); L98.492 Non-pressure chronic ulcer of skin of other sites with fat layer exposed; T21.22XD Burn of second degree of abdominal wall, subsequent encounter; X19.XXXD Contact with other heat and hot substances, subsequent encounter | CPT/HCPCS: 97597; 97598 ==

== ENCOUNTER → 2023-08-04 10:01 | Outpatient (BNVA) | payer MEDICARE, MEDICAID, SELFPAY | PROVIDERS: Visit Provider Nurse Practitioner Family | DX: I96 Gangrene, not elsewhere classified (principal); T21.22XD Burn of second degree of abdominal wall, subsequent encounter; X19.XXXD Contact with other heat and hot substances, subsequent encounter; Z09 Encounter for follow-up examination after completed treatment for conditions other than malignant neoplasm | CPT/HCPCS: 97597; 97598; A6219 ==

== ENCOUNTER → 2023-08-11 08:52 | Outpatient (BNVA) | payer MEDICARE, MEDICAID, SELFPAY | PROVIDERS: Visit Provider Nurse Practitioner Family | DX: I96 Gangrene, not elsewhere classified (principal); T21.22XD Burn of second degree of abdominal wall, subsequent encounter; X19.XXXD Contact with other heat and hot substances, subsequent encounter | CPT/HCPCS: 97597; 97598; A6210 ==

== ENCOUNTER → 2023-08-18 08:51 | Outpatient (BNVA) | payer MEDICARE, MEDICAID, SELFPAY | PROVIDERS: Visit Provider Nurse Practitioner Family | DX: I96 Gangrene, not elsewhere classified (principal); L98.492 Non-pressure chronic ulcer of skin of other sites with fat layer exposed; T21.22XD Burn of second degree of abdominal wall, subsequent encounter; X19.XXXD Contact with other heat and hot substances, subsequent encounter | CPT/HCPCS: 97597; 97598; A6210; A6219 ==

== ENCOUNTER → 2023-09-03 11:17 | Outpatient (BNVA) | payer MEDICARE, MEDICAID, SELFPAY | PROVIDERS: Visit Provider Nurse Practitioner Family | DX: T21.22XD Burn of second degree of abdominal wall, subsequent encounter (principal); X19.XXXD Contact with other heat and hot substances, subsequent encounter; L98.492 Non-pressure chronic ulcer of skin of other sites with fat layer exposed | CPT/HCPCS: 97597; A6210; A6219 ==

== ENCOUNTER → 2023-09-08 15:06 | Outpatient (BNVA) | payer MEDICARE, MEDICAID, SELFPAY | PROVIDERS: Visit Provider Nurse Practitioner Family | DX: L98.492 Non-pressure chronic ulcer of skin of other sites with fat layer exposed (principal); Z09 Encounter for follow-up examination after completed treatment for conditions other than malignant neoplasm | CPT/HCPCS: 97597; A6220 ==

== ENCOUNTER → 2023-09-09 13:12 | Outpatient (BNVA) | payer MEDICARE, MEDICAID, SELFPAY | PROVIDERS: PCP Family Medicine; Referring Provider Family Medicine; Visit Provider Nurse Practitioner Family | DX: I10 Essential (primary) hypertension (principal) | CPT/HCPCS: 99213 ==

== ENCOUNTER → 2023-09-15 14:58 | Outpatient (BNVA) | payer MEDICARE, MEDICAID, SELFPAY | PROVIDERS: PCP Family Medicine; Visit Provider Nurse Practitioner Family | DX: I96 Gangrene, not elsewhere classified (principal); L98.492 Non-pressure chronic ulcer of skin of other sites with fat layer exposed | CPT/HCPCS: 97597; A6253 ==

== ENCOUNTER → 2023-09-24 10:02 | Outpatient (BNVA) | payer MEDICARE, MEDICAID, SELFPAY | PROVIDERS: PCP Family Medicine; Visit Provider Nurse Practitioner Family | DX: L98.492 Non-pressure chronic ulcer of skin of other sites with fat layer exposed (principal); Z09 Encounter for follow-up examination after completed treatment for conditions other than malignant neoplasm; I96 Gangrene, not elsewhere classified | CPT/HCPCS: 97597; A6220 ==

== ENCOUNTER → 2023-10-01 09:57 | Outpatient (BNVA) | payer MEDICARE, MEDICAID, SELFPAY | PROVIDERS: PCP Family Medicine; Visit Provider Nurse Practitioner Family | DX: I96 Gangrene, not elsewhere classified (principal); L98.492 Non-pressure chronic ulcer of skin of other sites with fat layer exposed; S51.811D Laceration without foreign body of right forearm, subsequent encounter; X58.XXXD Exposure to other specified factors, subsequent encounter | CPT/HCPCS: 97597; A6220 ==

== ENCOUNTER → 2023-10-06 09:02 | Outpatient (BNVA) | payer MEDICARE, MEDICAID, SELFPAY | PROVIDERS: PCP Family Medicine; Visit Provider Nurse Practitioner Family | DX: I96 Gangrene, not elsewhere classified (principal); L98.492 Non-pressure chronic ulcer of skin of other sites with fat layer exposed; S51.811D Laceration without foreign body of right forearm, subsequent encounter; X58.XXXD Exposure to other specified factors, subsequent encounter | CPT/HCPCS: 97597; A6220 ==

== ENCOUNTER → 2023-10-13 09:21 | Outpatient (BNVA) | payer MEDICARE, MEDICAID, SELFPAY | PROVIDERS: PCP Family Medicine; Visit Provider Nurse Practitioner Family | DX: I96 Gangrene, not elsewhere classified (principal); L98.492 Non-pressure chronic ulcer of skin of other sites with fat layer exposed; S51.811D Laceration without foreign body of right forearm, subsequent encounter; X58.XXXD Exposure to other specified factors, subsequent encounter; Z09 Encounter for follow-up examination after completed treatment for conditions other than malignant neoplasm | CPT/HCPCS: 97597; A6220 ==

== ENCOUNTER → 2023-10-20 10:02 | Outpatient (BNVA) | payer MEDICARE, MEDICAID, SELFPAY | PROVIDERS: PCP Family Medicine; Visit Provider Thoracic Surgery (Cardiothoracic Vascular Surgery) | DX: I96 Gangrene, not elsewhere classified (principal); L98.492 Non-pressure chronic ulcer of skin of other sites with fat layer exposed; S51.811D Laceration without foreign body of right forearm, subsequent encounter; X58.XXXD Exposure to other specified factors, subsequent encounter | CPT/HCPCS: 97597 ==

== ENCOUNTER → 2023-10-27 10:06 | Outpatient (BNVA) | payer MEDICARE, MEDICAID, SELFPAY | PROVIDERS: PCP Family Medicine; Visit Provider Nurse Practitioner Family | DX: Z09 Encounter for follow-up examination after completed treatment for conditions other than malignant neoplasm (principal); Z87.2 Personal history of diseases of the skin and subcutaneous tissue | CPT/HCPCS: 99212; A6219 ==

== ENCOUNTER → 2023-11-13 08:05 | Outpatient (BNVA) | payer MEDICARE, MEDICAID, SELFPAY | PROVIDERS: PCP Family Medicine; Visit Provider Internal Medicine | DX: E27.9 Disorder of adrenal gland, unspecified (principal); E27.40 Unspecified adrenocortical insufficiency; E03.9 Hypothyroidism, unspecified; Z79.890 Hormone replacement therapy | CPT/HCPCS: 99214 ==

== ENCOUNTER → 2023-12-10 14:14 | Outpatient (BNVA) | payer MEDICARE, MEDICAID, SELFPAY | PROVIDERS: PCP Family Medicine; Visit Provider Internal Medicine Cardiovascular Disease | DX: R00.1 Bradycardia, unspecified (principal); I10 Essential (primary) hypertension; F84.0 Autistic disorder; E16.2 Hypoglycemia, unspecified | CPT/HCPCS: 99214 ==

== ENCOUNTER → 2024-03-08 11:33 | Outpatient (BNVA) | payer MEDICARE, MEDICAID, SELFPAY | PROVIDERS: PCP Family Medicine; Visit Provider Internal Medicine | DX: E27.9 Disorder of adrenal gland, unspecified (principal); E27.40 Unspecified adrenocortical insufficiency; E03.9 Hypothyroidism, unspecified; Z79.890 Hormone replacement therapy | CPT/HCPCS: 99214 ==

== ENCOUNTER → 2024-09-06 11:43 | Outpatient (BNVA) | payer MEDICARE, MEDICAID, SELFPAY | PROVIDERS: PCP Family Medicine; Visit Provider Internal Medicine | DX: Z79.899 Other long term (current) drug therapy (principal); E27.9 Disorder of adrenal gland, unspecified; E27.40 Unspecified adrenocortical insufficiency; R73.9 Hyperglycemia, unspecified | CPT/HCPCS: 99214 ==